=== PATIENT | female | born 1980 | race Caucasian/White ===

== ENCOUNTER 2020-04-14 14:40 | Outpatient (CLI) | payer OTHER, SELFPAY ==
--- NOTE | ~2020-04-14 | XR_ITS ---
EXAMINATION: XR hand LT 2V, XR hand RT 2V DATE: 04/14/2020 15:06 INDICATION: Arthralgia and swelling at the bilateral hands. TECHNIQUE: 1. Posteroanterior and lateral views of the left hand were obtained. 2. Posteroanterior and lateral views of the right hand were obtained. COMPARISON: None. FINDINGS: Normal alignment at the bilateral hands. No fracture. Joint spaces are normal. No erosions. Soft tiss ues are unremarkable. IMPRESSION: 1. Normal bilateral hand radiographs. Reviewed, dictated and finalized at location B. IMPRESSION: 1. Normal bilateral hand radiographs.
== END 2020-04-14 14:41 | disposition home or self-care (01) ==
PROVIDERS: PCP Emergency Medicine
DX: M25.50 Pain in unspecified joint (principal); M25.40 Effusion, unspecified joint; R76.8 Other specified abnormal immunological findings in serum
CPT/HCPCS: 73120

== ENCOUNTER 2022-01-25 12:07 | Emergency (ER) | payer OTHER, SELFPAY ==
--- NOTE | ~2022-01-25 | XR_ITS ---
EXAMINATION: XR ankle LT min 3V DATE: 01/25/2022 12:31 INDICATION: Left ankle injury and swelling. TECHNIQUE: 4 views of left ankle were obtained. COMPARISON: None. FINDINGS: Bone alignment is normal. No fracture. Joint spaces are well maintained. IMPRESSION: 1. No fracture. Reviewed, dictated and finalized at location A. IMPRESSION: 1. No fracture.
[2022-01-25 12:10] VITALS: BP 144/92; PULSE 103; RESP 18; TEMP 36.7; O2SAT 100
--- NOTE | 2022-01-25 12:31 | ED.LOWEXIN ---
HPI - Extremity Injury (Lower) General Chief Complaint: Extremity Injury, Lower Stated Complaint: left ankle pain Time Seen by Provider: 01/25/22 12:10 History of Present Illness HPI Narrative: 41-year-old female presents the emergency room for evaluation of left ankle pain. Patient states on Monday she was walking and missed a step causing her to roll her ankle. Patient noted significant amount of swelling to her ankle. Patient states for the last couple of days she is kept her ankle elevated and iced and taking anti-inflammatories. Reports waking up this morning and the pain had intensified. Related Data Home Medications Medication Instructions Recorded Confirmed No Home Medications 01/25/22 Allergies Allergy/AdvReac Type Severity Reaction Status Date / Time azithromycin Allergy Other Verified 01/25/22 12:09 Review of Systems Review of Systems: CONSTITUTIONAL: Denies fever, chills, or sweats. EYES: Denies visual changes, redness, or discharge. ENT: Denies rhinorrhea, congestion, sore throat, or otalgia. CARDIOVASCULAR: Denies chest pain, palpitations, or edema. RESPIRATORY: Denies cough or dyspnea. GASTROINTESTINAL: Denies abdominal pain, nausea, vomiting, or diarrhea. GENITOURINARY: Denies dysuria or hematuria. SKIN: Denies rash or itching. MUSCULOSKELETAL: Reports left ankle pain NEUROLOGIC: Denies headache, numbness, dizziness, or weakness. PSYCHIATRIC: Denies anxiety or depression. PMFSH Surgical History Surgical History H/O breast implant History of bilateral tubal ligation Family History Family History Father Hydrocephalus Mother Thyroid disease Social History Social History Smoking status: Never smoker Alcohol intake: current Substance use: unknown Exam Narrative: GENERAL: Well-appearing, well-nourished, no physical limitations, and in no acute distress. HEAD: Normocephalic, atraumatic. EYES: Conjunctivae normal, PERRLA and EOMI. CHEST: Clear to auscultation. No respiratory distress. No wheezes rales or rhonchi. No tenderness. HEART: Regular rate and rhythm. No murmur heard. Normal peripheral pulses. BACK: No CVA tenderness; No cervical/thoracic/lumbar tenderness, step-offs, bony abnormality; FROM EXTREMITIES: Left ankle: Tenderness to the medial and lateral malleolus with soft tissue swelling, ecchymosis present medial malleolus, no joint laxity, no obvious bony abnormality, neurovascular is intact distally SKIN: Warm, dry, no rash. No noted wounds NEURO: No focal deficits. Alert and oriented x3. MAEW. CN's II-XI intact bilaterally, antalgic gait PSYCH: Cooperative. Normal mood and affect. Course Vital Signs Vital signs: Vital Signs Temperature 36.7 C 01/25/22 12:10 Pulse Rate 103 H 01/25/22 12:10 Respiratory Rate 18 01/25/22 12:10 Blood Pressure 144/92 H 01/25/22 12:10 Pulse Oximetry 100 01/25/22 12:10 Oxygen Delivery Room Air 01/25/22 12:10 Temperature 36.7 C 01/25/22 12:10 Pulse Rate 103 H 01/25/22 12:10 Respiratory Rate 18 01/25/22 12:10 Blood Pressure 144/92 H 01/25/22 12:10 Pulse Oximetry 100 01/25/22 12:10 Oxygen Delivery Room Air 01/25/22 12:10 MDM - Extremity Injury (Lower) Imaging Data Radiologist's impression: Impressions Ankle X-Ray 01/25/22 12:44 IMPRESSION: 1. No fracture. Discharge Plan Discharge Clinical Impression: Ankle sprain Patient Disposition: Home, Self-Care Condition: Stable Instructions: Antibiotic Form Additional Instructions: Continue taking Tylenol and naproxen as needed for pain. Keep Shaheen bandage on or similar compression sleeve. Follow-up with orthopedics if your pain is not improved in the next 2 weeks. Prescriptions: No Action No Home Medications Follow-up/Referrals: Xavier
== END 2022-01-25 13:18 | disposition home or self-care (01) ==
PROVIDERS: Emergency Provider Nurse Practitioner Family; PCP Emergency Medicine
DX: S93.402A Sprain of unspecified ligament of left ankle, initial encounter (principal); X50.9XXA Other and unspecified overexertion or strenuous movements or postures, initial encounter
CPT/HCPCS: 73610; 99283

== ENCOUNTER 2022-12-23 11:10 | Emergency (ER) | payer OTHER, SELFPAY ==
--- NOTE | ~2022-12-23 | CT_ITS ---
CT of the Abdomen and Pelvis: Indication: Abdominal pain Technique: 2.5 mm axial scans were obtained through the abdomen and pelvis following intravenous adm inistration of 100 cc of Omnipaque 350. Dose reduction technique was used on this scan by utilizing a utomated exposure control and iterative reconstruction technique. The dose-length product (DLP) was 2 55.95 mGy-cm. Findings: Scans through the lung bases are unremarkable. The liver, spleen, pancreas, gallbladder, adrenals and kidneys are within normal limits. No evidence of aortic aneurysm. No lymphadenopathy. No bowel obstruction or bowel wall thickening. There is no evidence to suggest acute appendicitis. Images through the pelvis were performed. Urinary bladder unremarkable. Probable small left ovarian c yst present. Small amount of free fluid present in the pelvis. Impression: Small amount of pelvic free fluid, nonspecific. Probable small left ovarian cyst. Reviewed, dictated and finalized at [facility]. Impression: Small amount of pelvic free fluid, nonspecific. Probable small left ovarian cyst.
[2022-12-23 11:26] VITALS: BP 134/90; PULSE 88; RESP 18; TEMP 36.7; O2SAT 100
--- NOTE | 2022-12-23 12:15 | ED.GIBLEED ---
HPI - GI Bleed General Chief complaint: GI Bleed Stated complaint: Rectal bleeding Time Seen by Provider: 12/23/22 11:56 History of Present Illness HPI Narrative: 42-year-old female presented the emergency department for evaluation of bright red blood per rectum that started yesterday. Patient states that she noticed some blood when she wiped yesterday but patient has had multiple bloody stools. Patient states she has had multiple bowel movements today that also consisted of a fair amount of blood. Patient took a photo and did show some bright red blood in the bowl. Patient also does describe some left lower quadrant pain. Patient is in process to follow-up with Dr. Apodaca for an initial colonoscopy. Patient is still waiting on her insurance to authorize it, she has not yet scheduled. Patient was having this because she was found to have low iron and elevated MARTITA. Related Data Home Medications Medication Instructions Recorded Confirmed No Home Medications 01/25/22 Allergies Allergy/AdvReac Type Severity Reaction Status Date / Time azithromycin Allergy Other Verified 01/25/22 12:09 Review of Systems Review of Systems: All systems reviewed & are unremarkable except as noted in HPI and below PMFSH Surgical History Surgical History H/O breast implant History of bilateral tubal ligation Family History Family History Father Hydrocephalus Mother Thyroid disease Social History Social History Smoking status: Never smoker Alcohol intake: current Substance use: unknown Exam Narrative: APPEARANCE: Well appearing, no pain, no distress, well-nourished. HEAD: normocephalic, atraumatic. EYES: PERRLA/EOMI, conjunctivae clear. NOSE: Normal no drainage NECK: Supple. No adenopathy, no masses. RESPIRATORY: Airway patent, respirations nonlabored. Clear to auscultation bilaterally, no rales, rhonchi, wheezing. CARDIOVASCULAR: Regular rate and rhythm without murmurs rubs or gallops. ABDOMINAL: Soft, left lower quadrant tenderness to palpation Rectal: No hemorrhoids, Hemoccult positive with small amount of blood on the glove, no active hemorrhage MUSCULOSKELETAL: Moves all extremities. Strength/ROM intact, No edema, No calf tenderness. NEURO: Alert. Cranial nerves II through XII intact. Good gait. Good coordination SKIN: Warm, dry. Normal Color Course Course Emergency Course: 42-year-old female presented to the emergency department for evaluation of left lower quadrant pain. Patient was Hemoccult positive is no active hemorrhage. Baseline labs are being ordered and CT scan is being ordered to evaluate for diverticulitis. On reevaluation patient has no complaints. Patient is afebrile with no leukocytosis and hemoglobin of 12.8. Patient's CMP has no significant abnormalities. Patient's test was negative. Patient has no further bleeding in the ED. Patient does have a colonoscopy that is in process for outpatient. Patient was offered admission for colonoscopy but patient does feel comfortable waiting and for outpatient. Patient and family were updated on the reasons to return to the emergency department. All questions and concerns were addressed. Vital Signs Vital signs: Vital Signs Temperature 98.1 F 12/23/22 11:26 Pulse Rate 88 12/23/22 11:26 Respiratory Rate 18 12/23/22 11:26 Blood Pressure 134/90 12/23/22 11:26 Pulse Oximetry 100 12/23/22 11:26 Oxygen Delivery Room Air 12/23/22 11:26 Temperature 98.1 F 12/23/22 11:26 Pulse Rate 74 12/23/22 14:17 Respiratory Rate 16 12/23/22 14:17 Blood Pressure 111/84 12/23/22 14:17 Pulse Oximetry 99 12/23/22 14:17 Oxygen Delivery Room Air 12/23/22 11:26 MDM - GI Bleed Differential Diagnosis Differential diagnosis: Likely hemorrhoids, Lo
[2022-12-23 12:35] LABS: Basophils Absolute Auto 0.1 K/mm3 (0.0-0.1); Basophils Percent Auto 0.7 % (0.2-1.2); Eosinophils Percent Auto 0.4 % (0-4.4); Hematocrit 39.1 % (37.0-47.0); Hemoglobin 12.8 g/dL (12.0-15.0); Immature Granulocyte Absolute 0.03 K/mm3 (0.00-0.031); Immature Granulocyte Percent A 0.4 % (0-0.5); Lymphocytes Absolute Auto 1.32 K/mm3 (0.9-3.2); Lymphocytes Percent Auto 18.6 % (18.3-44.2); Mean Corpuscular HGB Conc 32.7 g/dl (32-36); Mean Corpuscular Volume 91.8 fl (80-100); Monocytes Absolute Auto 0.6 K/mm3 (0.1-0.6); Monocytes Percent Auto 8.6 % (2.6-8.5); Neutrophils Absolute Auto 5.1 K/mm3 (1.3-6.7); Neutrophils Percent Auto 71.3 % (45.5-73.1); Platelet Count Result 269 k/mm3 (150-375); Red Blood Count 4.26 M/mm3 (4.2-5.4); Red Cell Distribution Width 13.1 % (11.5-14.5); White Blood Count 7.1 K/mm3 (4.5-10.0)
[2022-12-23 12:44] LABS: Alanine Aminotransferase 18 U/L (6-35); Albumin Level 4.4 g/dL (3.5-5.1); Alkaline Phosphatase 52 U/L (38-126); Anion Gap 7 mmol/L (8-16); Aspartate Amino Transferase 23 U/L (14-36); Bilirubin,Total 0.5 mg/dL (0.2-1.3); Blood Urea Nitrogen 11 mg/dL (7-17); Calcium 9.2 mg/dL (8.4-10.2); Carbon Dioxide 27 mmol/L (22-30); Chloride 104 mmol/L (98-107); Estimated CRCL calculation 82 ml/min; Estimated Glomerular Filt Rate > 60; Glucose 89 mg/dL (65-110); Potassium 4.1 mmol/L (3.4-5.0); Sodium 138 mmol/L (137-145)
[2022-12-23 12:45] LABS: Prothrombin Time 13.6 Seconds (11.1-14.7)
[2022-12-23 12:46] LABS: Partial Thromboplastin Time 25.7 SECONDS (22.3-36.8)
[2022-12-23 13:40] LABS: Pregnancy On Board Control Positive; Urine Pregnancy Test Negative
[2022-12-23 14:17] VITALS: BP 111/84; PULSE 74; RESP 16; O2SAT 99
== END 2022-12-23 14:19 | disposition home or self-care (01) ==
PROVIDERS: Emergency Provider Emergency Medicine; PCP Emergency Medicine
DX: K62.5 Hemorrhage of anus and rectum (principal)
CPT/HCPCS: 36415; 74177; 80053; 81025; 85025; 85610; 85730; 99284; Q9967

== ENCOUNTER 2023-01-18 11:10 | Outpatient (CLI) | payer OTHER, SELFPAY ==
[2023-01-18 11:47] LABS: Hematocrit 34.1 % (37.0-47.0); Hemoglobin 10.9 g/dL (12.0-15.0); Mean Corpuscular Hemoglobin 28.5 pg (26-34); Mean Corpuscular Volume 89.3 fl (80-100); Mean Platelet Volume 10.1 fl (7.4-10.4); Platelet Count Result 294 k/mm3 (150-375); Red Blood Count 3.82 M/mm3 (4.2-5.4); Red Cell Distribution Width 12.6 % (11.5-14.5); White Blood Count 6.5 K/mm3 (4.5-10.0)
[2023-01-18 12:09] LABS: CRP < 0.5 mg/dL (<1.0)
[2023-01-18 12:36] LABS: Erythrocyte Sedimentation Rate 19 mm/hr (0-20)
[2023-01-18 13:01] LABS: Iron 30 ug/dL (37-170)
[2023-01-18 13:10] LABS: Percent Iron Saturation 6 % (20-50)
[2023-01-23 11:43] LABS: Immunoglobulin A 239 mg/dL (47-310); TTG IGA AB <1.0 U/mL (<15.0)
== END 2023-01-18 11:11 | disposition home or self-care (01) ==
PROVIDERS: PCP Emergency Medicine; Visit Provider Nurse Practitioner
DX: D50.9 Iron deficiency anemia, unspecified (principal); K92.1 Melena; R09.89 Other specified symptoms and signs involving the circulatory and respiratory systems; R13.10 Dysphagia, unspecified; R19.7 Diarrhea, unspecified
CPT/HCPCS: 36415; 82728; 82784; 83540; 83550; 85027; 85652; 86140; 86364

== ENCOUNTER 2023-01-20 11:05 | Outpatient (NON) | payer OTHER, SELFPAY ==
[2023-01-28 21:02] LABS: Calprotectin, Stool 20 mcg/g
== END 2023-01-20 11:06 | disposition home or self-care (01) ==
PROVIDERS: PCP Emergency Medicine; Visit Provider Nurse Practitioner
DX: D50.9 Iron deficiency anemia, unspecified (principal); K92.1 Melena; R09.89 Other specified symptoms and signs involving the circulatory and respiratory systems; R13.10 Dysphagia, unspecified; R19.7 Diarrhea, unspecified
CPT/HCPCS: 83993; 87045; 87177; 87209; 87269; 87427; 87449

== ENCOUNTER → 2023-03-07 12:24 | Outpatient (CLI) | payer OTHER, SELFPAY ==
--- NOTE | ~2023-03-07 | MM_ITS ---
CORRECTED REPORT exam description [facility] [place] 03/07/23 This report was recreated on 03/07/23. Original report was EXAMINATION: MM scrn joel implant BI w alma delia HISTORY: Screening TECHNIQUE: Craniocaudal and mediolateral oblique 3-D tomosynthesis images were obtained and synthetic 2-D images were generated. CAD analysis was submitted and interpreted. COMPARISON: No prior mammogram is available for comparison at this institution. BREAST PARENCHYMAL COMPOSITION: There are scattered areas of fibroglandular density. FINDINGS: There are bilateral subglandular silicone implants. There is no evidence of suspicious mass, calcification, or architectural distortion to suggest malignancy in either breast. There has been no suspicious interval change. IMPRESSION: 1. No mammographic evidence of malignancy. 2. Recommend routine screening mammography in one year. BI-RADS Category 1: Negative Reviewed, dictated and finalized at location A. MTDD
== END ==
PROVIDERS: PCP Obstetrics & Gynecology; Visit Provider Obstetrics & Gynecology
DX: Z12.31 Encounter for screening mammogram for malignant neoplasm of breast (principal)
CPT/HCPCS: 77063; 77067

== ENCOUNTER 2023-03-15 01:00 | Day surgery (SDC) | payer OTHER, SELFPAY ==
[2023-03-06 13:48] VITALS: BMI 24.5
[2023-03-15 06:28] VITALS: BP 110/84; PULSE 82; RESP 16; TEMP 36.3; O2SAT 100
[2023-03-15] MEDS: LACTATED RINGERS 1,000 ML 150 ML IV CONT (06:35)
--- NOTE | 2023-03-15 07:24 | P.PNAN_ITS ---
Anes - Initial Pre Proc Eval Procedure: Operation Date: 03/15/23 07:30 Proposed Procedures p Esophagogastroduodenoscopy & Colonoscopy - Sebastien Sharp MD Date/Time: 03/15/23 07:24 Surgeon: Sebastien Sharp MD Pre Op Diagnosis: dysphagia,diarrhea,melena,Iron Deficiency Anemia Patient Data Age: 42 Gender: F Height: 1.57 m Weight: 61 kg Last Vital Signs Temp 97.4 F L 03/15/23 06:28 Pulse 82 03/15/23 06:28 Resp 16 03/15/23 06:28 BP 110/84 03/15/23 06:28 Pulse Ox 100 03/15/23 06:28 O2 Del Method Room Air 03/15/23 06:28 Allergies Allergy/AdvReac Type Severity Reaction Status Date / Time azithromycin Allergy Other Verified 03/15/23 06:24 Home Medications Medication Instructions Recorded Confirmed Type ferrous sulfate 325 mg (65 mg 325 mg PO BID #60 tabs 01/18/23 03/15/23 Rx iron) tablet multivitamin with minerals-folic 1 tablet PO DAILY 03/06/23 03/15/23 History acid 0.4 mg tablet Patient hx anesthesia problems: none Family hx anesthesia problems: none Results Review: All pre-operative results and documents have been reviewed as part of the pre- operative evaluation. [facility] Past Medical History Medical History (Updated 01/18/23 @ 12:12 by Jihan Rogers APRN) Anxiety Diarrhea Dysphagia GI bleed Globus syndrome Hematochezia Iron deficiency anemia Surgical History Surgical History H/O breast implant History of bilateral tubal ligation Hx of breast augmentation Hx of tubal ligation Family History Family History Father Hydrocephalus Mother Thyroid disease Social History Social History (Updated 01/18/23 @ 10:07 by Archana Cavazos CMA) Smoking status: Former smoker Tobacco type: cigarettes and e-cigarettes/vaping Alcohol intake: current Alcohol use details: social Substance use: never Substance use type: does not use Living arrangements: with family Spiritual care concerns: No Anes - Eval Final PreProcedure Day of Procedure 03/15/23 07:24 Patient weight: normal Heart: regular rate and rhythm Lungs: clear to auscultation Airway: Mallampati scale class II Neurological: alert and oriented Last oral intake: >/= 8 hours ASA classification: II Emergent: no Anesthetic plan: proceed Anesthesia type and monitoring: general GIVS and standard monitoring Results Review: All pre-operative results and documents have been reviewed as part of the pre- operative evaluation. Informed Consent: The patient's anesthetic plan and its attendant risks and benefits were discussed with the patient/family/POA. Questions were solicited and answers provided to the satisfaction of the patient/family/POA.
--- NOTE | 2023-03-15 07:26 | PM.HPGS ---
History of Present Illness History of Present Illness Consent: Risks, benefits, and alternatives have been discussed and questions answered. Patient agrees to proceed with procedure. Chief complaint: dysphagia,diarrhea,melena,Iron Deficiency Anemia Narrative: Hali Samuels is a 42 year old female with shiv, never had scopes, several weeks ago had also rectal bleeding. Review of Systems Constitutional: Constitutional: Denies headache(s) and Denies weakness Eyes: Eyes: Denies blurry vision ENT: Reports Normal hearing present, Denies headache(s) and Denies neck pain Cardiovascular: Cardiovascular: Denies chest pain and Denies dyspnea Respiratory: Respiratory: Denies dyspnea Gastrointestinal: Gastrointestinal: Reports no additional gastrointestinal complaints Genitourinary: Genitourinary: Denies dysuria Musculoskeletal: Musculoskeletal: Denies neck pain Integumentary/Breasts: Skin/Breast: Denies dry skin Neurologic: Reports Normal hearing present, Denies headache(s) and Denies weakness Psychiatric: Psychiatric: Denies anxiety Endocrine: Endocrine: Denies change in body appearance Hematologic/Lymphatic: Hematologic/Lymphatic: Denies easy bleeding Allergic/Immunologic: Allergic/Immunologic: Denies urticaria PMFSH Past Medical History Medical History (Updated 01/18/23 @ 12:12 by Jihan Rogers APRN) Anxiety Diarrhea Dysphagia GI bleed Globus syndrome Hematochezia Iron deficiency anemia Surgical History Surgical History H/O breast implant History of bilateral tubal ligation Hx of breast augmentation Hx of tubal ligation Family History Family History Father Hydrocephalus Mother Thyroid disease Social History Social History (Updated 01/18/23 @ 10:07 by Archana Cavazos CMA) Smoking status: Former smoker Tobacco type: cigarettes and e-cigarettes/vaping Alcohol intake: current Alcohol use details: social Substance use: never Substance use type: does not use Living arrangements: with family Spiritual care concerns: No Meds Home Medications and Allergies Home Medications Medication Instructions Recorded Confirmed Type ferrous sulfate 325 mg (65 mg 325 mg PO BID #60 tabs 01/18/23 03/15/23 Rx iron) tablet multivitamin with minerals-folic 1 tablet PO DAILY 09/18/23 09/27/23 History acid 0.4 mg tablet Allergies Allergy/AdvReac Type Severity Reaction Status Date / Time azithromycin Allergy Other Verified 03/15/23 06:24 Vital Signs Vital Signs - 24 hr 03/15/23 06:28 Temperature 97.4 F L Pulse Rate 82 Respiratory Rate 16 Blood Pressure 110/84 Pulse Oximetry 100 Oxygen Delivery Room Air Exam Const: General: comfortable and no acute distress HENMT: Face/Nose/Sinus: Normal nares present Eyes: General: appearance normal, both eyes and all related structures Neck: Neck: no JVD Resp: Auscultation: clear to auscultation bilaterally Cardio: Rate: regular rate Rhythm: regular rhythm GI: Inspection: non-distended GI Palp: Yes Soft to palpation Skin: General skin exam: normal color Neuro: General: gait normal Speech: normal speech Extrem: General: normal to inspection Psych: Mental Status: mental status grossly normal Assessment and Plan Assessment and plan (1) Hematochezia: Code(s): K92.1 - Melena Status: Acute Assessment and Plan: colonoscopy (2) Iron deficiency anemia: Code(s): D50.9 - Iron deficiency anemia, unspecified Status: Acute Assessment and Plan: egd and colonoscopy (3) Globus syndrome: Code(s): R09.89 - Other specified symptoms and signs involving the circulatory and respiratory systems Status: Acute
[2023-03-15] MEDS: BENZOCAINE (*SP) 60 ML SPRAY CAN (HURRICAINE) 1 SPRAY MUCOUS MEM (07:32)
[2023-03-15 08:02] VITALS: BP 97/67; PULSE 101; RESP 28; O2SAT 100
[2023-03-15 08:12] VITALS: BP 115/74; PULSE 80; RESP 18; O2SAT 100
--- NOTE | 2023-03-15 08:19 | SUR.OPER ---
EGD START 733, END 736 COLONOSCOPY START 741, END 075
[2023-03-15 08:22] VITALS: BP 116/78; PULSE 80; RESP 18; O2SAT 100
== END 2023-03-15 08:30 | disposition home or self-care (01) ==
PROVIDERS: PCP Emergency Medicine; Visit Provider Internal Medicine Gastroenterology
PROC: 0DJ08ZZ Inspection of Upper Intestinal Tract, Via Natural or Artificial Opening Endoscopic (ICD-10-PCS; CPT 43235; principal; 2023-03-15 07:30)
DX: Z12.11 Encounter for screening for malignant neoplasm of colon (principal); D12.0 Benign neoplasm of cecum; D12.4 Benign neoplasm of descending colon; D12.5 Benign neoplasm of sigmoid colon; K64.8 Other hemorrhoids; D50.9 Iron deficiency anemia, unspecified; Z87.891 Personal history of nicotine dependence
CPT/HCPCS: 45385; 45381; 43239; 88305; J2001; J2704; J7120

== ENCOUNTER 2024-04-16 11:47 | Outpatient (CLI) | payer OTHER, SELFPAY ==
--- NOTE | ~2024-04-16 | MM_ITS ---
EXAMINATION: MM scrn joel implant BI w alma delia HISTORY: Screening mammogram TECHNIQUE: Craniocaudal and mediolateral oblique 3-D tomosynthesis images with implant displacement a nd synthetic 2-D images were generated. Craniocaudal and mediolateral oblique views of the breasts wi thout implant displacement were obtained using full field digital mammography. CAD analysis was submi tted and interpreted. COMPARISON: 03/07/2023 BREAST PARENCHYMAL COMPOSITION: The breasts are heterogeneously dense, which may obscure small masses . FINDINGS: There is no evidence of suspicious mass, calcification, or architectural distortion to sugg est malignancy in either breast. There has been no suspicious interval change. IMPRESSION: No mammographic evidence of malignancy. Recommend routine screening mammography in one year. BI-RADS Category 1: Negative Reviewed, dictated and finalized at [facility].
== END 2024-04-16 11:48 | disposition home or self-care (01) ==
LOC: MICIMG 11:48
PROVIDERS: PCP Emergency Medicine; Visit Provider Obstetrics & Gynecology
DX: Z12.31 Encounter for screening mammogram for malignant neoplasm of breast (principal)
CPT/HCPCS: 77063; 77067

== ENCOUNTER 2024-05-24 10:35 | Outpatient (CLI) | payer OTHER, SELFPAY ==
--- NOTE | ~2024-05-24 | US_ITS ---
EXAMINATION:US venous doppler LE RT INDICATION:Right lower extremity pain TECHNIQUE: Multiple grayscale, color flow and Doppler images of the right lower extremity deep venous systems were obtained and reviewed. COMPARISON:No prior studies for comparison. FINDINGS: The common femoral, superficial femoral and popliteal veins demonstrate normal respiratory variation, augmentation and compressibility. Color flow is also seen within the posterior tibial, pe roneal, greater saphenous and profunda veins. IMPRESSION: 1: No lower extremity deep venous thrombosis. Reviewed, dictated and finalized at location B. DYNAMICS PROFESSOR
== END 2024-05-24 10:36 | disposition home or self-care (01) ==
PROVIDERS: PCP Emergency Medicine; Visit Provider Emergency Medicine
DX: M79.661 Pain in right lower leg (principal)
CPT/HCPCS: 93971

== ENCOUNTER 2024-06-10 00:55 | Day surgery (SDC) | payer OTHER, SELFPAY ==
[2024-05-30 14:09] VITALS: BMI 23.4
[2024-06-10 08:51] VITALS: BP 109/79; PULSE 88; RESP 16; TEMP 36; O2SAT 100
[2024-06-10 08:59] LABS: BEDSIDEPREGUCG Negative (Negative)
[2024-06-10] MEDS: LACTATED RINGERS 1,000 ML 150 ML IV CONT (09:06)
--- NOTE | 2024-06-10 09:45 | P.PNAN_ITS ---
Anes - Initial Pre Proc Eval Procedure: Operation Date: 06/10/24 10:00 Proposed Procedures p Colonoscopy - Sebastien Sharp MD Date/Time: 06/10/24 09:45 Surgeon: Sebastien Sharp MD Pre Op Diagnosis: Personal Hx. colon polyps Patient Data Age: 43 Gender: F Height: 1.6 m Weight: 60.4 kg Last Vital Signs Temp 96.8 F L 06/10/24 08:51 Pulse 88 06/10/24 08:51 Resp 16 06/10/24 08:51 BP 109/79 06/10/24 08:51 Pulse Ox 100 06/10/24 08:51 O2 Del Method Room Air 06/10/24 08:51 Allergies Allergy/AdvReac Type Severity Reaction Status Date / Time azithromycin Allergy Other Verified 06/10/24 08:48 Home Medications ?Medication ?Instructions ?Recorded ?Confirmed ?Type ferrous sulfate 325 mg (65 mg 325 mg PO BID #60 tabs 01/18/23 06/10/24 Rx iron) tablet multivitamin with minerals-folic 1 tablet PO DAILY 03/06/23 06/10/24 History acid 0.4 mg tablet Laboratory Tests 06/10/24 08:56 POC Urine HCG, Qual Negative (Negative) Patient hx anesthesia problems: none Family hx anesthesia problems: none Results Review: All pre-operative results and documents have been reviewed as part of the pre- operative evaluation. [facility] Past Medical History Medical History GI bleed Dysphagia Globus syndrome Diarrhea Hematochezia Iron deficiency anemia Anxiety Surgical History Surgical History Hx of tubal ligation Hx of breast augmentation H/O breast implant History of bilateral tubal ligation Family History Family History Father Hydrocephalus Mother Thyroid disease Social History Social History Smoking status: Never smoker Tobacco type: e-cigarettes/vaping Alcohol intake: current Alcohol use details: social Substance use: never Substance use type: does not use Living arrangements: with family Spiritual care concerns: No Anes - Eval Final PreProcedure Day of Procedure 06/10/24 09:45 Patient weight: normal Heart: regular rate and rhythm Lungs: clear to auscultation Airway: Mallampati scale class II Neurological: alert and oriented Last oral intake: >/= 8 hours ASA classification: II Emergent: no Anesthetic plan: proceed Anesthesia type and monitoring: general GIVS and standard monitoring Results Review: All pre-operative results and documents have been reviewed as part of the pre- operative evaluation. Hx of anemia, now for reeval. Informed Consent: The patient's anesthetic plan and its attendant risks and benefits were discussed with the patient/family/POA. Questions were solicited and answers provided to the satisfaction of the patient/family/POA.
--- NOTE | 2024-06-10 09:55 | PM.HPGS ---
History of Present Illness History of Present Illness Consent: Risks, benefits, and alternatives have been discussed and questions answered. Patient agrees to proceed with procedure. Chief complaint: Personal Hx. colon polyps Narrative: Hali Samuels is a 43 year old female with colon polyp 1 year ago Review of Systems Review of Systems: All systems reviewed & are unremarkable except as noted in HPI and below PMFSH Past Medical History Medical History (Updated 06/10/24 @ 09:56 by Sebastien Sharp MD) Adenomatous colon polyp GI bleed Dysphagia Globus syndrome Diarrhea Hematochezia Iron deficiency anemia Anxiety Surgical History Surgical History Hx of tubal ligation Hx of breast augmentation H/O breast implant History of bilateral tubal ligation Family History Family History Father Hydrocephalus Mother Thyroid disease Social History Social History Smoking status: Never smoker Tobacco type: e-cigarettes/vaping Alcohol intake: current Alcohol use details: social Substance use: never Substance use type: does not use Living arrangements: with family Spiritual care concerns: No Meds Home Medications and Allergies Home Medications ?Medication ?Instructions ?Recorded ?Confirmed ?Type ferrous sulfate 325 mg (65 mg 325 mg PO BID #60 tabs 01/18/23 06/10/24 Rx iron) tablet multivitamin with minerals-folic 1 tablet PO DAILY 03/06/23 06/10/24 History acid 0.4 mg tablet Allergies Allergy/AdvReac Type Severity Reaction Status Date / Time azithromycin Allergy Other Verified 06/10/24 08:48 Vital Signs Vital Signs - 24 hr 06/10/24 08:51 Temperature 96.8 F L Pulse Rate 88 Respiratory Rate 16 Blood Pressure 109/79 Pulse Oximetry 100 Oxygen Delivery Room Air Exam Const: General: comfortable and no acute distress HENMT: Face/Nose/Sinus: Normal nares present Eyes: General: appearance normal, both eyes and all related structures Neck: Neck: no JVD Resp: Auscultation: clear to auscultation bilaterally Cardio: Rate: regular rate Rhythm: regular rhythm GI: Inspection: non-distended GI Palp: Yes Soft to palpation Skin: General skin exam: normal color Neuro: General: gait normal Speech: normal speech Extrem: General: normal to inspection Psych: Mental Status: mental status grossly normal Assessment and Plan Assessment and plan (1) Adenomatous colon polyp: Code(s): D12.6 - Benign neoplasm of colon, unspecified Status: Acute Assessment and Plan: colonoscopy
[2024-06-10 10:15] VITALS: BP 93/60; PULSE 78; RESP 18; O2SAT 98
[2024-06-10 10:25] VITALS: BP 91/58; PULSE 67; RESP 18; O2SAT 95
[2024-06-10 10:35] VITALS: BP 111/75; PULSE 70; RESP 18; O2SAT 98
--- OUTSIDE RECORDS SUMMARY | 2024-06-17 03:36 | XMS_ITS | Clinical Summary ---
Author Organization [facility] Address [address] [place] [address]. [place], [place] [id number] [place] [address] Care Team Providers Care Digital Advisor Name Role Phone Rom Vidales MD Primary Care Provider [phone] Social History Tobacco Use Types Packs/Day Years Used Date Smoking Tobacco: Never Assessed Comments Unknown Sex and Gender Information Value Date Recorded Sex Assigned at Not on file Legal Sex Female 5:19 PM CDT Gender Identity Not on file Sexual Orientation Not on file Plan of Treatment Health Maintenance Due Date Last Done Comments Cervical Cancer Screening Pa p Smear (Age 30 to 64) Every 3 Years 1980 Annual Physical 09/03/1983 Hepatitis C 1998 DTaP, Tdap and Td Vaccines ( 1 - Tdap) 09/03/1999 Hepatitis B Vaccines (1 of 3 - 19+ 3-dose series) 09/03/1999 Cervical Cancer Screening Pa p with HPV Testing (Age 30 to 64) Every 5 Years 2010 Cervical Cancer Screening with HPV 2010 Mammogram Screening 2020 COVID-19 Vaccine (2023-2 5 season) 2024 Influenza Adult (#1) 2024 HPV Vaccines Aged Out No longer eligi ble based on patient's age to complete this topic Meningococcal Vaccine Aged Out No emre jesus eligible based on patient's age to complete this topic Pneumococcal Vaccine: Pediat rics (0 to 5 Years) and At-Risk Patients (6 to 64 Years) Aged Out No longer eligible b ased on patient's age to complete this topic RSV Immunizations Under 20 Months Aged Out No longer eligible based on patient's age to complete this topic Care Teams Digital Advisor Relationship Specialty Start Date End Date Rom Vidales MD PCP - General FAMILY PRACTICE 03/24/21
--- OUTSIDE RECORDS SUMMARY | 2024-06-17 03:36 | XMS_ITS | Encounter Summary ---
Author Organization [facility] Address [address] [place] [address] Care Team Providers Care Director Name Role Phone Rom Vidales MD Primary Care Provider [phone] Reason for Visit * Reason Comments Infertility Encounter Details Date Type Department Care Team (Late st Contact Info) Description 03/23/2020 9:00 AM CDT Office Visit [facility] Obstetrics Gynecology and Women's Health [address] [id number] Portillo Vazquez MD [address] [facility] [address] [place] [address] History of tubal ligation (Primary Dx); History of loop electrical excision procedure (LEEP); BMI 24.0-24.9, adult; Antinuclear antibody (MARTITA) titer greater than 1:80; History of recurrent UTIs; Fertility testing; Pre-conception counseling Social History Tobacco Use Types Packs/Day Years Used Date Smoking Tobacco: Former Cigarettes Smokeless Tobacco: Never Alcohol Use Standard Drinks/Week Comments Yes 0 (1 standard drink = 0.6 oz pur e alcohol) Sex and Gender Information Value Date Recorded Sex Assigned at Not on file Gender Identity Not on file Sexual Orientation Not on file documented as of this encounter Last Filed Vital Signs Vital Sign Reading Time Taken Comments Blood Pressure 116/74 03/23/2020 9:14 AM CDT Pulse - - Temperature - - Respiratory Rate - - Oxygen Saturation - - Inhaled Oxygen Concentration - - Weight 62.1 kg (137 lb) 03/23/2020 9:14 AM CDT Height 157.5 cm (5' 2 ) 03/23/2020 9:14 AM CDT Body Mass Index 25.06 03/23/2020 9:14 AM CDT documented in this encounter Patient Instructions * Patient Instructions* Portillo Vazquez MD - 03/23/2020 9:37 AM CDT Get your AMH and we will discuss options after that. Jamel get semen analysis at [facility] Active Directory Systems Administrator [phone] Call Jesenia Chiang at [phone] at the start of your menses to schedule your procedure. Semen Analysis Instructions 1. By appointment only, times are Monday through Monday 9AM, 10AM, 11AM, 12 Noon, or 1PM. Call , to make an appointment. On the day and time of your appointment, please go to the 3rd floor, [address], [address] [place] [address]. 2. Please collect a semen specimen following 2-5 days of sexual abstinence (no intercourse, no masturbation, etc). 3. If needed, urinate prior to collecting your specimen. Clean the genital area well (including retracting the foreskin) with water only. 4. Do not use any lubricants (no baby oil, Vaseline, cream, etc) to aid in specimen collection. These may be spermicidal. 5. Do not use vaginal or oral stimulation for collection unless you are collecting using a Seminal Collection Device (condom) as described below. 6. Collect the entire specimen in the sterile container provided by the laboratory. Expect between 1/2 to 1 teaspoon of fluid. 7. Please report if there is any spillage; describe which portion. (IMPORTANT!) We need the full sample for analysis. 8. If the specimen is not produced by masturbation, a condom especially manufactured for this purpose must be used and can be obtained from our laboratory. Please don't use any other condoms for collection. 9. If the specimen is produced at home, please deliver it to laboratory within 1 hour of production. Please picking belt operator a sterile container from the doctor's office prior to collection. Try to keep the specimen near body temperature and maintain in an upright position (e.g. Inside a shirt pocket). 10. Label container and lid with your name, date of , and the date. The quality of semen varies, therefore it may be necessary to repeat this test. Please contact the laboratory at with any questions. Results are sent to the physician ordering the test. Our fax number is . The cost of the test is $144; please call to verify insurance benefits prior to the appointment. documented in this encounter Progress Notes * Portillo Vazquez MD - 03/23/2020 9:16 AM CDT REPRODUCTIVE ENDOCRINOLOGY AND INFERTILITY VISIT Patient Name:Hali Samuels Date of :1980 Today's Date:03/23/2020 HPI Hali Samuels is a 39 year old here wanting to conceive after tubal ligation, which wasperformed in 2011. The operative report is not available but she states about 1.5 cm of tube was removed on PPD# 1 The pathology Report is not available The procedure was performed with what sounds like sutures, no cautery In vitro fertilization has not been discussed with patient yet Hali prior to her visit today. Her partner has not fathered children in the past. He has not had a recent semen analysis. History of PID?no Menses are described as clockwork OB HISTORY OB History Para Term AB Living 7 6 6 1 6 SAB TAB Ectopic Multiple Live Births 1 # Outcome Date GA Lbr Guero/2nd Weight Sex Delivery Anes PTL Lv 7 SAB 6 Term 5 Term 4 Term 3 Term 2 Term 1 Term ROS Constitutional: Negative Eyes: Negative Ears, nose, mouth, throat, and face: Negative Respiratory: Negative Cardiovascular: Negative Gastrointestinal: Negative Genitourinary:Negative Integument/breast: Negative Hematologic/lymphatic: Negative Musculoskeletal: Negative Neurological: Negative Behavioral/Psych: Negative Endocrine: Negative Allergic/mmunologic: Negative ALLERGIES No Known Allergies MEDICATIONS Current Outpatient Medications Medication Sig Dispense Refill ??? Multiple Vitamins-Minerals (ONE-A-DAY WOMENS PO) Take 1 tablet by mouth once daily No current facility-administered medications for this visit. PAST MEDICAL HISTORY Past Medical History: Diagnosis Date ??? H/O bladder infections PAST SURGICAL HISTORY Past Surgical History: Procedure Laterality Date ??? Breast Surgery 2007 ??? Cervical LEEP ??? TUBAL LIGATION, VAGINAL OR ABDOMINAL 2012 FAMILY HISTORY Family History Problem Relation Name Age of Onset ??? Thyroid Disease Mother SOCIAL HISTORY Social History Socioeconomic History ??? Marital status: Spouse name: Not on file ??? Number of children: Not on file ??? Years of education: Not on file ??? Highest education level: Not on file Occupational History ??? Occupation: Works in [employer] Social Needs ??? Financial resource strain: Not on file ??? Food insecurity Worry: Not on file Inability: Not on file ??? Transportation needs Medical: Not on file Non-medical: Not on file Tobacco Use ??? Smoking status: Former Smoker Types: Cigarettes ??? Smokeless tobacco: Never Used Substance and Sexual Activity ??? Alcohol use: Yes ??? Drug use: Never ??? Sexual activity: Yes Partners: Male Lifestyle ??? Physical activity Days per week: Not on file Minutes per session: Not on file ??? Stress: Not on file Relationships ??? Social connections Talks on phone: Not on file Gets together: Not on file Attends tenriism service: Not on file Active member of club or organization: Not on file Attends meetings of clubs or organizations: Not on file Relationship status: Not on file ??? Intimate partner violence Fear of current or ex partner: Not on file Emotionally abused: Not on file Physically abused: Not on file Forced sexual activity: Not on file Other Topics Concern ??? Not on file Social History Narrative ??? Not on file PHYSICAL EXAMINATION Vitals: 03/23/20 0914 BP: 116/74 Weight: 137 lb Height: 5' [address] Coleman Up to date. ASSESSMENT AND PLAN: History of tubal ligation - Plan: OBG Surgery Scheduling Order History of loop electrical excision procedure (LEEP) BMI 24.0-24.9, adult Antinuclear antibody (MARTITA) titer greater than 1:80 History of recurrent UTIs Fertility testing Pre-conception counseling - Plan: ANTI-MULLERIAN HORMONE FEMALE Hali was thoroughly counseled with the pros and cons for each option: surgical tubal reversal and in vitro fertilization. The patient was instructed how the steps for a tubal reversal would be performed. The risks of bleeding, infection, trauma and other unforeseen complications were discussed. The patient understands that there is no guarantee that the procedure will be successful, and that hertubes may scar down despite our best efforts. She understands that she is at an increased risk of ectopic as well. She is also aware that she will need contraception in the future. Hali also understands that in vitro fertilization is an option. We discussed the steps with IVF aswell as the risks. She understands that she will no longer need contraception after IVF, like she will with tubal reversal. She understands that this is a [facility] and that I am unable to perform IVF at this institution. She was instructed that the procedure would be performed during the week following her menses. Hali's partner needs a semen analysis. AMH and FSH levels discussed with patient. Will need an AMH Hali will consider the options and call us back with her decision of tubal reversal vs IVF. I spent 35 minutes face to face with this patient, with greater than 50% of the time spent in counseling and/or coordination of care. documented in this encounter Plan of Treatment Not on file documented as of this encounter Procedures Procedure Name Priority Date/Time Associated Diagnosis Comments URIC ACID BLOOD 04/10/2020 2:07 PM CDT HLA TYPING B27 04/10/2020 2:07 PM CDT ANTI-MULLERIAN HORMONE FEMALE Routine 03/23/2020 9:53 AM CDT Pre-conception counseling documented in this encounter Results * HLA TYPING B27 (04/10/2020 2:07 PM CDT) HLA-B27 Negative [facility] INSURANCE BILL Comment: HLA-B*27 Negative B27 allele interpretation for all loci based on IMGT/HLA database version 3.38 This test was developed and its performance characteristics determined by [facility]. ??It has not been cleared or approved by the Food and Drug Administration. HLA Lab CLIA ID Number [id number] ? . This test was performed using PCR (Polymerase Chain Reaction)/SSOP (Sequence Specific Oligonucleotide Probes) technique. ??SBT (Sequence Based Typing) and/or SSP (Sequence Specific Primers) may be used as supplemental methods when necessary. ??Please contact [facility] Customer Service at if you have any questions. ? . Director of HLA Laboratory Dr Jordi Sorto, PhD 04/10/2020 2:07 PM CDT 04/10/2020 Narrative Resulting Agency Comment Lab Testing performed at: [place] [id number] [facility] ??[facility] [id number] Elayne Cox MD LAB - CHEMISTRY ORDERABLES Performing Organization Address City/[facility] Co de Phone Number [employer] INSURANCE BILL [address] [place] [address] * URIC ACID BLOOD (04/10/2020 2:07 PM CDT) Pathologist [facility] Uric Acid 4.3 2.5 - 7.1 mg/dL [employer] INSURANCE BILL Comment:Therapeutic target f or gout patients: <6.0 04/10/2020 2:07 PM CDT 04/10/2020 Narrative Resulting Agency Comment Lab Testing performed at: [facility] [address] [facility] ??[facility] [id number] Elayne Cox MD LAB - CHEMISTRY ORDERABLES Performing Organization Address City/[facility] Co de Phone Number [employer] INSURANCE BILL [address] [place] [address] * ANTI-MULLERIAN HORMONE FEMALE (03/23/2020 9:53 AM CDT) Anti-Mullerian Hormone (AMH) Female 2.38 0.18 - 5.68 ng/mL [facility] Comment: REPORT COMMENT: FASTING:NO Test Performed at: [facility] [address] [place], [place] ??[address] PAKO HAMPTON MD Blood BLOOD SPECIMEN / Unknown 03/23/2020 9:53 AM CDT 03/23/2020 9:54 AM CDT Portillo Vazquez MD LAB - CHEMISTRY ORD ERABLES [email or web address] [address] [place] [address] documented in this encounter Visit Diagnoses Diagnosis History of tubal ligation- Primary Tubal ligation status History of loop electrical excision procedure (LEEP) BMI 24.0-24.9, adult Antinuclear antibody (MARTITA) titer greater than 1:80 History of recurrent UTIs Personal history of urinary (tract) infection Fertility testing Pre-conception counseling Other procreative management counseling and advice documented in this encounter Care Teams Director Relationship Specialty Start Date End Date Rom Vidales MD PCP - General 10/22/19 documented as of this encounter
--- OUTSIDE RECORDS SUMMARY | 2024-06-17 03:36 | XMS_ITS | Encounter Summary ---
Author Organization [facility] Address [address] [facility] [place] [address] Care Team Providers Care Knit Goods Cutter Hand Name Role Phone Rom Vidales MD Primary Care Provider Encounter Details Date Type Department Care Team (Late st Contact Info) Description 05/01/2020 2:00 PM WATER MAINTENANCE SUPERVISOR Video Visit [facility] Rheumatology [address] [place] [address], [facility] [place] [phone] Elayne Cox MD [address] [place] [address] [place] [address] Arthralgia, unspecified joint ; MARTITA positive Social History Tobacco Use Types Packs/Day Years Used Date Smoking Tobacco: Former Cigarettes Smokeless Tobacco: Never Alcohol Use Standard Drinks/Week Comments Yes 0 (1 standard drink = 0.6 oz pur e alcohol) Sex and Gender Information Value Date Recorded Sex Assigned at Not on file Gender Identity Not on file Sexual Orientation Not on file documented as of this encounter Patient Instructions * Patient Instructions* Elayne Cox MD - 05/01/2020 3:38 PM WATER MAINTENANCE SUPERVISOR We saw you today for follow up via a telemedicine visit due to the COVID19 pandemic. Your labs showed a positive MARTITA, but no specific antibodies for lupus, rheumatoid arthritis, or other autoimmune disease. We do not need to start any medications at this time. Take pictures of any rashes you get. Call us for an appointment if you have joint pain, stiffness, weakness, rashes, etc. Thank you! If you need to change or cancel your Rheumatology appointment - At the [facility], call [phone] If you need a refill request, have your pharmacy fax a request to [phone]. If you need to leave a message for Dr. Cox, you can send her an electronic message via [employer] or leave a voicemail at [phone]. Her office FAX number is [phone]. For after hours emergency only, you can call the [facility] chalk extruding machine operator at [phone] and ask for the Gas Examiner transportation department head to be paged. R MAINTENANCE SUPERVISOR documented in this encounter Progress Notes * Elayne Cox MD - 05/17/2020 11:08 AM CST Telemedicine Note Today's visit was conducted virtually due to COVID-19 countermeasures. The patient has given verbalconsent to have today's visit conducted by this same means with treatment provided remotely. The patient verbally consents to the billing and collection practices of the provider's medical group. Patient location: Home This encounter was performed using: audio and video Total time spent on visit on date of encounter is: 15 minutes with 15 minutes spent in medical discussion Assessment & Plan Hali is a 39 year old female who has completed a telemedicine encounter regarding: ICD-10-CM 1. Arthralgia, unspecified joint M25.50 2. MARTITA positive R76.8 Ms. Samuels is a 39 year old female who presents first follow up of episodic joint pain, joint swelling, and muscle weakness. She has not had any recurrence of symptoms since her initial visit withhi. Episodes seem to be spacing out from eachother. Workup here was remarkable for only a positive MARTITA which is non specific. She will contact us if symptoms return, and she will take pictures of anyrashes that arise. 1. Patient to take pictures of any rashes 2. Patient will call to get into rheumatology for new joint pain, joint swelling, rashes, etc 3. RTC prn Subjective Ms. Samuels presents for first follow up of recurrent episodes of joint pain, swelling, and rashes. Visit is performed via video visit due to COVID19 pandemic. Since her initial visit she has not had any recurrence of joint pain, swelling, or rash, even though symptoms often return in the fall. She denies morning stiffness. Denies fevers. No other new concerns. ROS: General: -fatigue, -fever, -wt loss/gain, daily functioning not limited HEENT: +dry eyes, -dry mouth, -vision changes, -eye redness, -eye pain, - oral/nasal ulcers CV: -chest pain, -palpitations, - LE edema Resp: -cough, -SOB, -pleuritic pain GI: - dysphagia, - reflux, -abd pain, -constipation, -nausea, -vomiting, - diarrhea, -blood/mucus : -urine changes, -dysuria, -hematuria MSK: -arthralgia, -myalgia, -muscle weakness, +swelling, -erythema, -warmth, -AM stiffness, -back pain Skin: +rash, -lesions, -ulcers, -hair loss, -Raynaud, -acrocyanosis, -photosensitivity Neuro: -YANEZ, -paresthesias Psych: Mood is generally good, -depression/anxiety ROS otherwise negative Objective General: Alert, oriented, NAD Skin: No rash MSK: No visible swelling CV: Normal perfusion Resp: Non labored respirations Elayne Cox MD R MAINTENANCE SUPERVISOR documented in this encounter Plan of Treatment Not on file documented as of this encounter Visit Diagnoses Diagnosis Arthralgia, unspecified joint- Primary MARTITA positive Other and unspecified nonspecific immunological findings documented in this encounter Care Teams Knit Goods Cutter Hand Relationship Specialty Start Date End Date Rom Vidales MD PCP - General 10/22/19 documented as of this encounter
--- OUTSIDE RECORDS SUMMARY | 2024-06-17 03:36 | XMS_ITS | Encounter Summary ---
Author Organization [facility] Address [address] [place] [address] Care Team Providers Care Blasting Miner Name Role Phone Rom Vidales MD Primary Care Provider [phone] Reason for Visit * Reason Comments Consultation Encounter Details Date Type Department Care Team (Late st Contact Info) Description 05/11/2020 8:00 AM GAMING DEPARTMENT HEAD Office Visit [facility] [address] [place] [address] [phone] Florentin Irizarry MD [address] [place] [address] [place] [address] Antinuclear antibody (MARTITA) titer greater than 1:80 (Primary Dx) Social History Tobacco Use Types Packs/Day Years Used Date Smoking Tobacco: Former Cigarettes Smokeless Tobacco: Never Alcohol Use Standard Drinks/Week Comments Yes 0 (1 standard drink = 0.6 oz pur e alcohol) Sex and Gender Information Value Date Recorded Sex Assigned at Not on file Gender Identity Not on file Sexual Orientation Not on file documented as of this encounter Progress Notes * Abida Sexton MD - 05/11/2020 8:31 AM CST Ophthalmology Office Note Subjective: Hali Samuels is an 39 year old Chief Complaint Patient presents with ??? Consultation Patient referred by her cognos lead for dry eye and possible uveitis. She was told there was a spot on her left eye. She needs updated glasses. No pain/pressure/YANEZ. No flashes/floaters. Noticing some glare in the evening, headlights blind her. She has finger/hand pain and swelling, fatigue during the episodes, and subjective fever with ear and facial heat/flushing every fall since 2012. Each episode lasts 4-6 weeks, and is steroid responsive. Bloodwork has been completed, and she is MARTITA+, no specific antibodies for lupus, rheumatoid arthr itis, or other autoimmune disease. Therefore, she was not prescribed any medications. No eyedrops. No history of any eye procedures, trauma or diseases. No family history of any eye diseases. Current Outpatient Medications Medication Sig Dispense Refill ??? Multiple Vitamins-Minerals (ONE-A-DAY WOMENS PO) Take 1 tablet by mouth once daily No current facility-administered medications for this visit. No Known Allergies Objective: Base Eye Exam Visual Acuity (Snellen - Linear) Right Left Dist cc 20/20 20/20 Correction: Glasses Tonometry (Tonopen, 8:32 AM) Right Left Pressure 18 20 Pupils Pupils Dark Light Shape React APD Right PERRL 7 5 Round Brisk None Left PERRL 7 5 Round Brisk None Visual Lyle (Counting fingers) Left Right Full Full Extraocular Movement Right Left Full, Ortho Full, Ortho Neuro/Psych Oriented x3: Yes Mood/Affect: Normal Dilation Both eyes: 1.0% Mydriacyl, 2.5% Peter Synephrine @ 8:35 AM Slit Lamp and Fundus Exam External Exam Right Left External Normal Normal Slit Lamp Exam Right Left Lids/Lashes Normal Normal Conjunctiva/Sclera White and quiet White and quiet Cornea tr SPEE tr SPEE Anterior Chamber Deep and quiet Deep and quiet Iris Round and pharm dil Round and pharm dil Lens Clear Clear Vitreous Normal Normal Fundus Exam Right Left Disc Normal Normal C/D Ratio 0.2 0.2 Macula Normal Normal Vessels Normal Normal Periphery Normal Normal Refraction Wearing Rx Sphere Cylinder [place] Right -0.75 +1.25 075 Left -1.25 +1.50 112 Age: 3yrs Type: SVL Manifest Refraction Sphere Cylinder [place] Dist VA Near VA Right -1.25 +1.25 075 20/20 J1+ Left -1.75 +1.50 108 20/20 J1+ Dist VA Both: 20/20 Near VA Both: J1+ Final Rx Sphere Cylinder [place] Dist VA Near VA Right -1.00 +1.25 075 20/20 J1+ Left -1.50 +1.50 108 20/20 J1+ Studies 05/11/2020: none Assessment/Plan: #MARTITA positive -referred by rheum for possibility of uveitis -h/o episodes of hand joint pain/swelling, fatigue, fever/flushing every fall since 2012 lasting 4-6 weeks responsive to steroids -MARTITA+; negative/wnl HLA-B27, uric acid, UA, thyroid labs, CBC, ESR, CMP, lupus labs, sjogren's labs, anti-CCP, complement, XR hands -no e/o current or prior episodes of uveitis; pt denies symptoms c/w prior episodes of uveitis -pt mentions her cognos lead has mentioned the possibility of starting plaquenil in the future, but no plans at present--pt states they are not planning to start bc pt has been doing well #REGINALD -scattered mild SPEE Plan: -ATs QID prn OU -RTC 1 year; sooner prn if problems or if started on plaquenil by rheum for baseline testing Abida Sexton MD Ophthalmology PGY-3 NG DEPARTMENT HEAD Associated attestation - Florentin Irizarry MD - 05/11/2020 9:16 AM GAMING DEPARTMENT HEAD I have examined the patient in person with the resident and/or student, verified tafoya portions of the exam, reviewed the note and amended it as needed, and discussed the assessment and plan with the resident and/or student, who incorporated the recommendations into their note. I also discussed the exam findings and my recommendations with the patient and any family members in attendance. Their questions were answered fully. Arrangements for follow-up appointments and testing were scheduled priorto the patient's departure. In addition, I note the following: MARTITA + Episodic Joint pains: Episodes are infrequent, and Dr. Cox has not yet decided to start plaquenil. Patient has a history of breast implants, which she now plans to remove, out of concern ofan induced autoimmune reaction. Patient denies any history of episodic photophobia, blurred vision,or redness. Ocular exam is normal today. There is no baseline retinal pathology, so baseline OCT is unnecessary at this time. RE: Rx = MR. Florentin Irizarry MD, PhD documented in this encounter Plan of Treatment Not on file documented as of this encounter Visit Diagnoses Diagnosis Antinuclear antibody (MARTITA) titer greater than 1:80- Primary documented in this encounter Care Teams Blasting Miner Relationship Specialty Start Date End Date Rom Vidales MD PCP - General 10/22/19 documented as of this encounter
--- OUTSIDE RECORDS SUMMARY | 2024-06-17 03:36 | XMS_ITS | Clinical Summary ---
Author Organization [email or web address] Address [address] [place] [address] Care Team Providers Care Electroformer Name Role Phone Rom Vidales MD Primary Care Provider [phone] Source Comments [email or web address],non-owned Affiliates and Associated Physician Practices is amultiple site organization consisting of ambulatory clinics and hospital sitesin [place], [place], [place] and [place]. This disclosure is being madepursuant to the Care Everywhere program and may not contain all information available regarding this patient. Last updated 18.[email or web address] Allergies No known active allergies Medications * Be aware that medications may not be up to date on this document. Alwaysverify current medications with the patient. Medication Sig Dispensed Refills Start Date End Date Status Multiple Vitamins-Minerals (ONE-A-DAY WOMENS PO) Take 1 tablet by mouth once daily Active Active Problems Problem Noted Date Diagnosed Date History of tubal ligation 03/23/2020 History of loop electrical excision procedure (L EEP) 03/23/2020 BMI 24.0-24.9, adult 03/23/2020 Antinuclear antibody (MARTITA) titer greater than 1: 80 03/23/2020 History of recurrent UTIs 03/23/2020 Mass of upper outer quadrant of right breast Acne rosacea 05/30/2016 Resolved Problems Problem Noted Date Diagnosed Date Resolved Date Rash 07/15/2019 06/08/2020 Family History Medical History Relation Name Comments Thyroid Disease Mother Relation Name Status Comments Mother Social History Tobacco Use Types Packs/Day Years Used Date Smoking Tobacco: Former Cigarettes Smokeless Tobacco: Never Alcohol Use Standard Drinks/Week Comments Yes 0 (1 standard drink = 0.6 oz pur e alcohol) Sex and Gender Information Value Date Recorded Sex Assigned at Not on file Gender Identity Not on file Sexual Orientation Not on file Last Filed Vital Signs Vital Sign Reading Time Taken Comments Blood Pressure 116/74 03/23/2020 9:14 AM CDT Pulse - - Temperature 36.7 ??C (98 ??F) 02/28/2020 3:45 PM CDT Respiratory Rate - - Oxygen Saturation - - Inhaled Oxygen Concentration - - Weight 62.1 kg (137 lb) 03/23/2020 9:14 AM CDT Height 157.5 cm (5' 2 ) 03/23/2020 9:14 AM CDT Body Mass Index 25.06 03/23/2020 9:14 AM CDT Plan of Treatment Health Maintenance Due Date Last Done Comments LIPID TESTING 1980 MAMMOGRAM 1980 PAP SMEAR 1980 HIV SCREENING 09/03/1995 HEPATITIS C SCREENING 08/29/1998 DTAP/TDAP/TD VACCINES (1 - Tdap) 09/03/1999 HEPATITIS B VACCINE (1 of 3 - 19+ 3-dose series) 09/03/1999 DEPRESSION SCREENING 06/19/2023 COVID-19 VACCINE (1 - 2023-2 5 season) 2024 INFLUENZA VACCINE (#1) 2024 ZOSTER VACCINE (1 of 2) 2030 HIB VACCINE Aged Out No longer eligi ble based on patient's age to complete this topic HPV VACCINE Aged Out No longer eligi ble based on patient's age to complete this topic MENINGOCOCCAL VACCINE Aged Out No emre jesus eligible based on patient's age to complete this topic PNEUMOCOCCAL VACCINE Aged Out No long er eligible based on patient's age to complete this topic Care Teams Electroformer Relationship Specialty Start Date End Date Rom Vidales MD PCP - General 10/22/19
--- OUTSIDE RECORDS SUMMARY | 2024-06-17 03:36 | XMS_ITS | Encounter Summary ---
Author Organization [facility] Address [address] [place] [address]. [place] [address] [place] [address] Care Team Providers Care Abap Developer Name Role Phone Rom Vidales MD Primary Care Provider [phone] Reason for Visit * Reason Onset Date Comments Appointment Request 04/22/2021 WELLNESS PROGRAM ADMINISTRATOR Cardiolog y Consult, unable to contact patient Encounter Details Date Type Department Care Team (Late st Contact Info) Description 04/22/2021 Telephone [facility] [address] [phone] Rom Vidales MD [address] [place] [address] [facility] [place] [phone] Appointment Request (WELLNESS PROGRAM ADMINISTRATOR Cardiology Consult, unable to contact patient) Social History Tobacco Use Types Packs/Day Years Used Date Smoking Tobacco: Never Assessed Comments Unknown Sex and Gender Information Value Date Recorded Sex Assigned at Not on file Legal Sex Female 5:19 PM CDT Gender Identity Not on file Sexual Orientation Not on file documented as of this encounter Progress Notes * Melissa Dubon - 04/22/2021 4:39 PM CDT We have tried to contact your patient by phone and by letter with no response. At this time, we will make no further attempts to contact your patient and will return their care back to your office. documented in this encounter Plan of Treatment Not on file documented as of this encounter Visit Diagnoses Not on filedocumented in this encounter Care Teams Abap Developer Relationship Specialty Start Date End Date Rom Vidales MD PCP - General FAMILY PRACTICE 03/24/21 documented as of this encounter
--- OUTSIDE RECORDS SUMMARY | 2024-06-17 03:36 | XMS_ITS | Encounter Summary ---
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 Name Role Phone Rom Vidales MD Primary Care Provider [phone] Reason for Visit * Reason Comments Establish Care Autoimmune Disease Encounter Details Date Type Department Care Team (Late st Contact Info) Description 02/28/2020 3:00 PM CDT Office Visit [facility] Rheumatology [address] [place] [address], [place] [id number] Elayne Cox MD [address] [place] [address] [address] [facility] [place] [address] Arthralgia, unspecified joint (Primary Dx); Joint swelling; AMRTITA positive Social History Tobacco Use Types Packs/Day Years Used Date Smoking Tobacco: Never Smokeless Tobacco: Never Alcohol Use Standard Drinks/Week Comments Yes 0 (1 standard drink = 0.6 oz pur e alcohol) Sex and Gender Information Value Date Recorded Sex Assigned at Not on file Gender Identity Not on file Sexual Orientation Not on file documented as of this encounter Last Filed Vital Signs Vital Sign Reading Time Taken Comments Blood Pressure 114/80 02/28/2020 3:45 PM CDT Pulse - - Temperature 36.7 ??C (98 ??F) 02/28/2020 3:45 PM CDT Respiratory Rate - - Oxygen Saturation - - Inhaled Oxygen Concentration - - Weight 61.2 kg (135 lb) 02/28/2020 3:45 PM CDT Height 157.5 cm (5' 2 ) 02/28/2020 3:45 PM CDT Body Mass Index 24.69 02/28/2020 3:45 PM CDT documented in this encounter Patient Instructions * Patient Instructions* Elayne Cox MD - 02/28/2020 4:30 PM CDT We saw you today for initial evaluation of a positive MARTITA and joint pain/swelling. Get labs and Xrays done. Follow up in April. Call sooner if you're having a flare. I will call about your results. Thank you! If you need to change or cancel your Rheumatology appointment - call [phone] If you need a refill request, have your pharmacy fax a request to [phone] If you need to leave a message for Dr. Cox, you can send her an electronic message via [employer]smake or leave a voicemail at [phone]. Her office FAX number is [phone]. For after hours emergency only, you can call the [facility] splitting machine operator helper at [phone] and ask for the [employer] consumer insight manager to be paged. documented in this encounter Progress Notes * Elayne Cox MD - 03/08/2020 2:30 PM CDT [facility] Rheumatology Initial Clinic Visit Reason for consult: Joint pain and swelling PCP: Rom Vidales MD HPI: Ms. Samuels is a 39 year old female who presents for initial evaluation by Rheumatology for joint pain and weakness. Symptoms started initially in 2012. She had sudden onset weakness, where she couldn't lift her arms above her shoulders, and her arms felt heavy/. She developed hand/finger pain and swelling at the same time. This lasted a few weeks, and she then received prednisone fromher PCP which resolved her symptoms. She had a rash at around the same time which her PCP thought was scabies that she had picked up while on vacation in [place]. Rash was red and itchy. She has continued to get the finger/hand pain and swelling ever Fall since that year. Each episode lasts 4-6 weeks, and is steroid responsive. The rest of the year she is fine. Her primary care checked her ANAonce and it was 1:320 homogenous. She notes fatigue during the episodes, and subjective fever with ear and facial heat/flushing. Denies other symptoms including RP, headaches, oral or nasal ulcers, photosensitive rashes. Patient does note a history of minocycline use for skin lesions, which she did take initially a fewmonths prior to the onset of symptoms. Also notes history of breast implants, but has had them for many years. ROS: General: -fatigue, -fever, -wt loss/gain, daily functioning not limited HEENT: +dry eyes, -dry mouth, -vision changes, -eye redness, -eye pain, - oral/nasal ulcers CV: -chest pain, -palpitations, - LE edema Resp: -cough, -SOB, -pleuritic pain GI: - dysphagia, - reflux, -abd pain, -constipation, -nausea, -vomiting, - diarrhea, -blood/mucus : -urine changes, -dysuria, -hematuria MSK: +arthralgia, -myalgia, +muscle weakness, +swelling, -erythema, -warmth, -AM stiffness, -back pain Skin: +rash, -lesions, -ulcers, -hair loss, -Raynaud, -acrocyanosis, -photosensitivity Neuro: -YANEZ, -paresthesias Psych: Mood is generally good, -depression/anxiety ROS otherwise negative Past Medical History: Past Medical History: Diagnosis Date ??? Healthy adult on routine physical examination No chronic medical problems 6 children No miscarriages Social History: Social History Tobacco Use ??? Smoking status: Never Smoker ??? Smokeless tobacco: Never Used Substance Use Topics ??? Alcohol use: Yes ??? Drug use: Never Family History: Review of Family History Problem Relation Name Age of Onset ??? Thyroid Disease Mother Current Medications: Current Outpatient Medications Medication Sig Dispense Refill ??? ALPRAZolam (XANAX) 0.5 MG tablet Take 0.5 mg by mouth once daily as needed ??? cetirizine (ZYRTEC) 10 MG tablet TK 1 T PO QD ??? HYDROcodone-acetaminophen (NORCO) 5-325 MG tablet TK 1 TO 2 TS PO Q 6 H PRN P ??? predniSONE (DELTASONE) 20 MG tablet TK 2 TS PO QD No current facility-administered medications for this visit. Allergies: Patient has no known allergies. Physical Exam: BP 114/80 Temp 98 ??F (36.7 ??C) Ht 5' 2 (1.575 m) Wt 135 lb (61.2 kg) BMI 24.69 kg/m2 General: Alert, oriented, appears stated age Skin: Skin color, texture, turgor normal. No rashes or lesions HEENT: Normocephalic, without obvious abnormality, atraumatic conjunctivae/corneas clear, EOMI, no oral or nasal ulcers, moist mucus membranes, supple neck Lymphatic: No cervical, supraclavicular adenopathy Back: Symmetric, normal curvature Chest/Lungs: Clear to auscultation bilaterally, normal respiratory effort Heart: RRR, normal S1 and S2, no murmur, no rub Abdomen: Soft, non-tender. Bowel sounds normal. No masses, no organomegaly Neurologic: Grossly normal cranial nerves Musculoskeletal Exam: No current swelling or tenderness Labs: Reviewed, including those as noted below No results for input(s): WBC, HGB, PLT in the last 30218 hours. No results for input(s): NA, K, CL, CO2, BUN, CREATININE in the last 80540 hours. No results for input(s): AST, ALT, ALKPHOS, TBILI in the last 39855 hours. Lab results smartLinks are not currently available Assessment: Patient is a 39 year old female who presents for initial evaluation of episodic joint pain, joint swelling, and muscle weakness. The initial episode did occur after sun exposure, but subsequent episodes have not. They tend to occur in fall, and have been getting better/decreasing in severity and duration as time progresses. She does have a history of minocycline use (no longer on it). Minocyclinecan cause drug induced lupus, so it is a possible etiology of her symptoms. 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 Immune reaction secondary to her breast implants unlikely given episodic natureof symptoms. Will check evaluation as below, and see back in April, when she should be in an acute episode. Plan: 1. Labs as below 2. Xrs as below 3. Refer to Ophthalmology for dry eye, look for evidence of uveitis 4. RTC April - patient notes she typically has an episode each April Elayne Cox MD Department of Rheumatology Orders Placed This Encounter ??? XR HAND LEFT 2VW Standing Status: Future Standing Expiration Date: 02/27/2021 ??? XR HAND RIGHT 2VW Standing Status: Future Standing Expiration Date: 02/27/2021 ??? MARTITA BLOOD SCREEN W/REFLEX TITER ??? COMPLEMENT C3 ??? COMPLEMENT C4 ??? COMPLEMENT TOTAL ??? CYCLIC CITRUL PEPTIDE ANTIBODY IGG/IGA (CCP) ??? SS-A (SJOGREN'S) ANTIBODY ??? SS-B (SJOGREN'S) ANTIBODY ??? DNA ANTIBODY DOUBLE STRANDED ??? DNA ANTIBODY DS CRITHIDIA IFA ??? HISTONE ANTIBODY ??? CHROMATIN ANTIBODY ??? IGA BLOOD ??? IGG BLOOD ??? IGM BLOOD ??? MEJIA (SM) ANTIBODY CHANNING ??? ALDOLASE ??? CK BLOOD ??? COMPREHENSIVE METABOLIC PANEL ??? ERYTHROCYTE SEDIMENTATION RATE ??? CBC WITH DIFFERENTIAL ??? TSH ??? THYROID PEROXIDASE ANTIBODY ??? THYROGLOBULIN ANTIBODY ??? URINALYSIS W/MICROSCOPIC REFLEX TO CULTURE ??? HLA TYPING B27 Standing Status: Future Standing Expiration Date: 03/24/2021 ??? URIC ACID BLOOD Standing Status: Future Standing Expiration Date: 03/24/2021 ??? AMB Ref Ophthalmology - [facility] Standing Status: Future Standing Expiration Date: 02/27/2021 Referral Priority: Routine Referral Type: Evaluate & Treat Referral Reason: Specialty Services Required Number of Visits Requested: 1 documented in this encounter Plan of Treatment Not on file documented as of this encounter Procedures Procedure Name Priority Date/Time Associated Diagnosis Comments URINALYSIS MICROSCOPIC ONLY REFLEXED Routine 04/10/2020 2:06 PM CDT Arthralgia, unspecified joint Joint swelling MARTITA positive DNA ANTIBODY DS CRITHIDIA IFA Routine 04/10/2020 2:06 PM CDT Arthralgia, unspecified joint Joint swelling MARTITA positive CHROMATIN ANTIBODY Routine 04/10/2020 2: 06 PM CDT Arthralgia, unspecified joint Joint swelling MARTITA positive CYCLIC CITRUL PEPTIDE ANTIBODY IGG/IGA (CCP) Routine 04/10/2020 2:06 PM CDT Arthralgia, unspecified joint Joint swelling MARTITA positive ELIEL STAINING PATTERNS REFLEXED Routine 04/10/2020 2:06 PM CDT Arthralgia, unspecified joint Joint swelling MARTITA positive URINALYSIS W/MICROSCOPIC REFLEX TO CULTURE Routine 04/10/2020 2:06 PM CDT Arthralgia, unspecified joint Joint swelling MARTITA positive MEJIA (SM) ANTIBODY CHANNING Routine 04/10/2020 2:06 PM CDT Arthralgia, unspecified joint Joint swelling MARTITA positive MARTITA BLOOD SCREEN W/REFLEX TITER Routine 04/10/2020 2:06 PM CDT Arthralgia, unspecified joint Joint swelling MARTITA positive THYROID PEROXIDASE ANTIBODY Routine 04/10/2020 2:06 PM CDT Arthralgia, unspecified joint Joint swelling MARTITA positive THYROGLOBULIN ANTIBODY Routine 0 2:06 PM CDT Arthralgia, unspecified joint Joint swelling MARTITA positive HISTONE ANTIBODY Routine 04/10/2020 2:06 PM CDT Arthralgia, unspecified joint Joint swelling MARTITA positive COMPLEMENT TOTAL Routine 04/10/2020 2:06 PM CDT Arthralgia, unspecified joint Joint swelling MARTITA positive SS-B (SJOGREN'S) ANTIBODY Routine 04/10/2020 2:06 PM CDT Arthralgia, unspecified joint Joint swelling MARTITA positive SS-A (SJOGREN'S) ANTIBODY Routine 04/10/2020 2:06 PM CDT Arthralgia, unspecified joint Joint swelling MARTITA positive DNA ANTIBODY DOUBLE STRANDED Routine 04/10/2020 2:06 PM CDT Arthralgia, unspecified joint Joint swelling MARTITA positive ALDOLASE Routine 04/10/2020 2:06 PM CDT Arthralgia, unspecified joint Joint swelling MARTITA positive ERYTHROCYTE SEDIMENTATION RATE Routine 04/10/2020 2:06 PM CDT Arthralgia, unspecified joint Joint swelling MARTITA positive CBC W AUTO DIFFERENTIAL Routine 04/10/2020 2:06 PM CDT Arthralgia, unspecified joint Joint swelling MARTITA positive COMPLEMENT C4 Routine 04/10/2020 2:06 PM CDT Arthralgia, unspecified joint Joint swelling MARTITA positive COMPREHENSIVE METABOLIC PANEL Routine 04/10/2020 2:06 PM CDT Arthralgia, unspecified joint Joint swelling MARTITA positive CK BLOOD Routine 04/10/2020 2:06 PM CDT Arthralgia, unspecified joint Joint swelling MARTITA positive TSH Routine 04/10/2020 2:06 PM CDT Arthralgia, unspecified joint Joint swelling MARTITA positive IGM BLOOD Routine 04/10/2020 2:06 PM CDT Arthralgia, unspecified joint Joint swelling MARTITA positive IGG BLOOD Routine 04/10/2020 2:06 PM CDT Arthralgia, unspecified joint Joint swelling MARTITA positive IGA BLOOD Routine 04/10/2020 2:06 PM CDT Arthralgia, unspecified joint Joint swelling MARTITA positive COMPLEMENT C3 Routine 04/10/2020 2:06 PM CDT Arthralgia, unspecified joint Joint swelling MARTITA positive documented in this encounter Results * (ABNORMAL) ELIEL STAINING PATTERNS REFLEXED (04/10/2020 2:06 PM CDT) Homogeneous Pattern 1:320(H) [facility] INSURANCE BILL Nucleolar Pattern NOT NEEDED [facility] INSURANCE BILL Comment:Ancillary determined the test is not needed. Speckled Pattern NOT NEEDED [facility] INSURANCE BILL Comment:Ancillary determined the test is not needed. Centromere Pattern NOT NEEDED [facility] INSURANCE BILL Comment:Ancillary determined the test is not needed. Spindle Apparatus Pattern NOT NEEDED [facility] INSURANCE BILL Comment:Ancillary determined the test is not needed. Nuclear Membrane Pattern NOT NEEDED [facility] INSURANCE BILL Comment:Ancillary determined the test is not needed. Midbody Pattern NOT NEEDED [facility] INSURANCE BILL Comment:Ancillary determined the test is not needed. Nuclear Dot Pattern NOT NEEDED [facility] INSURANCE BILL Comment:Ancillary determined the test is not needed. PCNA Pattern NOT NEEDED [facility] INSURANCE BILL Comment:Ancillary determined the test is not needed. Centriole Pattern NOT NEEDED [facility] INSURANCE BILL Comment:Ancillary determined the test is not needed. Note [facility] INSURANCE BILL Comment: A positive MARTITA result may occur in healthy individuals (low titer) or be associated with a variety of diseases. ??See interpretation chart which is not all inclusive: ? . Pattern ?Antigen Detected ??Suggested Disease Association ? Homogeneous ??DNA(ds,ss), ? SLE - High titers ? Nucleosomes, ? Histones ?Drug-induced SLE ? Speckled ? 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 SS-A/SS-B ? Sjogrens ? Nucleolar ?SCL-70, PM-1/SCL ??High titers Scleroderma, ? PM/DM ? Centromere ?? Centromere ?PSS (limited form) w/Crest ? syndrome variable ? Nuclear Dot ??[id number] ??Primary Biliary Cirrhosis ? Nuclear ?GP210, ?Primary Biliary Cirrhosis Membrane ? agustin A,B,C ? 04/10/2020 2:06 PM CDT 04/10/2020 Narrative Resulting Agency Comment Lab Testing performed at: [address] ??Formerly [facility] [phone] Elayne Cox MD LAB - PATHOLOGY /CYTOLOGY ORDERABLES [facility] INSURANCE BILL [address] [place] [address] * URINALYSIS MICROSCOPIC ONLY REFLEXED (04/10/2020 2:06 PM CDT) WBC UA 0-5 0 - 5 /hpf [facility] INSURANCE BILL RBC UA 0-2 0 - 2 /hpf [facility] INSURANCE BILL Epithelial Cells (non renal) 0-10 0 - 10 /hpf [facility] INSURANCE BILL Epithelial Cells (renal) NOT NEEDED [facility] INSURANCE BILL Comment:Ancillary determined the test is not needed. Casts ua NOT NEEDED [facility] INSURANCE BILL Comment:Ancillary determined the test is not needed. Casts UA NOT NEEDED [facility] INSURANCE BILL Comment:Ancillary determined the test is not needed. Crystals UA NOT NEEDED [facility] INSURANCE BILL Comment:Ancillary determined the test is not needed. Crystals UA NOT NEEDED [facility] INSURANCE BILL Comment:Ancillary determined the test is not needed. Mucus UA Present Not Estab. [facility] INSURANCE BILL Bacteria UA None seen None seen/Few [facility] INSURANCE BILL Yeast UA NOT NEEDED [facility] INSURANCE BILL Comment:Ancillary determined the test is not needed. Trichomonas UA NOT NEEDED [facility] INSURANCE BILL Comment:Ancillary determined the test is not needed. Comment Urine NOT NEEDED [facility] INSURANCE BILL Comment:Ancillary determined the test is not needed. 04/10/2020 2:06 PM CDT 04/10/2020 Narrative Resulting Agency Comment Lab Testing performed at: [facility] ??Formerly [facility] [phone] Elayne Cox MD LAB - URINALYSI S ORDERABLES Performing Organization Address [facility]/State/ZIP Co de Phone Number [facility] INSURANCE BILL [address] [place] [address] * URINALYSIS W/MICROSCOPIC REFLEX TO CULTURE (04/10/2020 2:06 PM CDT) Pathologist [facility] Specific [place] UA 1.013 1.005 - 1.030 [facility] INSURANCE BILL pH UA 7.5 5.0 - 7.5 [facility] INSURANCE BILL Color UA Yellow Yellow [facility] INSURANCE BILL Appearance Clear Clear [facility] INSURANCE BILL Leukocyte UA Negative Negative [facility] INSURANCE BILL Protein UA Negative Negative/Tra ce [facility] INSURANCE BILL Glucose UA Negative Negative [facility] INSURANCE BILL Ketone UA Negative Negative [facility] INSURANCE BILL Occult Blood Urine Negative Negative [facility] INSURANCE BILL Bilirubin UA Negative Negative [facility] INSURANCE BILL Urobilinogen 0.2 0.2 - 1.0 mg/dL [facility] INSURANCE BILL Nitrite UA Negative Negative [facility] INSURANCE BILL Microscopic Examination Urine [facility] INSURANCE BILL Comment:Microscopic follows if indicated. Microscopic Examination Urine See below: [facility] INSURANCE BILL Comment:Microscopic was guerda cated and was performed. Urinalysis Reflex [facility] INSURANCE BILL Comment:This specimen will n ot reflex to a Urine Culture. Urine URINE SPECIMEN OBTAINED BY CLEAN CATCH PROCEDURE / Unknown 04/10/2020 2:06 PM CDT 04/10/2020 Narrative Resulting Agency Comment Lab Testing performed at: [facility] ??Formerly [facility] [phone] Elayne Cox MD LAB - URINALYSI S ORDERABLES Performing Organization Address City/[facility] Co de Phone Number [facility] INSURANCE BILL [address] [place] [address] * THYROGLOBULIN ANTIBODY (04/10/2020 2:06 PM CDT) Thyroglobulin Antibody <1.0 0.0 - 0.9 IU/mL [facility] INSURANCE BILL Comment:Thyroglobulin Antibo dy measured by Niurka Roxann Methodology Blood BLOOD SPECIMEN / Unknown 04/10/2020 2:06 PM CDT 04/10/2020 Narrative Resulting Agency Comment Lab Testing performed at: [facility] [address] ??Formerly [facility] [phone] Elayne Cox MD LAB - CHEMISTRY ORDERABLES [email or web address] INSURANCE BILL [address] [place] [address] * THYROID PEROXIDASE ANTIBODY (04/10/2020 2:06 PM CDT) Thyroid Peroxidase TPO Antibody <9 0 - 34 IU/mL [facility] INSURANCE BILL Blood BLOOD SPECIMEN / Unknown 04/10/2020 2:06 PM CDT 04/10/2020 Narrative Resulting Agency Comment Lab Testing performed at: [facility] [place] [address] ??Formerly [facility] [phone] Elayne Cox MD LAB - CHEMISTRY ORDERABLES Performing Organization Address City/[facility]/ZIP Co de Phone Number [facility] INSURANCE BILL [address] [place] [address] * TSH (04/10/2020 2:06 PM CDT) Pathologist [facility] TSH 1.300 0.450 - 4.500 uIU/mL [facility] INSURANCE BILL Blood BLOOD SPECIMEN / Unknown 04/10/2020 2:06 PM CDT 04/10/2020 Narrative Resulting Agency Comment Lab Testing performed at: [facility] [address] ??Formerly [facility] [phone] Elayne Cox MD LAB - CHEMISTRY ORDERABLES Performing Organization Address City/[facility]/ZIP Co de Phone Number [facility] INSURANCE BILL [address] [place] [address] * CBC WITH DIFFERENTIAL (04/10/2020 2:06 PM CDT) Pathologist [facility] WBC 5.8 3.4 - 10.8 x10E3/uL [facility] INSURANCE BILL RBC 4.22 3.77 - 5.28 x10E6/uL [facility] INSURANCE BILL Hemoglobin 13.7 11.1 - 15.9 g/dL [facility] INSURANCE BILL Hematocrit 40.4 34.0 - 46.6 % [facility] INSURANCE BILL MCV 96 79 - 97 fL [facility] INSURANCE BILL MCH 32.5 26.6 - 33.0 pg [facility] INSURANCE BILL MCHC 33.9 31.5 - 35.7 g/dL [facility] INSURANCE BILL RDW 12.0 11.7 - 15.4 % [facility] INSURANCE BILL Platelet Count 277 150 - 450 x10E3/uL [facility] INSURANCE BILL Granulocytes % 58 Not Estab. % [facility] INSURANCE BILL Lymphocytes % 30 Not Estab. % [facility] INSURANCE BILL Monocytes % 8 Not Estab. % [facility] INSURANCE BILL Eosinophils % 3 Not Estab. % [facility] INSURANCE BILL Basophils % 1 Not Estab. % [facility] INSURANCE BILL Immature Cells NOT NEEDED [facility] INSURANCE BILL Comment:Ancillary determined the test is not needed. Granulocytes Absolute 3.4 1.4 - 7.0 x10E3/uL [facility] INSURANCE BILL Lymphocytes Absolute 1.8 0.7 - 3.1 x10E3/uL [facility] INSURANCE BILL Monocytes Absolute 0.5 0.1 - 0.9 x10E3/uL [facility] INSURANCE BILL Eosinophils Absolute 0.2 0.0 - 0.4 x10E3/uL [facility] INSURANCE BILL Basophils Absolute 0.0 0.0 - 0.2 x10E3/uL [facility] INSURANCE BILL Immature Granulocytes 0 Not Estab. % [facility] INSURANCE BILL Immature Granulocytes Absolute 0.0 0.0 - 0.1 x10E3/uL [facility] INSURANCE BILL nRBC NOT NEEDED [facility] INSURANCE BILL Comment:Ancillary determined the test is not needed. Comment Hematology NOT NEEDED [facility] INSURANCE BILL Comment:Ancillary determined the test is not needed. Blood BLOOD SPECIMEN / Unknown 04/10/2020 2:06 PM CDT 04/10/2020 Narrative Resulting Agency Comment Lab Testing performed at: [email or web address] [address] [facility] ??Formerly [facility] [phone] Elayne Cox MD LAB - HEMATOLOG Y ORDERABLES Performing Organization Address City/[facility] Co de Phone Number [facility] INSURANCE BILL [address] [place] [address] * ERYTHROCYTE SEDIMENTATION RATE (04/10/2020 2:06 PM CDT) Erythrocyte Sedimentation Rate Westergren 3 0 - 32 mm/hr [facility] INSURANCE BILL Blood BLOOD SPECIMEN / Unknown 04/10/2020 2:06 PM CDT 04/10/2020 Narrative Resulting Agency Comment Lab Testing performed at: [employer] [address] ??Formerly [facility] [phone] Elayne Cox MD LAB - HEMATOLOG Y ORDERABLES [facility] INSURANCE BILL [address] [place] [address] * COMPREHENSIVE METABOLIC PANEL (04/10/2020 2:06 PM CDT) Glucose 94 65 - 99 mg/dL [facility] INSURANCE BILL BUN 12 6 - 20 mg/dL [facility] INSURANCE BILL Creatinine 0.79 0.57 - 1.00 mg/dL [facility] INSURANCE BILL eGFR by MDRD 95 >59 mL/min/1.7 3 [facility] INSURANCE BILL eGFR by MDRD 109 >59 mL/min/1.7 3 [facility] INSURANCE BILL BUN/Creatinine Ratio 15 9 - 23 [facility] INSURANCE BILL Sodium 140 134 - 144 mmol/L [facility] INSURANCE BILL Potassium 3.9 3.5 - 5.2 mmol/L [facility] INSURANCE BILL Chloride 104 96 - 106 mmol/L [facility] INSURANCE BILL CO2 22 20 - 29 mmol/L [facility] INSURANCE BILL Calcium 9.9 8.7 - 10.2 mg/dL [facility] INSURANCE BILL Protein Total 7.4 6.0 - 8.5 g/dL [facility] INSURANCE BILL Albumin 4.7 3.8 - 4.8 g/dL [facility] INSURANCE BILL Globulin Total 2.7 1.5 - 4.5 g/dL [facility] INSURANCE BILL Albumin/Globulin Ratio 1.7 1.2 - 2.2 [facility] INSURANCE BILL Bilirubin Total 0.2 0.0 - 1.2 mg/dL [facility] INSURANCE BILL Alkaline Phosphatase 67 39 - 117 IU/L [facility] INSURANCE BILL AST 23 0 - 40 IU/L [facility] INSURANCE BILL ALT 16 0 - 32 IU/L [facility] INSURANCE BILL Blood BLOOD SPECIMEN / Unknown 04/10/2020 2:06 PM CDT 04/10/2020 Narrative Resulting Agency Comment Lab Testing performed at: [facility] [place] [address] [facility] ??Formerly [facility] [phone] Elayne Cox MD LAB - CHEMISTRY ORDERABLES [facility] INSURANCE BILL [address] [place] [address] * CK BLOOD (04/10/2020 2:06 PM CDT) CK 122 32 - 182 U/L [facility] INSURANCE BILL Blood BLOOD SPECIMEN / Unknown 04/10/2020 2:06 PM CDT 04/10/2020 Narrative Resulting Agency Comment Lab Testing performed at: [facility] [address] ??[facility]ly [facility] [phone] Elayne Cox MD LAB - CHEMISTRY ORDERABLES [facility] INSURANCE BILL [address] [place] [address] * ALDOLASE (04/10/2020 2:06 PM CDT) Pathologist [facility] Aldolase 5.6 3.3 - 10.3 U/L [facility] INSURANCE BILL Blood BLOOD SPECIMEN / Unknown 04/10/2020 2:06 PM CDT 04/10/2020 Narrative Resulting Agency Comment Lab Testing performed at: [facility] [address] ??[facility]ly [facility] [phone] Elayne Cox MD LAB - CHEMISTRY ORDERABLES Performing Organization Address [facility]/ZIP Co de Phone Number [facility] INSURANCE BILL [address] [place] [address] * MEJIA (SM) ANTIBODY CHANNING (04/10/2020 2:06 PM CDT) Pathologist [facility] Mejia (CHANNING) Antibody <0.2 0.0 - 0.9 AI [facility] INSURANCE BILL Blood BLOOD SPECIMEN / Unknown 04/10/2020 2:06 PM CDT 04/10/2020 Narrative Resulting Agency Comment [facility] performed [facility]: [facility] [place] [address] ??[facility]ly [facility] [phone] Elayne Cox MD LAB - CHEMISTRY ORDERABLES [email or web address] INSURANCE BILL [address] [place] [address] * IGM BLOOD (04/10/2020 2:06 PM CDT) IgM Quantitative 90 26 - 217 mg/dL [facility] INSURANCE BILL Blood BLOOD SPECIMEN / Unknown 04/10/2020 2:06 PM CDT 04/10/2020 Narrative Resulting Agency Comment Lab Testing performed at: [facility] [place] [address] ??[facility]ly [facility] [phone] Elayne Cox MD LAB - CHEMISTRY ORDERABLES [facility] INSURANCE BILL [address] [place] [address] * IGG BLOOD (04/10/2020 2:06 PM CDT) IgG Quantitative 1,087 586 - 1,602 mg/dL [facility] INSURANCE BILL Blood BLOOD SPECIMEN / Unknown 04/10/2020 2:06 PM CDT 04/10/2020 Narrative Resulting Agency Comment Lab Testing performed at: [facility] [place] [address] ??[facility]ly [facility] [phone] Elayne Cox MD LAB - CHEMISTRY ORDERABLES Performing Organization Address City/[facility]/ZIP Co de Phone Number [facility] INSURANCE BILL [address] [place] [address] * IGA BLOOD (04/10/2020 2:06 PM CDT) IgA Quantitative 246 87 - 352 mg/dL [facility] INSURANCE BILL Blood BLOOD SPECIMEN / Unknown 04/10/2020 2:06 PM CDT 04/10/2020 Narrative Resulting Agency Comment Lab Testing performed at: [facility] [place] [address] ??[facility]ly [facility] [phone] Elayne Cox MD LAB - CHEMISTRY ORDERABLES [facility] INSURANCE BILL [address] [place] [address] * CHROMATIN ANTIBODY (04/10/2020 2:06 PM CDT) Antichromatin Antibodies 0.3 0.0 - 0.9 AI [facility] INSURANCE BILL Blood BLOOD SPECIMEN / Unknown 04/10/2020 2:06 PM CDT 04/10/2020 Narrative Resulting Agency Comment Lab Testing performed at: [facility] [address] ??Formerly [facility] [phone] Elayne Cox MD LAB - SEROLOGY ORDERABLES Performing Organization Address [facility] Co de Phone Number [facility] INSURANCE BILL [address] [place] [address] * HISTONE ANTIBODY (04/10/2020 2:06 PM CDT) Pathologist [facility] Anti-Histone Antibody 0.4 0.0 - 0.9 Units [facility] INSURANCE BILL Comment: ?Negative ?<1.0 ?Weak Positive ?1.0 - 1.5 ?Moderate Positive ??1.6 - 2.5 ?Strong Positive ? >2.5 Blood BLOOD SPECIMEN / Unknown 04/10/2020 2:06 PM CDT 04/10/2020 Narrative Resulting Agency Comment Lab Testing performed at: [address] ??[facility] [phone] Elayne Cox MD LAB - CHEMISTRY ORDERABLES Performing Organization Address [facility] Co de Phone Number [facility] INSURANCE BILL [address] [place] [address] * DNA ANTIBODY DS CRITHIDIA IFA (04/10/2020 2:06 PM CDT) Pathologist [facility] dsDNA Antibody Crithidia IFA Negative Negative [facility] INSURANCE BILL Blood BLOOD SPECIMEN / Unknown 04/10/2020 2:06 PM CDT 04/10/2020 Narrative Resulting Agency Comment Lab Testing performed at: [facility] [address] ??[place] [phone] Elayne Cox MD LAB - SEROLOGY ORDERABLES Performing Organization Address [facility] de Phone Number [employer] INSURANCE BILL [address] [place] [address] * DNA ANTIBODY DOUBLE STRANDED (04/10/2020 2:06 PM CDT) Anti-dsDNA Quantitative 2 0 - 9 IU/mL [email or web address] INSURANCE BILL Comment: ?Negative ?<5 ?Equivocal ??5 - 9 ?Positive ?>9 Blood BLOOD SPECIMEN / Unknown 04/10/2020 2:06 PM CDT 04/10/2020 Narrative Resulting Agency Comment Lab Testing performed at: [facility] [address] ??[place] [phone] Elayne Cox MD LAB - HEMATOLOG Y ORDERABLES Performing Organization Address [facility] de Phone Number [email or web address] INSURANCE BILL [address] [place] [address] * SS-B (SJOGREN'S) ANTIBODY (04/10/2020 2:06 PM CDT) Sjogren's Antibodies (SSB) <0.2 0.0 - 0.9 [employer] INSURANCE BILL Blood BLOOD SPECIMEN / Unknown 04/10/2020 2:06 PM CDT 04/10/2020 Narrative Resulting Agency Comment Lab [facility] performed [facility]: [facility] [address] ??[facility]ly [facility] [phone] Elayne Cox MD LAB - CHEMISTRY ORDERABLES Performing Organization Address [facility] de Phone Number [employer] INSURANCE BILL [address] [place] [address] * SS-A (SJOGREN'S) ANTIBODY (04/10/2020 2:06 PM CDT) Sjogren's Antibodies (SSA) <0.2 0.0 - 0.9 [facility] Blood BLOOD SPECIMEN / Unknown 04/10/2020 2:06 PM CDT 04/10/2020 Narrative Resulting Agency Comment Lab Testing performed at: [facility] [address] ??[facility]ly [facility] [phone] Elayne Cox MD LAB - CHEMISTRY ORDERABLES Performing Organization Address [facility] de Phone Number [employer] INSURANCE BILL [address] [place] [address] * CYCLIC CITRUL PEPTIDE ANTIBODY IGG/IGA (CCP) (04/10/2020 2:06 PM CDT) CCP Antibodies IgG/IgA 5 0 - 19 units [facility] INSURANCE BILL Comment: ? Negative ? <20 ? Weak positive ?20 - 39 ? Moderate positive ??40 - 59 ? Strong positive ?>59 Blood BLOOD SPECIMEN / Unknown 04/10/2020 2:06 PM CDT 04/10/2020 Narrative Resulting Agency Comment Lab Testing performed at: [facility] ??[facility] [phone] Elayne Cox MD LAB - SEROLOGY ORDERABLES [facility] INSURANCE BILL [address] [place] [address] * COMPLEMENT TOTAL (04/10/2020 2:06 PM CDT) Complement Total CH50 50 >41 U/mL [facility] INSURANCE BILL Comment: ?Age ?Male ?Female ? 1 - 30 days ? Not Estab. ? Not Estab. ? 31 days - ??6 months ?>32 ?>20 ?7 months - 17 years ? >39 ?>39 ?>17 years ? >41 ?>41 ?NOTE: The adult ( >17 years ) reference interval ?range is used to flag abnormals on this ?report. If the patient is 17 years old or ?younger, use the table above to determine ?out of range values. Blood BLOOD SPECIMEN / Unknown 04/10/2020 2:06 PM CDT 04/10/2020 Narrative Resulting Agency Comment Lab Testing performed at: [address] ??[facility]ly [facility] [phone] Elayne Cox MD LAB - CHEMISTRY ORDERABLES [facility] INSURANCE BILL [address] [place] [address] * COMPLEMENT C4 (04/10/2020 2:06 PM CDT) Complement C4 17 14 - 44 mg/dL [facility] INSURANCE BILL Comment: ? Effective April 13, 2020 Complement C4, Serum ? reference interval will be changing to: ?Age ?Male ?Female ? 0 - 30 days ? Not Estab. ?Not Estab. ? 1 month - 18 years ? 10 - 34 ? 10 - 34 ?>18 years ? 12 - 38 ? 12 - 38 Blood BLOOD SPECIMEN / Unknown 04/10/2020 2:06 PM CDT 04/10/2020 Narrative Resulting Agency Comment Lab Testing performed at: [employer] [address] ??[facility]ly [facility] [phone] Elayne Cox MD LAB - SEROLOGY ORDERABLES Performing Organization Address [facility] de Phone Number [email or web address] INSURANCE BILL [address] [place] [address] * COMPLEMENT C3 (04/10/2020 2:06 PM CDT) Complement C3 92 82 - 167 mg/dL [email or web address] INSURANCE BILL Blood BLOOD SPECIMEN / Unknown 04/10/2020 2:06 PM CDT 04/10/2020 Narrative Resulting Agency Comment Lab Testing performed at: [employer] [address] ??[place] [phone] Elayne Cox MD LAB - CHEMISTRY ORDERABLES Performing Organization Address [facility] de Phone Number [facility] [facility] INSURANCE BILL [address] [place] [address] * (ABNORMAL) MARTITA BLOOD SCREEN W/REFLEX TITER (04/10/2020 2:06 PM CDT) MARTITA Positive(A ) [email or web address] INSURANCE BILL Comment: ?Negative ?? <1:80 ?Borderline ??1:80 ?Positive ?? >1:80 Blood BLOOD SPECIMEN / Unknown 04/10/2020 2:06 PM CDT 04/10/2020 Narrative Resulting Agency Comment Lab Testing performed at: [facility] [id number] ??[facility]ly [facility] [phone] Elayne Cox MD LAB - CHEMISTRY ORDERABLES [facility] INSURANCE BILL [address] [place] [address] documented in this encounter Visit Diagnoses Diagnosis Arthralgia, unspecified joint- Primary Joint swelling Effusion of joint, site unspecified MARTITA positive Other and unspecified nonspecific immunological findings documented in this encounter Care Teams Embossing Toolsetter Relationship Specialty Start Date End Date Rom Vidales MD PCP - General 10/22/19 documented as of this encounter
--- OUTSIDE RECORDS SUMMARY | 2024-06-17 03:36 | XMS_ITS | Encounter Summary ---
Author Organization [facility] Address [address] [place] [address] Care Team Providers Care Building Construction Teacher Name Role Phone Rom Vidales MD Primary Care Provider [phone] Reason for Visit * Reason Onset Date Comments Results 05/08/2020 Encounter Details Date Type Department Care Team (Late st Contact Info) Description 05/08/2020 Telephone [facility] [address] [place] [address], [place] [id number] Elayne Cox MD [facility] DIV OF RHEUMATOLOGY [place], [place] [phone] Results Social History Tobacco Use Types Packs/Day Years Used Date Smoking Tobacco: Former Cigarettes Smokeless Tobacco: Never Alcohol Use Standard Drinks/Week Comments Yes 0 (1 standard drink = 0.6 oz pur e alcohol) Sex and Gender Information Value Date Recorded Sex Assigned at Not on file Gender Identity Not on file Sexual Orientation Not on file documented as of this encounter Miscellaneous Notes * Telephone Encounter - Radha Tucker RN - 05/08/2020 1:36 PM CST Received mail from [facility] with right and left hand xray results. Impression: normal bilateral hand radiographs . Will right fax into chart and place in MD box. ER HELPER documented in this encounter Plan of Treatment Not on file documented as of this encounter Visit Diagnoses Not on filedocumented in this encounter Care Teams Building Construction Teacher Relationship Specialty Start Date End Date Rom Vidales MD PCP - General 10/22/19 documented as of this encounter
--- OUTSIDE RECORDS SUMMARY | 2024-06-17 03:36 | XMS_ITS | Encounter Summary ---
Author Organization [facility] Address [address] [place] [address]. [place], [place] [id number] [place] [address] Care Team Providers Care Yardage Estimator Name Role Phone Rom Vidales MD Primary Care Provider [phone] Reason for Visit * Reason Onset Date Comments Consult 03/26/2021 Encounter Details Date Type Department Care Team (Late st Contact Info) Description 03/26/[address] [place] [address] Lizbeth Coles RMA Consult Social History Tobacco Use Types Packs/Day Years Used Date Smoking Tobacco: Never Assessed Comments Unknown Sex and Gender Information Value Date Recorded Sex Assigned at Not on file Legal Sex Female 5:19 PM CDT Gender Identity Not on file Sexual Orientation Not on file documented as of this encounter Progress Notes * JILL Galvez - 03/26/2021 3:37 PM CDT VM not set up, unable to leave message for cardiology consult per Dr Rom Vidales. Will send letter to patient to contact our office for appointment. documented in this encounter Plan of Treatment Not on file documented as of this encounter Visit Diagnoses Not on filedocumented in this encounter Care Teams Yardage Estimator Relationship Specialty Start Date End Date Rom Vidales MD PCP - General FAMILY PRACTICE 03/24/21 documented as of this encounter
--- OUTSIDE RECORDS SUMMARY | 2024-06-17 03:36 | XMS_ITS | Referral Summary ---
Author Organization [facility] [employer] Address [address] [facility] [place] [address] Care Team Providers Care Washateria Attendant Name Role Phone Rom Vidales MD Primary Care Provider [phone] Source Comments [facility] [employer],non-owned Affiliates and Associated Physician Practices is amultiple site organization consisting of ambulatory clinics and hospital sitesin [place], [place] and [place]. This disclosure is being madepursuant to the Care Everywhere program and may not contain all information available regarding this patient. Last updated 18.[facility] [employer] Allergies No known active allergies Medications * [...] Diagnosed Date Resolved Date Rash 07/15/2019 06/08/2020 Social History Tobacco Use Types Packs/Day Years [...] 03/23/2020 9:14 AM CDT Plan of Treatment Not on file Care Teams Washateria Attendant Relationship Specialty Start Date End Date Rom Vidales MD PCP - General 10/22/19
--- OUTSIDE RECORDS SUMMARY | 2024-06-17 03:36 | XMS_ITS | Patient Health Summary ---
Author Organization [facility] Address [address] [place] [address] Care Team Providers Care Television News Reporter Name Role Phone Rom Vidales MD Primary Care Provider [phone] Note from Formerly named [facility],non-owned Affiliates and Associated Physician Practices is amultiple site organization consisting of ambulatory clinics and hospital sitesin [place], [place], [place] and [place]. This disclosure is being madepursuant to the Care Everywhere program and may not contain all information available regarding this patient. Last updated 18.[facility] Allergies No known active allergies Medications * Be aware that medications may not be up to date on this document. Alwaysverify current medications with the patient. * Multiple Vitamins-Minerals (ONE-A-DAY WOMENS PO) Take 1 tablet by mouth once daily Active Problems Problem Noted Date Diagnosed Date [...] Mass Index 25.06 03/23/2020 9:14 AM CDT Procedures * HLA TYPING B27(Performed 04/10/2020) * URIC ACID BLOOD(Performed 04/10/2020) * ELIEL STAINING PATTERNS REFLEXED(Performed 04/10/2020) Performed for Arthralgia, unspecified joint, Joint swelling, MARTITA positive * URINALYSIS MICROSCOPIC ONLY REFLEXED(Performed 04/10/2020) Performed for Arthralgia, unspecified joint, Joint swelling, MARTITA positive * URINALYSIS W/MICROSCOPIC REFLEX TO CULTURE(Performed 04/10/2020) Performed for Arthralgia, unspecified joint, Joint swelling, MARTITA positive * THYROGLOBULIN ANTIBODY(Performed 04/10/2020) Performed for Arthralgia, unspecified joint, Joint swelling, MARTITA positive * THYROID PEROXIDASE ANTIBODY(Performed 04/10/2020) Performed for Arthralgia, unspecified joint, Joint swelling, MARTITA positive * TSH(Performed 04/10/2020) Performed for Arthralgia, unspecified joint, Joint swelling, MARTITA positive * CBC W AUTO DIFFERENTIAL(Performed 04/10/2020) Performed for Arthralgia, unspecified joint, Joint swelling, MARTITA positive * ERYTHROCYTE SEDIMENTATION RATE(Performed 04/10/2020) Performed for Arthralgia, unspecified joint, Joint swelling, MARTITA positive * COMPREHENSIVE METABOLIC PANEL(Performed 04/10/2020) Performed for Arthralgia, unspecified joint, Joint swelling, MARTITA positive * CK BLOOD(Performed 04/10/2020) Performed for Arthralgia, unspecified joint, Joint swelling, MARTITA positive * ALDOLASE(Performed 04/10/2020) Performed for Arthralgia, unspecified joint, Joint swelling, MARTITA positive * MEJIA (SM) ANTIBODY CHANNING(Performed 04/10/2020) Performed for Arthralgia, unspecified joint, Joint swelling, MARTITA positive * IGM BLOOD(Performed 04/10/2020) Performed for Arthralgia, unspecified joint, Joint swelling, MARTITA positive * IGG BLOOD(Performed 04/10/2020) Performed for Arthralgia, unspecified joint, Joint swelling, MARTITA positive * IGA BLOOD(Performed 04/10/2020) Performed for Arthralgia, unspecified joint, Joint swelling, MARTITA positive * CHROMATIN ANTIBODY(Performed 04/10/2020) Performed for Arthralgia, unspecified joint, Joint swelling, MARTITA positive * HISTONE ANTIBODY(Performed 04/10/2020) Performed for Arthralgia, unspecified joint, Joint swelling, MARTITA positive * DNA ANTIBODY DS CRITHIDIA IFA(Performed 04/10/2020) Performed for Arthralgia, unspecified joint, Joint swelling, MARTITA positive * DNA ANTIBODY DOUBLE STRANDED(Performed 04/10/2020) Performed for Arthralgia, unspecified joint, Joint swelling, MARTITA positive * SS-B (SJOGREN'S) ANTIBODY(Performed 04/10/2020) Performed for Arthralgia, unspecified joint, Joint swelling, MARTITA positive * SS-A (SJOGREN'S) ANTIBODY(Performed 04/10/2020) Performed for Arthralgia, unspecified joint, Joint swelling, MARTITA positive * CYCLIC CITRUL PEPTIDE ANTIBODY IGG/IGA (CCP)(Performed 04/10/2020) Performed for Arthralgia, unspecified joint, Joint swelling, MARTITA positive * COMPLEMENT TOTAL(Performed 04/10/2020) Performed for Arthralgia, unspecified joint, Joint swelling, MARTITA positive * COMPLEMENT C4(Performed 04/10/2020) Performed for Arthralgia, unspecified joint, Joint swelling, MARTITA positive * COMPLEMENT C3(Performed 04/10/2020) Performed for Arthralgia, unspecified joint, Joint swelling, MARTITA positive * MARTITA BLOOD SCREEN W/REFLEX TITER(Performed 04/10/2020) Performed for Arthralgia, unspecified joint, Joint swelling, MARTITA positive * ANTI-MULLERIAN HORMONE FEMALE(Performed 03/23/2020) Performed for Pre-conception counseling Results * URIC ACID BLOOD (04/10/2020 2:07 PM CDT) Uric Acid 4.3 2.5 - 7.1 mg/dL [facility] INSURANCE BILL Comment:Therapeutic target f or gout patients: <6.0 04/10/2020 2:07 PM CDT 04/10/2020 Narrative Resulting Agency Comment Lab Testing performed at: [facility] [address] ??[place] [phone] Elayne Cox MD LAB - CHEMISTRY ORDERABLES Performing Organization Address City/[facility] Co de Phone Number [facility] INS[facility] BILL [address] [place] [address] * HLA TYPING B27 (04/10/2020 2:07 PM CDT) HLA-B27 Negative [facility] Comment: HLA-B*27 Negative B27 allele interpretation for all loci based on IMGT/HLA database version 3.38 This test was developed and its performance characteristics determined by [facility]. ??It has not been cleared or approved by the Food and Drug Administration. HLA Lab CLIA ID Number [id number] ? . This test was performed using PCR (Polymerase Chain Reaction)/SSOP (Sequence Specific Oligonucleotide Probes) technique. ??SBT (Sequence Based Typing) and/or SSP (Sequence Specific Primers) may be used as supplemental methods when necessary. ??Please contact HLA Customer Service at if you have any questions. ? . Director of HLA Laboratory Dr Jordi Sorto, PhD 04/10/2020 2:07 PM CDT 04/10/2020 Narrative Resulting Agency Comment Lab Testing performed at: [place] [address] [facility] ??[facility] [phone] Elayne Cox MD LAB - CHEMISTRY ORDERABLES Performing Organization Address City/[facility]/ZIP Co de Phone Number [facility] INSURANCE BILL [address] [place] [address] * URINALYSIS MICROSCOPIC ONLY REFLEXED (04/10/2020 2:06 [...] Resulting Agency Comment Lab Testing performed at: [facility] [address] ??[facility] [phone] Elayne Cox MD LAB - URINALYSI S ORDERABLES [facility] INSURANCE BILL [address] [place] [address] * DNA ANTIBODY DS CRITHIDIA IFA (04/10/2020 2:06 PM CDT) dsDNA Antibody Crithidia IFA Negative Negative [facility] INSURANCE BILL Blood BLOOD SPECIMEN / Unknown 04/10/2020 2:06 PM CDT 04/10/2020 Narrative Resulting Agency Comment Lab Testing performed at: [facility] [place] [address] ??[facility] [phone] Elayne Cox MD LAB - SEROLOGY ORDERABLES [facility] INSURANCE BILL [address] [place] [address] * CHROMATIN ANTIBODY (04/10/2020 2:06 PM CDT) Antichromatin Antibodies 0.3 0.0 - 0.9 AI [facility] INSURANCE BILL Blood BLOOD SPECIMEN / Unknown 04/10/2020 2:06 PM CDT 04/10/2020 Narrative Resulting Agency Comment Lab Testing performed at: [facility] [address] ??[facility] [phone] Elayne Cox MD LAB - SEROLOGY ORDERABLES Performing Organization Address [facility] Co de Phone Number [facility] INSURANCE BILL [address] [place] [address] * CYCLIC CITRUL PEPTIDE ANTIBODY IGG/IGA (CCP) (04/10/2020 2:06 PM CDT) CCP Antibodies IgG/IgA 5 0 - 19 units [facility] INSURANCE BILL Comment: ? Negative ? <20 ? Weak positive ?20 - 39 ? Moderate positive ??40 - 59 ? Strong positive ?>59 Blood BLOOD SPECIMEN / Unknown 04/10/2020 2:06 PM CDT 04/10/2020 Narrative Resulting Agency Comment Lab Testing performed at: [facility] ??[facility] [phone] Elayne Cox MD LAB - SEROLOGY ORDERABLES [facility] INSURANCE BILL [address] [place] [address] * (ABNORMAL) ELIEL STAINING PATTERNS REFLEXED (04/10/2020 [...] Histones ?Drug-induced SLE ? Speckled ? Sm, TELEPHONIC CASE MANAGER, SCL-70, ??SLE,MCTD,PSS (diffuse form), ? SS-A/SS-B ? Sjogrens ? Nucleolar ?SCL-70, PM-1/SCL ??High titers Scleroderma, ? PM/DM ? Centromere ?? Centromere ?PSS (limited form) w/Crest ? syndrome variable ? Nuclear Dot ??Sp100,[id number] ??Primary Biliary Cirrhosis ? Nuclear ?GP210, ?Primary Biliary Cirrhosis Membrane ? agustin A,B,C ? 04/10/2020 2:06 PM CDT 04/10/2020 Narrative Resulting Agency Comment Lab Testing performed at: [facility] [address] ??[facility] [phone] Elayne Cox MD LAB - PATHOLOGY /CYTOLOGY ORDERABLES [facility] INSURANCE BILL [address] [place] [address] * URINALYSIS W/MICROSCOPIC REFLEX TO CULTURE (04/10/2020 2:06 PM CDT) Specific Logan UA 1.013 1.005 - 1.030 [facility] INSURANCE [...] Resulting Agency Comment Lab Testing performed at: [facility] [place] [address] ??[place] [phone] Elayne Cox MD LAB - URINALYSI S ORDERABLES Performing Organization Address [facility] de Phone Number [facility] INSURANCE BILL [address] [place] [address] * MEJIA (SM) ANTIBODY CHANNING (04/10/2020 2:06 PM CDT) Pathologist [facility] Mejia (CHANNING) Antibody <0.2 0.0 - 0.9 AI [facility] INSURANCE BILL Blood BLOOD SPECIMEN / Unknown 04/10/2020 2:06 PM CDT 04/10/2020 Narrative Resulting Agency Comment Lab Testing performed at: [facility] [address] ??[place] [phone] Elayne Cox MD LAB - CHEMISTRY ORDERABLES Performing Organization Address [facility] de Phone Number [facility] INSURANCE BILL [address] [place] [address] * (ABNORMAL) MARTITA BLOOD SCREEN W/REFLEX TITER (04/10/2020 2:06 PM CDT) [facility] MARTITA Positive(A ) [facility] INSURANCE BILL Comment: ?Negative ?? <1:80 ?Borderline ??1:80 ?Positive ?? >1:80 Blood BLOOD SPECIMEN / Unknown 04/10/2020 2:06 PM CDT 04/10/2020 Narrative Resulting Agency Comment Lab Testing performed at: [facility] [place] [address] ??[facility] [phone] Elayne Cox MD LAB - CHEMISTRY ORDERABLES [facility] INSURANCE BILL [address] [place] [address] * THYROID PEROXIDASE ANTIBODY (04/10/2020 2:06 PM CDT) Thyroid Peroxidase TPO Antibody <9 0 - 34 IU/mL [facility] INSURANCE BILL Blood BLOOD SPECIMEN / Unknown 04/10/2020 2:06 PM CDT 04/10/2020 Narrative Resulting Agency Comment Lab Testing performed at: [facility] [place] [address] ??[facility] [phone] Elayne Cox MD LAB - CHEMISTRY ORDERABLES Performing Organization Address [facility] Co de Phone Number [facility] INSURANCE BILL [address] [place] [address] * THYROGLOBULIN ANTIBODY (04/10/2020 2:06 PM CDT) Thyroglobulin Antibody <1.0 0.0 - 0.9 IU/mL [facility] INSURANCE BILL Comment:Thyroglobulin Antibo dy measured by Niurka [place] [employer] Blood BLOOD SPECIMEN / Unknown 04/10/2020 2:06 PM CDT 04/10/2020 Narrative Resulting Agency Comment Lab Testing performed at: [facility] [address] ??[facility] [phone] Elayne Cox MD LAB - CHEMISTRY ORDERABLES Performing Organization Address City/[facility] Co de Phone Number [facility] INSURANCE BILL [address] [place] [address] * HISTONE ANTIBODY (04/10/2020 2:06 PM CDT) Anti-Histone Antibody 0.4 0.0 - 0.9 Units [facility] INSURANCE BILL Comment: ?Negative ?<1.0 ?Weak Positive ?1.0 - 1.5 ?Moderate Positive ??1.6 - 2.5 ?Strong Positive ? >2.5 Blood BLOOD SPECIMEN / Unknown 04/10/2020 2:06 PM CDT 04/10/2020 Narrative Resulting Agency Comment Lab Testing performed at: [address] ??[facility] [phone] Elayne Cox MD LAB - CHEMISTRY ORDERABLES [facility] INSURANCE BILL [address] [place] [address] * COMPLEMENT TOTAL (04/10/2020 2:06 PM CDT) [...] Resulting Agency Comment Lab Testing performed at: [facility] [address] ??[facility] [phone] Elayne Cox MD LAB - CHEMISTRY ORDERABLES [facility] INSURANCE BILL [address] [place] [address] * SS-B (SJOGREN'S) ANTIBODY (04/10/2020 2:06 PM CDT) Sjogren's Antibodies (SSB) <0.2 0.0 - 0.9 AI [facility] INSURANCE BILL Blood BLOOD SPECIMEN / Unknown 04/10/2020 2:06 PM CDT 04/10/2020 Narrative Resulting Agency Comment Lab Testing performed at: [facility] [address] ??[place] [phone] Elayne Cox MD LAB - CHEMISTRY ORDERABLES Performing Organization Address [facility] de Phone Number [facility] INSURANCE BILL [address] [place] [address] * SS-A (SJOGREN'S) ANTIBODY (04/10/2020 2:06 PM CDT) Pathologist [facility] Sjogren's Antibodies (SSA) <0.2 0.0 - 0.9 AI [facility] INSURANCE BILL Blood BLOOD SPECIMEN / Unknown 04/10/2020 2:06 PM CDT 04/10/2020 Narrative Resulting Agency Comment Lab Testing performed at: [facility] [address] ??[place] [phone] Elayne Cox MD LAB - CHEMISTRY ORDERABLES Performing Organization Address [facility] de Phone Number [facility] INSURANCE BILL [address] [place] [address] * DNA ANTIBODY DOUBLE STRANDED (04/10/2020 2:06 PM CDT) Pathologist [facility] Anti-dsDNA Quantitative 2 0 - 9 IU/mL [facility] Comment: ?Negative ?<5 ?Equivocal ??5 - 9 ?Positive ?>9 Blood BLOOD SPECIMEN / Unknown 04/10/2020 2:06 PM CDT 04/10/2020 Narrative Resulting Agency Comment Lab [facility] performed [facility]: [facility] [address] ??[facility] [phone] Elayne Cox MD LAB - HEMATOLOG Y ORDERABLES Performing Organization Address City/[facility]/ZIP Co de Phone Number [facility] INSURANCE BILL [address] [place] [address] * ALDOLASE (04/10/2020 2:06 PM CDT) Aldolase 5.6 3.3 - 10.3 U/L [facility] INSURANCE BILL Blood BLOOD SPECIMEN / Unknown 04/10/2020 2:06 PM CDT 04/10/2020 Narrative Resulting Agency Comment Lab Testing performed at: [facility] [address] ??[facility] [phone] Elayne Cox MD LAB - CHEMISTRY ORDERABLES Performing Organization Address City/[facility] Co de Phone Number [facility] INSURANCE BILL [address] [place] [address] * ERYTHROCYTE SEDIMENTATION RATE (04/10/2020 2:06 PM CDT) Erythrocyte Sedimentation Rate Westergren 3 0 - 32 mm/hr [facility] INSURANCE BILL Blood BLOOD SPECIMEN / Unknown 04/10/2020 2:06 PM CDT 04/10/2020 Narrative Resulting Agency Comment Lab Testing performed at: [facility] [address] ??[facility] [phone] Elayne Cox MD LAB - HEMATOLOG Y ORDERABLES [facility] INSURANCE BILL [address] [place] [address] * CBC WITH DIFFERENTIAL (04/10/2020 2:06 PM CDT) WBC 5.8 3.4 - 10.8 x10E3/uL [facility] [...] Resulting Agency Comment Lab Testing performed at: [facility] [address] [facility] ??[facility] [phone] Elayne Cox MD LAB - HEMATOLOG Y ORDERABLES [facility] INSURANCE BILL [address] [place] [address] * COMPLEMENT C4 (04/10/2020 2:06 PM CDT) Complement C4 17 14 - 44 mg/dL [facility] INSURANCE BILL Comment: ? Effective April 13, [...] Resulting Agency Comment Lab Testing performed at: [address] ??[facility] [phone] Elayne Cox MD LAB - SEROLOGY ORDERABLES [facility] INSURANCE BILL [address] [place] [address] * COMPREHENSIVE METABOLIC PANEL (04/10/2020 2:06 PM CDT) Pathologist [facility] Glucose 94 65 - 99 mg/dL [facility] [...] Resulting Agency Comment Lab Testing performed at: [facility] ??[facility] [phone] Elayne Cox MD LAB - CHEMISTRY ORDERABLES Performing Organization Address City/[facility]/ZIP Co de Phone Number [facility] INSURANCE BILL [address] [place] [address] * CK BLOOD (04/10/2020 2:06 PM CDT) CK 122 32 - 182 U/L [facility] INSURANCE BILL Blood BLOOD SPECIMEN / Unknown 04/10/2020 2:06 PM CDT 04/10/2020 Narrative Resulting Agency Comment Lab Testing performed at: [facility] ??[facility] [phone] Elayne Cox MD LAB - CHEMISTRY ORDERABLES [facility] INSURANCE BILL [address] [place] [address] * TSH (04/10/2020 2:06 PM CDT) TSH 1.300 0.450 - 4.500 uIU/mL [facility] INSURANCE BILL Blood BLOOD SPECIMEN / Unknown 04/10/2020 2:06 PM CDT 04/10/2020 Narrative Resulting Agency Comment Lab Testing performed at: [facility] [address] ??[facility] [phone] Elayne Cox MD LAB - CHEMISTRY ORDERABLES [facility] INSURANCE BILL [address] [place] [address] * IGM BLOOD (04/10/2020 2:06 PM CDT) IgM Quantitative 90 26 - 217 mg/dL [facility] INSURANCE BILL Blood BLOOD SPECIMEN / Unknown 04/10/2020 2:06 PM CDT 04/10/2020 Narrative Resulting Agency Comment Lab Testing performed at: [facility] [address] ??[place] [phone] Elayne Cox MD LAB - CHEMISTRY ORDERABLES [facility] INSURANCE BILL [address] [place] [address] * IGG BLOOD (04/10/2020 2:06 PM CDT) IgG Quantitative 1,087 586 - 1,602 mg/dL [facility] INSURANCE BILL Blood BLOOD SPECIMEN / Unknown 04/10/2020 2:06 PM CDT 04/10/2020 Narrative Resulting Agency Comment Lab Testing performed at: [facility] [address] ??[facility] [phone] Elayne Cox MD LAB - CHEMISTRY ORDERABLES [facility] INSURANCE BILL [address] [place] [address] * IGA BLOOD (04/10/2020 2:06 PM CDT) IgA Quantitative 246 87 - 352 mg/dL [facility] INSURANCE BILL Blood BLOOD SPECIMEN / Unknown 04/10/2020 2:06 PM CDT 04/10/2020 Narrative Resulting Agency Comment Lab Testing performed at: [facility] [place] [address] ??[facility] [phone] Elayne Cox MD LAB - CHEMISTRY ORDERABLES [facility] INSURANCE BILL [address] [place] [address] * COMPLEMENT C3 (04/10/2020 2:06 PM CDT) Complement C3 92 82 - 167 mg/dL [facility] INS[facility] B[facility] Blood BLOOD SPECIMEN / Unknown 04/10/2020 2:06 PM CDT 04/10/2020 Narrative Resulting Agency Comment Lab Testing performed at: [facility] [address] ??[facility] [phone] Elayne Cox MD LAB - CHEMISTRY ORDERABLES [facility] [address] [place] [address] * ANTI-MULLERIAN HORMONE FEMALE (03/23/2020 9:53 AM CDT) Anti-Mullerian Hormone (AMH) Female 2.38 0.18 - 5.68 ng/mL [facility] Comment: REPORT COMMENT: FASTING:NO Test Performed at: [facility] [address] ??[address] PAKO HAMPTON MD Blood BLOOD SPECIMEN / Unknown 03/23/2020 9:53 AM CDT 03/23/2020 9:54 AM CDT Portillo Vazquez MD LAB - CHEMISTRY ORD ERABLES [facility] [address] [place] [address] Care Teams Television News Reporter Relationship Specialty Start Date End Date Rom Vidales MD [facility] - General 10/22/19
--- OUTSIDE RECORDS SUMMARY | 2024-06-17 03:37 | XMS_ITS | Encounter Summary ---
Author Organization [employer] Care Team Providers Care Product Development Manager Name Role Phone Rom Vidales Primary Care Provider [phone] Bertha Mcgregor MD Unavailable Encounter Details Date Type Department Care Team (Latest Contact Info) Description 07/13/2023 Travel Social History Tobacco Use Types Packs/Day Years Used Date Smoking Tobacco: Former Cigarettes Q uit: 2021 Smokeless Tobacco: Never Alcohol Use Standard Drinks/Week Comments Yes 0 (1 standard drink = 0.6 oz pur e alcohol) 6 beers 1-2 days per week Comments Unknown Sex and Gender Information Value Date Recorded Sex Assigned at Female 01/30/2023 12:54 PM CDT Legal Sex Female 12:13 PM CDT Gender Identity Female 01/30/2023 12:54 PM CDT Sexual Orientation Not on file documented as of this encounter Functional Status * Question Answer Date of Assessment Author Little interest or pleasure in doing things Not at all 07/13/2023 9:41 AM Adonay Parker CMA Feeling down, depressed, or hopeless Not at all 07/13/2023 9:41 AM Estela Parker CMA * Over the past 2 weeks, how often have you been bothered by any of the following problems? Question Answer Date of Assessment Author Patient Health Questionnaire-2 Score 0 07/13/2023 9:41 AM Bianca Parker CMA documented as of this encounter Plan of Treatment Upcoming Encounters Date Type Department Care Team (Late st Contact Info) Description 07/10/2024 9:40 AM HARBOR BOAT PILOT Lab [facility] [address] [id number] Lab, Cc [facility] 07/17/2024 8:45 AM HARBOR BOAT PILOT Office Visit [facility] [place] [address] [place] [address] Bertha Mcgregor MD [address] [place], [place] [address] documented as of this encounter Visit Diagnoses Not on filedocumented in this encounter Care Teams Product Development Manager Relationship Specialty Start Date End Date Rom Vidales [address] [place] [address] PCP - General Family Medicine 12/21/22 Bertha Mcgregor MD [address] [place] [address] Consulting Physician Oncology 05/10/23 documented as of this encounter
--- OUTSIDE RECORDS SUMMARY | 2024-06-17 03:37 | XMS_ITS | Encounter Summary ---
Author Organization [employer] Care Team Providers Care Pilot Control Operator Name Role Phone Rom Vidales Primary Care Provider [phone] Bertha Mcgregor MD Unavailable Encounter Details Date Type Department Care Team (Latest Contact Info) Description 06/15/2023 Travel Social History Tobacco Use Types Packs/Day [...] pleasure in doing things Not at all 06/15/2023 9:21 AM Pratima Warner R MA Feeling down, depressed, or hopeless Not at all 06/15/2023 9:21 AM Pratima Warner R MA * Over the past 2 weeks, how often have you been bothered by any of the following problems? Question Answer Date of Assessment Author Patient Health Questionnaire -2 Score 0 06/15/2023 9:21 AM Pratima Warner R MA documented as of this encounter Plan of Treatment Upcoming Encounters Date Type Department Care Team (Late st Contact Info) Description 07/10/2024 9:40 AM CERTIFIED NUTRITIONIST Lab [facility] [address] [address] Lab, Cc [facility] 07/17/2024 8:45 AM CERTIFIED NUTRITIONIST Office Visit [facility] [place] [address] [place] [address] Bertha Mcgregor MD [address] [place], [place] [address] documented as of this encounter Visit Diagnoses Not on filedocumented in this encounter Care Teams Pilot Control Operator Relationship Specialty Start Date End Date Rom Vidales [address] [place] [address] PCP - General Family Medicine 12/21/22 Bertha Mcgregor MD [address] [place] [address] Consulting Physician Oncology 05/10/23 documented as of this encounter
--- OUTSIDE RECORDS SUMMARY | 2024-06-17 03:37 | XMS_ITS | Encounter Summary ---
Author Organization [facility] Address [address] [place] [address] Phone Care Team Providers Care Etcher Apprentice Name Role Phone Rom Vidales Primary Care Provider [phone] Bertha Mcgregor MD Unavailable Reason for Visit * Reason Comments Follow-up Encounter Details Date Type Department Care Team (Late st Contact Info) Description 05/10/2023 11:00 AM GREEN PLUMBER Office Visit [facility] [address] [phone] Bertha Mcgregor MD [address] [place] [address] [phone] Iron deficiency anemia, unspecified iron deficiency anemia type (Primary Dx); Other fatigue; Arthralgia, unspecified joint Social History Tobacco Use Types Packs/Day Years Used Date Smoking Tobacco: Former Cigarettes Q uit: 2021 Smokeless Tobacco: Never Tobacco Cessation:Counseling Given: Not Answered Alcohol Use Standard Drinks/Week Comments Yes 0 (1 standard drink = 0.6 oz pur e alcohol) 6 beers 1-2 days per week Comments Unknown Sex and Gender Information Value Date Recorded Sex Assigned at Female 01/30/2023 12:54 PM CDT Legal Sex Female 12:13 PM CDT Gender Identity Female 01/30/2023 12:54 PM CDT Sexual Orientation Not on file COVID-19 Exposure Response Date Recorded In the last 10 days, have yo u been in contact with someone who was confirmed or suspected to have Coronavirus/COVID-19? No / Unsure 04/28/2023 8:20 AM GREEN PLUMBER documented as of this encounter Last Filed Vital Signs Vital Sign Reading Time Taken Comments Blood Pressure 108/70 05/10/2023 11:02 AM GREEN PLUMBER Pulse 72 05/10/2023 11:02 AM GREEN PLUMBER Temperature 36.8 ??C (98.2 ??F) 05/10/2023 1 1:02 AM GREEN PLUMBER Respiratory Rate 18 05/10/2023 11:0 2 AM GREEN PLUMBER Oxygen Saturation 99% 05/10/2023 11: 02 AM GREEN PLUMBER Inhaled Oxygen Concentration - - Weight 60.2 kg (132 lb 12.8 oz) 023 11:02 AM GREEN PLUMBER Height 157.5 cm (5' 2 ) 05/10/2023 11:0 2 AM GREEN PLUMBER Body Mass Index 24.29 05/10/2023 11:02 AM GREEN PLUMBER documented in this encounter Functional Status * Question Answer Date of Assessment Author Little interest or pleasure in doing things Not at all 05/10/2023 11:01 AM María Porter LPN Feeling down, depressed, or hopeless Not at all 05/10/2023 11:01 AM GREEN PLUMBER María Jordan LPN * Over the past 2 weeks, how often have you been bothered by any of the following problems? Question Answer Date of Assessment Author Patient Health Questionnaire-2 Score 0 05/10/2023 11:01 AM Corinna Porter LPN documented as of this encounter Progress Notes * Bertha Mcgregor MD - 05/10/2023 11:00 AM CST Images from the original note were not included. Patient: Hali Samuels Age: 42 y.o. : 1980 [facility] Encounter Date: 05/10/2023 Care Team: Current Providers PCP: Rom Vidales Encounter Provider: Bertha Mcgregor MD Referring Provider: not found Consulting Physician: Bertha Mcgregor MD HEMATOLOGY HISTORY: Patient comes back today to followup on her iron deficiency anemia. Since her last visit she had an EGD and colonoscopy done with Dr. Apodaca at [facility] on 03/15/23. Per patient, EGD was normal but colonoscopy she had three polyps removed. Two of them were adenomas but she had a large descending colon polyp of 30 mm that was tubulovillous and had high grade dysplasia. She was told by GI that it was completely removed with negative margins and she was going for a colonoscopy one year from now. I do not have the results or report from her EGD, colonoscopy or pathology yet. She has been taking oral iron but she stopped the week before her scoping and has restarted taking it now. Repeat bloodwork on 03/31/23 showed a normal white count, normal H&H, normal platelet count. Ferritin low at 5 but no improvement. Iron saturation 13% low, reticulocyte count normal. She continues to feel tired and craving ice. She has a regular light period. She denies seeing blood in the stool since the polypectomy. HISTORY OF PRESENT ILLNESS: Patient comes back today to followup on her iron deficiency anemia status post IV iron with [id number] mg on 04/24/23, 04/26/23, 04/28/23, 05/01/23, 05/03/23. She is being seen today earlier due to symptoms of lightheadedness, dizziness, joint pain, fatigue. Vital signs are good in clinic today. She reports she used to have joint pain in the past and used to see rheumatology for possible underlying autoimmune disease with chronic inflammation in her joints. They used to do prednisone courses. She has not seen her leather goods maker for the past couple of years due to insurance. Now she is able to see them again. She also feels like she is going to pass out from when moving from a sitting position to a standing position or lifting her head fast. She feels like she becomes lightheaded and is going to pass out. She reports also she got her period earlier by two weeks now and it is heavy. DIAGNOSIS: 1. Iron deficiency anemia. 2. Fatigue. 3. 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 PAST TREATMENT: 1. EGD and colonoscopy on 03/15/23 with removal of descending 30 mm polyp with tubulovillous with high grade dysplasia with Dr. Apodaca at [facility]. 2. Venofer 200 mg on 04/24/23, 04/26/23, 04/28/23, 05/01/23, and 05/03/23. CURRENT TREATMENT: Ferrous sulfate, on hold for now. TREATMENT GUIDELINES: PROGNOSIS: EXPECTED RESPONSE TO TREATMENT: EXPECTED QUALITY OF LIFE DURING TREATMENT: ECOG: PAIN: PLAN FOR PAIN: CODE STATUS: END OF LIFE: ASSESSMENT: 1. Iron deficiency anemia. 2. Fatigue. 3. Bright red blood per rectum. 4. Lightheadedness. 5. Joint pain. PLAN: 1. I will give patient on liter of normal saline fluids today due to having episodes of lightheadedness especially from a sitting a standing position which suggests probably the orthostatic hypotension. 2. Concerning her joint pain, she reports she had joint pain in the past and was being seen by rheumatology and was given prednisone courses in the past. She feels like she is having another flareup now. I told her to take Tylenol or ibuprofen for the next two to three days to see if that helps. Ifit is not helping, I also recommended that she calls her leather goods maker at [facility] seen again. 3. Repeat colonoscopy in February of [address] Apodaca at [facility]. 4. We will do labs today. 5. Return to clinic as scheduled on 06/15/23 with labs the week before, or sooner if needed if her symptoms do not improve. TIME SPENT: REVIEW OF SYSTEMS: A 12-point review of systems is negative except as per HPI. PHYSICAL EXAM: GENERAL: Patient is awake, alert, and oriented x3. HEENT: Normocephalic, atraumatic, PERRLA, EOMI. Sclerae nonicteric, conjunctivae normal. Nasopharynx negative. Tongue normal, uvula midline, no thrush, no mucosal lesions present. NECK: Supple. No cervical, supraclavicular, or axillary lymphadenopathy. Thyroid not palpable. LUNGS: Clear to auscultation and percussion in all lung garcia, no focal wheezes, rales, or rhonchi. HEART: Regular rhythm and rate. Normal S1, S2, no S3, S4, no murmur, or rub. ABDOMEN: No hepatosplenomegaly, masses, ascites, areas of tenderness, bruits, or hernias. EXTREMITIES: No clubbing, cyanosis, or edema. SKIN: No ecchymosis, petechiae, or rashes. LABORATORY/PATHOLOGY/IMAGING NOTES: All lab results shown below reviewed. Berhta Mcgregor MD/darrell Vitals: Vitals: 05/10/23 1102 BP: 108/70 BP Location: Left Arm BP Position: Sitting BP Cuff Size: Regular Pulse: 72 Resp: 18 Temp: 98.2 ??F (36.8 ??C) TempSrc: Temporal SpO2: 99% Weight: 132 lb 12.8 oz (60.2 kg) Height: 5' 2 (1.575 m) Body surface area is 1.62 meters squared. Body mass index is 24.29 kg/m??. Pain Score: 4 Pain Loc: Generalized Allergies: Allergies Allergen Reactions ??? Azithromycin Swelling PMH/SgH/FH/SH: Past medical, surgical, family and social histories were reviewed at this visit. Past Medical History Positives Diagnosis Date ??? Chronic liver disease ??? Idiopathic progressive polyneuropathy ??? Iron deficiency ??? Skin sensation disturbance Past Surgical History: Procedure Laterality Date ??? BREAST SURGERY ??? TUBAL LIGATION Family History Problem Relation Age of Onset ??? Thyroid Disease Mother ??? Other-comment Father hydrocephalus Family Status Relation Name Status ??? Mother (Not Specified) ??? Father (Not Specified) Social History Socioeconomic History ??? Marital status: Tobacco Use ??? Smoking status: Former Types: Cigarettes Quit date: 2021 Years since quittin.8 ??? Smokeless tobacco: Never Vaping Use ??? Vaping Use: Never used Substance and Sexual Activity ??? Alcohol use: Yes Comment: 6 beers 1-2 days per week ??? Drug use: Never Oncology History: Oncology History No history exists. Cancer Staging: Cancer Staging No matching staging information was found for the patient. Cumulative dose Purpose/Goal Comments Lifetime Dose Tracking No doses have been documented on this patient for the following tracked chemicals: Doxorubicin, Epirubicin, Idarubicin, Daunorubicin, Mitoxantrone, Bleomycin, Ifosfamide, Methotrexate, Cyclophosphamide, Cisplatin, Carboplatin Current Medications: Outpatient Encounter Medications as of 05/10/2023 Medication Sig Dispense Refill ??? ferrous sulfate 325 (65 Fe) MG Tablet Take 325 mg by mouth in the morning and at bedtime. ??? Multiple Vitamin (MULTIVITAMIN PO) Take 1 Tablet by mouth daily. No facility-administered encounter medications on file as of 05/10/2023. Labs: No visits with results within 7 Day(s) from this visit. Latest known visit with results is: Lab on 03/31/2023 Component Date Value Ref Range Status ??? Reticulocyte count 03/31/2023 1.07 0.50 - 1.70 % Final ??? RET-He 03/31/2023 28.50 28.20 - 36.60 pg Final Comment: RET-He is a direct assessment of incorporation of iron into erythrocyte hemoglobin. It provides an indirect measure of the iron available for new erythropoiesis over past 2-4 days. ??? IRON 03/31/2023 66 50 - 212 ug/dL Final ??? UIBC 03/31/2023 430 (H) 155 - 355 ug/dL Final ??? TIBC 03/31/2023 496 (H) 261 - 478 ug/dl Final ??? % Saturation 03/31/2023 13 (L) 20 - 50 % Final ??? Ferritin 03/31/2023 5 (L) 11 - 307 ng/mL Final ??? WBC 03/31/2023 4.8 4.0 - 10.0 10*3/uL Final ??? HGB 03/31/2023 12.9 11.2 - 15.7 g/dL Final ??? HCT 03/31/2023 42.2 34.1 - 44.9 % Final ??? PLT 03/31/2023 315 163 - 369 10*3/uL Final ??? MPV 03/31/2023 9.9 9.4 - 12.4 fL Final ??? RBC 03/31/2023 5.05 3.93 - 5.22 10*6/uL Final ??? MCV 03/31/2023 84 79 - 95 fL Final ??? MCH 03/31/2023 25.5 (L) 25.6 - 32.2 pg Final ??? MCHC 03/31/2023 30.6 (L) 32.2 - 36.5 g/dL Final ??? RDW 03/31/2023 15.4 (H) 11.6 - 14.4 % Final ??? Neutrophils % 03/31/2023 65.0 36.0 - 66.0 % Final ??? Lymphocytes % 03/31/2023 25.8 19.0 - 40.0 % Final ??? Monocytes % 03/31/2023 6.5 4.1 - 12.1 % Final ??? Eosinophils % 03/31/2023 1.7 0.0 - 3.5 % Final ??? Basophils % 03/31/2023 0.8 0.0 - 1.0 % Final ??? Absolute Neutrophils 03/31/2023 3.1 1.4 - 6.6 10*3/uL Final ??? Absolute Lymphocytes 03/31/2023 1.2 0.8 - 4.0 10*3/uL Final ??? Absolute Monocytes 03/31/2023 0.3 0.2 - 1.2 10*3/uL Final ??? Absolute Eosinophils 03/31/2023 0.1 0.0 - 0.4 10*3/uL Final ??? Absolute Basophils 03/31/2023 0.0 0.0 - 0.1 10*3/uL Final N PLUMBER N PLUMBER * Bertha Mcgregor MD - 05/10/2023 11:00 AM CST Images from the original note were not included. Patient: Hali Samuels Age: 42 y.o. : 1980 Encounter Dept: [facility] Encounter Date: 05/10/2023 Care Team: Current Providers PCP: Rom Vidales Encounter Provider: Bertha Mcgregor MD Referring Provider: not found Consulting Physician: Bertha Mcgregor MD HEMATOLOGY HISTORY: Patient comes back today to followup on her iron deficiency anemia. Since her last visit she had an EGD and colonoscopy done with Dr. Apodaca at [facility] on 03/15/23. Per patient, EGD was normal but colonoscopy she had three polyps removed. Two of them were adenomas but she had a large descending colon polyp of 30 mm that was tubulovillous and had high grade dysplasia. She was told by GI that it was completely removed with negative margins and she was going for a colonoscopy one year from now. I do not have the results or report from her EGD, colonoscopy or pathology yet. She has been taking oral iron but she stopped the week before her scoping and has restarted taking it now. Repeat bloodwork on 03/31/23 showed a normal white count, normal H&H, normal platelet count. Ferritin low at 5 but no improvement. Iron saturation 13% low, reticulocyte count normal. She continues to feel tired and craving ice. She has a regular light period. She denies seeing blood in the stool since the polypectomy. HISTORY OF PRESENT ILLNESS: Patient comes back today to followup on her iron deficiency anemia status post IV iron with [id number] mg on 04/24/23, 04/26/23, 04/28/23, 05/01/23, 05/03/23. She is being seen today earlier due to symptoms of lightheadedness, dizziness, joint pain, fatigue. Vital signs are good in clinic today. She reports she used to have joint pain in the past and used to see rheumatology for possible underlying autoimmune disease with chronic inflammation in her joints. They used to do prednisone courses. She has not seen her leather goods maker for the past couple of years due to insurance. Now she is able to see them again. She also feels like she is going to pass out from when moving from a sitting position to a standing position or lifting her head fast. She feels like she becomes lightheaded and is going to pass out. She reports also she got her period earlier by two weeks now and it is heavy. DIAGNOSIS: 1. Iron deficiency anemia. 2. Fatigue. 3. 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 PAST TREATMENT: 1. EGD and colonoscopy on 03/15/23 with removal of descending 30 mm polyp with tubulovillous with high grade dysplasia with Dr. Apodaca at [facility]. 2. Venofer 200 mg on 04/24/23, 04/26/23, 04/28/23, 05/01/23, and 05/03/23. CURRENT TREATMENT: Ferrous sulfate, on hold for now. TREATMENT GUIDELINES: PROGNOSIS: EXPECTED RESPONSE TO TREATMENT: EXPECTED QUALITY OF LIFE DURING TREATMENT: ECOG: PAIN: PLAN FOR PAIN: CODE STATUS: END OF LIFE: ASSESSMENT: 1. Iron deficiency anemia. 2. Fatigue. 3. Bright red blood per rectum. 4. Lightheadedness. 5. Joint pain. PLAN: 1. I will give patient on liter of normal saline fluids today due to having episodes of lightheadedness especially from a sitting a standing position which suggests probably the orthostatic hypotension. 2. Concerning her joint pain, she reports she had joint pain in the past and was being seen by rheumatology and was given prednisone courses in the past. She feels like she is having another flareup now. I told her to take Tylenol or ibuprofen for the next two to three days to see if that helps. Ifit is not helping, I also recommended that she calls her leather goods maker at [facility] seen again. 3. Repeat colonoscopy in February of [address] Apodaca at [facility]. 4. We will do labs today. 5. Return to clinic as scheduled on 06/15/23 with labs the week before, or sooner if needed if her symptoms do not improve. TIME SPENT: REVIEW OF SYSTEMS: A 12-point review of systems is negative except as per HPI. PHYSICAL EXAM: GENERAL: Patient is awake, alert, and oriented x3. HEENT: Normocephalic, atraumatic, PERRLA, EOMI. Sclerae nonicteric, conjunctivae normal. Nasopharynx negative. Tongue normal, uvula midline, no thrush, no mucosal lesions present. NECK: Supple. No cervical, supraclavicular, or axillary lymphadenopathy. Thyroid not palpable. LUNGS: Clear to auscultation and percussion in all lung garcia, no focal wheezes, rales, or rhonchi. HEART: Regular rhythm and rate. Normal S1, S2, no S3, S4, no murmur, or rub. ABDOMEN: No hepatosplenomegaly, masses, ascites, areas of tenderness, bruits, or hernias. EXTREMITIES: No clubbing, cyanosis, or edema. SKIN: No ecchymosis, petechiae, or rashes. LABORATORY/PATHOLOGY/IMAGING NOTES: All lab results shown below reviewed. Bertha Mcgregor MD/darrell Vitals: Vitals: 05/10/23 1102 BP: 108/70 BP Location: Left Arm BP Position: Sitting BP Cuff Size: Regular Pulse: 72 Resp: 18 Temp: 98.2 ??F (36.8 ??C) TempSrc: Temporal SpO2: 99% Weight: 132 lb 12.8 oz (60.2 kg) Height: 5' 2 (1.575 m) Body surface area is 1.62 meters squared. Body mass index is 24.29 kg/m??. Pain Score: 4 Pain Loc: Generalized Allergies: Allergies Allergen Reactions ??? Azithromycin Swelling PMH/SgH/FH/SH: Past medical, surgical, family and social histories were reviewed at this visit. Past Medical History Positives Diagnosis Date ??? Chronic liver disease ??? Idiopathic progressive polyneuropathy ??? Iron deficiency ??? Skin sensation disturbance Past Surgical History: Procedure Laterality Date ??? BREAST SURGERY ??? TUBAL LIGATION Family History Problem Relation Age of Onset ??? Thyroid Disease Mother ??? Other-comment Father hydrocephalus Family Status Relation Name Status ??? Mother (Not Specified) ??? Father (Not Specified) Social History Socioeconomic History ??? Marital status: Tobacco Use ??? Smoking status: Former Types: Cigarettes Quit date: 2021 Years since quittin.8 ??? Smokeless tobacco: Never Vaping Use ??? Vaping Use: Never used Substance and Sexual Activity ??? Alcohol use: Yes Comment: 6 beers 1-2 days per week ??? Drug use: Never Oncology History: Oncology History No history exists. Cancer Staging: Cancer Staging No matching staging information was found for the patient. Cumulative dose Purpose/Goal Comments Lifetime Dose Tracking No doses have been documented on this patient for the following tracked chemicals: Doxorubicin, Epirubicin, Idarubicin, Daunorubicin, Mitoxantrone, Bleomycin, Ifosfamide, Methotrexate, Cyclophosphamide, Cisplatin, Carboplatin Current Medications: Outpatient Encounter Medications as of 05/10/2023 Medication Sig Dispense Refill ??? ferrous sulfate 325 (65 Fe) MG Tablet Take 325 mg by mouth in the morning and at bedtime. ??? Multiple Vitamin (MULTIVITAMIN PO) Take 1 Tablet by mouth daily. No facility-administered encounter medications on file as of 05/10/2023. Labs: No visits with results within 7 Day(s) from this visit. Latest known visit with results is: Lab on 03/31/2023 Component Date Value Ref Range Status ??? Reticulocyte count 03/31/2023 1.07 0.50 - 1.70 % Final ??? RET-He 03/31/2023 28.50 28.20 - 36.60 pg Final Comment: RET-He is a direct assessment of incorporation of iron into erythrocyte hemoglobin. It provides an indirect measure of the iron available for new erythropoiesis over past 2-4 days. ??? IRON 03/31/2023 66 50 - 212 ug/dL Final ??? UIBC 03/31/2023 430 (H) 155 - 355 ug/dL Final ??? TIBC 03/31/2023 496 (H) 261 - 478 ug/dl Final ??? % Saturation 03/31/2023 13 (L) 20 - 50 % Final ??? Ferritin 03/31/2023 5 (L) 11 - 307 ng/mL Final ??? WBC 03/31/2023 4.8 4.0 - 10.0 10*3/uL Final ??? HGB 03/31/2023 12.9 11.2 - 15.7 g/dL Final ??? HCT 03/31/2023 42.2 34.1 - 44.9 % Final ??? PLT 03/31/2023 315 163 - 369 10*3/uL Final ??? MPV 03/31/2023 9.9 9.4 - 12.4 fL Final ??? RBC 03/31/2023 5.05 3.93 - 5.22 10*6/uL Final ??? MCV 03/31/2023 84 79 - 95 fL Final ??? MCH 03/31/2023 25.5 (L) 25.6 - 32.2 pg Final ??? MCHC 03/31/2023 30.6 (L) 32.2 - 36.5 g/dL Final ??? RDW 03/31/2023 15.4 (H) 11.6 - 14.4 % Final ??? Neutrophils % 03/31/2023 65.0 36.0 - 66.0 % Final ??? Lymphocytes % 03/31/2023 25.8 19.0 - 40.0 % Final ??? Monocytes % 03/31/2023 6.5 4.1 - 12.1 % Final ??? Eosinophils % 03/31/2023 1.7 0.0 - 3.5 % Final ??? Basophils % 03/31/2023 0.8 0.0 - 1.0 % Final ??? Absolute Neutrophils 03/31/2023 3.1 1.4 - 6.6 10*3/uL Final ??? Absolute Lymphocytes 03/31/2023 1.2 0.8 - 4.0 10*3/uL Final ??? Absolute Monocytes 03/31/2023 0.3 0.2 - 1.2 10*3/uL Final ??? Absolute Eosinophils 03/31/2023 0.1 0.0 - 0.4 10*3/uL Final ??? Absolute Basophils 03/31/2023 0.0 0.0 - 0.1 10*3/uL Final N PLUMBER N PLUMBER documented in this encounter Plan of Treatment Upcoming Encounters Date Type Department Care Team (Late st Contact Info) Description 07/10/2024 9:40 AM GREEN PLUMBER Lab [facility] [address] [phone] Lab, Cc [facility] 07/17/2024 8:45 AM GREEN PLUMBER Office Visit [facility] [address] [phone] Bertha Mcgregor MD [address] [place] [address] [phone] documented as of this encounter Results * (ABNORMAL) RETICULOCYTE COUNT (RETIC) (05/10/2023 11:26 AM GREEN PLUMBER) Reticulocyte count 1.73(H) 0.50 - 1.70 % [facility]CLUDE 234 BEDS AT [facility] RET-He 36.90(H) 28.20 - 36.60 pg [facility] INCLUDE 234 BEDS AT [facility] Comment: RET-He is a direct assessment of incorporation of iron into erythrocyte hemoglobin. It provides an indirect measure of the iron available for new erythropoiesis over past 2-4 days. Blood 05/10/2023 11:2 6 AM GREEN PLUMBER Narrative [facility] INCLUDE 234 BEDS AT [facility] - 05/10/2023 12:45 PM GREEN PLUMBER Release to patient->Immediate us Bertha Mcgregor MD HEMATOLOGY ORDERABLES Final Resu lt [facility] INCLUDE 234 BEDS AT [facility] [address] [place] [address], [place] [phone] * IRON W/ IRON BINDING CAPACITY [place] (05/10/2023 11:26 AM GREEN PLUMBER) IRON 141 50 - 212 ug/dL [facility] INCLUDE 234 BEDS AT [facility] UIBC 207 155 - 355 ug/dL [facility] INCLUDE 234 BEDS AT [facility] TIBC 348 261 - 478 ug/dl [facility] INCLUDE 234 BEDS AT [facility] % Saturation 41 20 - 50 % [facility]NA[facility] INCLUDE 234 BEDS AT [facility] 05/10/2023 11:2 6 AM GREEN PLUMBER [facility] - 05/10/2023 12:19 PM GREEN PLUMBER Release to patient->Immediate us Bertha Mcgregor MD LAB SEND OUTS Final Result Performing Organization Address City/[facility]/ZIP Co de Phone Number [facility]CER MANAGER [facility] COUNTS INCLUDE 234 BEDS AT [facility] [place] [address] [place] [address], [place] [phone] * FERRITIN (05/10/2023 11:26 AM GREEN PLUMBER) Ferritin 259 11 - 307 ng/mL [facility] Blood 05/10/2023 11:2 6 AM GREEN PLUMBER Yohan [facility] - 05/12/2023 1:54 PM GREEN PLUMBER Release to patient->Immediate us Bertha Mcgregor MD CHEMISTRY ORDERABLES Final Resul t Performing Organization Address City/[facility]/ZIP Co de Phone Number [facility] [place] [address] [place] [address], [place] [phone] * MAGNESIUM (MG) (05/10/2023 11:26 AM GREEN PLUMBER) Magnesium 2.2 1.9 - 2.7 mg/dL [facility] Blood 05/10/2023 11:2 6 AM GREEN PLUMBER Yohan [facility] - 05/10/2023 12:19 PM GREEN PLUMBER Release to patient->Immediate us Bertha Mcgregor MD CHEMISTRY ORDERABLES Final Resul t Performing Organization Address City/[facility]/ZIP Co de Phone Number CANCER MANAGER [facility] COUNTS INCLUDE 234 BEDS AT [facility] [place] [address], * (ABNORMAL) LACTATE DEHYDROGENASE (LD) (05/10/2023 11:26 AM GREEN PLUMBER) LDH 119(L) 140 - 271 U/L [facility] Blood 05/10/2023 11:2 6 AM GREEN PLUMBER Narrative [facility] - 05/10/2023 12:19 PM GREEN PLUMBER Release to patient->Immediate us Bertha Mcgregor MD CHEMISTRY ORDERABLES Final Resul t Performing Organization Address City/[facility] [facility]/ZIP Co de Phone Number CANCER MANAGER FEDERAL COUNTS INCLUDE 234 BEDS AT THE [facility] Cancer Care [facility] [address] [place] [address], * CMP (COMPREHENSIVE METABOLIC PANEL) (05/10/2023 11:26 AM GREEN PLUMBER) Glucose 96 70 - 105 mg/dL [facility] Blood Urea Nitrogen 8 7 - 25 mg/dL [facility] Creatinine 0.7 0.6 - 1.2 mg/dL [facility] Sodium 141 136 - 145 mEq/L [facility] Potassium 3.5 3.5 - 5.1 mEq/L [facility] Chloride 105 98 - 107 mEq/L [facility] Bicarbonate 26 21 - 31 mEq/L [facility] Total Bilirubin 0.7 0.3 - 1.0 mg/dL [facility] MANAGER FEDERAL COUNTS INCLUDE 234 BEDS AT THE [facility] Alk. Phosphatase 41 34 - 104 U/L [facility] Aspartate Aminotransferase 22 13 - 39 U/L [facility] MANAGER FEDERAL COUNTS INCLUDE 234 BEDS AT THE [facility] Alanine Aminotransferase 17 7 - 52 U/L [facility] Total Protein 7.7 6.4 - 8.9 g/dL [facility] Albumin 4.9 3.5 - 5.7 g/dL [facility] Calcium 9.5 8.6 - 10.3 mg/dL [facility] Anion Gap 13.5 7.0 - 15.0 mEq/L [facility] Globulin 2.8 2.0 - 3.5 g/dL [facility]NA[facility] EGFR 110 >60 ml/min/1. 73m2 CANCER MANAGER FEDERAL COUNTS INCLUDE 234 BEDS AT THE [facility] Comment: This eGFR is calculated using 2020 CKD-EPI Creatinine equation without race modifier based on the NKF-ASN task force recommendations Blood 05/10/2023 11:2 6 AM GREEN PLUMBER Narrative [facility] - 05/10/2023 12:18 PM GREEN PLUMBER Release to patient->Immediate IS THE PATIENT REQUIRED TO BE FASTING FOR 8 HOURS?->No Bertha Mcgregor MD CHEMISTRY ORDERABLES Final Resul t CANCER MANAGER FEDERAL COUNTS INCLUDE 234 BEDS AT THE [facility] Cancer Care Specialists [facility] [address] [place] [address], documented in this encounter Visit Diagnoses Diagnosis Iron deficiency anemia, unspecified iron deficiency anemia type- Primary Other fatigue Arthralgia, unspecified joint Iron deficiency anemia, unspecified iron deficiency anemia type- Primary Other fatigue Arthralgia, unspecified joint documented in this encounter Care Teams Etcher Apprentice Relationship Specialty Start Date End Date Rom Vidales [address] [place] [address] PCP - General Family Medicine 12/21/22 Bertha Mcgregor MD [address] [place] [address] Consulting Physician Oncology 05/10/23 documented as of this encounter
--- OUTSIDE RECORDS SUMMARY | 2024-06-17 03:37 | XMS_ITS | Encounter Summary ---
Author Organization [employer] Care Team Providers Care Angle Roll Operator Name Role Phone Rom Vidales Primary Care Provider [phone] Encounter Details Date Type Department Care Team (Latest Contact Info) Description 05/01/2023 Travel Social History Tobacco Use Types Packs/Day [...] Coronavirus/COVID-19? No / Unsure 04/28/2023 8:20 AM GAS DISTRIBUTION PLANT OPERATOR documented as of this encounter Plan of Treatment Upcoming Encounters Date Type Department Care Team (Late st Contact Info) Description 07/10/2024 9:40 AM GAS DISTRIBUTION PLANT OPERATOR Lab [facility] [address] [address] Lab, Cc [facility] 07/17/2024 8:45 AM GAS DISTRIBUTION PLANT OPERATOR Office Visit [facility] [address] [address] Bertha Mcgregor MD [address] [place] [address] documented as of this encounter Visit Diagnoses Not on filedocumented in this encounter Care Teams Angle Roll Operator Relationship Specialty Start Date End Date Rom Vidales [address] [place] [address] PCP - General Family Medicine 12/21/22 documented as of this encounter
--- OUTSIDE RECORDS SUMMARY | 2024-06-17 03:37 | XMS_ITS | Encounter Summary ---
Author Organization [facility] Address [address] [place] [address] Phone Care Team Providers Care Rotary Peel Oven Tender Name Role Phone Rom Vidales Primary Care Provider [phone] Bertha Mcgregor MD Unavailable Encounter Details Date Type Department Care Team (Late st Contact Info) Description 01/30/2024 Telephone [facility] [address] [place] [address] Bertha Mcgregor MD [address] [place] [address] Social History Tobacco Use Types Packs/Day Years [...] encounter Miscellaneous Notes * Telephone Encounter - Sandra Rudolph - 01/30/2024 1:58 PM CDT Pt missed appt wasn't able to reach lvm stating to return call to office for appt reschedule also sent appt reminder letter out. documented in this encounter Plan of Treatment Upcoming Encounters Date Type Department Care Team (Late st Contact Info) Description 07/10/2024 9:40 AM EDGE BASTER Lab [facility] [address] [phone] Lab, Cc [facility] 07/17/2024 8:45 AM EDGE BASTER Office Visit [facility] [address] [phone] Bertha Mcgregor MD [address] [place] [address] documented as of this encounter Visit Diagnoses Not on filedocumented in this encounter Care Teams Rotary Peel Oven Tender Relationship Specialty Start Date End Date Rom Vidales [address] [facility] [place] [address] PCP - General Family Medicine 12/21/22 Bertha Mcgregor MD [address] [place] [phone] Consulting Physician Oncology 05/10/23 documented as of this encounter
--- OUTSIDE RECORDS SUMMARY | 2024-06-17 03:37 | XMS_ITS | Encounter Summary ---
Author Organization [facility] Care Team Providers Care Account Specialist Name Role Phone Rom Vidales Primary Care Provider [phone] Encounter Details Date Type Department Care Team (Latest Contact Info) Description 04/28/2023 Travel Social History Tobacco Use Types Packs/Day [...] Coronavirus/COVID-19? No / Unsure 04/28/2023 8:20 AM HOUSEKEEPING AID documented as of this encounter Plan of Treatment Upcoming Encounters Date Type Department Care Team (Late st Contact Info) Description 07/10/2024 9:40 AM HOUSEKEEPING AID Lab [facility] [address] [phone] Lab, Cc [facility] 07/17/2024 8:45 AM HOUSEKEEPING AID Office Visit [facility] [address] [phone] Bertha Mcgregor MD [address] [place] [address] documented as of this encounter Visit Diagnoses Not on filedocumented in this encounter Care Teams Account Specialist Relationship Specialty Start Date End Date Rom Vidales [address] [place] [address] PCP - General Family Medicine 12/21/22 documented as of this encounter
--- OUTSIDE RECORDS SUMMARY | 2024-06-17 03:37 | XMS_ITS | Encounter Summary ---
Author Organization [facility] Address [address] [place] [address] Phone Care Team Providers Care Program Administrator Name Role Phone Rom Vidales Primary Care Provider [phone] Bertha Mcgregor MD Unavailable Reason for Visit * Reason Comments Follow-up Encounter Details Date Type Department Care Team (Late st Contact Info) Description 07/13/2023 9:30 AM DOPE EDGER Office Visit [facility] [address] [place] [phone] Bertha Mcgregor MD [address] [place] [phone] Iron deficiency anemia, unspecified iron deficiency anemia type (Primary Dx); Other fatigue; Muscle twitching Social History Tobacco Use Types Packs/Day Years [...] Sign Reading Time Taken Comments Blood Pressure 116/78 07/13/2023 9:41 AM DOPE EDGER Pulse 75 07/13/2023 9:41 AM DOPE EDGER Temperature 36.7 ??C (98 ??F) 07/13/2023 9:41 AM DOPE EDGER Respiratory Rate 18 07/13/2023 9:41 AM DOPE EDGER Oxygen Saturation 99% 07/13/2023 9:41 AM DOPE EDGER Inhaled Oxygen Concentration - - Weight 62.7 kg (138 lb 4.8 oz) 07/13/2023 9:41 A M DOPE EDGER Height 157.5 cm (5' 2 ) 07/13/2023 9:41 AM DOPE EDGER Body Mass Index 25.3 07/13/2023 9:41 AM DOPE EDGER documented in this encounter Functional Status * Question Answer Date of Assessment Author Little interest or pleasure in doing things Not at all 07/13/2023 9:41 AM DOPE EDGER Adonay Yates CMA Feeling down, depressed, or hopeless Not at all 07/13/2023 9:41 AM DOPE EDGER Estela Yates CMA * Over the past 2 weeks, how often have you been bothered by any of the following problems? Question Answer Date of Assessment Author Patient Health Questionnaire-2 Score 0 07/13/2023 9:41 AM DOPE EDGER Bianca Yates CMA documented as of this encounter Progress Notes * Bertha Mcgregor MD - 07/13/2023 9:30 AM CST Images from the original note were not included. Patient: Hali Samuels Age: 42 y.o. : 1980 [facility] Encounter Date: 07/13/2023 Care Team: Current Providers PCP: Rom Vidales Care Team Provider: Bertha Mcgregor MD Encounter Provider: Bertha Mcgregor MD Referring Provider: Rom Vidales Consulting Physician: Bertha Mcgregor MD HEMATOLOGY HISTORY: Patient comes back today to followup on her iron deficiency anemia. Since her last visit she had an EGD and colonoscopy done with Dr. Apodaca at [facility] on 03/15/23. Per patient, EGD was normal [...] deficiency anemia status post IV iron with [id number] mg on 04/24/23, 04/26/23, 04/28/23, 05/01/23, 05/03/23. Repeat bloodwork done recently on 07/07/23 showed a normal white count, normal H&H, normal platelet count. Chemistry with normal BUN, creatinine and LFTs. Magnesium normal. Ferritin normal at 92. Serum iron and iron saturation normal. Reticulocyte count at 1.98%. She reports her twitching has improved. Twitching in her thumb has alsoresolved but she had occasional twitching but overall improving. Also her palpitations have improved. She is going to see her PCP soon. She has cut down on caffeine products. Otherwise no other concerning symptoms. DIAGNOSIS: 1. Iron deficiency anemia. 2. Fatigue. 3. 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 PAST TREATMENT: 1. EGD and colonoscopy on 03/15/23 with removal of descending 30 mm polyp with tubulovillous with high grade dysplasia with Dr. Apodaca at [facility]. 2. Venofer 200 mg on 04/24/23, 04/26/23, 04/28/23, 05/01/23, and 05/03/23. CURRENT TREATMENT: Ferrous sulfate, on hold for now. TREATMENT GUIDELINES: PROGNOSIS: EXPECTED RESPONSE TO TREATMENT: EXPECTED QUALITY OF LIFE DURING TREATMENT: ECOG: PAIN: PLAN FOR PAIN: CODE STATUS: END OF LIFE: ASSESSMENT: 1. Iron deficiency anemia. 2. Fatigue. 3. Bright red blood per rectum. 4. Lightheadedness. 5. Joint pain. PLAN: 1. Twitching significantly improved. She has random twitching here and there. She cut down on caffeine products. Also palpitations have improved. She will followup with PCP. 2. Recent bloodwork with no iron deficiency seen. No need for IV iron for now. 3. Repeat colonoscopy in February of [address] Apodaca at [facility]. 4. Return to clinic in three months with labs the week before. TIME SPENT: REVIEW OF SYSTEMS: A 12-point [...] lab results shown below reviewed. Bertha Mcgregor MD/michaelt Vitals: Vitals: 07/13/23 0941 BP: 116/78 BP Location: Left Arm BP Position: Sitting BP Cuff Size: Regular Pulse: 75 Resp: 18 Temp: 98 ??F (36.7 ??C) TempSrc: Temporal SpO2: 99% Weight: 138 lb 4.8 oz (62.7 kg) Height: 5' 2 (1.575 m) Body surface area is 1.66 meters squared. Body mass index is 25.3 kg/m??. Pain Score: 0 - No pain Allergies: Allergies Allergen Reactions ??? Azithromycin Swelling [...] Types: Cigarettes Quit date: 2021 Years since quittin.0 ??? Smokeless tobacco: Never Vaping Use ??? [...] Current Medications: Outpatient Encounter Medications as of 07/13/2023 Medication Sig Dispense Refill ??? ferrous sulfate 325 (65 Fe) MG Tablet Take 325 mg by mouth in the morning and at bedtime. ??? Multiple Vitamin (MULTIVITAMIN PO) Take 1 Tablet by mouth daily. No facility-administered encounter medications on file as of 07/13/2023. Labs: Lab on 07/07/2023 Component Date Value Ref Range Status ??? Reticulocyte count 07/07/2023 1.98 (H) 0.50 - 1.70 % Final ??? RET-He 07/07/2023 37.10 (H) 28.20 - 36.60 pg Final Comment: RET-He is a direct assessment of incorporation of iron into erythrocyte hemoglobin. It provides an indirect measure of the iron available for new erythropoiesis over past 2-4 days. ??? IRON 07/07/2023 141 50 - 212 ug/dL Final ??? UIBC 07/07/2023 235 155 - 355 ug/dL Final ??? TIBC 07/07/2023 376 261 - 478 ug/dl Final ??? % Saturation 07/07/2023 38 20 - 50 % Final ??? Ferritin 07/07/2023 92 11 - 307 ng/mL Final ??? Magnesium 07/07/2023 2.0 1.9 - 2.7 mg/dL Final ??? Glucose 07/07/2023 91 70 - 105 mg/dL Final ??? Blood Urea Nitrogen 07/07/2023 10 7 - 25 mg/dL Final ??? Creatinine 07/07/2023 0.7 0.6 - 1.2 mg/dL Final ??? Sodium 07/07/2023 140 136 - 145 mEq/L Final ??? Potassium 07/07/2023 3.8 3.5 - 5.1 mEq/L Final ??? Chloride 07/07/2023 103 98 - 107 mEq/L Final ??? Bicarbonate 07/07/2023 27 21 - 31 mEq/L Final ??? Total Bilirubin 07/07/2023 0.8 0.3 - 1.0 mg/dL Final ??? Alk. Phosphatase 07/07/2023 40 34 - 104 U/L Final ??? Aspartate Aminotransferase 07/07/2023 16 13 - 39 U/L Final ??? Alanine Aminotransferase 07/07/2023 15 7 - 52 U/L Final ??? Total Protein 07/07/2023 7.1 6.4 - 8.9 g/dL Final ??? Albumin 07/07/2023 4.7 3.5 - 5.7 g/dL Final ??? Calcium 07/07/2023 10.0 8.6 - 10.3 mg/dL Final ??? Anion Gap 07/07/2023 13.8 7.0 - 15.0 mEq/L Final ??? Globulin 07/07/2023 2.4 2.0 - 3.5 g/dL Final ? ? EGFR 07/07/2023 110 >60 ml/min/1.73m2 Final Comment: This eGFR is calculated using 2020 CKD-EPI Creatinine equation without race modifier based on the NKF-ASN task force recommendations ??? WBC 07/07/2023 5.8 4.0 - 10.0 10*3/uL Final ??? HGB 07/07/2023 13.8 11.2 - 15.7 g/dL Final ??? HCT 07/07/2023 40.3 34.1 - 44.9 % Final ??? PLT 07/07/2023 289 163 - 369 10*3/uL Final ??? MPV 07/07/2023 9.6 9.4 - 12.4 fL Final ??? RBC 07/07/2023 4.20 3.93 - 5.22 10*6/uL Final ??? MCV 07/07/2023 96 (H) 79 - 95 fL Final ??? MCH 07/07/2023 32.9 (H) 25.6 - 32.2 pg Final ??? MCHC 07/07/2023 34.2 32.2 - 36.5 g/dL Final ??? RDW 07/07/2023 12.5 11.6 - 14.4 % Final ??? Absolute Neutrophil Count 07/07/2023 4,039 cells/uL Final ??? Absolute Seg Count 07/07/2023 4,039 1,440 - 6,600 cells/uL Final ??? Absolute Lymph Count 07/07/2023 1,385 760 - 4,000 cells/uL Final ??? Absolute [place] Count 07/07/2023 231 160 - 1,200 cells/uL Final ??? Absolute Eos Count 07/07/2023 115 0 - 300 cells/uL Final ??? Segmented Neutrophils 07/07/2023 70 (H) 36 - 66 % Final ??? Lymphocytes 07/07/2023 24 19 - 40 % Final ??? Monocytes 07/07/2023 4 4 - 12 % Final ??? Eosinophils 07/07/2023 2 0 - 3 % Final ??? WBC Estimate 07/07/2023 Normal Final ??? Platelet Estimate 07/07/2023 Normal Final ??? RBC Morphology 07/07/2023 Abnormal Final ??? Macrocytosis 07/07/2023 1+ Final EDGER EDGER documented in this encounter Plan of Treatment Upcoming Encounters Date Type Department Care Team (Late st Contact Info) Description 07/10/2024 9:40 AM DOPE EDGER Lab [facility] [address] [address] Lab, Cc [facility] 07/17/2024 8:45 AM DOPE EDGER Office Visit [facility] [address] [place] [phone] Bertha Mcgregor MD [address] [place], [place] [phone] documented as of this encounter Results * RETICULOCYTE COUNT (RETIC) (10/09/2023 11:55 AM CDT) Reticulocyte count 1.51 0.50 - 1.70 % CANCER MARINE ELECTRICIAN HELPER [facility] RET-He 36.40 28.20 - 36.60 pg CANCER MARINE ELECTRICIAN HELPER [facility] Comment: RET-He is a direct assessment of incorporation of iron into erythrocyte hemoglobin. It provides an indirect measure of the iron available for new erythropoiesis over past 2-4 days. Blood 10/09/2023 11:5 5 AM CDT Narrative [facility] 10/09/2023 12:08 PM CDT Release to patient->Immediate Bertha Mcgregor MD HEMATOLOGY ORDERABLES Final Resu lt CANCER MARINE ELECTRICIAN HELPER [facility] Cancer Care Specialists [facility] [address] [place] [address], * IRON W/ IRON BINDING CAPACITY [place] (10/09/2023 11:55 AM CDT) IRON 108 50 - 212 ug/dL CANCER MARINE ELECTRICIAN HELPER [facility] UIBC 257 155 - 355 ug/dL CANCER MARINE ELECTRICIAN HELPER [facility] TIBC 365 261 - 478 ug/dl CANCER MARINE ELECTRICIAN HELPER [facility] % Saturation 30 20 - 50 % CANCER MARINE ELECTRICIAN HELPER [facility] 10/09/2023 11:5 5 AM CDT Yohan [facility] 10/09/2023 1:09 PM CDT Release to patient->Immediate us Bertha Mcgregor MD LAB SEND OUTS Final Result CANCER MARINE ELECTRICIAN HELPER [facility] Special[facility] [place] [address], * FERRITIN (10/09/2023 11:55 AM CDT) Ferritin 56 11 - 307 ng/mL [facility] Blood 10/09/2023 11:5 5 AM CDT Narrative CANCER MARINE ELECTRICIAN HELPER [facility] - 10/10/2023 3:30 PM CDT Release to patient->Immediate Bertha Mcgregor MD CHEMISTRY ORDERABLES Final Resul t CANCER MARINE ELECTRICIAN HELPER [facility] Special[facility] [address] [place] [address], * (ABNORMAL) CMP (COMPREHENSIVE METABOLIC PANEL) (10/09/2023 11:55 AM CDT) Glucose 88 70 - 105 mg/dL [facility] Blood Urea Nitrogen 9 7 - 25 mg/dL [facility] Creatinine 0.7 0.6 - 1.2 mg/dL [facility] Sodium 142 136 - 145 mEq/L [facility] Potassium 4.0 3.5 - 5.1 mEq/L [facility] Chloride 107 98 - 107 mEq/L [facility] Bicarbonate 26 21 - 31 mEq/L [facility] Total Bilirubin 0.5 0.3 - 1.0 mg/dL [facility] Alk. Phosphatase 33(L) 34 - 104 U/L [facility] Aspartate Aminotransferase 16 13 - 39 U/L [facility] Alanine Aminotransferase 12 7 - 52 U/L [facility] Total Protein 6.9 6.4 - 8.9 g/dL [facility] Albumin 4.6 3.5 - 5.7 g/dL [facility] Calcium 9.8 8.6 - 10.3 mg/dL [facility] Anion Gap 13.0 7.0 - 15.0 mEq/L [facility] Globulin 2.3 2.0 - 3.5 g/dL CANCER MARINE ELECTRICIAN HELPER [facility] EGFR 110 >60 ml/min/1. 73m2 CANCER MARINE ELECTRICIAN HELPER [facility] Comment: This eGFR is calculated using 2020 CKD-EPI Creatinine equation without race modifier based on the NKF-ASN task force recommendations Blood 10/09/2023 11:5 5 AM CDT Narrative CANCER MARINE ELECTRICIAN HELPER [facility] - 10/09/2023 1:09 PM CDT Release to patient->Immediate IS THE PATIENT REQUIRED TO BE FASTING FOR 8 HOURS?->No us Bertha Mcgregor MD CHEMISTRY ORDERABLES Final Resul t CANCER MARINE ELECTRICIAN HELPER [facility] [address] [place] [address], documented in this encounter Visit Diagnoses Diagnosis Iron deficiency anemia, unspecified iron deficiency anemia type- Primary Other fatigue Muscle twitching Abnormal involuntary movements Iron deficiency anemia, unspecified iron deficiency anemia type documented in this encounter Care Teams Program Administrator Relationship Specialty Start Date End Date Rom Vidales [address] [place] [address] PCP - General Family Medicine 12/21/22 Bertha Mcgregor MD [address] [place] [address] Consulting Physician Oncology 05/10/23 documented as of this encounter
--- OUTSIDE RECORDS SUMMARY | 2024-06-17 03:37 | XMS_ITS | Clinical Summary ---
Author Organization [facility] Address [address], [facility] [address] [place] [address] Phone Care Team Providers Care Machine Overhauler Name Role Phone Rom Vidales Primary Care Provider Bertha Mcgregor MD Unavailable Allergies Active Allergy Reactions Criticality Noted Date Comments Azithromycin Swelling Medium 08/09/2022 Medications ferrous sulfate 325 (65 Fe) MG Tablet Take 325 mg by mouth in the morning and at bedtime. Active Multiple Vitamin (MULTIVITAMIN PO) Take 1 Tablet by mouth daily. 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 06/15/2023 Encounters Date Type Department Care Team Description 04/17/2024 1:45 PM CDT Office Visit [facility] [address] [phone] Sarah Wu, FREIGHT AND PASSENGER AGENT, TEMPERING KILN TENDER Iron deficiency anemia, unspecified iron deficiency anemia type (Primary Dx); Vitamin D deficiency 04/17/2024 Travel from Last 3 Months Family History Medical History Relation Name Comments Other-comment Father hydrocephalus Thyroid Disease Mother Relation Name Status Comments Father Mother Social History Tobacco Use Types Packs/Day [...] PM CDT Sexual Orientation Not on file Last Filed Vital Signs Vital Sign Reading Time Taken Comments Blood Pressure 124/80 04/17/2024 1:34 PM CDT Pulse 73 04/17/2024 1:34 PM CDT Temperature 36.9 ??C (98.4 ??F) 04/17/2024 1:34 PM CD T Respiratory Rate 18 04/17/2024 1:34 PM CDT Oxygen Saturation 99% 04/17/2024 1:34 PM CDT Inhaled Oxygen Concentration - - Weight 61.3 kg (135 lb 3.2 oz) 04/17/2024 1:34 P M CDT Height 157.5 cm (5' 2 ) 04/17/2024 1:34 PM CDT Body Mass Index 24.73 04/17/2024 1:34 PM CDT Plan of Treatment Upcoming Encounters Date Type Department Care Team (Late st Contact Info) Description 07/10/2024 9:40 AM RECEIVER STOCKER Lab [facility] [address] [phone] Lab, Cc [facility] 07/17/2024 8:45 AM RECEIVER STOCKER Office Visit [facility] [address] [phone] Bertha Mcgregor MD [address] [place] [address] Health Maintenance Due Date Last Done Comments Hepatitis C Virus (HCV) Screening 1980 TdaP Immunization 1980 Hepatitis B Immunization (1 of 3 - 19+ 3-dose series) 09/03/1999 Pap Smear 2001 Cervical Cancer Screening (CCS) 2010 HPV/Cotest 2010 Influenza Immunization (#1) 2024 SARS-COV-2 Immunization (2023-25 season) 2024 Respiratory Syncytial Virus (RSV) Immunization (Adult) (1 - 1-dose 75+ series) 09/03/2055 Discussion re Starting/Frequency of Mammograms Completed 08/22/2019, 07/15/2019 Meningococcal Immunization (ACWY) Aged Out No longer eligible b ased on patient's age to complete this topic Pneumococcal Immunization Combined Aged Out No longer eligible b ased on patient's age to complete this topic Rotavirus Immunization Aged Out No lo nger eligible based on patient's age to complete this topic Insurance [facility] Care Teams Machine Overhauler Relationship Specialty Start Date End Date Rom Vidales [address] [place] [address] PCP - General Family Medicine 12/21/22 Bertha Mcgregor MD [address] [facility] [place] [address] Consulting Physician Oncology 05/10/23
--- OUTSIDE RECORDS SUMMARY | 2024-06-17 03:37 | XMS_ITS | Encounter Summary ---
Author Organization [facility] Address [address] [place] [address] Phone Care Team Providers Care Coffee Weigher Name Role Phone Rom Vidales Primary Care Provider Reason for Visit * Reason Comments Iron Infusion * Episode Based Medications (Routine) - Pending Review Specialty Diagnoses / Procedures Referred By Contac t Referred To Contact Diagnoses Iron deficiency anemia, unspecified iron deficiency anemia type Procedures IRON SUCROSE INJECTION Bertha Mcgregor MD [address] [place] [address] Phone: tel: fax: [facility] [address] [address] Phone: tel: fax: Referral ID Status Reason Start Date Expiration Date V isits Requested Visits Authorized [id number] Pending Review 04/03/2023 06/18/2025 1 1 Encounter Details Date Type Department Care Team (Latest Contact Info) Description 05/01/2023 10:00 AM AIR CONDITIONING MECHANIC Clinical Support [facility] [address] [phone] Nurse, Padmini [facility] Iron deficiency anemia, unspecified iron deficiency anemia type (Primary Dx) Social History Tobacco Use Types [...] Coronavirus/COVID-19? No / Unsure 04/28/2023 8:20 AM AIR CONDITIONING MECHANIC documented as of this encounter Progress Notes * Kimberly Story RN - 05/01/2023 10:00 AM CST IV Venofer given as ordered and tolerated well. PIV flushed with 100 ml NS and pt observed for 20 minutes post iron infusion. Tolerated well. Left ambulatory unaccompanied. Performance status unchanged since arrival to clinic. CONDITIONING MECHANIC documented in this encounter Plan of Treatment Upcoming Encounters Date Type Department Care Team (Late st Contact Info) Description 07/10/2024 9:40 AM AIR CONDITIONING MECHANIC Lab [facility] [address] [phone] Lab, Cc [facility] 07/17/2024 8:45 AM AIR CONDITIONING MECHANIC Office Visit [facility] [address] [phone] Bertha Mcgregor MD [address] [place] [address] documented as of this encounter Visit Diagnoses Diagnosis Iron deficiency anemia, unspecified iron deficiency anemia type- Primary documented in this encounter Administered Medications Inactive Administered Medications - up to 3 most recent administrations Medication Order MAR Action Action Date Dose Rate Site iron sucrose (VENOFER) 200 mg in sodium chloride 0.9 % 100 mL IVPB 200 mg, Intravenous, ONCE, 1 dose, On 05/01/23 at 0930, Administer over 15 MinutesIndications:Iron deficiency anemia, unspecified iron deficiency anemia type New Bag 05/01/2023 9:05 AM AIR CONDITIONING MECHANIC 200 mg 400 mL/hr documented in this encounter Care Teams Coffee Weigher Relationship Specialty Start Date End Date Rom Vidales [address] [place] [address] PCP - General Family Medicine 12/21/22 documented as of this encounter
--- OUTSIDE RECORDS SUMMARY | 2024-06-17 03:37 | XMS_ITS | Encounter Summary ---
Author Organization [facility] Address [address] [place] [address] Phone Care Team Providers Care Environmental Services Aide Name Role Phone Rom Vidales Primary Care Provider [phone] Bertha Mcgregor MD Unavailable Encounter Details Date Type Department Care Team (Late st Contact Info) Description 05/09/2023 Telephone [facility] [address] [place] [address] Bertha Mcgregor MD [address] [place] [address] Social History Tobacco Use Types [...] Coronavirus/COVID-19? No / Unsure 04/28/2023 8:20 AM CLIENT RELATIONSHIP MANAGER documented as of this encounter Miscellaneous Notes * Telephone Encounter - Melony Valenzuela RN - 05/10/2023 9:59 AM CST Patient returns call, she still feels bad dizzy lightheaded. States she is pushing fluids. She evenis having periods of vision going out. Advised she can come to office for evaluation and fluids butshe I not to drive. If unable to find a ride to clinic she needs to go to nearest ER for evaluation. OV scheduled for 1100 NT RELATIONSHIP MANAGER * Telephone Encounter - Melony Valenzuela RN - 05/10/2023 9:54 AM CST Images from the original note were not included. Bertha Mcgregor MD Olliges, Madison J, RN 17 hours ago (4:20 PM) BF Please have patient drink plenty of water. Joint pain could be from venofer but will resolve. Can take Tylenol for joint pain. If still dizzy we can have patient come in for visit and fluids. Thanks. NT RELATIONSHIP MANAGER * Telephone Encounter - Shauna Choudhary RN - 05/09/2023 1:05 PM CLIENT RELATIONSHIP MANAGER Patient calling c/o increased SOB with exertion, dizziness, and muscle/joint soreness. Patient received 5th dose of Venofer on 05/03. Patient stated that her menstrual cycle also started 2 weeks early which is uncommon for her. Please advise. NT RELATIONSHIP MANAGER documented in this encounter Plan of Treatment Upcoming Encounters Date Type Department Care Team (Late st Contact Info) Description 07/10/2024 9:40 AM CLIENT RELATIONSHIP MANAGER Lab [facility] [address] [phone] Lab, Padmini [facility] 07/17/2024 8:45 AM CLIENT RELATIONSHIP MANAGER Office Visit [facility] [address] [phone] Bertha Mcgregor MD [address] [place] [address] documented as of this encounter Visit Diagnoses Not on filedocumented in this encounter Care Teams Environmental Services Aide Relationship Specialty Start Date End Date Rom Vidales [address] [place] [address] PCP - General Family Medicine 12/21/22 Bertha Mcgregor MD [address] [place] [address] Consulting Physician Oncology 05/10/23 documented as of this encounter
--- OUTSIDE RECORDS SUMMARY | 2024-06-17 03:37 | XMS_ITS | Encounter Summary ---
Author Organization [facility] Address [address] [place] [address] Phone Care Team Providers Care Nail Specialist Name Role Phone Rom Vidales Primary Care Provider [phone] Bertha Mcgregor MD Unavailable Encounter Details Date Type Department Care Team (Late st Contact Info) Description 10/09/2023 11:55 AM CDT Lab [facility] [address] [phone] Lab, Cc [facility] Iron deficiency anemia, unspecified iron deficiency anemia type Social History Tobacco Use Types Packs/Day Years [...] pleasure in doing things Not at all 10/12/2023 10:43 AM María Lopez LPN Feeling down, depressed, or hopeless Not at all 10/12/2023 10:43 AM LUZT María Jordan LPN * Over the past 2 weeks, how often have you been bothered by any of the following problems? Question Answer Date of Assessment Author Patient Health Questionnaire-2 Score 0 10/12/2023 10:43 AM CDT Corinna Jordan LPN documented as of this encounter Plan of Treatment Upcoming Encounters Date Type Department Care Team (Late st Contact Info) Description 07/10/2024 9:40 AM BINGO USHER Lab [facility] [address] [phone] Lab, Cc [facility] 07/17/2024 8:45 AM BINGO USHER Office Visit [facility] [address] [phone] Bertha Mcgregor MD [address] [place] [address] documented as of this encounter Procedures Procedure Name Priority Date/Time Associated Diagnosis Comments IRON W/ IRON BINDING CAPACITY [place] Routine 10/09/2023 11:55 AM CDT Iron deficiency anemia, unspecified iron deficiency anemia type CBC WITH AUTO DIFF OH Routine 10/09/2023 11:55 AM CDT RETICULOCYTE COUNT (RETIC) Routine 10/09/2023 11:55 AM CDT Iron deficiency anemia, unspecified iron deficiency anemia type FERRITIN Routine 10/09/2023 11:55 AM CDT Iron deficiency anemia, unspecified iron deficiency anemia type CMP (COMPREHENSIVE METABOLIC PANEL) Routine 10/09/2023 11:55 AM CDT Iron deficiency anemia, unspecified iron deficiency anemia type documented in this encounter Results * (ABNORMAL) CBC WITH AUTO DIFF [place] (10/09/2023 11:55 AM CDT) WBC 6.2 4.0 - 10.0 10*3/uL [facility] HGB 13.6 11.2 - 15.7 g/dL [facility] HCT 40.1 34.1 - 44.9 % [facility] PLT 258 163 - 369 10*3/uL [facility] MPV 9.8 9.4 - 12.4 fL [facility] RBC 4.10 3.93 - 5.22 10*6/uL [facility] MCV 98(H) 79 - 95 fL [facility] PROFESSOR OF [facility] OF [facility] MCH 33.2(H) 25.6 - 32.2 pg [facility] MCHC 33.9 32.2 - 36.5 g/dL [facility] RDW 11.2(L) 11.6 - 14.4 % [facility] Neutrophils % 65.4 36.0 - 66.0 % [facility] Lymphocytes % 26.3 19.0 - 40.0 % [facility] Monocytes % 6.1 4.1 - 12.1 % [facility] Eosinophils % 1.4 0.0 - 3.5 % [facility] Basophils % 0.6 0.0 - 1.0 % [facility] Absolute Neutrophils 4.1 1.4 - 6.6 10*3/uL [facility] Absolute Lymphocytes 1.6 0.8 - 4.0 10*3/uL [facility] Absolute Monocytes 0.4 0.2 - 1.2 10*3/uL [facility] Absolute Eosinophils 0.1 0.0 - 0.4 10*3/uL [facility] Absolute Basophils 0.0 0.0 - 0.1 10*3/uL [facility] 10/09/2023 11:5 5 AM CDT us Bertha Mcgregor MD LAB SEND OUTS Final Result [facility] [place] [address], * (ABNORMAL) CMP (COMPREHENSIVE METABOLIC PANEL) (10/09/2023 11:55 AM CDT) Glucose 88 70 - 105 mg/dL [facility] Blood Urea Nitrogen 9 7 - 25 mg/dL [facility] Creatinine 0.7 0.6 - 1.2 mg/dL [facility] Sodium 142 136 - 145 mEq/L [facility] Potassium 4.0 3.5 - 5.1 mEq/L [facility] Chloride 107 98 - 107 mEq/L [facility] Bicarbonate 26 21 - 31 mEq/L [facility] Total Bilirubin 0.5 0.3 - 1.0 mg/dL [facility] Alk. Phosphatase 33(L) 34 - 104 U/L [facility] Aspartate Aminotransferase 16 13 - 39 U/L [facility] Alanine Aminotransferase 12 7 - 52 U/L [facility] Total Protein 6.9 6.4 - 8.9 g/dL [facility] Albumin 4.6 3.5 - 5.7 g/dL [facility] Calcium 9.8 8.6 - 10.3 mg/dL [facility] Anion Gap 13.0 7.0 - 15.0 mEq/L [facility] Globulin 2.3 2.0 - 3.5 g/dL [facility] EGFR 110 >60 ml/min/1. 73m2 [facility] Comment: This eGFR is calculated using 2020 CKD-EPI Creatinine equation without race modifier based on the NKF-ASN task force recommendations Blood 10/09/2023 11:5 5 AM CDT Narrative [facility] - 10/09/2023 1:09 PM CDT Release to patient->Immediate IS THE PATIENT REQUIRED TO BE FASTING FOR 8 HOURS?->No us Bertha Mcgregor MD CHEMISTRY ORDERABLES Final Resul t [facility] [place] [address], * FERRITIN (10/09/2023 11:55 AM CDT) Ferritin 56 11 - 307 ng/mL [facility] Blood 10/09/2023 11:5 5 AM CDT Narrative [facility] - 10/10/2023 3:30 PM CDT Release to patient->Immediate us Bertha Mcgregor MD CHEMISTRY ORDERABLES Final Resul t Performing Organization Address [facility] Co de Phone Number [facility]CER ASSISTANT PROF[facility] [place] [address], [place] [phone] * RETICULOCYTE COUNT (RETIC) (10/09/2023 11:55 AM CDT) Reticulocyte count 1.51 0.50 - 1.70 % [facility] RET-He 36.40 28.20 - 36.60 pg [facility] Comment: RET-He is a direct assessment of incorporation of iron into erythrocyte hemoglobin. It provides an indirect measure of the iron available for new erythropoiesis over past 2-4 days. Blood 10/09/2023 11:5 5 AM CDT [facility] - 10/09/2023 12:08 PM CDT Release to patient->Immediate us Bertha Mcgregor MD HEMATOLOGY ORDERABLES Final Resu lt Performing Organization Address [facility] de Phone Number [facility] [place] [address], [place] [phone] * IRON W/ IRON BINDING CAPACITY [place] (10/09/2023 11:55 AM CDT) IRON 108 50 - 212 ug/dL [facility] UIBC 257 155 - 355 ug/dL [facility] TIBC 365 261 - 478 ug/dl [facility] % Saturation 30 20 - 50 % [facility] 10/09/2023 11:5 5 AM CDT [facility] - 10/09/2023 1:09 PM CDT Release to patient->Immediate us Bertha Mcgregor MD LAB SEND OUTS Final Result [facility]ER [facility]ANT PROFESSOR OF [facility] [place] [place] [address], documented in this encounter Visit Diagnoses Diagnosis Iron deficiency anemia, unspecified iron deficiency anemia type documented in this encounter Care Teams Nail Specialist Relationship Specialty Start Date End Date Rom Vidales [address] [place] [address] PCP - General Family Medicine 12/21/22 Bertha Mcgregor MD [address] [place] [address] Consulting Physician Oncology 05/10/23 documented as of this encounter
--- OUTSIDE RECORDS SUMMARY | 2024-06-17 03:37 | XMS_ITS | Encounter Summary ---
Author Organization [facility] Address [address] [place] [address] Phone Care Team Providers Care Machine Tack Puller Name Role Phone Rom Vidales Primary Care Provider [phone] Bertha Mcgregor MD Unavailable Encounter Details Date Type Department Care Team (Late st Contact Info) Description 06/08/2023 9:00 AM VEGETABLE PREPARER Lab [facility] [address] [phone] Lab, Cc [facility] Iron deficiency anemia, unspecified iron deficiency [...] on file documented as of this encounter Plan of Treatment Upcoming Encounters Date Type Department Care Team (Late st Contact Info) Description 07/10/2024 9:40 AM VEGETABLE PREPARER Lab [facility] [address] [phone] Lab, Cc [facility] 07/17/2024 8:45 AM VEGETABLE PREPARER Office Visit [facility] [address] [phone] Bertha Mcgregor MD [address] [place] [address] documented as of this encounter Procedures Procedure Name Priority Date/Time Associated Diagnosis Comments IRON W/ IRON BINDING CAPACITY OH Routine 06/08/2023 10:47 AM VEGETABLE PREPARER Iron deficiency anemia, unspecified iron deficiency anemia type CBC WITH AUTO DIFF OH Routine 06/08/2023 10:47 AM VEGETABLE PREPARER RETICULOCYTE COUNT (RETIC) Routine 06/08/2023 10:47 AM VEGETABLE PREPARER Iron deficiency anemia, unspecified iron deficiency anemia type FERRITIN Routine 06/08/2023 10:47 AM VEGETABLE PREPARER Iron deficiency anemia, unspecified iron deficiency anemia type documented in this encounter Results * (ABNORMAL) CBC WITH AUTO DIFF OH (06/08/2023 10:47 AM VEGETABLE PREPARER) WBC 4.8 4.0 - 10.0 10*3/uL [facility] HGB 13.2 11.2 - 15.7 g/dL [facility]AC[facility] ATTEND[facility] HCT 39.6 34.1 - 44.9 % [facility]AC[facility] ATTEND[facility] PLT 265 163 - 369 10*3/uL [facility]ACILITY ATTEND[facility] MPV 9.8 9.4 - 12.4 fL [facility] ATTEND[facility] RBC 4.16 3.93 - 5.22 10*6/uL [facility] RE[facility]ACILITY ATTENDANT [facility] MCV 95 79 - 95 fL [facility]AC[facility] ATTEND[facility] MCH 31.7 25.6 - 32.2 pg [facility]AC[facility] ATTEND[facility] MCHC 33.3 32.2 - 36.5 g/dL [facility] RE[facility]ACILITY ATTEND[facility] RDW 15.9(H) 11.6 - 14.4 % [facility]END[facility] Neutrophils % 63.0 36.0 - 66.0 % [facility] RE[facility]ACILITY ATTEND[facility] Lymphocytes % 26.6 19.0 - 40.0 % [facility]AC[facility] ATTEND[facility] Monocytes % 7.7 4.1 - 12.1 % [facility] ATTEND[facility] Eosinophils % 1.7 0.0 - 3.5 % [facility] ATTEND[facility] Basophils % 0.6 0.0 - 1.0 % [facility] ATTEND[facility] Absolute Neutrophils 3.0 1.4 - 6.6 10*3/uL [facility] ATTEND[facility] Absolute Lymphocytes 1.3 0.8 - 4.0 10*3/uL [facility] ATTEND[facility] Absolute Monocytes 0.4 0.2 - 1.2 10*3/uL [facility]ILITY ATTEND[facility] Absolute Eosinophils 0.1 0.0 - 0.4 10*3/uL [facility] ATTEND[facility] Absolute Basophils 0.0 0.0 - 0.1 10*3/uL [facility] ATTEND[facility] 06/08/2023 10:4 7 AM VEGETABLE PREPARER us Bertha Mcgregor MD LAB SEND OUTS Final Result Performing Organization Address [facility]/ZIP Co de Phone Number [facility]ACILITY ATTEND[facility] [address] [place] [address], * FERRITIN (06/08/2023 10:47 AM VEGETABLE PREPARER) Ferritin 86 11 - 307 ng/mL [facility] Blood 06/08/2023 10:4 7 AM VEGETABLE PREPARER Narrative [facility] - 06/09/2023 2:00 PM VEGETABLE PREPARER Release to patient->Immediate us Bertha Mcgregor MD CHEMISTRY ORDERABLES Final Resul t Performing Organization Address City/[facility]/ZIP Co de Phone Number [facility] [address] [place] [address], * IRON W/ IRON BINDING CAPACITY [place] (06/08/2023 10:47 AM VEGETABLE PREPARER) IRON 100 50 - 212 ug/dL [facility]END[facility] UIBC 220 155 - 355 ug/dL [facility] TIBC 320 261 - 478 ug/dl [facility]END[facility] % Saturation 31 20 - 50 % [facility] 06/08/2023 10:4 7 AM VEGETABLE PREPARER Narrative [facility] - 06/08/2023 12:04 PM VEGETABLE PREPARER Release to patient->Immediate Bertha Mcgregor MD LAB SEND OUTS Final Result Performing Organization Address [facility]/ZIP Co de Phone Number [facility] [address] [place] [address], * (ABNORMAL) RETICULOCYTE COUNT (RETIC) (06/08/2023 10:47 AM VEGETABLE PREPARER) Reticulocyte count 1.73(H) 0.50 - 1.70 % [facility] RET-He 36.90(H) 28.20 - 36.60 pg [facility] RECREATION FACILITY [facility] Comment: RET-He is a direct assessment of incorporation of iron into erythrocyte hemoglobin. It provides an indirect measure of the iron available for new erythropoiesis over past 2-4 days. Blood 06/08/2023 10:4 7 AM VEGETABLE PREPARER Narrative [facility] - 06/08/2023 10:58 AM VEGETABLE PREPARER Release to patient->Immediate Bertha Mcgregor MD HEMATOLOGY ORDERABLES Final Resu lt Performing Organization Address [facility]/ZIP Co de Phone Number [facility] [address] [place] [address], documented in this encounter Visit Diagnoses Diagnosis Iron deficiency anemia, unspecified iron deficiency anemia type documented in this encounter Care Teams Machine Tack Puller Relationship Specialty Start Date End Date Rom Vidales [address] [place] [address] PCP - General Family Medicine 12/21/22 Bertha Mcgregor MD [address] [place] [address] Consulting Physician Oncology 05/10/23 documented as of this encounter
--- OUTSIDE RECORDS SUMMARY | 2024-06-17 03:37 | XMS_ITS | Encounter Summary ---
Author Organization [facility] Address [address] [place] [address] Phone Care Team Providers Care Dry Wall Nailer Name Role Phone Rom Vidales Primary Care Provider [phone] Bertha Mcgregor MD Unavailable Reason for Visit * Reason Comments Follow-up Encounter Details Date Type Department Care Team (Late st Contact Info) Description 04/17/2024 1:45 PM CDT Office Visit [facility] [place] [address] [place] [phone] Sarah Wu, HAND PATTERN MARKER, FULLING MILL OPERATOR [address] [place] [address] [address] [place] [address] Iron deficiency anemia, unspecified iron deficiency anemia type (Primary Dx); Vitamin D deficiency Social History Tobacco Use Types Packs/Day Years [...] Mass Index 24.73 04/17/2024 1:34 PM CDT documented in this encounter Functional Status * Question Answer Date of Assessment Author Little interest or pleasure in doing things Not at all 04/17/2024 1:29 PM CDT Pratima Sales R MA Feeling down, depressed, or hopeless Not at all 04/17/2024 1:29 PM CDT Pratima Sales R MA * Over the past 2 weeks, how often have you been bothered by any of the following problems? Question Answer Date of Assessment Author Patient Health Questionnaire -2 Score 0 04/17/2024 1:29 PM CDT Pratima Sales R MA documented as of this encounter Progress Notes * Sarah Wu APRN, CNP - 04/17/2024 1:45 PM CDT Images from the original note were not included. Patient: Hali Samuels Age: 43 y.o. : 1980 Encounter Dept: [facility] Encounter Date: 04/17/2024 Care Team: Current Providers PCP: Rom Vidales Care Team Provider: Bertha Mcgregor MD Encounter Provider: Sarah Wu APN, CNP Referring Provider: Rom Vidales Nurse Practitioner: Sarah Wu APN, CNP HEMATOLOGY HISTORY: Patient comes back today to followup on her iron deficiency anemia. Since her last visit she had an EGD and colonoscopy done with Dr. Apodaca at [facility] on 03/15/23. Per patient, EGD [...] since the polypectomy. HISTORY OF PRESENT ILLNESS: Adalberto returns for follow up regarding her iron deficiency anemia. She was supposed to be scheduled for a colonoscopy in Feb but has been moved to May 2024. She was supposed to have an ablation as well but has decided for a possible hysterectomy instead after the first of the year. She denies any excessive fatigue or shortness of breath. She is not taking any oral iron. Her last iron infusion was 04/2023. Today, she denies any fevers, chills, shortness of breath, chest pain, abdominal pain, or bleeding. She does report full body arthralgias and is supposed to be following up with Rheumatology. DIAGNOSIS: 1. Iron deficiency anemia. 2. Fatigue. 3. 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 PAST TREATMENT: 1. EGD and colonoscopy on 03/15/23 with removal of descending 30 mm polyp with tubulovillous with high grade dysplasia with Dr. Apodaca at [facility]. 2. Venofer 200 mg on 04/24/23, 04/26/23, 04/28/23, 05/01/23, and 05/03/23. CURRENT TREATMENT: Ferrous sulfate, on hold for now. TREATMENT GUIDELINES: PROGNOSIS: EXPECTED RESPONSE TO TREATMENT: EXPECTED QUALITY OF LIFE DURING TREATMENT: ECOG: PAIN: PLAN FOR PAIN: CODE STATUS: END OF LIFE: ASSESSMENT: 1. Iron deficiency anemia. 2. Fatigue. 3. Bright red blood per rectum. 4. Lightheadedness. 5. Joint pain. PLAN: At this time, I discussed with Hail that clinically she is doing well. I and Dr. Mcgregor have reviewed labs today and Hgb 14.6 Hct 43, Iron 191, % sat 49 Ferritin 30. CMP/B12/Vit D not drawn. No need for additional IV iron at this time. Repeat colonoscopy in May [address] Apodaca. Hysterectomy after the first of the year. I will have the patient return to clinic for follow-up with office visit in three months. Labs willbe drawn a few days prior to the appointment. I encouraged the patient to call with any questions, problems, or concerns that she may have. Dr. Mcgregor was present in the clinic to answer any questions. TIME SPENT: REVIEW OF SYSTEMS: A 12-point [...] NOTES: All lab results shown below reviewed. MD Sarah Griffin, JOCELYN, TRANSPLANTER ORCHID-C Vitals: Vitals: 04/17/24 1334 BP: 124/80 BP Location: Left Arm BP Position: Sitting BP Cuff Size: Regular Pulse: 73 Resp: 18 Temp: 98.4 ??F (36.9 ??C) TempSrc: Temporal SpO2: 99% Weight: 135 lb 3.2 oz (61.3 kg) Height: 5' 2 (1.575 m) Body surface area is 1.64 meters squared. Body mass index is 24.73 kg/m??. Pain Score: 0 - No pain Allergies: Allergies Allergen Reactions Azithromycin Swelling PMH/SgH/FH/SH: Past medical, surgical, family and social histories were reviewed at this visit. Past Medical History Positives Diagnosis Date Chronic liver disease Idiopathic progressive polyneuropathy Iron deficiency Skin sensation disturbance Past Surgical History: Procedure Laterality Date BREAST SURGERY TUBAL LIGATION Family History Problem Relation Age of Onset Thyroid Disease Mother Other-comment Father hydrocephalus Family Status Relation Name Status Mother (Not Specified) Father (Not Specified) No partnership data on file Social History Socioeconomic History Marital status: Tobacco Use Smoking status: Former Current packs/day: 0.00 Types: Cigarettes Quit date: 2021 Years since quittin.8 Smokeless tobacco: Never Vaping Use Vaping status: Never Used Substance and Sexual Activity Alcohol use: Yes Comment: 6 beers 1-2 days per week Drug use: Never Oncology History: Oncology History No history exists. Cancer Staging: Cancer Staging No matching staging information was found for the patient. Cumulative dose Purpose/Goal Comments Lifetime Dose Tracking No doses have been documented on this patient for the following tracked chemicals: Doxorubicin, Epirubicin, Idarubicin, Daunorubicin, Mitoxantrone, Bleomycin, Ifosfamide, Methotrexate, Cyclophosphamide, Cisplatin, Carboplatin Current Medications: Outpatient Encounter Medications as of 04/17/2024 Medication Sig Dispense Refill ferrous sulfate 325 (65 Fe) MG Tablet Take 325 mg by mouth in the morning and at bedtime. (Patient not taking: Reported on 10/12/2023) Multiple Vitamin (MULTIVITAMIN PO) Take 1 Tablet by mouth daily. No facility-administered encounter medications on file as of 04/17/2024. Labs: No visits with results within 7 Day(s) from this visit. Latest known visit with results is: Lab on 10/09/2023 Component Date Value Ref Range Status IRON 10/09/2023 108 50 - 212 ug/dL Final UIBC 10/09/2023 257 155 - 355 ug/dL Final TIBC 10/09/2023 365 261 - 478 ug/dl Final % Saturation 10/09/2023 30 20 - 50 % Final Reticulocyte count 10/09/2023 1.51 0.50 - 1.70 % Final RET-He 10/09/2023 36.40 28.20 - 36.60 pg Final Comment: RET-He is a direct assessment of incorporation of iron into erythrocyte hemoglobin. It provides an indirect measure of the iron available for new erythropoiesis over past 2-4 days. Ferritin 10/09/2023 56 11 - 307 ng/mL Final Glucose 10/09/2023 88 70 - 105 mg/dL Final Blood Urea Nitrogen 10/09/2023 9 7 - 25 mg/dL Final Creatinine 10/09/2023 0.7 0.6 - 1.2 mg/dL Final Sodium 10/09/2023 142 136 - 145 mEq/L Final Potassium 10/09/2023 4.0 3.5 - 5.1 mEq/L Final Chloride 10/09/2023 107 98 - 107 mEq/L Final Bicarbonate 10/09/2023 26 21 - 31 mEq/L Final Total Bilirubin 10/09/2023 0.5 0.3 - 1.0 mg/dL Final Alk. Phosphatase 10/09/2023 33 (L) 34 - 104 U/L Final Aspartate Aminotransferase 10/09/2023 16 13 - 39 U/L Final Alanine Aminotransferase 10/09/2023 12 7 - 52 U/L Final Total Protein 10/09/2023 6.9 6.4 - 8.9 g/dL Final Albumin 10/09/2023 4.6 3.5 - 5.7 g/dL Final Calcium 10/09/2023 9.8 8.6 - 10.3 mg/dL Final Anion Gap 10/09/2023 13.0 7.0 - 15.0 mEq/L Final Globulin 10/09/2023 2.3 2.0 - 3.5 g/dL Final EGFR 10/09/2023 110 >60 ml/min/1.73m2 Final Comment: This eGFR is calculated using 2020 CKD-EPI Creatinine equation without race modifier based on the NKF-ASN task force recommendations WBC 10/09/2023 6.2 4.0 - 10.0 10*3/uL Final HGB 10/09/2023 13.6 11.2 - 15.7 g/dL Final HCT 10/09/2023 40.1 34.1 - 44.9 % Final PLT 10/09/2023 258 163 - 369 10*3/uL Final MPV 10/09/2023 9.8 9.4 - 12.4 fL Final RBC 10/09/2023 4.10 3.93 - 5.22 10*6/uL Final MCV 10/09/2023 98 (H) 79 - 95 fL Final MCH 10/09/2023 33.2 (H) 25.6 - 32.2 pg Final MCHC 10/09/2023 33.9 32.2 - 36.5 g/dL Final RDW 10/09/2023 11.2 (L) 11.6 - 14.4 % Final Neutrophils % 10/09/2023 65.4 36.0 - 66.0 % Final Lymphocytes % 10/09/2023 26.3 19.0 - 40.0 % Final Monocytes % 10/09/2023 6.1 4.1 - 12.1 % Final Eosinophils % 10/09/2023 1.4 0.0 - 3.5 % Final Basophils % 10/09/2023 0.6 0.0 - 1.0 % Final Absolute Neutrophils 10/09/2023 4.1 1.4 - 6.6 10*3/uL Final Absolute Lymphocytes 10/09/2023 1.6 0.8 - 4.0 10*3/uL Final Absolute Monocytes 10/09/2023 0.4 0.2 - 1.2 10*3/uL Final Absolute Eosinophils 10/09/2023 0.1 0.0 - 0.4 10*3/uL Final Absolute Basophils 10/09/2023 0.0 0.0 - 0.1 10*3/uL Final Cosigned by Bertha Mcgregor MD at 04/17/2024 3:16 PM CDT documented in this encounter Plan of Treatment Upcoming Encounters Date Type Department Care Team (Late st Contact Info) Description 07/10/2024 9:40 AM CHEMICAL EQUIPMENT SALES ENGINEER Lab [facility] [address] [phone] Lab, Padmini [facility] 07/17/2024 8:45 AM CHEMICAL EQUIPMENT SALES ENGINEER Office Visit [facility] [address] [phone] Bertha Mcgregor MD [address] [place] [address] Scheduled Orders Name Type Priority Associated Diagnoses Orde r Schedule CMP (COMPREHENSIVE METABOLIC PANEL) Lab Routine Iron deficiency anemia, unspecified iron deficiency anemia type Vitamin D deficiency Expected: 07/18/2024, Expires: 07/18/2024 COMPLETE BLOOD COUNT (CBC) WITH DIFF Lab Routine Iron deficiency anemia, unspecified iron deficiency anemia type Vitamin D deficiency Expected: 07/18/2024, Expires: 07/18/2024 VITAMIN B12 Lab Routine Iron deficiency anemia, unspecified iron deficiency anemia type Vitamin D deficiency Expected: 07/18/2024, Expires: 07/18/2024 IRON W/ IRON BINDING CAPACITY [place] Lab Routine Iron deficiency anemia, unspecified iron deficiency anemia type Vitamin D deficiency Expected: 07/18/2024, Expires: 07/18/2024 FERRITIN Lab Routine Iron deficiency anemia, unspecified iron deficiency anemia type Vitamin D deficiency Expected: 07/18/2024, Expires: 07/18/2024 VITAMIN D, 25 HYDROXY TOTAL Lab Routine Iron deficiency anemia, unspecified iron deficiency anemia type Vitamin D deficiency Expected: 07/18/2024, Expires: 07/18/2024 documented as of this encounter Visit Diagnoses Diagnosis Iron deficiency anemia, unspecified iron deficiency anemia type- Primary Vitamin D deficiency Unspecified vitamin D deficiency documented in this encounter Care Teams Dry Wall Nailer Relationship Specialty Start Date End Date Rom Vidales [address] [place] [address] PCP - General Family Medicine 12/21/22 Bertha Mcgregor MD [address] [place] [address] Consulting Physician Oncology 05/10/23 documented as of this encounter
--- OUTSIDE RECORDS SUMMARY | 2024-06-17 03:37 | XMS_ITS | Encounter Summary ---
Author Organization [facility] Address [address] [place] [address] Phone Care Team Providers Care Music Writer Name Role Phone Rom Vidales Primary Care Provider [phone] Reason for Visit * Reason Comments Iron Infusion * Episode Based Medications (Routine) - Pending Review Specialty Diagnoses / Procedures Referred By Contac t Referred To Contact Diagnoses Iron deficiency anemia, unspecified iron deficiency anemia type Procedures IRON SUCROSE INJECTION Bertha Mcgregor MD [address] [place] [address] Phone: tel: fax: [facility] [address] [address] Phone: tel: fax: Referral ID Status Reason Start Date Expiration Date V isits Requested Visits Authorized [id number] Pending Review 04/03/2023 06/18/2025 1 1 Encounter Details Date Type Department Care Team (Latest Contact Info) Description 04/28/2023 10:00 AM CLINICAL RESEARCH ASSOCIATE Clinical Support [facility] [address] [phone] Nurse, Padmini [facility] Iron deficiency anemia, unspecified iron deficiency [...] Coronavirus/COVID-19? No / Unsure 04/28/2023 8:20 AM CLINICAL RESEARCH ASSOCIATE documented as of this encounter Progress Notes * Riya Ramsey RN - 04/28/2023 10:00 AM CST Patient tolerated Venofer well with no complaints. PIV flushed with 100 mL NS and patient observed for 30 minutes. PIV removed and intact, gauze and coban applied to site. Patient's performance status has not changed since arrival to clinic. Left ambulatory and unaccompanied. ICAL RESEARCH ASSOCIATE documented in this encounter Plan of Treatment Upcoming Encounters Date Type Department Care Team (Late st Contact Info) Description 07/10/2024 9:40 AM CLINICAL RESEARCH ASSOCIATE Lab [facility] [address] [phone] Lab, Cc [facility] 07/17/2024 8:45 AM CLINICAL RESEARCH ASSOCIATE Office Visit [facility] [address] [phone] Bertha Mcgregor MD [address] [place] [address] documented as of this encounter Visit Diagnoses Diagnosis Iron deficiency anemia, unspecified iron deficiency anemia type- Primary documented in this encounter Administered Medications Inactive Administered Medications - up to 3 most recent administrations Medication Order MAR Action Action Date Dose Rate Site iron sucrose (VENOFER) 200 mg in sodium chloride 0.9 % 100 mL IVPB 200 mg, Intravenous, ONCE, 1 dose, On Mon04/28/23 at 0900, Administer over 15 MinutesIndications:Iron deficiency anemia, unspecified iron deficiency anemia type New Bag 04/28/2023 8:40 AM CLINICAL RESEARCH ASSOCIATE 200 mg 400 mL/hr documented in this encounter Care Teams Music Writer Relationship Specialty Start Date End Date Rom Vidales [address] [place] [address] PCP - General Family Medicine 12/21/22 documented as of this encounter
--- OUTSIDE RECORDS SUMMARY | 2024-06-17 03:37 | XMS_ITS | Encounter Summary ---
Author Organization [facility] Address [address] [place] [address] Phone Care Team Providers Care Slot Machine Repairer Name Role Phone Rom Vidales Primary Care Provider [phone] Bertha Mcgregor MD Unavailable Encounter Details Date Type Department Care Team (Late st Contact Info) Description 07/07/2023 8:15 AM SIDING INSTALLER Lab [facility] [address] [phone] Lab, Cc [facility] Iron deficiency anemia, unspecified iron deficiency anemia type; Other fatigue; Muscle twitching Social History Tobacco [...] Encounters Date Type Department Care Team (Late Contact Info) Description 07/10/2024 9:40 AM SIDING INSTALLER Lab [facility] [address] [phone] Lab, Cc [facility] 07/17/2024 8:45 AM SIDING INSTALLER Office Visit [facility] [address] [phone] Bertha Mcgregor MD [address] [place] [address] documented as of this encounter Procedures Procedure Name Priority Date/Time Associated Diagnosis Comments IRON W/ IRON BINDING CAPACITY [place] Routine 07/07/2023 12:50 PM SIDING INSTALLER Iron deficiency anemia, unspecified iron deficiency anemia type Other fatigue Muscle twitching RETICULOCYTE COUNT (RETIC) Routine 07/07/2023 12:50 PM SIDING INSTALLER Iron deficiency anemia, unspecified iron deficiency anemia type Other fatigue Muscle twitching MAGNESIUM (MG) Routine 07/07/2023 12:50 PM SIDING INSTALLER Iron deficiency anemia, unspecified iron deficiency anemia type Other fatigue Muscle twitching FERRITIN Routine 07/07/2023 12:50 PM SIDING INSTALLER Iron deficiency anemia, unspecified iron deficiency anemia type Other fatigue Muscle twitching CMP (COMPREHENSIVE METABOLIC PANEL) Routine 07/07/2023 12:50 PM SIDING INSTALLER Iron deficiency anemia, unspecified iron deficiency anemia type Other fatigue Muscle twitching COMPLETE BLOOD COUNT (CBC) WITH DIFF Routine 07/07/2023 12:50 PM SIDING INSTALLER Iron deficiency anemia, unspecified iron deficiency anemia type Other fatigue Muscle twitching documented in this encounter Results * (ABNORMAL) COMPLETE BLOOD COUNT (CBC) WITH DIFF (07/07/2023 12:50 PM SIDING INSTALLER) WBC 5.8 4.0 - 10.0 10*3/uL [facility] HGB 13.8 11.2 - 15.7 g/dL [facility] HCT 40.3 34.1 - 44.9 % [facility] LINE [facility]AD [facility] PLT 289 163 - 369 10*3/uL [facility] MPV 9.6 9.4 - 12.4 fL [facility] RBC 4.20 3.93 - 5.22 10*6/uL [facility] MCV 96(H) 79 - 95 fL [facility] MCH 32.9(H) 25.6 - 32.2 pg [facility] MCHC 34.2 32.2 - 36.5 g/dL [facility] RDW 12.5 11.6 - 14.4 % [facility] Absolute Neutrophil Count 4,039 cells/uL [facility] Absolute Seg Count 4,039 1,440 - 6,600 cells/uL [facility] Absolute Lymph Count 1,385 760 - 4,000 cells/uL [facility] Absolute [place] Count 231 160 - 1,200 cells/uL [facility] LINE LEAD [facility] Absolute Eos Count 115 0 - 300 cells/uL [facility] Segmented Neutrophils 70(H) 36 - 66 % [facility] Lymphocytes 24 19 - 40 % [facility] Monocytes 4 4 - 12 % [facility] Eosinophils 2 0 - 3 % [facility] WBC Estimate Normal [facility] LINE LEAD [facility] Platelet Estimate Normal [facility] RBC Morphology Abnormal [facility] Macrocytosis 1+ [facility] Blood 07/07/2023 12:5 0 PM SIDING INSTALLER Narrative [facility] - 07/07/2023 2:48 PM SIDING INSTALLER Release to patient->Immediate us Bertha Mcgregor MD HEMATOLOGY ORDERABLES Final Resu lt [facility] [place] [address], * CMP (COMPREHENSIVE METABOLIC PANEL) (07/07/2023 12:50 PM SIDING INSTALLER) Glucose 91 70 - 105 mg/dL [facility] Blood Urea Nitrogen 10 7 - 25 mg/dL [facility] Creatinine 0.7 0.6 - 1.2 mg/dL [facility] Sodium 140 136 - 145 mEq/L [facility] Potassium 3.8 3.5 - 5.1 mEq/L [facility] Chloride 103 98 - 107 mEq/L [facility] Bicarbonate 27 21 - 31 mEq/L [facility] Total Bilirubin 0.8 0.3 - 1.0 mg/dL [facility] Alk. Phosphatase 40 34 - 104 U/L [facility] Aspartate Aminotransferase 16 13 - 39 U/L [facility] Alanine Aminotransferase 15 7 - 52 U/L [facility] Total Protein 7.1 6.4 - 8.9 g/dL [facility] Albumin 4.7 3.5 - 5.7 g/dL [facility] Calcium 10.0 8.6 - 10.3 mg/dL [facility] Anion Gap 13.8 7.0 - 15.0 mEq/L [facility] Globulin 2.4 2.0 - 3.5 g/dL [facility] EGFR 110 >60 ml/min/1. 73m2 [facility] Comment: This eGFR is calculated using 2020 CKD-EPI Creatinine equation without race modifier based on the NKF-ASN task force recommendations Blood 07/07/2023 12:5 0 PM SIDING INSTALLER Narrative [facility] - 07/07/2023 1:53 PM SIDING INSTALLER Release to patient->Immediate IS THE PATIENT REQUIRED TO BE FASTING FOR 8 HOURS?->No us Bertha Mcgregor MD CHEMISTRY ORDERABLES Final Resul t Performing Organization Address City/[facility]/ZIP Co de Phone Number [facility] [place] [address], * MAGNESIUM (MG) (07/07/2023 12:50 PM SIDING INSTALLER) Magnesium 2.0 1.9 - 2.7 mg/dL [facility] Blood 07/07/2023 12:5 0 PM SIDING INSTALLER Narrative [facility] - 07/07/2023 1:53 PM SIDING INSTALLER Release to patient->Immediate us Bertha Mcgregor MD CHEMISTRY ORDERABLES Final Resul t [facility] [place] [address], * FERRITIN (07/07/2023 12:50 PM SIDING INSTALLER) Ferritin 92 11 - 307 ng/mL [facility] Blood 07/07/2023 12:5 0 PM SIDING INSTALLER Narrative [facility] - 07/11/2023 3:03 PM SIDING INSTALLER Release to patient->Immediate us Bertha Mcgregor MD CHEMISTRY ORDERABLES Final Resul t Performing Organization Address [facility] Co de Phone Number [facility] [place] [address], [place] [phone] * IRON W/ IRON BINDING CAPACITY [place] (07/07/2023 12:50 PM SIDING INSTALLER) IRON 141 50 - 212 ug/dL [facility] UIBC 235 155 - 355 ug/dL [facility] TIBC 376 261 - 478 ug/dl [facility] % Saturation 38 20 - 50 % [facility] 07/07/2023 12:5 0 PM SIDING INSTALLER Narrative [facility] - 07/07/2023 1:53 PM SIDING INSTALLER Release to patient->Immediate us Bertha Mcgregor MD LAB SEND OUTS Final Result Performing Organization Address [facility]/ZIP Co de Phone Number [facility] [place] [address], [place] [phone] * (ABNORMAL) RETICULOCYTE COUNT (RETIC) (07/07/2023 12:50 PM SIDING INSTALLER) Reticulocyte count 1.98(H) 0.50 - 1.70 % [facility] RET-He 37.10(H) 28.20 - 36.60 pg [facility] Comment: RET-He is a direct assessment of incorporation of iron into erythrocyte hemoglobin. It provides an indirect measure of the iron available for new erythropoiesis over past 2-4 days. Blood 07/07/2023 12:5 0 PM SIDING INSTALLER Narrative [facility] - 07/07/2023 1:02 PM SIDING INSTALLER Release to patient->Immediate us Bertha Mcgregor MD HEMATOLOGY ORDERABLES Final Resu lt [facility] [address] [place] [address], documented in this encounter Visit Diagnoses Diagnosis Iron deficiency anemia, unspecified iron deficiency anemia type Other fatigue Muscle twitching Abnormal involuntary movements documented in this encounter Care Teams Slot Machine Repairer Relationship Specialty Start Date End Date Rom Vidales [address] [place] [address] PCP - General Family Medicine 12/21/22 Bertha Mcgregor MD [address] [place] [address] Consulting Physician Oncology 05/10/23 documented as of this encounter
--- OUTSIDE RECORDS SUMMARY | 2024-06-17 03:37 | XMS_ITS | Encounter Summary ---
Author Organization [facility] Address [address] [place] [address] Phone Care Team Providers Care Outfitter Cabin Name Role Phone Rom Vidales Primary Care Provider Bertah Mcgregor MD Unavailable Reason for Visit * Reason Comments Follow-up Encounter Details Date Type Department Care Team (Late st Contact Info) Description 10/12/2023 10:30 AM CDT Office Visit [facility] [place] [facility] [address] [place] [address] Pamela Jang, SENIOR SALES DIRECTOR, MACHINE STAKER [address] [place] [id number] Iron deficiency anemia, unspecified iron deficiency anemia type (Primary Dx); Other fatigue Social History Tobacco Use Types Packs/Day Years [...] Sign Reading Time Taken Comments Blood Pressure 100/62 10/12/2023 10:43 AM CDT Pulse 88 10/12/2023 10:43 AM CDT Temperature 36.9 ??C (98.4 ??F) 10/12/2023 10:43 AM C DT Respiratory Rate 18 10/12/2023 10:43 AM CDT Oxygen Saturation 99% 10/12/2023 10:43 AM CDT Inhaled Oxygen Concentration - - Weight 59.4 kg (131 lb) 10/12/2023 10:43 AM CDT Height 157.5 cm (5' 2 ) 10/12/2023 10:43 AM CDT Body Mass Index 23.96 10/12/2023 10:43 AM CDT documented in this encounter Functional Status * Question Answer Date of Assessment Author Little interest or pleasure in doing things Not at all 10/12/2023 10:43 AM CDT María Jordan LPN Feeling down, depressed, or hopeless Not at all 10/12/2023 10:43 AM CDT María Jordan LPN * Over the past 2 weeks, how often have you been bothered by any of the following problems? Question Answer Date of Assessment Author Patient Health Questionnaire-2 Score 0 10/12/2023 10:43 AM CDT Corinna Jordan LPN documented as of this encounter Progress Notes * Pamela Jang APRN, CNP - 10/12/2023 10:30 AM CDT Images from the original note were not included. Patient: Hali Samuels Age: 43 y.o. : 1980 Encounter Dept: [facility] Encounter Date: 10/12/2023 Care Team: Current Providers PCP: Rom Vidales Care Team Provider: Bertha Mcgregor MD Encounter Provider: Pamela Lee APRN, CNP Referring Provider: Rom Vidales Nurse Practitioner: Pamela Lee APRN, CNP HEMATOLOGY HISTORY: Patient comes back today to followup on her iron deficiency anemia. Since her last visit she had an EGD and colonoscopy done with Dr. Apodaca at [facility] on 03/15/23. Per patient, EGD was [...] since the polypectomy. HISTORY OF PRESENT ILLNESS: Ms. Hali Samuels returns to clinic for follow-up of her iron deficiency anemia. Since her last visit, Hali states she has been doing well. Her energy levels remain adequate. Overall she is feeling great. Patient is back to working out. Today, she denies any fevers, chills, shortness of breath, chest pain, abdominal pain, or bleeding. When she has her repeat colonoscopy in February, she is also going to have a hernia repair and uterine ablation. DIAGNOSIS: 1. Iron deficiency anemia. 2. Fatigue. 3. 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 PAST TREATMENT: 1. EGD and colonoscopy on 03/15/23 with removal of descending 30 mm polyp with tubulovillous with high grade dysplasia with Dr. Apodaca at [facility]. 2. Venofer 200 mg on 04/24/23, [...] PLAN: At this time, I discussed with Hali that clinically she is doing well. Laboratory evaluation from 10/09/23 showed a white blood cell count of 6.2, hemoglobin 13.6, hematocrit 40.1%, and platelet count of 258,000. MCV 98. MCH 33.2. Creatinine 0.7. Alkaline phosphatase 33. Reticulocyte count of 1.51. Total iron 108. Iron saturation 30%. Ferritin 56. No need for additional IV iron at this time. Twitching has resolved. Repeat colonoscopy in February [address] Apodaca. She is also going to be having a hernia repair and uterine ablation done around the same time. Patient asking us to check vitamin B12 and vitamin D along with her CBC, CMP, iron studies, and ferritin when she returns. I will have the patient return to [...] All lab results shown below reviewed. MD Pamela Griffin, DNP, ASPHALT DISTRIBUTOR TENDER-BC Vitals: Vitals: 10/12/23 1043 BP: 100/62 BP Location: Right Arm BP Position: Sitting BP Cuff Size: Regular Pulse: 88 Resp: 18 Temp: 98.4 ??F (36.9 ??C) TempSrc: Temporal SpO2: 99% Weight: 131 lb (59.4 kg) Height: 5' 2 (1.575 m) Body surface area is 1.61 meters squared. Body mass index is 23.96 kg/m??. Pain Score: 0 - No pain [...] Status Mother (Not Specified) Father (Not Specified) Social History Socioeconomic History Marital status: Tobacco Use Smoking status: Former Types: Cigarettes Quit date: 2021 Years since quittin.3 Smokeless tobacco: Never Vaping Use Vaping Use: Never used Substance and Sexual Activity Alcohol use: Yes [...] Current Medications: Outpatient Encounter Medications as of 10/12/2023 Medication Sig Dispense Refill ferrous sulfate 325 (65 Fe) MG Tablet Take 325 mg by mouth in the morning and at bedtime. (Patient not taking: Reported on 10/12/2023) Multiple Vitamin (MULTIVITAMIN PO) Take 1 Tablet by mouth daily. No facility-administered encounter medications on file as of 10/12/2023. Labs: Lab on 10/09/2023 Component Date Value Ref [...] Final Cosigned by Bertha Mcgregor MD at 10/13/2023 2:34 PM CDT documented in this encounter Plan of Treatment Upcoming Encounters Date Type Department Care Team (Late st Contact Info) Description 07/10/2024 9:40 AM JIG BORING MACHINE OPERATOR FOR METAL Lab [facility] [address] [phone] Lab, Cc [facility] 07/17/2024 8:45 AM JIG BORING MACHINE OPERATOR FOR METAL Office Visit [facility] [address] [phone] Bertha Mcgregor MD [address] [place] [address] Scheduled Orders Name Type Priority Associated Diagnoses Orde r Schedule COMPLETE BLOOD COUNT (CBC) WITH DIFF Lab Routine Iron deficiency anemia, unspecified iron deficiency anemia type Other fatigue Expected: 01/30/2024 (Approximate), Expires: 02/02/2024 CMP (COMPREHENSIVE METABOLIC PANEL) Lab Routine Iron deficiency anemia, unspecified iron deficiency anemia type Other fatigue Expected: 01/30/2024 (Approximate), Expires: 02/02/2024 FERRITIN Lab Routine Iron deficiency anemia, unspecified iron deficiency anemia type Other fatigue Expected: 01/30/2024 (Approximate), Expires: 02/02/2024 IRON W/ IRON BINDING CAPACITY [place] Lab Routine Iron deficiency anemia, unspecified iron deficiency anemia type Other fatigue Expected: 01/30/2024 (Approximate), Expires: 02/02/2024 VITAMIN B12 Lab Routine Iron deficiency anemia, unspecified iron deficiency anemia type Other fatigue Expected: 01/30/2024 (Approximate), Expires: 02/02/2024 VITAMIN D, 25 HYDROXY TOTAL Lab Routine Iron deficiency anemia, unspecified iron deficiency anemia type Other fatigue Expected: 01/30/2024 (Approximate), Expires: 02/02/2024 documented as of this encounter Visit Diagnoses Diagnosis Iron deficiency anemia, unspecified iron deficiency anemia type- Primary Other fatigue documented in this encounter Care Teams Outfitter Cabin Relationship Specialty Start Date End Date Flash Rom [address] [facility] [place] [address] PCP - General Family Medicine 12/21/22 Bertha Mcgregor MD [address] [place] [address] Consulting Physician Oncology 05/10/23 documented as of this encounter
--- OUTSIDE RECORDS SUMMARY | 2024-06-17 03:37 | XMS_ITS | Encounter Summary ---
Author Organization [facility] Address [address] [place] [address] Phone Care Team Providers Care Email Operations Manager Name Role Phone Rom Vidales Primary Care Provider [phone] Bertha Mcgregor MD Unavailable Reason for Visit * Reason Comments Other Labs/IVF * Episode Based Medications (Routine) - Authorized Specialty Diagnoses / Procedures Referred By Contac t Referred To Contact Diagnoses Iron deficiency anemia, unspecified iron deficiency anemia type Procedures NORMAL SALINE LAURA UP TO 1000 ML IV Bertha Mcgregor MD [address] [place] [address] Phone: tel: fax: [facility] [address] [address] Phone: tel: fax: Referral ID Status Reason Start Date Expiration Date V isits Requested Visits Authorized [id number] Authorized 05/10/2023 06/18/2025 1 1 Encounter Details Date Type Department Care Team (Latest Contact Info) Description 05/10/2023 11:25 AM FORENSIC EXAMINER Clinical Support [facility] [address] [address] Nurse, Padmini [facility] Iron deficiency anemia, unspecified iron deficiency anemia [...] Coronavirus/COVID-19? No / Unsure 04/28/2023 8:20 AM FORENSIC EXAMINER documented as of this encounter Functional Status * Question Answer Date of Assessment Author Little interest or pleasure in doing things Not at all 05/10/2023 11:01 AM María Porter LPN Feeling down, depressed, or hopeless Not at all 05/10/2023 11:01 AM María Porter LPN * Over the past 2 weeks, how often have you been bothered by any of the following problems? Question Answer Date of Assessment Author Patient Health Questionnaire-2 Score 0 05/10/2023 11:01 AM Corinna Porter LPN documented as of this encounter Progress Notes * Africa Black RN - 05/10/2023 11:25 AM CST Patient in for labs/1L NS per orders received from Dr. Mcgregor. PIV inserted. Blood drawn peripherally from right arm. Patient tolerated lab draw/1L NS well. No change in patient performance status since arrival to clinic. Patient discharged ambulatory. NSIC EXAMINER documented in this encounter Plan of Treatment Upcoming Encounters Date Type Department Care Team (Late st Contact Info) Description 07/10/2024 9:40 AM FORENSIC EXAMINER Lab [facility] [address] [address] Lab, Cc [facility] 07/17/2024 8:45 AM FORENSIC EXAMINER Office Visit [facility] [address] [address] Bertha Mcgregor MD [address] [place] [address] documented as of this encounter Procedures Procedure Name Priority Date/Time Associated Diagnosis Comments IRON W/ IRON BINDING CAPACITY OH Routine 05/10/2023 11:26 AM FORENSIC EXAMINER Iron deficiency anemia, unspecified iron deficiency anemia type Other fatigue Arthralgia, unspecified joint CBC WITH AUTO DIFF OH Routine 05/10/2023 11:26 AM FORENSIC EXAMINER Iron deficiency anemia, unspecified iron deficiency anemia type RETICULOCYTE COUNT (RETIC) Routine 05/10/2023 11:26 AM FORENSIC EXAMINER Iron deficiency anemia, unspecified iron deficiency anemia type Other fatigue Arthralgia, unspecified joint MAGNESIUM (MG) Routine 05/10/2023 11:26 AM FORENSIC EXAMINER Iron deficiency anemia, unspecified iron deficiency anemia type Other fatigue Arthralgia, unspecified joint LACTATE DEHYDROGENASE (LD) Routine 05/10/2023 11:26 AM FORENSIC EXAMINER Iron deficiency anemia, unspecified iron deficiency anemia type Other fatigue Arthralgia, unspecified joint FERRITIN Routine 05/10/2023 11:26 AM FORENSIC EXAMINER Iron deficiency anemia, unspecified iron deficiency anemia type Other fatigue Arthralgia, unspecified joint CMP (COMPREHENSIVE METABOLIC PANEL) Routine 05/10/2023 11:26 AM FORENSIC EXAMINER Iron deficiency anemia, unspecified iron deficiency anemia type Other fatigue Arthralgia, unspecified joint documented in this encounter Results * (ABNORMAL) CBC WITH AUTO DIFF OH (05/10/2023 11:26 AM FORENSIC EXAMINER) WBC 4.4 4.0 - 10.0 10*3/uL [facility] HGB 13.7 11.2 - 15.7 g/dL [facility] HCT 41.3 34.1 - 44.9 % [facility] PLT 321 163 - 369 10*3/uL [facility] MPV 10.3 9.4 - 12.4 fL [facility] RBC 4.64 3.93 - 5.22 10*6/uL [facility] MCV 89 79 - 95 fL [facility] MCH 29.5 25.6 - 32.2 pg [facility] MCHC 33.2 32.2 - 36.5 g/dL [facility] RDW 17.8(H) 11.6 - 14.4 % [facility] Neutrophils % 61.1 36.0 - 66.0 % [facility] Lymphocytes % 28.8 19.0 - 40.0 % [facility] Monocytes % 7.6 4.1 - 12.1 % [facility] Eosinophils % 1.6 0.0 - 3.5 % [facility] Basophils % 0.7 0.0 - 1.0 % [facility] Absolute Neutrophils 2.7 1.4 - 6.6 10*3/uL [facility] Absolute Lymphocytes 1.3 0.8 - 4.0 10*3/uL [facility] Absolute Monocytes 0.3 0.2 - 1.2 10*3/uL [facility] Absolute Eosinophils 0.1 0.0 - 0.4 10*3/uL [facility] Absolute Basophils 0.0 0.0 - 0.1 10*3/uL [facility] 05/10/2023 11:2 6 AM FORENSIC EXAMINER us Bertha Mcgregor MD LAB SEND OUTS Final Result [facility] [address] [place] [address], * (ABNORMAL) RETICULOCYTE COUNT (RETIC) (05/10/2023 11:26 AM FORENSIC EXAMINER) Reticulocyte count 1.73(H) 0.50 - 1.70 % [facility] RET-He 36.90(H) 28.20 - 36.60 pg [facility] Comment: RET-He is a direct assessment of incorporation of iron into erythrocyte hemoglobin. It provides an indirect measure of the iron available for new erythropoiesis over past 2-4 days. Blood 05/10/2023 11:2 6 AM FORENSIC EXAMINER Narrative [facility] - 05/10/2023 12:45 PM FORENSIC EXAMINER Release to patient->Immediate us Bertha Mcgregor MD HEMATOLOGY ORDERABLES Final Resu lt Performing Organization Address City/[facility]/ZIP Co de Phone Number [facility] [address] [place] [address], [place] [phone] * IRON W/ IRON BINDING CAPACITY [place] (05/10/2023 11:26 AM FORENSIC EXAMINER) IRON 141 50 - 212 ug/dL [facility] UIBC 207 155 - 355 ug/dL [facility] TIBC 348 261 - 478 ug/dl [facility] % Saturation 41 20 - 50 % [facility] 05/10/2023 11:2 6 AM FORENSIC EXAMINER [facility] - 05/10/2023 12:19 PM FORENSIC EXAMINER Release to patient->Immediate us Bertha Mcgregor MD LAB SEND OUTS Final Result Performing Organization Address [facility] de Phone Number [facility] [address] [place] [address], [place] [phone] * FERRITIN (05/10/2023 11:26 AM FORENSIC EXAMINER) Ferritin 259 11 - 307 ng/mL [facility] Blood 05/10/2023 11:2 6 AM FORENSIC EXAMINER [facility] - 05/12/2023 1:54 PM FORENSIC EXAMINER Release to patient->Immediate us Bertha Mcgregor MD CHEMISTRY ORDERABLES Final Resul t Performing Organization Address City/[facility]/ZIP Co de Phone Number [facility] [place] [address] [place] [address], [place] [phone] * MAGNESIUM (MG) (05/10/2023 11:26 AM FORENSIC EXAMINER) Magnesium 2.2 1.9 - 2.7 mg/dL [facility] Blood 05/10/2023 11:2 6 AM FORENSIC EXAMINER Narrative [facility] - 05/10/2023 12:19 PM FORENSIC EXAMINER Release to patient->Immediate us Bertha Mcgregor MD CHEMISTRY ORDERABLES Final Resul t [facility] [address] [place] [address], [place] [phone] * (ABNORMAL) LACTATE DEHYDROGENASE (LD) (05/10/2023 11:26 AM FORENSIC EXAMINER) LDH 119(L) 140 - 271 U/L [facility] Blood 05/10/2023 11:2 6 AM FORENSIC EXAMINER Narrative [facility] - 05/10/2023 12:19 PM FORENSIC EXAMINER Release to patient->Immediate us Bertha Mcgregor MD CHEMISTRY ORDERABLES Final Resul t [facility] [place] [address] [place] [address], [place] [phone] * CMP (COMPREHENSIVE METABOLIC PANEL) (05/10/2023 11:26 AM FORENSIC EXAMINER) Glucose 96 70 - 105 mg/dL [facility] Blood Urea Nitrogen 8 7 - 25 mg/dL [facility] Creatinine 0.7 0.6 - 1.2 mg/dL [facility] Sodium 141 136 - 145 mEq/L [facility] Potassium 3.5 3.5 - 5.1 mEq/L [facility] Chloride 105 98 - 107 mEq/L [facility] Bicarbonate 26 21 - 31 mEq/L [facility] Total Bilirubin 0.7 0.3 - 1.0 mg/dL [facility] Alk. Phosphatase 41 34 - 104 U/L [facility] Aspartate Aminotransferase 22 13 - 39 U/L [facility] Alanine Aminotransferase 17 7 - 52 U/L [facility] Total Protein 7.7 6.4 - 8.9 g/dL [facility] Albumin 4.9 3.5 - 5.7 g/dL [facility] Calcium 9.5 8.6 - 10.3 mg/dL [facility] Anion Gap 13.5 7.0 - 15.0 mEq/L [facility] Globulin 2.8 2.0 - 3.5 g/dL [facility] EGFR 110 >60 ml/min/1. 73m2 [facility] Comment: This eGFR is calculated using 2020 CKD-EPI Creatinine equation without race modifier based on the NKF-ASN task force recommendations Blood 05/10/2023 11:2 6 AM FORENSIC EXAMINER Narrative [facility] - 05/10/2023 12:18 PM FORENSIC EXAMINER Release to patient->Immediate IS THE PATIENT REQUIRED TO BE FASTING FOR 8 HOURS?->No us Bertha Mcgregor MD CHEMISTRY ORDERABLES Final Resul t [facility] [place] [address], documented in this encounter Visit Diagnoses Diagnosis Iron deficiency anemia, unspecified iron deficiency anemia type- Primary Other fatigue Arthralgia, unspecified joint documented in this encounter Administered Medications Inactive Administered Medications - up to 3 most recent administrations Medication Order MAR Action Action Date Dose Rate Site 0.9 % sodium chloride solution at 800 mL/hr, Intravenous, ONCE, 1 dose, On Mon05/10/23 at 1330, Physician must adjust infusion rate and fluid volumeIndications:Iron deficiency anemia, unspecified iron deficiency anemia type New Bag 05/10/2023 11:40 AM FORENSIC EXAMINER 1,000 mL 800 mL/hr documented in this encounter Care Teams Email Operations Manager Relationship Specialty Start Date End Date Rom Vidales [address] [place] [address] PCP - General Family Medicine 12/21/22 Bertha Mcgregor MD [address] [place] [address] Consulting Physician Oncology 05/10/23 documented as of this encounter
--- OUTSIDE RECORDS SUMMARY | 2024-06-17 03:37 | XMS_ITS | Encounter Summary ---
Author Organization [id number] Care Team Providers Care Cloth Examiner Machine Name Role Phone Rom Vidales Primary Care Provider [phone] Bertha Mcgregor MD Unavailable Encounter Details Date Type Department Care Team (Latest Contact Info) Description 06/08/2023 Travel Social History Tobacco Use Types Packs/Day [...] st Contact Info) Description 07/10/2024 9:40 AM OFFICE CLERK ASSISTANT Lab [facility] [address] [phone] Lab, Cc [facility] 07/17/2024 8:45 AM OFFICE CLERK ASSISTANT Office Visit [facility] [address] [phone] Bertha Mcgregor MD [address] [place] [address] documented as of this encounter Visit Diagnoses Not on filedocumented in this encounter Care Teams Cloth Examiner Machine Relationship Specialty Start Date End Date Rom Vidales [address] [place] [address] PCP - General Family Medicine 12/21/22 Bertha Mcgregor MD [address] [place] [address] Consulting Physician Oncology 05/10/23 documented as of this encounter
--- OUTSIDE RECORDS SUMMARY | 2024-06-17 03:37 | XMS_ITS | Encounter Summary ---
Author Organization [facility] Address [address] [place] [address] Phone Care Team Providers Care Child Therapist Name Role Phone Rom Vidales Primary Care Provider [phone] Reason for Visit * Reason Comments Iron Infusion * Episode Based Medications (Routine) - Pending Review Specialty Diagnoses / Procedures Referred By Contac t Referred To Contact Diagnoses Iron deficiency anemia, unspecified iron deficiency anemia type Procedures IRON SUCROSE INJECTION Bertha Mcgregor MD [address] [place] [address] Phone: tel: fax: [facility] [address] [address] Phone: tel: fax: Referral ID Status Reason Start Date Expiration Date V isits Requested Visits Authorized [id number] Pending Review 04/03/2023 06/18/2025 1 1 Encounter Details Date Type Department Care Team (Latest Contact Info) Description 04/26/2023 8:00 AM ENTRY LEVEL PROJECT COORDINATOR Clinical Support [facility] [address] [address] Nurse, Padmini [facility] Iron deficiency anemia, unspecified iron deficiency [...] suspected to have Coronavirus/COVID-19? No / Unsure 04/26/2023 10:11 AM ENTRY LEVEL PROJECT COORDINATOR documented as of this encounter Progress Notes * Kirstin Esquivel, RN - 04/26/2023 8:00 AM CST Pt tolerated Venofer well. Monitored for 30 minutes post infusion. No S/Sx of adverse reaction observed or stated by patient. Reviewed patient's follow-up appointment. ECOG status unchanged from timeof arrival to Infusion area. Discharged home ambulatory unaccompanied. Vials used Venofer 200 mg [facility] [id number] x1 Y LEVEL PROJECT COORDINATOR documented in this encounter Plan of Treatment Upcoming Encounters Date Type Department Care Team (Late st Contact Info) Description 07/10/2024 9:40 AM ENTRY LEVEL PROJECT COORDINATOR Lab [facility] [address] [phone] Lab, Cc [facility] 07/17/2024 8:45 AM ENTRY LEVEL PROJECT COORDINATOR Office Visit [facility] [address] [address] Bertha Mcgregor MD [address] [place] [address] documented as of this encounter Visit Diagnoses Diagnosis Iron deficiency anemia, unspecified iron deficiency anemia type- Primary documented in this encounter Administered Medications Inactive Administered Medications - up to 3 most recent administrations Medication Order MAR Action Action Date Dose Rate Site iron sucrose (VENOFER) 200 mg in sodium chloride 0.9 % 100 mL IVPB 200 mg, Intravenous, ONCE, 1 dose, On 04/26/23 at 1130, Administer over 15 MinutesIndications:Iron deficiency anemia, unspecified iron deficiency anemia type New Bag 04/26/2023 11:20 AM ENTRY LEVEL PROJECT COORDINATOR 200 mg 400 mL/hr documented in this encounter Care Teams Child Therapist Relationship Specialty Start Date End Date Flash Rom [address] [address] PCP - General Family Medicine 12/21/22 documented as of this encounter
--- OUTSIDE RECORDS SUMMARY | 2024-06-17 03:37 | XMS_ITS | Encounter Summary ---
Author Organization [facility] Address [address] [place] [address] Phone Care Team Providers Care Corporate Banking Officer Name Role Phone Rom Vidales Primary Care Provider [phone] Reason for Visit * Reason Comments Iron Infusion * Episode Based Medications (Routine) - Pending Review Specialty Diagnoses / Procedures Referred By Contac t Referred To Contact Diagnoses Iron deficiency anemia, unspecified iron deficiency anemia type Procedures IRON SUCROSE INJECTION Bertha Mcgregor MD [address] [place] [address] Phone: tel: fax: [facility] [address] [address] Phone: tel: fax: Referral ID Status Reason Start Date Expiration Date V isits Requested Visits Authorized [id number] Pending Review 04/03/2023 06/18/2025 1 1 Encounter Details Date Type Department Care Team (Latest Contact Info) Description 05/03/2023 10:00 AM TORCH BURNER Clinical Support [facility] [address] [address] Nurse, Padmini [facility] Iron deficiency anemia, unspecified iron [...] Coronavirus/COVID-19? No / Unsure 04/28/2023 8:20 AM TORCH BURNER documented as of this encounter Progress Notes * Kirstin Esquivel, RN - 05/03/2023 10:00 AM CST Pt tolerated Venofer well. Monitored for 30 minutes post infusion. No S/Sx of adverse reaction observed or stated by patient. Reviewed patient's follow-up appointment. ECOG status unchanged from timeof arrival to Infusion area. Discharged home ambulatory unaccompanied. Vials used Venofer 200 mg [facility] [id number] x1 H BURNER documented in this encounter Plan of Treatment Upcoming Encounters Date Type Department Care Team (Late st Contact Info) Description 07/10/2024 9:40 AM TORCH BURNER Lab [facility] [address] [phone] Lab, Cc [facility] 07/17/2024 8:45 AM TORCH BURNER Office Visit [facility] [address] [phone] Bertha Mcgregor MD [address] [place] [address] documented as of this encounter Visit Diagnoses Diagnosis Iron deficiency anemia, unspecified iron deficiency anemia type- Primary documented in this encounter Administered Medications Inactive Administered Medications - up to 3 most recent administrations Medication Order MAR Action Action Date Dose Rate Site iron sucrose (VENOFER) 200 mg in sodium chloride 0.9 % 100 mL IVPB 200 mg, Intravenous, ONCE, 1 dose, On 05/03/23 at 1130, Administer over 15 MinutesIndications:Iron deficiency anemia, unspecified iron deficiency anemia type New Bag 05/03/2023 11:35 AM TORCH BURNER 200 mg 400 mL/hr documented in this encounter Care Teams Corporate Banking Officer Relationship Specialty Start Date End Date Flash Rom [address] [address] PCP - General Family Medicine 12/21/22 documented as of this encounter
--- OUTSIDE RECORDS SUMMARY | 2024-06-17 03:37 | XMS_ITS | Encounter Summary ---
Author Organization [employer] Care Team Providers Care Store Leader Name Role Phone Rom Vidales Primary Care Provider [phone] Encounter Details Date Type Department Care Team (Latest Contact Info) Description 04/26/2023 Travel Social History Tobacco Use Types Packs/Day [...] Coronavirus/COVID-19? No / Unsure 04/26/2023 10:11 AM DATAPOWER DEVELOPER documented as of this encounter Plan of Treatment Upcoming Encounters Date Type Department Care Team (Late st Contact Info) Description 07/10/2024 9:40 AM DATAPOWER DEVELOPER Lab [facility] [address] [phone] Lab, Cc [facility] 07/17/2024 8:45 AM DATAPOWER DEVELOPER Office Visit [facility] [address] [phone] Bertha Mcgregor MD [address] [place] [phone] documented as of this encounter Visit Diagnoses Not on filedocumented in this encounter Care Teams Store Leader Relationship Specialty Start Date End Date Rom Vidales [address] [place] [address] PCP - General Family Medicine 12/21/22 documented as of this encounter
--- OUTSIDE RECORDS SUMMARY | 2024-06-17 03:37 | XMS_ITS | Encounter Summary ---
Author Organization [facility] Address [address] [place] [address] Phone Care Team Providers Care Capsule Filler Name Role Phone Rom Vidales Primary Care Provider [phone] Bertha Mcgregor MD Unavailable Reason for Visit * Reason Comments Follow-up Encounter Details Date Type Department Care Team (Late st Contact Info) Description 06/15/2023 9:30 AM EMPLOYEE BENEFITS ATTORNEY Office Visit [facility] [address] [place] [phone] Bertha Mcgregor MD [address] [place] [address] [phone] Iron deficiency anemia, unspecified iron deficiency anemia [...] Sign Reading Time Taken Comments Blood Pressure 116/82 06/15/2023 9:21 AM EMPLOYEE BENEFITS ATTORNEY Pulse 85 06/15/2023 9:21 AM EMPLOYEE BENEFITS ATTORNEY Temperature 37.1 ??C (98.7 ??F) 06/15/2023 9:21 AM CS T Respiratory Rate 18 06/15/2023 9:21 AM EMPLOYEE BENEFITS ATTORNEY Oxygen Saturation 99% 06/15/2023 9:21 AM EMPLOYEE BENEFITS ATTORNEY Inhaled Oxygen Concentration - - Weight 61.5 kg (135 lb 9.6 oz) 06/15/2023 9:21 A M EMPLOYEE BENEFITS ATTORNEY Height 157.5 cm (5' 2 ) 06/15/2023 9:21 AM EMPLOYEE BENEFITS ATTORNEY Body Mass Index 24.8 06/15/2023 9:21 AM EMPLOYEE BENEFITS ATTORNEY documented in this encounter Functional Status * Question Answer Date of Assessment Author Little interest or pleasure in doing things Not at all 06/15/2023 9:21 AM EMPLOYEE BENEFITS ATTORNEY Pratima Sales R MA Feeling down, depressed, or hopeless Not at all 06/15/2023 9:21 AM EMPLOYEE BENEFITS ATTORNEY Pratima Sales R MA * Over the past 2 weeks, how often have you been bothered by any of the following problems? Question Answer Date of Assessment Author Patient Health Questionnaire -2 Score 0 06/15/2023 9:21 AM EMPLOYEE BENEFITS ATTORNEY Pratima Sales R MA documented as of this encounter Progress Notes * Bertha Mcgregor MD - 06/15/2023 9:30 AM CST Images from the original note were not included. Patient: Hali Samuels Age: 42 y.o. : 1980 [facility] En[facility] Date: 06/15/2023 Care Team: Current Providers PCP: Rom Vidales Care Team Provider: Bertha Mcgregor MD Encounter Provider: Bertha Mcgregor MD Referring Provider: Rom Vidales Consulting Physician: Bertha Mcgregor MD HEMATOLOGY HISTORY: Patient comes back today to followup on her iron deficiency anemia. Since her last visit she had an EGD and colonoscopy done with Dr. Apodaca at [facility] on 03/15/23. Per patient, EGD was [...] deficiency anemia status post IV iron with [id number] mg on 04/24/23, 04/26/23, 04/28/23, 05/01/23, 05/03/23. She had bloodwork repeated on 06/08/23 showing a normal white count, normal H&H, normal platelet count. Ferritin was normal at 86. Serum iron and iron saturation were normal. Reticulocyte count was at 1.73%. She reports she is feeling tired but mainly having twitching in her muscles mainly in the right hand and bilateral lower extremity that started a week ago. She denies drinking excessive coffee or alcohol. She reports probably increased anxiety and stress during the holidays. No chest pain or shortness of breath. No GI or symptoms. No headache. No blurry vision. DIAGNOSIS: 1. Iron deficiency anemia. 2. Fatigue. 3. 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 PAST TREATMENT: 1. EGD and colonoscopy on 03/15/23 with removal of descending 30 mm polyp with tubulovillous with high grade dysplasia with Dr. Apodaca at [facility]. 2. Venofer 200 mg on 04/24/23, 04/26/23, 04/28/23, 05/01/23, and 05/03/23. CURRENT TREATMENT: Ferrous sulfate, on hold for now. TREATMENT GUIDELINES: PROGNOSIS: EXPECTED RESPONSE TO TREATMENT: EXPECTED QUALITY OF LIFE DURING TREATMENT: ECOG: PAIN: PLAN FOR PAIN: CODE STATUS: END OF LIFE: ASSESSMENT: 1. Iron deficiency anemia. 2. Fatigue. 3. Bright red blood per rectum. 4. Lightheadedness. 5. Joint pain. 6. Muscle twitching. PLAN: 1. There is no need for additional IV iron for now. No iron deficiency anemia seen on bloodwork done on 06/08/23. 2. Concerning her muscle twitching in the hand and lower extremities, we will monitor for now. If it gets worse, patient will call us and we will refer patient to neurology for further evaluation. Less likely that it is related to Venofer. Twitching started a week ago. I told patient to cut down oncaffeine products and to cut down on alcohol and hopefully after the holidays if things calm down, see if the symptoms will resolve. 3. Repeat colonoscopy in February of [address] Apodaca at [facility]. 4. Return to clinic in four weeks with labs a couple of days prior. TIME SPENT: REVIEW OF SYSTEMS: A 12-point [...] lab results shown below reviewed. Bertha Mcgregor MD/darrlel Vitals: Vitals: 06/15/23 0921 BP: 116/82 BP Location: Left Arm BP Position: Sitting BP Cuff Size: Regular Pulse: 85 Resp: 18 Temp: 98.7 ??F (37.1 ??C) TempSrc: Temporal SpO2: 99% Weight: 135 lb 9.6 oz (61.5 kg) Height: 5' 2 (1.575 m) Body surface area is 1.64 meters squared. Body mass index is 24.8 kg/m??. Pain Score: 0 - No pain [...] Types: Cigarettes Quit date: 2021 Years since quittin.9 ??? Smokeless tobacco: Never Vaping Use ??? [...] Current Medications: Outpatient Encounter Medications as of 06/15/2023 Medication Sig Dispense Refill ??? ferrous sulfate 325 (65 Fe) MG Tablet Take 325 mg by mouth in the morning and at bedtime. ??? Multiple Vitamin (MULTIVITAMIN PO) Take 1 Tablet by mouth daily. No facility-administered encounter medications on file as of 06/15/2023. Labs: No visits with results within 7 Day(s) from this visit. Latest known visit with results is: Lab on 06/08/2023 Component Date Value Ref Range Status ??? Reticulocyte count 06/08/2023 1.73 (H) 0.50 - 1.70 % Final ??? RET-He 06/08/2023 36.90 (H) 28.20 - 36.60 pg Final Comment: RET-He is a direct assessment of incorporation of iron into erythrocyte hemoglobin. It provides an indirect measure of the iron available for new erythropoiesis over past 2-4 days. ??? IRON 06/08/2023 100 50 - 212 ug/dL Final ??? UIBC 06/08/2023 220 155 - 355 ug/dL Final ??? TIBC 06/08/2023 320 261 - 478 ug/dl Final ??? % Saturation 06/08/2023 31 20 - 50 % Final ??? Ferritin 06/08/2023 86 11 - 307 ng/mL Final ??? WBC 06/08/2023 4.8 4.0 - 10.0 10*3/uL Final ??? HGB 06/08/2023 13.2 11.2 - 15.7 g/dL Final ??? HCT 06/08/2023 39.6 34.1 - 44.9 % Final ??? PLT 06/08/2023 265 163 - 369 10*3/uL Final ??? MPV 06/08/2023 9.8 9.4 - 12.4 fL Final ??? RBC 06/08/2023 4.16 3.93 - 5.22 10*6/uL Final ??? MCV 06/08/2023 95 79 - 95 fL Final ??? MCH 06/08/2023 31.7 25.6 - 32.2 pg Final ??? MCHC 06/08/2023 33.3 32.2 - 36.5 g/dL Final ??? RDW 06/08/2023 15.9 (H) 11.6 - 14.4 % Final ??? Neutrophils % 06/08/2023 63.0 36.0 - 66.0 % Final ??? Lymphocytes % 06/08/2023 26.6 19.0 - 40.0 % Final ??? Monocytes % 06/08/2023 7.7 4.1 - 12.1 % Final ??? Eosinophils % 06/08/2023 1.7 0.0 - 3.5 % Final ??? Basophils % 06/08/2023 0.6 0.0 - 1.0 % Final ??? Absolute Neutrophils 06/08/2023 3.0 1.4 - 6.6 10*3/uL Final ??? Absolute Lymphocytes 06/08/2023 1.3 0.8 - 4.0 10*3/uL Final ??? Absolute Monocytes 06/08/2023 0.4 0.2 - 1.2 10*3/uL Final ??? Absolute Eosinophils 06/08/2023 0.1 0.0 - 0.4 10*3/uL Final ??? Absolute Basophils 06/08/2023 0.0 0.0 - 0.1 10*3/uL Final OYEE BENEFITS ATTORNEY OYEE BENEFITS ATTORNEY documented in this encounter Plan of Treatment Upcoming Encounters Date Type Department Care Team (Late st Contact Info) Description 07/10/2024 9:40 AM EMPLOYEE BENEFITS ATTORNEY Lab [facility] [address] [phone] Lab, Cc [facility] 07/17/2024 8:45 AM EMPLOYEE BENEFITS ATTORNEY Office Visit [facility] [address] [phone] Bertha Mcgregor MD [address] [place] [address] [phone] documented as of this encounter Results * (ABNORMAL) RETICULOCYTE COUNT (RETIC) (07/07/2023 12:50 PM EMPLOYEE BENEFITS ATTORNEY) Reticulocyte count 1.98(H) 0.50 - 1.70 % CANCER SPINNING LATHE OPERATOR [facility] RET-He 37.10(H) 28.20 - 36.60 pg [facility]ER SPINNING LATHE OPERATOR [facility] Comment: RET-He is a direct assessment of incorporation of iron into erythrocyte hemoglobin. It provides an indirect measure of the iron available for new erythropoiesis over past 2-4 days. Blood 07/07/2023 12:5 0 PM EMPLOYEE BENEFITS ATTORNEY Narrative [facility] SPINNING LATHE OPERATOR [facility] - 07/07/2023 1:02 PM EMPLOYEE BENEFITS ATTORNEY Release to patient->Immediate us Bertha Mcgregor MD HEMATOLOGY ORDERABLES Final Resu lt CANCER SPINNING LATHE OPERATOR [facility] [place] [address], * IRON W/ IRON BINDING CAPACITY [place] (07/07/2023 12:50 PM EMPLOYEE BENEFITS ATTORNEY) IRON 141 50 - 212 ug/dL [facility]ER SPINNING LATHE OPERATOR [facility] UIBC 235 155 - 355 ug/dL CANCER SPINNING LATHE OPERATOR [facility] TIBC 376 261 - 478 ug/dl [facility] SPINNING LATHE OPERATOR [facility] % Saturation 38 20 - 50 % [facility]ER SPINNING LATHE OPERATOR [facility] 07/07/2023 12:5 0 PM EMPLOYEE BENEFITS ATTORNEY Narrative [facility]ER SPINNING LATHE OPERATOR [facility] - 07/07/2023 1:53 PM EMPLOYEE BENEFITS ATTORNEY Release to patient->Immediate us Bertha Mcgregor MD LAB SEND OUTS Final Result CANCER SPINNING LATHE OPERATOR [facility] [address] [place] [address], * FERRITIN (07/07/2023 12:50 PM EMPLOYEE BENEFITS ATTORNEY) Ferritin 92 11 - 307 ng/mL [facility]IN[facility]ING [facility] Blood 07/07/2023 12:5 0 PM EMPLOYEE BENEFITS ATTORNEY Narrative [facility] SPINNING LATHE OPERATOR [facility] - 07/11/2023 3:03 PM EMPLOYEE BENEFITS ATTORNEY Release to patient->Immediate us Bertha Mcgregor MD CHEMISTRY ORDERABLES Final Resul t CANCER SPINNING LATHE OPERATOR [facility] [address] [place] [address], [place] [phone] * MAGNESIUM (MG) (07/07/2023 12:50 PM EMPLOYEE BENEFITS ATTORNEY) Magnesium 2.0 1.9 - 2.7 mg/dL [facility] SPINNING LATHE OPERATOR [facility] Blood 07/07/2023 12:5 0 PM EMPLOYEE BENEFITS ATTORNEY Narrative [facility] SPINNING LATHE [facility] - 07/07/2023 1:53 PM EMPLOYEE BENEFITS ATTORNEY Release to patient->Immediate us Bertha Mcgregor MD CHEMISTRY ORDERABLES Final Resul t [facility]CER SPINNING LATHE OPERATOR [facility] [place] [address], * CMP (COMPREHENSIVE METABOLIC PANEL) (07/07/2023 12:50 PM EMPLOYEE BENEFITS ATTORNEY) Glucose 91 70 - 105 mg/dL [facility] SPINNING LATHE OPERATOR [facility] Blood Urea Nitrogen 10 7 - 25 mg/dL [facility] Creatinine 0.7 0.6 - 1.2 mg/dL [facility] Sodium 140 136 - 145 mEq/L [facility] Potassium 3.8 3.5 - 5.1 mEq/L [facility] Chloride 103 98 - 107 mEq/L [facility] Bicarbonate 27 21 - 31 mEq/L [facility] Total Bilirubin 0.8 0.3 - 1.0 mg/dL [facility] Alk. Phosphatase 40 34 - 104 U/L [facility] Aspartate Aminotransferase 16 13 - 39 U/L [facility] Alanine Aminotransferase 15 7 - 52 U/L [facility] Total Protein 7.1 6.4 - 8.9 g/dL [facility] Albumin 4.7 3.5 - 5.7 g/dL [facility] Calcium 10.0 8.6 - 10.3 mg/dL [facility] Anion Gap 13.8 7.0 - 15.0 mEq/L [facility] Globulin 2.4 2.0 - 3.5 g/dL [facility] EGFR 110 >60 ml/min/1. 73m2 [facility] Comment: This eGFR is calculated using 2020 CKD-EPI Creatinine equation without race modifier based on the NKF-ASN task force recommendations Blood 07/07/2023 12:5 0 PM EMPLOYEE BENEFITS ATTORNEY Narrative [facility] SPINNING LATHE OPERATOR [facility] - 07/07/2023 1:53 PM EMPLOYEE BENEFITS ATTORNEY Release to patient->Immediate IS THE PATIENT REQUIRED TO BE FASTING FOR 8 HOURS?->No Bertha Mcgregor MD CHEMISTRY ORDERABLES Final Resul t CANCER SPINNING LATHE OPERATOR [facility] [place] [address], * (ABNORMAL) COMPLETE BLOOD COUNT (CBC) WITH DIFF (07/07/2023 12:50 PM EMPLOYEE BENEFITS ATTORNEY) WBC 5.8 4.0 - 10.0 10*3/uL CAN[facility] SPINNING LATHE OPERATOR [facility] HGB 13.8 11.2 - 15.7 g/dL CAN[facility] SPINNING LATHE OPERATOR [facility] HCT 40.3 34.1 - 44.9 % [facility]CER SPINNING LATHE OPERATOR [facility] PLT 289 163 - 369 10*3/uL [facility] SPINNING LATHE OPERATOR [facility] MPV 9.6 9.4 - 12.4 fL [facility] SPINNING LATHE OPERATOR [facility] RBC 4.20 3.93 - 5.22 10*6/uL [facility]ER SPINNING LATHE OPERATOR [facility] MCV 96(H) 79 - 95 fL [facility] SPINNING LATHE OPERATOR [facility] MCH 32.9(H) 25.6 - 32.2 pg [facility]ER SPINNING LATHE OPERATOR [facility] MCHC 34.2 32.2 - 36.5 g/dL [facility] SPINNING LATHE OPERATOR [facility] RDW 12.5 11.6 - 14.4 % [facility] SPINNING LATHE OPERATOR [facility] Absolute Neutrophil Count 4,039 cells/uL [facility] Absolute Seg Count 4,039 1,440 - 6,600 cells/uL [facility] SPINNING LATHE OPERATOR [facility] Absolute Lymph Count 1,385 760 - 4,000 cells/uL [facility] SPINNING LATHE OPERATOR [facility] Absolute Caldwell Count 231 160 - 1,200 cells/uL [facility] SPINNING LATHE OPERATOR [facility] Absolute Eos Count 115 0 - 300 cells/uL [facility] SPINNING LATHE OPERATOR [facility] Segmented Neutrophils 70(H) 36 - 66 % [facility] SPINNING LATHE OPERATOR [facility] Lymphocytes 24 19 - 40 % [facility] Monocytes 4 4 - 12 % [facility] Eosinophils 2 0 - 3 % [facility] WBC Estimate Normal [facility] SPINNING LATHE OPERATOR [facility] Platelet Estimate Normal [facility] SPINNING LATHE OPERATOR [facility] RBC Morphology Abnormal CANCE R SPINNING LATHE OPERATOR [facility] Macrocytosis 1+ [facility] SPINNING LATHE OPERATOR [facility] Blood 07/07/2023 12:5 0 PM EMPLOYEE BENEFITS ATTORNEY Narrative [facility] SPINNING LATHE OPERATOR [facility] - 07/07/2023 2:48 PM EMPLOYEE BENEFITS ATTORNEY Release to patient->Immediate Bertha Mcgregor MD HEMATOLOGY ORDERABLES Final Resu lt CANCER SPINNING LATHE OPERATOR [facility] [place] [address], documented in this encounter Visit Diagnoses Diagnosis Iron deficiency anemia, unspecified iron deficiency anemia type- Primary Other fatigue Muscle twitching Abnormal involuntary movements Iron deficiency anemia, unspecified iron deficiency anemia type Other fatigue Muscle twitching Abnormal involuntary movements documented in this encounter Care Teams Capsule Filler Relationship Specialty Start Date End Date Rom Vidales [address] [place] [address] PCP - General Family Medicine 12/21/22 Bertha Mcgregor MD [address] [place] [address] Consulting Physician Oncology 05/10/23 documented as of this encounter
--- OUTSIDE RECORDS SUMMARY | 2024-06-17 03:37 | XMS_ITS | Encounter Summary ---
Author Organization [employer] Care Team Providers Care Shift Nurse Manager Name Role Phone Rom Vidales Primary Care Provider [phone] Bertha Mcgregor MD Unavailable Encounter Details Date Type Department Care Team (Latest Contact Info) Description 04/17/2024 Travel Social History Tobacco Use Types Packs/Day [...] Questionnaire -2 Score 0 04/17/2024 1:29 PM LUZT Pratima Sales R MA documented as of this encounter Plan of Treatment Upcoming Encounters Date Type Department Care Team (Late st Contact Info) Description 07/10/2024 9:40 AM BLOW MOLD MACHINE OPERATOR Lab [facility] [address] [phone] Lab, Cc [facility] 07/17/2024 8:45 AM BLOW MOLD MACHINE OPERATOR Office Visit [facility] [place] [address] [place] [phone] Bertha Mcgregor MD [address] [place], [place] [phone] documented as of this encounter Visit Diagnoses Not on filedocumented in this encounter Care Teams Shift Nurse Manager Relationship Specialty Start Date End Date Vidales Rom [address] [place] [address] PCP - General Family Medicine 12/21/22 Bertha Mcgregor MD [address] [place] [address] Consulting Physician Oncology 05/10/23 documented as of this encounter
--- OUTSIDE RECORDS SUMMARY | 2024-06-17 03:37 | XMS_ITS | Encounter Summary ---
Author Organization [employer] Care Team Providers Care Pe Manager Name Role Phone Rom Vidales Primary Care Provider [phone] Bertha Mcgregor MD Unavailable Encounter Details Date Type Department Care Team (Latest Contact Info) Description 07/07/2023 Travel Social History Tobacco Use Types Packs/Day [...] st Contact Info) Description 07/10/2024 9:40 AM GLOVE BRUSHER Lab [facility] [address] [phone] Lab, Cc [facility] 07/17/2024 8:45 AM GLOVE BRUSHER Office Visit [facility] [address] [phone] Bertha Mcgregor MD [address] [place] [address] documented as of this encounter Visit Diagnoses Not on filedocumented in this encounter Care Teams Pe Manager Relationship Specialty Start Date End Date Rom Vidales [address] [place] [address] PCP - General Family Medicine 12/21/22 Bertha Mcgregor MD [address] [place] [address] Consulting Physician Oncology 05/10/23 documented as of this encounter
--- OUTSIDE RECORDS SUMMARY | 2024-06-17 03:37 | XMS_ITS | Encounter Summary ---
Author Organization [employer] Care Team Providers Care Retail Zone Specialist Name Role Phone Rom Vidales Primary Care Provider [phone] Bertha Mcgregor MD Unavailable Encounter Details Date Type Department Care Team (Latest Contact Info) Description 05/10/2023 Travel Social History Tobacco Use Types Packs/Day [...] Coronavirus/COVID-19? No / Unsure 04/28/2023 8:20 AM CURED MEAT PACKING SUPERVISOR documented as of this encounter Functional Status [...] Porter LPN documented as of this encounter Plan of Treatment Upcoming Encounters Date Type Department Care Team (Late st Contact Info) Description 07/10/2024 9:40 AM CURED MEAT PACKING SUPERVISOR Lab [facility] [address] [phone] Lab, Cc [facility] 07/17/2024 8:45 AM CURED MEAT PACKING SUPERVISOR Office Visit [facility] [address] [phone] Bertha Mcgregor MD [address] [place] [phone] documented as of this encounter Visit Diagnoses Not on filedocumented in this encounter Care Teams Retail Zone Specialist Relationship Specialty Start Date End Date VidalesRom [address] [place] [address] PCP - General Family Medicine 12/21/22 Bertha Mcgregor MD [address] [place] [address] Consulting Physician Oncology 05/10/23 documented as of this encounter
--- OUTSIDE RECORDS SUMMARY | 2024-06-17 03:37 | XMS_ITS | Encounter Summary ---
Author Organization [employer] Care Team Providers Care Supervisor Beam Department Name Role Phone Rom Vidales Primary Care Provider [phone] Bertha Mcgregor MD Unavailable Encounter Details Date Type Department Care Team (Latest Contact Info) Description 10/09/2023 Travel Social History Tobacco Use Types Packs/Day [...] st Contact Info) Description 07/10/2024 9:40 AM CYLINDER INSPECTOR Lab [facility] [address] [phone] Lab, Cc [facility] 07/17/2024 8:45 AM CYLINDER INSPECTOR Office Visit [facility] [address] [phone] Bertha Mcgregor MD [address] [place] [address] documented as of this encounter Visit Diagnoses Not on filedocumented in this encounter Care Teams Supervisor Beam Department Relationship Specialty Start Date End Date Rom Vidales [address] [place] [address] PCP - General Family Medicine 12/21/22 Bertha Mcgregor MD [address] [place] [address] Consulting Physician Oncology 05/10/23 documented as of this encounter
--- OUTSIDE RECORDS SUMMARY | 2024-06-17 03:38 | XMS_ITS | Encounter Summary ---
Author Organization [employer] [facility] Care Team Providers Care Tour Escort Name Role Phone Rom Vidales Primary Care Provider [phone] Encounter Details Date Type Department Care Team (Latest Contact Info) Description 04/17/2023 Travel Social History Tobacco Use Types Packs/Day [...] suspected to have Coronavirus/COVID-19? No / Unsure 04/17/2023 8:42 AM CDT documented as of this encounter Functional Status * Question Answer Date of Assessment Author Little interest or pleasure in doing things Not at all 04/17/2023 9:05 AM CDT María Jordan LPN Feeling down, depressed, or hopeless Not at all 04/17/2023 9:05 AM LUZT María Jordan LPN * Over the past 2 weeks, how often have you been bothered by any of the following problems? Question Answer Date of Assessment Author Patient Health Questionnaire -2 Score 0 04/17/2023 9:05 AM LUZT María Jordan LPN documented as of this encounter Plan of Treatment Upcoming Encounters Date Type Department Care Team (Late st Contact Info) Description 07/10/2024 9:40 AM POLYGRAPH OPERATOR Lab [facility] [address] [phone] Lab, Cc [facility] 07/17/2024 8:45 AM POLYGRAPH OPERATOR Office Visit [facility] [address] [phone] Bertha Mcgregor MD [address] [place] [phone] documented as of this encounter Visit Diagnoses Not on filedocumented in this encounter Care Teams Tour Escort Relationship Specialty Start Date End Date Rom Vidales [address] [place] [address] PCP - General Family Medicine 12/21/22 documented as of this encounter
--- OUTSIDE RECORDS SUMMARY | 2024-06-17 03:38 | XMS_ITS | Encounter Summary ---
Author Organization [employer] Care Team Providers Care Recycling Technician Name Role Phone Rom Vidales Primary Care Provider [phone] Encounter Details Date Type Department Care Team (Latest Contact Info) Description 04/03/2023 Travel Social History Tobacco Use Types Packs/Day [...] suspected to have Coronavirus/COVID-19? No / Unsure 04/03/2023 12:48 PM CDT documented as of this encounter Functional Status * Question Answer Date of Assessment Author Little interest or pleasure in doing things Not at all 04/03/2023 1:03 PM CDT Brooke Landers CMA Feeling down, depressed, or hopeless Not at all 04/03/2023 1:03 PM CDT Brooke Landers CMA * Over the past 2 weeks, how often have you been bothered by any of the following problems? Question Answer Date of Assessment Author Patient Health Questionnaire -2 Score 0 04/03/2023 1:03 PM CDT Brooke Landers CMA documented as of this encounter Plan of Treatment Upcoming Encounters Date Type Department Care Team ( Contact Info) Description 07/10/2024 9:40 AM COLLAR TRIMMER Lab [facility] [address] [phone] Lab, Cc [facility] 07/17/2024 8:45 AM COLLAR TRIMMER Office Visit [facility] [address] [phone] Bertha Mcgregor MD [address] [place] [address] documented as of this encounter Visit Diagnoses Not on filedocumented in this encounter Care Teams Recycling Technician Relationship Specialty Start Date End Date Rom Vidales [address] [address] PCP - General Family Medicine 12/21/22 documented as of this encounter
--- OUTSIDE RECORDS SUMMARY | 2024-06-17 03:38 | XMS_ITS | Encounter Summary ---
Author Organization [facility] Address [address] [place] [address] Phone Care Team Providers Care Mill Supervisor Name Role Phone Rom Vidales Primary Care Provider [phone] Reason for Visit * Reason Comments Follow-up Encounter Details Date Type Department Care Team (Late st Contact Info) Description 04/17/2023 8:45 AM CDT Office Visit [facility] [place] [address] [place] [address] Bertha Mcgregor MD [address], [place] [id number] Iron deficiency anemia, unspecified iron deficiency anemia type (Primary Dx); Polyp of colon, unspecified part of colon, unspecified type Social History Tobacco Use Types Packs/Day [...] AM CDT documented as of this encounter Last Filed Vital Signs Vital Sign Reading Time Taken Comments Blood Pressure 118/78 04/17/2023 9:05 AM CDT Pulse 73 04/17/2023 9:05 AM CDT Temperature 36.8 ??C (98.2 ??F) 04/17/2023 9:05 AM CD T Respiratory Rate 18 04/17/2023 9:05 AM CDT Oxygen Saturation 99% 04/17/2023 9:05 AM CDT Inhaled Oxygen Concentration - - Weight 61.8 kg (136 lb 3.2 oz) 04/17/2023 9:05 A M CDT Height 157.5 cm (5' 2 ) 04/17/2023 9:05 AM CDT Body Mass Index 24.91 04/17/2023 9:05 AM CDT documented in this encounter Functional Status * Question Answer Date of Assessment Author Little interest or pleasure in doing things Not at all 04/17/2023 9:05 AM CDT María Jordan LPN Feeling down, depressed, or hopeless Not at all 04/17/2023 9:05 AM CDT María Jordan LPN * Over the past 2 weeks, how often have you been bothered by any of the following problems? Question Answer Date of Assessment Author Patient Health Questionnaire -2 Score 0 04/17/2023 9:05 AM CDT María Jordan LPN documented as of this encounter Progress Notes * Bertha Mcgregor MD - 04/17/2023 8:45 AM CDT Images from the original note were not included. Patient: Hali Samuels Age: 42 y.o. : 1980 Encounter Dept: [facility] Encounter Date: 04/17/2023 Care Team: Current Providers PCP: Rom Vidales Encounter Provider: Bertha Mcgregor MD Referring Provider: Rom Vidales Consulting Physician: Bertha Mcgregor MD HEMATOLOGY HISTORY: Patient comes back today to followup on her iron deficiency anemia. Since her last visit she had an EGD and colonoscopy done with Dr. Apodaca at [facility] on 03/15/23. Per patient, [...] to followup on her iron deficiency anemia. I have received records about her EGD and colonoscopy done with Dr. Apodaca at [facility] on 03/15/23. EGD was unremarkable. Colonoscopy done showed a 25 to 33 mm pedunculated polyp in the descending colon 20 cm from the anal verge. Polypectomy was performed and the polyp was completely excised as per records. Per the GIdoctor, Dr. Apodaca, he was sure that the polyp was completely removed and left healthy stalk. Pathology from that polyp showed tubulovillous adenoma with high glad dysplasia. She is going for repeat colonoscopy February of [address] Apodaca. She also was supposed to get IV iron with Venofer. Her bloodwork done on 03/31/23 showed a ferritin of 5 with a low iron saturation. DIAGNOSIS: 1. Iron deficiency anemia. 2. Fatigue. 3. 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 PAST TREATMENT: EGD and colonoscopy on 03/15/23 with removal of descending 30 mm polyp with tubulovillous with high grade dysplasia with Dr. Apodaca at [facility]. CURRENT TREATMENT: Ferrous sulfate. TREATMENT GUIDELINES: PROGNOSIS: EXPECTED RESPONSE TO TREATMENT: EXPECTED QUALITY OF LIFE DURING TREATMENT: ECOG: PAIN: PLAN FOR PAIN: CODE STATUS: END OF LIFE: ASSESSMENT: 1. Iron deficiency anemia. 2. Fatigue. 3. Bright red blood per rectum. PLAN: 1. Patient is not responding well to oral iron. She will receive IV iron with Venofer 200 mg x 5 doses. We will figure out if she can get her at the [facility] here or across the street at the hospital. 2. Repeat colonoscopy February of [address] Apodaca at [facility]. 3. Return to clinic in two months with labs the week before. TIME [...] All lab results shown below reviewed. Bertha Mcgregro MD/michaelt Vitals: Vitals: 04/17/23 0905 BP: 118/78 BP Location: Left Arm BP Position: Sitting BP Cuff Size: Regular Pulse: 73 Resp: 18 Temp: 98.2 ??F (36.8 ??C) TempSrc: Temporal SpO2: 99% Weight: 136 lb 3.2 oz (61.8 kg) Height: 5' 2 (1.575 m) Body surface area is 1.64 meters squared. Body mass index is 24.91 kg/m??. Pain Score: 0 - No pain [...] Current Medications: Outpatient Encounter Medications as of 04/17/2023 Medication Sig Dispense Refill ??? ferrous sulfate 325 (65 Fe) MG Tablet Take 325 mg by mouth in the morning and at bedtime. ??? Multiple Vitamin (MULTIVITAMIN PO) Take 1 Tablet by mouth daily. No facility-administered encounter medications on file as of 04/17/2023. Labs: No visits with results within 7 [...] 03/31/2023 0.0 0.0 - 0.1 10*3/uL Final documented in this encounter Plan of Treatment Upcoming Encounters Date Type Department Care Team (Late st Contact Info) Description 07/10/2024 9:40 AM AUTOCLAVE OPERATOR Lab [facility] [address] [phone] Lab, [facility] 07/17/2024 8:45 AM AUTOCLAVE OPERATOR Office Visit [facility] [address] [phone] Bertha Mcgregor MD [address] [place] [address] documented as of this encounter Results * (ABNORMAL) RETICULOCYTE COUNT (RETIC) (06/08/2023 10:47 AM AUTOCLAVE OPERATOR) Reticulocyte count 1.73(H) 0.50 - 1.70 % [facility] RET-He 36.90(H) 28.20 - 36.60 pg CANCER MATTRESS RENOVATOR [facility] Comment: RET-He is a direct assessment of incorporation of iron into erythrocyte hemoglobin. It provides an indirect measure of the iron available for new erythropoiesis over past 2-4 days. Blood 06/08/2023 10:4 7 AM AUTOCLAVE OPERATOR Narrative [facility] - 06/08/2023 10:58 AM AUTOCLAVE OPERATOR Release to patient->Immediate us Bertha Mcgregor MD HEMATOLOGY ORDERABLES Final Resu lt CANCER MATTRESS RENOVATOR [facility] [address] [place] [address], * IRON W/ IRON BINDING CAPACITY [place] (06/08/2023 10:47 AM AUTOCLAVE OPERATOR) IRON 100 50 - 212 ug/dL CANCER MATTRESS RENOVATOR [facility] UIBC 220 155 - 355 ug/dL CANCER MATTRESS RENOVATOR [facility] TIBC 320 261 - 478 ug/dl [facility] % Saturation 31 20 - 50 % [facility]ESS [facility] 06/08/2023 10:4 7 AM AUTOCLAVE OPERATOR Narrative [facility] - 06/08/2023 12:04 PM AUTOCLAVE OPERATOR Release to patient->Immediate us Bertha Mcgregor MD LAB SEND OUTS Final Result [facility] MATTRESS [facility] [address] [place] [address], [place] [phone] * FERRITIN (06/08/2023 10:47 AM AUTOCLAVE OPERATOR) Ferritin 86 11 - 307 ng/mL [facility] Blood 06/08/2023 10:4 7 AM AUTOCLAVE OPERATOR Yohan [facility] - 06/09/2023 2:00 PM AUTOCLAVE OPERATOR Release to patient->Immediate us Bertha cMgregor MD CHEMISTRY ORDERABLES Final Resul t Performing Organization Address [facility] Co de Phone Number [facility] [address] [place] [address], [place] [phone] documented in this encounter Visit Diagnoses Diagnosis Iron deficiency anemia, unspecified iron deficiency anemia type- Primary Polyp of colon, unspecified part of colon, unspecified type Iron deficiency anemia, unspecified iron deficiency anemia type documented in this encounter Care Teams Mill Supervisor Relationship Specialty Start Date End Date oRm Vidales [address] [place] [address] PCP - General Family Medicine 12/21/22 documented as of this encounter
--- OUTSIDE RECORDS SUMMARY | 2024-06-17 03:38 | XMS_ITS | Encounter Summary ---
Author Organization [facility] Care Team Providers Care Churn Driller Name Role Phone Rom Vidales Primary Care Provider [phone] Encounter Details Date Type Department Care Team (Latest Contact Info) Description 03/31/2023 Travel Social History Tobacco Use Types Packs/Day [...] suspected to have Coronavirus/COVID-19? No / Unsure 03/31/2023 9:29 AM CDT documented as of this encounter Plan of Treatment Upcoming Encounters Date Type Department Care Team (Late st Contact Info) Description 07/10/2024 9:40 AM BLOWN FILM EXTRUSION OPERATOR Lab [facility] [address] [address] Lab, [facility] 07/17/2024 8:45 AM BLOWN FILM EXTRUSION OPERATOR Office Visit [facility] [address] [address] Bertha Mcgregor MD [address] [place] [phone] documented as of this encounter Visit Diagnoses Not on filedocumented in this encounter Care Teams Churn Driller Relationship Specialty Start Date End Date Rom Vidales [address] [place] [address] PCP - General Family Medicine 12/21/22 documented as of this encounter
--- OUTSIDE RECORDS SUMMARY | 2024-06-17 03:38 | XMS_ITS | Encounter Summary ---
Author Organization [facility] Address [address] [place] [address] Phone Care Team Providers Care Loan Servicing Representative Name Role Phone Rom Vidales Primary Care Provider [phone] Reason for Visit * Reason Comments New Patient * Consult, Test & Initiate Treatment (Routine) - Closed Specialty Diagnoses / Procedures Referred By Contmarco t Referred To Contact Oncology Diagnoses Anemia Rom Vidales [address] [place] [address] Phone: tel: fax: Bertha Mcgregor MD [address] [place] [address] Phone: tel: fax: Referral ID Status Reason Start Date Expiration Date Visits Re quested Visits Authorized [id number] Closed 1 1 Encounter Details Date Type Department Care Team (Late st Contact Info) Description 01/30/2023 1:00 PM CDT Office Visit [facility] [address] [address] Bertha Mcgregor MD [address] [place] [address] Iron deficiency anemia, unspecified iron deficiency [...] suspected to have Coronavirus/COVID-19? No / Unsure 01/30/2023 12:41 PM CDT documented as of this encounter Last Filed Vital Signs Vital Sign Reading Time Taken Comments Blood Pressure 126/78 01/30/2023 1:06 PM CDT Pulse 75 01/30/2023 1:06 PM CDT Temperature 36.7 ??C (98 ??F) 01/30/2023 1:06 PM CDT Respiratory Rate 18 01/30/2023 1:06 PM CDT Oxygen Saturation 99% 01/30/2023 1:06 PM CDT Inhaled Oxygen Concentration - - Weight 61.5 kg (135 lb 9.6 oz) 01/30/2023 1:06 P M CDT Height 157.5 cm (5' 2 ) 01/30/2023 1:06 PM CDT Body Mass Index 24.8 01/30/2023 1:06 PM CDT documented in this encounter Functional Status * Question Answer Date of Assessment Author Little interest or pleasure in doing things Not at all 01/30/2023 1:06 PM CDT Adonay Yates CMA Feeling down, depressed, or hopeless Not at all 01/30/2023 1:06 PM CDT Estela Yates CMA * Over the past 2 weeks, how often have you been bothered by any of the following problems? Question Answer Date of Assessment Author Patient Health Questionnaire-2 Score 0 01/30/2023 1:06 PM CDT Bianca Yates CMA documented as of this encounter Progress Notes * Bertha Mcgregor MD - 01/30/2023 1:00 PM CDT Images from the original note were not included. Patient: Hali Samuels Age: 42 y.o. : 1980 Encounter Dept: [facility] Encounter Date: 01/30/2023 Care Team: Current Providers PCP: Rom Vidales Encounter Provider: Bertha Mcgregor MD Referring Provider: Rom Vidales Consulting Physician: Bertha Mcgregor MD HISTORY OF PRESENT ILLNESS: This is a 42-year-old female referred to our clinic for iron deficiencyanemia. The patient had blood work done in 09/2022 with her PCP showing iron saturation 43%, ferritin of 10, serum iron of 193. CBC done on 12/29/22 showed a normal white count, normal platelet count, and a hemoglobin of 10.9. The patient was referred to GI and Hematology by her PCP. She was seen by GI nurse practitioner of Dr. Apodaca and had blood work done on 01/19/23 which showed a hemoglobin of 10.5. Normal platelet count. MCV normal. Ferritin of 5.4, iron saturation of 6%, and serum iron of 30, and a high TIBC. She reports regular periods, but she does report episodes of bright red blood per rectum. She is going for an EGD and colonoscopy soon with GI. She has never tried an oral iron before, and she was started on ferrous sulfate twice daily by GI. She feels tired. She has palpitations with activity. She is craving ice. She has restless leg. No other complaints. DIAGNOSIS: 1. Iron deficiency anemia. 2. Fatigue. PAST TREATMENT: CURRENT TREATMENT: TREATMENT GUIDELINES: PROGNOSIS: EXPECTED RESPONSE TO TREATMENT: EXPECTED QUALITY OF LIFE DURING TREATMENT: ECOG: PAIN: PLAN FOR PAIN: CODE STATUS: END OF LIFE: ASSESSMENT: 1. Iron deficiency anemia. 2. Fatigue. 3. Bright red blood per rectum. PLAN: 1. Ferrous sulfate 325 mg orally twice daily was started by GI. 2. If she does not tolerate oral iron or she is not responding to oral iron, we will consider IV iron. 3. The patient will follow up with Dr. Paulie AL at [facility], for EGD and colonoscopy. 4. The patient will return to clinic in two months with labs the week before or sooner if needed. TIME SPENT: REVIEW OF SYSTEMS: A 12-point [...] lab results shown below reviewed. Bertha Mcgregor MD/cherry Vitals: Vitals: 01/30/23 1306 BP: 126/78 BP Location: Left Arm BP Position: Sitting BP Cuff Size: Regular Pulse: 75 Resp: 18 Temp: 98 ??F (36.7 ??C) TempSrc: Temporal SpO2: 99% Weight: 135 [...] Types: Cigarettes Quit date: 2021 Years since quittin.6 ??? Smokeless tobacco: Never Vaping Use ??? [...] Current Medications: Outpatient Encounter Medications as of 01/30/2023 Medication Sig Dispense Refill ??? ferrous sulfate 325 (65 Fe) MG Tablet Take 325 mg by mouth in the morning and at bedtime. ??? Multiple Vitamin (MULTIVITAMIN PO) Take 1 Tablet by mouth daily. No facility-administered encounter medications on file as of 01/30/2023. Labs: No visits with results within 7 Day(s) from this visit. Latest known visit with results is: No results found for any previous visit. documented in this encounter Plan of Treatment Upcoming Encounters Date Type Department Care Team (Late st Contact Info) Description 07/10/2024 9:40 AM MANUFACTURING SCHEDULER Lab [facility] [address] [phone] Lab, [facility] 07/17/2024 8:45 AM MANUFACTURING SCHEDULER Office Visit [facility] [address] [phone] Bertha Mcgregor MD [address] [place] [address] documented as of this encounter Results * RETICULOCYTE COUNT (RETIC) (03/31/2023 9:34 AM CDT) Reticulocyte count 1.07 0.50 - 1.70 % CANCER CONCRETE GUN OPERATOR [facility] RET-He 28.50 28.20 - 36.60 pg [facility] Comment: RET-He is a direct assessment of incorporation of iron into erythrocyte hemoglobin. It provides an indirect measure of the iron available for new erythropoiesis over past 2-4 days. Blood 03/31/2023 9:34 AM CDT [facility] CANCER CONCRETE [facility] - 03/31/2023 9:44 AM CDT Release to patient->Immediate us Bertha Mcgregor MD HEMATOLOGY ORDERABLES Final Resu lt CANCER CONCRETE GUN OPERATOR [facility] [address] [place] [address], * (ABNORMAL) IRON W/ IRON BINDING CAPACITY [place] (03/31/2023 9:34 AM CDT) IRON 66 50 - 212 ug/dL [facility]CRET[facility] UIBC 430(H) 155 - 355 ug/dL [facility] TIBC 496(H) 261 - 478 ug/dl [facility] % Saturation 13(L) 20 - 50 % CANCER CONCRETE GUN OPERATOR [facility] 03/31/2023 9:34 AM CDT [facility] CONCRETE [facility] - 03/31/2023 10:25 AM CDT Release to patient->Immediate us Bertha Mcgregor MD LAB SEND OUTS Final Result Performing Organization Address [facility]/ZIP Co de Phone Number [facility] CONCRETE [facility] [address] [place] [address], * (ABNORMAL) FERRITIN (03/31/2023 9:34 AM CDT) Ferritin 5(L) 11 - 307 ng/mL CANCER CONCRETE GUN OPERATOR [facility] Blood 03/31/2023 9:34 AM CDT [facility] CONCRETE G[facility] - 03/31/2023 2:55 PM CDT Release to patient->Immediate us Bertha Mcgregor MD CHEMISTRY ORDERABLES Final Resul t CANCER CONCRETE GUN OPERATOR [facility] [address] [place] [address], documented in this encounter Visit Diagnoses Diagnosis Iron deficiency anemia, unspecified iron deficiency anemia type- Primary Other fatigue Iron deficiency anemia, unspecified iron deficiency anemia type documented in this encounter Care Teams Loan Servicing Representative Relationship Specialty Start Date End Date Rom Vidales [address] [place] [address] PCP - General Family Medicine 12/21/22 documented as of this encounter
--- OUTSIDE RECORDS SUMMARY | 2024-06-17 03:38 | XMS_ITS | Encounter Summary ---
Author Organization [id number] Care Team Providers Care Dealer Sales Manager Name Role Phone Rom Vidales Primary Care Provider [phone] Encounter Details Date Type Department Care Team (Latest Contact Info) Description 01/30/2023 Travel Social History Tobacco Use Types Packs/Day [...] things Not at all 01/30/2023 1:06 PM LUZT Adonay Yates CMA Feeling down, depressed, or hopeless Not at all 01/30/2023 1:06 PM LUZT Estela Yates CMA * Over the past 2 weeks, how often have you been bothered by any of the following problems? Question Answer Date of Assessment Author Patient Health Questionnaire-2 Score 0 01/30/2023 1:06 PM LUZT Bianca Yates CMA documented as of this encounter Plan of Treatment Upcoming Encounters Date Type Department Care Team (Late st Contact Info) Description 07/10/2024 9:40 AM BILL HIKER Lab [facility] [address] [phone] Lab, [facility] 07/17/2024 8:45 AM BILL HIKER Office Visit [facility] [address] [address] Bertha Mcgregor MD [address] [place] [phone] documented as of this encounter Visit Diagnoses Not on filedocumented in this encounter Care Teams Dealer Sales Manager Relationship Specialty Start Date End Date Rom Vidales [address] [place] [address] PCP - General Family Medicine 12/21/22 documented as of this encounter
--- OUTSIDE RECORDS SUMMARY | 2024-06-17 03:38 | XMS_ITS | Encounter Summary ---
Author Organization [facility] Care Team Providers Care Railroad Passenger Agent Name Role Phone Rom Vidales Primary Care Provider [phone] Encounter Details Date Type Department Care Team (Latest Contact Info) Description 04/24/2023 Travel Social History Tobacco Use Types Packs/Day [...] suspected to have Coronavirus/COVID-19? No / Unsure 04/24/2023 8:52 AM ICT ACCOUNT MANAGER documented as of this encounter Plan of Treatment Upcoming Encounters Date Type Department Care Team (Late st Contact Info) Description 07/10/2024 9:40 AM ICT ACCOUNT MANAGER Lab [facility] [address] [address] Lab, Cc [facility] 07/17/2024 8:45 AM ICT ACCOUNT MANAGER Office Visit [facility] [address] [address] Bertha Mcgregor MD [address] [place] [address] documented as of this encounter Visit Diagnoses Not on filedocumented in this encounter Care Teams Railroad Passenger Agent Relationship Specialty Start Date End Date Rom Vidales [address] [place] [address] PCP - General Family Medicine 12/21/22 documented as of this encounter
--- OUTSIDE RECORDS SUMMARY | 2024-06-17 03:38 | XMS_ITS | Encounter Summary ---
Author Organization [facility] Address [address] [place] [address] Phone Care Team Providers Care Manufacturing Group Leader Name Role Phone Rom Vidales Primary Care Provider [phone] Reason for Visit * Reason Comments Iron Infusion * Episode Based Medications (Routine) - Pending Review Specialty Diagnoses / Procedures Referred By Contac t Referred To Contact Diagnoses Iron deficiency anemia, unspecified iron deficiency anemia type Procedures IRON SUCROSE INJECTION Bertha Mcgregor MD [address] [place] [address] Phone: tel: fax: [facility] [address] [address] Phone: tel: fax: Referral ID Status Reason Start Date Expiration Date V isits Requested Visits Authorized [id number] Pending Review 04/03/2023 06/18/2025 1 1 Encounter Details Date Type Department Care Team (Latest Contact Info) Description 04/24/2023 10:00 AM CHANNELER RUNNER Clinical Support [facility] [address] [address] Nurse, Padmini [facility] Iron deficiency anemia, unspecified iron deficiency anemia [...] Coronavirus/COVID-19? No / Unsure 04/24/2023 8:52 AM CHANNELER RUNNER documented as of this encounter Last Filed Vital Signs Vital Sign Reading Time Taken Comments Blood Pressure 130/88 04/24/2023 9:13 AM CHANNELER RUNNER Pulse - - Temperature - - Respiratory Rate - - Oxygen Saturation - - Inhaled Oxygen Concentration - - Weight - - Height - - Body Mass Index - - documented in this encounter Progress Notes * Kimberly Story RN - 04/24/2023 10:00 AM CST Teaching done, written information given, and consent signed for Venofer. Patient was given writtendrug information (ONS/HOPA/NCODA/ACC approved). Side Effects Instructed on side effects including but not limited to hypersensitivity reaction, diarrhea, nauseaor vomiting, pain in extremities, hypotension, dry itchy skin, skin rash, dizziness, fluid retention, headache, muscle cramps, and redness swelling pain or other discomfort at treatment site. Discussed how to manage these side effects and when to notify the physician/clinic. Needs Assessment Nurse assessed patient's learning needs throughout session. Patient's needs, abilities and readiness to learn addressed including preferences to verbal and written information. Questions answered. Consent Informed consent presented, reviewed and signed. Total face to face time spent teaching was 15 minutes. NELER RUNNER * Kimberly Story RN - 04/24/2023 10:00 AM CST IV venofer given as ordered and tolerated well. PIV flushed with 100 ml NS and pt observed for 30 minutes post iron infusion. Tolerated well. Left ambulatory unaccompanied. Performance status unchanged since arrival to clinic. NELER RUNNER documented in this encounter Plan of Treatment Upcoming Encounters Date Type Department Care Team (Late st Contact Info) Description 07/10/2024 9:40 AM CHANNELER RUNNER Lab [facility] [address] [phone] Lab, [facility] 07/17/2024 8:45 AM CHANNELER RUNNER Office Visit [facility] [address] [phone] Bertha Mcgregor MD [address] [place] [phone] documented as of this encounter Visit Diagnoses Diagnosis Iron deficiency anemia, unspecified iron deficiency anemia type- Primary documented in this encounter Administered Medications Inactive Administered Medications - up to 3 most recent administrations Medication Order MAR Action Action Date Dose Rate Site iron sucrose (VENOFER) 200 mg in sodium chloride 0.9 % 100 mL IVPB 200 mg, Intravenous, ONCE, 1 dose, On 04/24/23 at 0930, Administer over 15 MinutesIndications:Iron deficiency anemia, unspecified iron deficiency anemia type New Bag 04/24/2023 9:16 AM CHANNELER RUNNER 200 mg 400 mL/hr documented in this encounter Care Teams Manufacturing Group Leader Relationship Specialty Start Date End Date Rom Vidales [address] [place] [address] PCP - General Family Medicine 12/21/22 documented as of this encounter
--- OUTSIDE RECORDS SUMMARY | 2024-06-17 03:38 | XMS_ITS | Encounter Summary ---
Author Organization [facility] Address [address] [place] [address] Phone Care Team Providers Care Bird Raiser Name Role Phone Rom Vidales Primary Care Provider Encounter Details Date Type Department Care Team (Late st Contact Info) Description 03/31/2023 9:35 AM CDT Lab [facility] [address] [address] Lab, [facility] Iron deficiency anemia, unspecified iron deficiency [...] all 04/03/2023 1:03 PM CDT Brooke Landers , TUBE MACHINE OPERATOR Feeling down, depressed, or hopeless Not at [...] st Contact Info) Description 07/10/2024 9:40 AM FLAME CUTTING MACHINE OPERATOR Lab [facility] [address] [phone] Lab, [facility]c [facility] 07/17/2024 8:45 AM FLAME CUTTING MACHINE OPERATOR Office Visit [facility] [address] [phone] Bertha Mcgregor MD [address] [place] [address] documented as of this encounter Procedures Procedure Name Priority Date/Time Associated Diagnosis Comments IRON W/ IRON BINDING CAPACITY OH Routine 03/31/2023 9:34 AM CDT Iron deficiency anemia, unspecified iron deficiency anemia type CBC WITH AUTO DIFF OH Routine 03/31/2023 9:34 AM CDT RETICULOCYTE COUNT (RETIC) Routine 03/31/2023 9:34 AM CDT Iron deficiency anemia, unspecified iron deficiency anemia type FERRITIN Routine 03/31/2023 9:34 AM CDT Iron deficiency anemia, unspecified iron deficiency anemia type documented in this encounter Results * (ABNORMAL) CBC WITH AUTO DIFF OH (03/31/2023 9:34 AM CDT) WBC 4.8 4.0 - 10.0 10*3/uL [facility] HGB 12.9 11.2 - 15.7 g/dL [facility] HCT 42.2 34.1 - 44.9 % [facility] PLT 315 163 - 369 10*3/uL [facility] MPV 9.9 9.4 - 12.4 fL [facility] RBC 5.05 3.93 - 5.22 10*6/uL [facility] MCV 84 79 - 95 fL [facility] MCH 25.5(L) 25.6 - 32.2 pg [facility] MCHC 30.6(L) 32.2 - 36.5 g/dL [facility] RDW 15.4(H) 11.6 - 14.4 % [facility] Neutrophils % 65.0 36.0 - 66.0 % [facility] Lymphocytes % 25.8 19.0 - 40.0 % [facility] Monocytes % 6.5 4.1 - 12.1 % [facility] Eosinophils % 1.7 0.0 - 3.5 % [facility] Basophils % 0.8 0.0 - 1.0 % [facility] Absolute Neutrophils 3.1 1.4 - 6.6 10*3/uL [facility] Absolute Lymphocytes 1.2 0.8 - 4.0 10*3/uL [facility] Absolute Monocytes 0.3 0.2 - 1.2 10*3/uL [facility] Absolute Eosinophils 0.1 0.0 - 0.4 10*3/uL [facility] Absolute Basophils 0.0 0.0 - 0.1 10*3/uL [facility] 03/31/2023 9:34 AM CDT us Bertha Mcgregor MD LAB SEND OUTS Final Result [facility] [address] [place] [address], * (ABNORMAL) FERRITIN (03/31/2023 9:34 AM CDT) Ferritin 5(L) 11 - 307 ng/mL [facility] Blood 03/31/2023 9:3 4 AM CDT Narrative [facility] - 03/31/2023 2:55 PM CDT Release to patient->Immediate us Bertha Mcgregor MD CHEMISTRY ORDERABLES Final Resul t Performing Organization Address City/[facility] Co de Phone Number [facility] [place] [address], [place] [phone] * (ABNORMAL) IRON W/ IRON BINDING CAPACITY [place] (03/31/2023 9:34 AM CDT) IRON 66 50 - 212 ug/dL [facility] UIBC 430(H) 155 - 355 ug/dL [facility] TIBC 496(H) 261 - 478 ug/dl [facility] % Saturation 13(L) 20 - 50 % [facility] 03/31/2023 9:34 AM CDT [facility] - 03/31/2023 10:25 AM CDT Release to patient->Immediate us Bertha Mcgregor MD LAB SEND OUTS Final Result Performing Organization Address [facility] Co de Phone Number [facility] [place] [address], [place] [phone] * RETICULOCYTE COUNT (RETIC) (03/31/2023 9:34 AM CDT) Reticulocyte count 1.07 0.50 - 1.70 % [facility] RET-He 28.50 28.20 - 36.60 pg [facility] Comment: RET-He is a direct assessment of incorporation of iron into erythrocyte hemoglobin. It provides an indirect measure of the iron available for new erythropoiesis over past 2-4 days. Blood 03/31/2023 9:34 AM CDT [facility] - 03/31/2023 9:44 AM CDT Release to patient->Immediate us Bertha Mcgregor MD HEMATOLOGY ORDERABLES Final Resu lt [facility] [address] [place] [address], documented in this encounter Visit Diagnoses Diagnosis Iron deficiency anemia, unspecified iron deficiency anemia type documented in this encounter Care Teams Bird Raiser Relationship Specialty Start Date End Date Rom Vidales [address] [place] [address] PCP - General Family Medicine 12/21/22 documented as of this encounter
--- OUTSIDE RECORDS SUMMARY | 2024-06-17 03:38 | XMS_ITS | Encounter Summary ---
Author Organization [facility] Address [address] [place] [address] Phone Care Team Providers Care Checker/Stocker Name Role Phone Rom Vidales Primary Care Provider [phone] Encounter Details Date Type Department Care Team (Late st Contact Info) Description 04/17/2023 Telephone [facility] [place] [address] [place] [address] Bertha Mcgregor MD [address], [place] [phone] Social History Tobacco Use Types Packs/Day Years [...] Jordan LPN documented as of this encounter Miscellaneous Notes * Telephone Encounter - Venus Huang RN - 04/18/2023 10:02 AM CDT Patient returned call to clinic and scheduled iron infusions. Patient aware to stop at frontload driver to pay $60 before every infusion. * Telephone Encounter - Venus Huang RN - 04/17/2023 12:22 PM CDT Spoke with patient this morning and patient stated she will pay her current balance with the frontload driver and will be able to pay between $45-$60 on every treatment day. P/A confirmed patient is authorized to receive iron infusions after paying balance. Attempted to call patient with no answer. Patient has no voicemail box set up. Will attempt to callher at a different time. * Telephone Encounter - Venus Huang RN - 04/17/2023 8:13 AM CDT Treatment plan entered by pharmacy for Venofer 200 mg x5 doses. Per auth, they attempted to speak to patient. Voicemail box not set up yet. She will owe $45 to $60per tx. Her last statement was $45.85 sent to her on 03/09/2023. Patient needs to pay her current balance of $45.85 or go to hospital for tx. Patient may benefit from financial assistance available [facility]. No treatment at [facility] until she has a plan to pay her responsibility. Patient has OV scheduled today. Can discuss with patient at that time what she would like to do. * Telephone Encounter - Venus Huang RN - 04/17/2023 8:13 AM CDT ----- Message from Bertha Mcgregor MD sent at 04/03/2023 1:31 PM CDT ----- Regarding: IV iron Patient needs IV iron Thanks Bertha Mcgregor Md documented in this encounter Plan of Treatment Upcoming Encounters Date Type Department Care Team (Late st Contact Info) Description 07/10/2024 9:40 AM TEACHER EDUCATION DIRECTOR Lab [facility] [address] [address] Lab [facility] 07/17/2024 8:45 AM TEACHER EDUCATION DIRECTOR Office Visit [facility] [address] [phone] Bertha Mcgregor MD [address] [place] [address] documented as of this encounter Visit Diagnoses Not on filedocumented in this encounter Care Teams Checker/Stocker Relationship Specialty Start Date End Date Flash Rom [address] [place] [address] PCP - General Family Medicine 12/21/22 documented as of this encounter
--- OUTSIDE RECORDS SUMMARY | 2024-06-17 03:38 | XMS_ITS | Encounter Summary ---
Author Organization [facility] Address [address] [place] [address] Phone Care Team Providers Care Player Manager Name Role Phone Rom Vidales Primary Care Provider [phone] Reason for Visit * Reason Comments Follow-up Encounter Details Date Type Department Care Team (Late st Contact Info) Description 04/03/2023 1:00 PM CDT Office Visit [facility] [place] [address] [place] [address] Bertha Mcgregor MD [address] [place], [place] [phone] Iron deficiency anemia, unspecified iron deficiency anemia type (Primary Dx); Other fatigue; Polyp of colon, unspecified part of colon, [...] Sign Reading Time Taken Comments Blood Pressure 118/64 04/03/2023 1:02 PM CDT Pulse 83 04/03/2023 1:02 PM CDT Temperature 36.9 ??C (98.4 ??F) 04/03/2023 1:02 PM CD T Respiratory Rate 18 04/03/2023 1:02 PM CDT Oxygen Saturation 99% 04/03/2023 1:02 PM CDT Inhaled Oxygen Concentration - - Weight 61.4 kg (135 lb 6.4 oz) 04/03/2023 1:02 P M CDT Height 157.5 cm (5' 2 ) 04/03/2023 1:02 PM CDT Body Mass Index 24.76 04/03/2023 1:02 PM CDT documented in this encounter Functional [...] Landers CMA documented as of this encounter Progress Notes * Bertha Mcgregor MD - 04/03/2023 1:00 PM CDT Images from the original note were not included. Patient: Hali Samuels Age: 42 y.o. : 1980 Encounter Dept: [facility] Encounter Date: 04/03/2023 Care Team: Current Providers PCP: Rom Vidales Encounter Provider: Bertha Mcgregor MD Referring Provider: Rom Vidales Consulting Physician: Bertha Mcgregor MD HISTORY OF PRESENT ILLNESS: Patient comes back today to followup on her iron deficiency anemia. Since her last visit she had an EGD and colonoscopy done with Dr. Apodaca at [facility] on 03/15/23. Per patient, EGD was normal but colonoscopy she had three polyps removed. Two of them were adenomas but she had a large descending colon polyp of 30 mm that was tubulovillous and had high gradedysplasia. She was told by GI that it was completely removed with negative margins and she was going for a colonoscopy one year from now. I do not have the results or report from her EGD, colonoscopyor pathology yet. She has been taking oral iron but she stopped the week before her scoping and hasrestarted taking it now. Repeat bloodwork on 03/31/23 showed a normal white count, normal H&H, n ormal platelet count. Ferritin low at 5 but no improvement. Iron saturation 13% low, reticulocyte count normal. She continues to feel tired and craving ice. She has a regular light period. She deniesseeing blood in the stool since the polypectomy. DIAGNOSIS: 1. Iron deficiency anemia. 2. Fatigue. 3. 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 PAST TREATMENT: EGD and colonoscopy on 03/15/23 with removal of descending 30 mm polyp with tubulovillous with high grade dysplasia with Dr. Apodaca at [facility]. CURRENT TREATMENT: Ferrous sulfate. TREATMENT GUIDELINES: PROGNOSIS: EXPECTED RESPONSE TO TREATMENT: EXPECTED QUALITY OF LIFE DURING TREATMENT: ECOG: PAIN: PLAN FOR PAIN: CODE STATUS: END OF LIFE: ASSESSMENT: 1. Iron deficiency anemia. 2. Fatigue. 3. Bright red blood per rectum. PLAN: 1. Patient denies bright red blood per rectum since her polypectomy. 2. Repeat bloodwork continues to show iron deficiency. She has not responded well to oral iron. I will give patient IV iron. 3. I will get the results of the EGD, colonoscopy and pathology report from her scoping done on 03/15/[address] done at [facility] with [address] Apodaca. 4. Return to clinic in two weeks. TIME SPENT: REVIEW OF SYSTEMS: A 12-point [...] below reviewed. Bertha Mcgregor MD/darrell Vitals: Vitals: 04/03/23 1302 BP: 118/64 BP Location: Left Arm BP Position: Sitting BP Cuff Size: Regular Pulse: 83 Resp: 18 Temp: 98.4 ??F (36.9 ??C) TempSrc: Temporal SpO2: 99% Weight: 135 lb 6.4 oz (61.4 kg) Height: 5' 2 (1.575 m) Body surface area is 1.64 meters squared. Body mass index is 24.76 kg/m??. Pain Score: 0 - No pain [...] Types: Cigarettes Quit date: 2021 Years since quittin.7 ??? Smokeless tobacco: Never Vaping Use ??? [...] Current Medications: Outpatient Encounter Medications as of 04/03/2023 Medication Sig Dispense Refill ??? ferrous sulfate 325 (65 Fe) MG Tablet Take 325 mg by mouth in the morning and at bedtime. ??? Multiple Vitamin (MULTIVITAMIN PO) Take 1 Tablet by mouth daily. No facility-administered encounter medications on file as of 04/03/2023. Labs: Lab on 03/31/2023 Component Date Value Ref [...] st Contact Info) Description 07/10/2024 9:40 AM PRODUCTION MECHANIC TIN CANS Lab [facility] [address] [phone] Lab, [facility] 07/17/2024 8:45 AM PRODUCTION MECHANIC TIN CANS Office Visit [facility] [address] [phone] Bertha Mcgregor MD [address] [place] [address] documented as of this encounter Visit Diagnoses Diagnosis Iron deficiency anemia, unspecified iron deficiency anemia type- Primary Other fatigue Polyp of colon, unspecified part of colon, unspecified type documented in this encounter Care Teams Player Manager Relationship Specialty Start Date End Date Rom Vidales [address] [place] [address] PCP - General Family Medicine 12/21/22 documented as of this encounter
--- OUTSIDE RECORDS SUMMARY | 2024-06-17 03:39 | XMS_ITS | Encounter Summary ---
Author Organization [facility] Healthcare Address [address] [place] [address] Care Team Providers Care Medicine Tech Name Role Phone Rom Vidales MD Primary Care Provider [phone] Reason for Visit * Reason Comments Rectal Bleeding Encounter Details Date Type Department Care Team (Late st Contact Info) Description 12/30/2022 12:45 AM CDT - 12/30/2022 2:17 AM CDT Emergency [facility] Emergency Department [address] [place] [address] Reena Faye MD [address] [place], [place] [id number] Rectal bleed (Primary Dx); Anemia, unspecified type Discharge Disposition: Discharge to home or self care Social History Tobacco Use Types Packs/Day Years Used Date Smoking Tobacco: Former Cigarettes Q uit: 2021 Tobacco Cessation:Counseling Given: Not Answered Alcohol Use Standard Drinks/Week Comments Yes 0 (1 standard drink = 0.6 oz pur e alcohol) socially Personal Safety Answer Date Recorded Have you ever been in or are you currently in a harmful physical or emotional relationship or is someone making you feel afraid or unsafe? 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 Gender Identity Female 08/08/2022 3:56 PM MIXER RUNNER Sexual Orientation Not on file documented as of this encounter Last Filed Vital Signs Vital Sign Reading Time Taken Comments Blood Pressure 138/100 12/29/2022 7:49 PM CDT Pulse 107 12/29/2022 7:49 PM CDT Temperature 36.7 ??C (98 ??F) 12/29/2022 7:49 PM CDT Respiratory Rate 18 12/29/2022 7:49 PM CDT Oxygen Saturation 100% 12/29/2022 7:49 PM CDT Inhaled Oxygen Concentration - - Weight 61.7 kg (136 lb) 12/29/2022 7:49 PM CDT Height 157.5 cm (5' 2 ) 12/29/2022 7:49 PM CDT Body Mass Index 24.87 12/29/2022 7:49 PM CDT documented in this encounter Discharge Instructions * Discharge Instructions* Reena Faye MD - 12/30/2022 1:41 AM CDT You presented to the emergency department with rectal bleeding. Your blood counts were checked and were well above the level that would require transfusion (your count today was 10.9, transfusion level is <7). We advise you to have close follow-up with your primary care physician and follow up with the circle shear operator for further testing. Please seek medical attention if you develop lightheadedness, palpitations, shortness of breath, chest pain, or other worrying symptoms as these might be signs of a more severe anemia. documented in this encounter Medications at Time of Discharge diazePAM (VALIUM) 5 mg tablet Take 1 tablet by mouth nightly 07/27/2022 documented as of this encounter Discharge Disposition Disposition Code Departure Means Destination Comment s Discharge to home or self care documented in this encounter ED Notes * Nadir Huang MD - 12/30/2022 12:56 AM CDT HPI Chief Complaint Patient presents with Rectal Bleeding Hali Samuels is a 42 y.o. 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 Patient notes she has rectal bleeding ongoing for 10 days now. Bleeding is bright red blood per rectum. Patient reports the bleeding is worsening now with large clots this AM. No lightheadedness, palpitations, SOB, or syncope. Was previously seen at [facility] on 12/23 for this rectal bleeding, had CT AP at this time which was unremarkable per patient, and was referred for colonoscopy. Recently diagnosed with RAISSA by PCP and was referred for colonoscopy. Endorses some NSAID use - ibuprofen 200mg x2/day occasionally for TMJ pain. Endorses ETOH use - 6-16 beers when out. No blood thinners. No prior history of EGD/colonoscopy. No known family history of IBD. Maternal grandma had colorectal cancer. On presentation to the ED, patient is afebrile, HR: 107, RR: 18, BP: 138/100, satting well on RA. Labs remarkable for WBC: 7.9, Hgb: 10.9 (no previous for baseline), Cr: 0.72, electrolytes wnl. Patient History: Patient Active Problem List Diagnosis Date Noted TMJ arthralgia 08/09/2022 Antinuclear antibody (MARTITA) titer greater than 1:80 03/23/2020 Mass of upper outer quadrant of right breast 07/15/2019 Rash 07/15/2019 Acne rosacea 05/30/2016 Chronic liver disease 06/13/2013 Headache 05/30/2013 Idiopathic progressive polyneuropathy 05/30/2013 Skin sensation disturbance 05/30/2013 Past Medical History: Diagnosis Date Anxiety Lupus (CMS/HCC) (HCC) Past Surgical History: Procedure Laterality Date COMBINED AUGMENTATION MAMMAPLASTY AND ABDOMINOPLASTY Bilateral 2007 TUBAL LIGATION 2011 Family History Problem Relation Age of Onset Other Father Alive and well; Other Mother Alive and well; Other Brother Alive and well; Social History Tobacco Use Smoking status: Former Types: Cigarettes Quit date: 2021 Years since quittin.5 Smokeless tobacco: None Vaping Use Vaping Use: Every day Substance and Sexual Activity Alcohol use: Yes Comment: socially Drug use: Never Sexual activity: None Social History Social History Narrative Not on file Review of Systems Review of Systems Constitutional: Negative for chills, fatigue and fever. HENT: Negative for rhinorrhea, sinus pain and sore throat. Respiratory: Negative for choking, shortness of breath and wheezing. Cardiovascular: Negative for chest pain, palpitations and leg swelling. Gastrointestinal: Positive for anal bleeding and blood in stool. Negative for abdominal pain, constipation, diarrhea, nausea and vomiting. Genitourinary: Negative for dysuria, frequency and hematuria. Musculoskeletal: Negative for back pain, myalgias and neck pain. Skin: Negative for pallor, rash and wound. Neurological: Negative for syncope, weakness and light-headedness. Psychiatric/Behavioral: Negative for confusion, hallucinations and suicidal ideas. Physical Exam ED Triage Vitals [12/29/221948] Temp Pulse Resp BP SpO2 36.7 ??C (98 ??F) 107 18 138/100 100 % Temp src Heart Rate Source Patient Position BP Location FiO2 (%) Oral -- -- -- -- Height Height Method Weight Weight Method 1.575 m (5' 2 ) Stated 61.7 kg (136 lb) Stated Physical Exam Constitutional: Appearance: Normal appearance. She is not ill-appearing. HENT: Head: Normocephalic and atraumatic. Mouth/Throat: Mouth: Mucous membranes are moist. Eyes: General: No scleral icterus. Extraocular Movements: Extraocular movements intact. Pupils: Pupils are equal, round, and reactive to light. Cardiovascular: Rate and Rhythm: Normal rate and regular rhythm. Heart sounds: No murmur heard. No gallop. Pulmonary: Effort: Pulmonary effort is normal. Breath sounds: Normal breath sounds. No wheezing or rales. Abdominal: General: Abdomen is flat. There is no distension. Palpations: Abdomen is soft. There is no mass. Tenderness: There is no abdominal tenderness. There is no guarding. Musculoskeletal: General: Normal range of motion. Right lower leg: No edema. Left lower leg: No edema. Skin: General: Skin is warm and dry. Neurological: General: No focal deficit present. Mental Status: She is alert and oriented to person, place, and time. Psychiatric: Mood and Affect: Mood normal. Behavior: Behavior normal. [facility] Medical Decision Making 42 y.o. female PMHx TMJ who presents to ED for rectal bleeding ongoing for 10 days. Bleeding is bright red blood per rectum, now with clots. No lightheadedness, palpitations, SOB, or syncope. Was previously seen at [facility] 12/[address] AP which was unremarkable. No prior hx of EGD/colonoscopy. Patient is well-appearing. Hgb: 10.9 (no baseline). Ddx: likely lower GIB, angiodysplasia, IBD,diverticular disease, malignancy, hemorrhoids Plan: likely discharge with GI follow up Amount and/or Complexity of Data Reviewed Labs: ordered. Attending Summary of Care ED Course as of 12/30/22 0203 Time: 12/30 0121 Comment: ATTENDING PHYSICIAN NOTE: I have seen and examined this patient, I have discussed/reviewed the history, physical exam and assessment with the resident. We are in agreement with treatment plan except as I have noted. HPI: 42 y.o. female with PMH TMJ syndrome, elevated MARTITA, presents to the ED with rectal bleeding which started 10d ago, is BRB in the toilet and with wiping, today was increased and had clots passed,not a/w abd pain, nausea, vomiting, lightheadedness, SOB or other complaints. CT a/p at OSH last week for same complaint was negative. PMD is currently helping arrange for a colonoscopy. Patient has lab records on her phone including a hemoglobin from late September which was 13.5 History Information obtained from: patient only Chart note(s) reviewed to augment HPI: None, OSH records from recent ED visit unavailable here SH: 6-16 beers/day, no drug use FH: no IBD, grandmother with CR cancer Exam: VS reviewed Constitutional: NAD, alert ENT: normal voice, MMM Resp: CTAB, no added sounds Card: RRR, no added sounds Extremities: no LE edema, equal pulses all ext Abd: abd soft, non distended, non tender Skin: WWP, no rash Neuro: A&Ox3, sensory motor exam intact bilaterally, normal speech Psych: calm, normal mood/affect Assessment: 42 y.o.female with no significant PMH here with 10d of rectal bleeding now with clots w/o other symptoms with pt well appearing Social Determinants of Health affecting care: None Differential diagnoses: - high prob- lower GI bleeding - moderate prob- mild anemia - low prob- no evidence of severe anemia or hemorrhagic shock, etoh-indiced hemorrhagic gastritis less likely given red blood HI and no other symptoms Plan: 1) Labs: CBC, BMP completed and normal other than Hb 10 2) Imaging/ECG: none indicated 3) Therapeutics: none indicated 4) d/c home with reassurance and close PMD f/u for outpatient colonoscopy By: Reena Faye MD Rectal bleed Anemia, unspecified type Nadir Huang MD Resident 12/30/22 0204 Nadir Huang MD Resident 12/30/22 0212 Cosigned by Reena Faye MD at 12/30/2022 5:01 PM CDT * Tu Geiger RN - 12/30/2022 12:45 AM CDT Bed: ED2-32 Expected date: Expected time: Means of arrival: Car Comments: Tu Geiger RN 12/30/22 0045 * Li Mast RN - 12/29/2022 7:50 PM CDT Pt state she has had ectal bleeding for 10 days was seen at [facility] last Monday and was to follow up for colonoscopy pt states that her bleeding has increased has clots documented in this encounter Plan of Treatment Not on file documented as of this encounter Procedures Procedure Name Priority Date/Time Associated Diagnosis Comments HC ANTIBODY SCREEN RBC STAT 11:12 PM CDT EGFR STAT 12/29/2022 11:06 PM CDT DIFFERENTIAL AUTO STAT 12/29/2022 11: 06 PM CDT CBC WITH AUTO DIFFERENTIAL STAT 12/29/2022 11:06 PM CDT LIPASE STAT 12/29/2022 11:06 PM CDT COMPREHENSIVE METABOLIC PANEL STAT 12/29/2022 11:06 PM CDT documented in this encounter Results * Type and screen (12/29/2022 11:12 PM CDT) Tan, indirect Negative [facility] ABO Rh O Positive [facility] Blood 12/29/2022 11:1 2 PM CDT 12/29/2022 11:32 PM CDT Narrative [facility] - 12/30/2022 12:36 AM CDT Has the patient had Daratumumab or Isatuximab in the past 6 months?->Unknown us Reena Faye MD LAB BLOOD BANK TEST ORDER ADRIANA Final Result [facility] Department [place] [address] * eGFR (12/29/2022 11:06 PM CDT) eGFR >90 90 - 130 mL/min/1. 73 m2 [facility] Comment: Interpretive Data Reference Interval Normal ?>/= 90 mL/min/1.73m2 Mildly decreased* ? 60 - 89 mL/min/1.73m2 Mildly to moderately decreased ?45 - 59 mL/min/1.73m2 Moderately to severely decreased ??30 - 44 mL/min/1.73m2 Severely decreased ?15 - 29 mL/min/1.73m2 Kidney Failure ?< 15 ??mL/min/1.73m2 *Relative to young adult level Estimated glomerular filtration rate is determined by the 2020 CKD-EPI equation recommended by the National Kidney Foundation (A Unifying Approach to GFR Estimation: Recommendations of the NKF-ASK Task Force on Reassessing the Inclusion of Race in Diagnosing Kidney Disease, JASN 2020). The CKD-EPI equation should not be used for patients with unstable renal function and has not been validated in children and those over 70. Current interpretive data was last reviewed 2021. Blood 12/29/2022 11:0 6 PM CDT 12/29/2022 11:25 PM CDT us Reena Faye MD LAB BLOOD ORDERABLES Eliane scanlon Result [facility] Department [place] [address] * Differential, auto (12/29/2022 11:06 PM CDT) Neutrophil abs 5.3 1.7 - 6.5 K/cumm [facility] Imm gran abs 0.0 0.0 - 0.1 K/cumm [facility] Lymphocyte abs 1.9 0.8 - 3.3 K/cumm [facility] Monocyte abs 0.5 0.2 - 0.8 K/cumm [facility] Eosinophil abs 0.1 0.0 - 0.5 K/cumm [facility] Basophil abs 0.1 0.0 - 0.1 K/cumm [facility] Neutrophil pct 66.7 % [facility] Comment: Interpretive Data Percent cell count reference ranges are not reported, since discordance with absolute values may lead to misinterpretation of CBC data. Current Interpretive Data was last revised on 2017. Imm gran pct 0.4 % [facility] Comment: Interpretive Data Percent cell count reference ranges are not reported, since discordance with absolute values may lead to misinterpretation of CBC data. Current Interpretive Data was last revised on 2017. Lymphocyte pct 24.1 % [facility] Comment: Interpretive Data Percent cell count reference ranges are not reported, since discordance with absolute values may lead to misinterpretation of CBC data. Current Interpretive Data was last revised on 2017. Monocyte pct 6.2 % [facility] Comment: Interpretive Data Percent cell count reference ranges are not reported, since discordance with absolute values may lead to misinterpretation of CBC data. Current Interpretive Data was last revised on 2017. Eosinophil pct 1.8 % [facility] Comment: Interpretive Data Percent cell count reference ranges are not reported, since discordance with absolute values may lead to misinterpretation of CBC data. Current Interpretive Data was last revised on 2017. Basophil pct 0.8 % [facility] Comment: Interpretive Data Percent cell count reference ranges are not reported, since discordance with absolute values may lead to misinterpretation of CBC data. Current Interpretive Data was last revised on 2017. Blood 12/29/2022 11:0 6 PM CDT 12/29/2022 11:25 PM CDT Reena Faye MD LAB BLOOD ORDERABLES Eliane l Result [facility] Department [place] [address] * Lipase (12/29/2022 11:06 PM CDT) Lipase 40 10 - 99 Units/L [facility] Blood (Blood, Venous) 12/29/2022 11:06 PM CDT 12/29/2022 11:25 PM CDT Reena Faye MD LAB BLOOD ORDERABLES Eliane l Result Performing Organization Address City/[facility]/ZIP Co de Phone Number [facility] Department [place] [address] * (ABNORMAL) Comprehensive metabolic panel (12/29/2022 11:06 PM CDT) [facility] Sodium 142 135 - 145 mmol/L [facility] Potassium, pl 3.7 3.3 - 4.9 mmol/L [facility] Chloride 109 97 - 110 mmol/L [facility] CO2 24 22 - 32 mmol/L [facility] Anion gap 9 2 - 15 mmol/L [facility] BUN 7 6 - 25 mg/dL [facility] Creatinine 0.72 0.60 - 1.10 mg/dL [facility] Glucose 108 70 - 199 mg/dL [facility] Comment: Interpretive Data Fasting glucose >/= 126 mg/dl is diagnostic for diabetes. ?? Fasting is defined as no caloric intake for at least 8 hours. Fasting glucose between 100 mg/dl to 125 mg/dl is diagnostic of prediabetes. In a patient with classic symptoms of hyperglycemia or hyperglycemic crisis, a random glucose >/= 200 mg/dl is diagnostic for diabetes. In the absence of unequivocal hyperglycemia, results should be confirmed by repeat testing. The classification and Diagnosis of Diabetes Diabetes Care 2021; 46: S19-S40. Current interpretive data was last revised 2022. Calcium 8.4(L) 8.5 - 10.3 mg/dL [facility] Bilirubin, total 0.2 0.1 - 1.2 mg/dL [facility] Protein, pl 7.0 6.5 - 8.5 g/dL [facility] Albumin 4.2 3.5 - 5.0 g/dL [facility] Alk phos 49 40 - 130 Units/L [facility] ALT 15 7 - 45 Units/L [facility] AST 21 10 - 45 Units/L [facility] Blood 12/29/2022 11:0 6 PM CDT 12/29/2022 11:25 PM CDT us Reena Faye MD LAB BLOOD ORDERABLES Eliane scanlon Result [facility] Department [place] [address] * (ABNORMAL) CBC with auto differential (12/29/2022 11:06 PM CDT) WBC 7.9 3.8 - 9.9 K/cumm [facility] Hgb 10.9(L) 11.9 - 15.5 g/dL [facility] Hct 31.7(L) 35.6 - 45.5 % [facility] Plt 310 150 - 400 K/cumm [facility] MPV 10.3 9.1 - 12.3 fL [facility] RBC 3.57(L) 3.90 - 5.20 M/cumm [facility] MCV 88.8 81.3 - 96.4 fL [facility] MCH 30.5 27.1 - 33.3 pg [facility] MCHC 34.4 32.3 - 35.7 g/dL [facility] RDW CV 13.0 11.1 - 14.9 % [facility] RDW SD 42.5 35.7 - 48.1 fL [facility] NRBC abs 0.00 0.00 - 0.01 K/cumm [facility] Blood (Blood, Venous) 12/29/2022 11:06 PM CDT 12/29/2022 11:25 PM CDT us Reena Faye MD LAB BLOOD ORDERABLES Eliane l Result [facility] Department [place] [address] documented in this encounter Visit Diagnoses Diagnosis Rectal bleed- Primary Hemorrhage of rectum and anus Anemia, unspecified type documented in this encounter Orders IV Count Last Ordered Date First Orde red Date SALINE LOCK IV 1 12/29/2022 documented in this encounter Care Teams Medicine Tech Relationship Specialty Start Date End Date Rom Vidales MD PCP - General 07/17/15 documented as of this encounter
--- OUTSIDE RECORDS SUMMARY | 2024-06-17 03:39 | XMS_ITS | Referral Summary ---
Author Organization [facility] [address] Address [address] [place] [address] Care Team Providers Care Incinerator Attendant Name Role Phone Rom Vidales MD Primary Care Provider [phone] Allergies Active Allergy Reactions Criticality Noted Date Comments Azithromycin Swelling Medium 08/09/2022 Medications diazePAM (VALIUM) 5 mg tablet Take 1 tablet by mouth nightly 07/27/2022 Active Active Problems Problem Noted Date Diagnosed Date TMJ arthralgia 08/09/2022 Antinuclear antibody (MARTITA) titer greater than 1: 80 03/23/2020 Mass of upper outer quadrant of right breast Rash 07/15/2019 Acne rosacea 05/30/2016 Chronic liver disease 06/13/2013 Headache 05/30/2013 Idiopathic progressive polyneuropathy 05/30/2013 Skin sensation disturbance 05/30/2013 Social History Tobacco Use Types Packs/Day Years Used Date Smoking Tobacco: Former Cigarettes Q uit: 2021 Tobacco Cessation:Counseling Given: Not Answered Alcohol Use Standard Drinks/Week Comments Yes 0 (1 standard drink = 0.6 oz pur e alcohol) socially Personal Safety Answer Date Recorded Getting School Help Needed Not on file 12/30 Comments Unknown Sex and Gender Information Value Date Recorded Sex Assigned at Not on file Legal Sex Female 5:47 AM [employer]MENT [employer]AN Gender Identity Female 08/08/2022 3:56 PM [employer]AN Sexual Orientation Not on file Last Filed [...] Mass Index 24.87 12/29/2022 7:49 PM CDT Plan of Treatment Not on file Insurance Care Teams Incinerator Attendant Relationship Specialty Start Date End Date Rom Vidales MD PCP - General 07/17/15
--- OUTSIDE RECORDS SUMMARY | 2024-06-17 03:39 | XMS_ITS | Encounter Summary ---
Author Organization [facility] Address [address] [place] [address] Care Team Providers Care Author Name Role Phone Rom Vidales MD Primary Care Provider [phone] Reason for Referral * Radiology Services (Routine) - Closed Specialty Diagnoses / Procedures Referred By Contac t Referred To Contact Radiology Diagnoses Rash Procedures MAMMO DIAG BILAT 3D ESTEFANY W OR WO CAD CHG DIAGNOSTIC MAMMOGRAPHY COMPUTER-AIDED DETCJ BI CHG DIGITAL BREAST TOMOSYNTHESIS BILATERAL Kary Fisher MD [address] [place] [address] [address] Referral ID Status Reason Start Date Expiration Date V isits Requested Visits Authorized [id number] Closed [facility] CTS 07/09/2019 08/08/2020 1 1 AND DIE MAKER TECHNICIAN Reason for Visit * Radiology Services (Routine) - Closed Specialty Diagnoses / Procedures Referred By Contac t Referred To Contact Radiology Diagnoses Rash Procedures MAMMO DIAG BILAT 3D ESTEFANY W OR WO CAD CHG DIAGNOSTIC MAMMOGRAPHY COMPUTER-AIDED DETCJ BI CHG DIGITAL BREAST TOMOSYNTHESIS BILATERAL Kary Fisher MD [address] [place] [address] [address] Referral ID Status Reason Start Date Expiration Date V isits Requested Visits Authorized [id number] Closed [facility] CTS 07/09/2019 08/08/2020 1 1 Encounter Details Date Type Department Care Team (Latest Contact Info) Description 07/15/2019 9:30 AM TAP AND DIE MAKER TECHNICIAN - 07/15/2019 11:59 PM TAP AND DIE MAKER TECHNICIAN Hospital Encounter [facility] [address] [facility] [place] [address] Kary Fisher MD [address] [facility] [address] [place] [phone] Discharge Disposition: Home or Self Care Social History Tobacco Use Types Packs/Day Years Used Date Smoking Tobacco: Former Cigarettes 1 08/15/2015 - 06/14/2019 Alcohol Use Standard Drinks/Week Comments Yes 0 (1 standard drink = 0.6 oz pur e alcohol) Sex and Gender Information Value Date Recorded Sex Assigned at Not on file Gender Identity Not on file Sexual Orientation Not on file documented as of this encounter Medications at Time of Discharge Medication Sig Dispensed Refills Start Date End Date ALPRAZolam (XANAX) 0.5 mg tablet Take 0.5 mg by mouth nightly as needed for Anxiety. documented as of this encounter Plan of Treatment Not on file documented as of this encounter Procedures Procedure Name Priority Date/Time Associated Diagnosis Comments MAMMO DIAG BILAT 3D ESTEFANY W OR WO CAD Routine 07/15/2019 9:53 AM TAP AND DIE MAKER TECHNICIAN Rash documented in this encounter Results * MAMMO DIAG BILAT 3D ESTEFANY W OR WO CAD (07/15/2019 9:53 AM TAP AND DIE MAKER TECHNICIAN) Anatomical Region Laterality Modality Breast Bilateral Mammography 07/15/2019 9:53 AM TAP AND DIE MAKER TECHNICIAN Impressions 07/15/2019 10:19 AM TAP AND DIE MAKER TECHNICIAN IMPRESSION: No mammographic evidence of malignancy. RECOMMENDATIONS: Routine mammogram in one year. DICTATION LOCATION: [facility] Narrative 07/15/2019 10:19 AM TAP AND DIE MAKER TECHNICIAN EXAM: BILATERAL DIAGNOSTIC FULL-FIELD DIGITAL MAMMOGRAPHY WITH CAD WITH 3D TOMOSYNTHESIS DATE: 07/15/2019 9:53 AM HISTORY: Breast rash bilaterally. TECHNIQUE: Mediolateral oblique and craniocaudal views of both breasts were performed using full field digital mammography. Low-dose full-field digital breast tomosynthesis examination was performed with 2D and 3D acquisitions. ??Examination is read in conjunction with computer aided detection. COMPARISON: No prior study. BREAST COMPOSITION: Scattered fibroglandular densities. FINDINGS: Bilateral subglandular implants are present. No mass, architectural distortion or suspicious microcalcifications. No skin thickening. OVERALL FINAL ASSESSMENT: ??BI-RADS CATEGORY 1: Negative. Procedure Note Paresh Robles MD - 07/15/2019 EXAM: BILATERAL DIAGNOSTIC FULL-FIELD DIGITAL MAMMOGRAPHY WITH CAD WITH 3D TOMOSYNTHESIS DATE: 07/15/2019 9:53 AM HISTORY: Breast rash bilaterally. TECHNIQUE: Mediolateral oblique and craniocaudal views of both breasts were performed using full field digital mammography. Low-dose full-field digital breast tomosynthesis examination was performed with 2D and 3D acquisitions. Examination is read in conjunction with computer aided detection. COMPARISON: No prior study. BREAST COMPOSITION: Scattered fibroglandular densities. FINDINGS: Bilateral subglandular implants are present. No mass, architectural distortion or suspicious microcalcifications. No skin thickening. OVERALL FINAL ASSESSMENT: BI-RADS CATEGORY 1: Negative. IMPRESSION: No mammographic evidence of malignancy. RECOMMENDATIONS: Routine mammogram in one year. DICTATION LOCATION: [facility] Kary Fisher MD MAMMO ORDERAB LES documented in this encounter Visit Diagnoses Diagnosis Rash Rash and other nonspecific skin eruption documented in this encounter Care Teams Author Relationship Specialty Start Date End Date Rom Vidales MD [facility] [address] PCP - General Family Practice 07/15/19 documented as of this encounter
--- OUTSIDE RECORDS SUMMARY | 2024-06-17 03:39 | XMS_ITS | Encounter Summary ---
Author Organization [facility] Address [address] [place] [address] Care Team Providers Care Hull Drafter Name Role Phone Rom Vidales MD Primary Care Provider [phone] Reason for Referral * MRI (Routine) - Closed Specialty Diagnoses / Procedures Referred By Contac t Referred To Contact Radiology Diagnoses Rash Procedures MRI BREAST W WO CONT BILAT Kary Fisher MD [address] [place] [address] [facility] [address] [address] [place] [address] Referral ID Status Reason Start Date Expiration Date V isits Requested Visits Authorized [id number] Closed [facility] CTS 07/15/2019 10/17/2019 1 1 HNUT BATTER MIXER Reason for Visit * Auth/Cert Specialty Diagnoses / Procedures Referred By Contac t Referred To Contact Radiology [facility] [address] [address] [place] [address] Referral ID Status Reason Start Date Expiration Date Visits Re quested Visits Authorized [id number] 1 1 Encounter Details Date Type Department Care Team (Latest Contact Info) Description 08/22/2019 6:59 AM DOUGHNUT BATTER MIXER - 08/22/2019 11:59 PM DOUGHNUT BATTER MIXER Hospital Encounter [facility] [address] [place] [address] Kary Fisher MD [address] [place] [phone] Discharge Disposition: Home or Self Care Social [...] for Anxiety. documented as of this encounter Progress Notes * Kristin Montana, RT - 08/22/2019 7:00 AM CST IMAGING SERVICES - MRI MEDICATION and FLUSH PROTOCOL [facility] THIS PROTOCOL IS IMPLEMENTED WHEN AN APPROVED PROVIDER ORDERS A MRI SCAN WITH CONTRAST BY PAPER OR ELECTRONIC ORDER. The central aisle cashier will order place an order in [facility] for contrast ???Scope of Practice - no cosign required?? . Enter the protocol in the patient's electronic health record using Picabooe: MRISouthmedflushprotocol Communication Orders: ??? For ordered imaging procedures requiring intravenous access: o Initiate a peripheral IV, if not already in place, and discontinue IV prior to discharge. Medication Orders: ??? Sodium chloride 0.9% (normal saline) flush up to 10 mLs PRN for IV evaluation, saline lock, or medication administration. ??? Sodium chloride 0.9% (normal saline) bolus up to 20-30 mLs PRN for power injection IV evaluation and IV Contrast flush. Procedure Specific Medications: MRI IV CONTRAST PROTOCOLS ADULTS: ??? Gadobenate Dimeglumine (Multihance) injection (0.1mmol/0.2mL), Administer 0.1mmol/kg = 0.2mL/kgup to MAX of 30mL, intravenously, one time only ??? If patient prefers a macrocyclic gadolinium agent, instead of a linear gadolinium agent use: Gadoteridol (Prohance) injection 0.1 mmol/kg (0.2 mL/kg) administered as a rapid intravenous infusion (10mL/min-60 mL/min) or bolus (> 60 mL/min), intravenously, one time only ??? If recommended by Radiologist or Surgeon, administer Eovist (gadoxetate disodium) injection 0.1mL/kg body weight (0.025 mmol/kg body weight). ??? Breeza For Enterography, give patient 900ml Breeza, a flavored beverage. PEDIATRICS: ??? Radiologist to determine need for contrast 2 years and older Gadobenate Dimeglumine (Multihance) injection (0.1mmol/0.2mL), Administer 0.1mmol/kg = 0.2mL/kg up to MAX of 20mL, intravenously, one time only Gadoteridol (Prohance) injection, dose is 0.1 mmol/kg (0.2 mL/kg) administered as a rapid intravenous infusion (10 mL/min-60 mL/min) or bolus (> 60 mL/min) intravenously, one time only Initiating Department(s): Imaging Services - Nuclear Medicine Approved by: Ronal Zayas, Material Processor Services Date: 11/2017 Approved by: Be Roe MD, Hot Stick Man Date: 11/2017 Approved by: P&T Committee Date: 12/2017 Approved by: Medical Executive Committee Date: 01/2018 HNUT BATTER MIXER documented in this encounter Plan of Treatment Not on file documented as of this encounter Procedures Procedure Name Priority Date/Time Associated Diagnosis Comments MRI BREAST DIAGNOSTIC WWO CONTRAST BILATERAL Routine 08/22/2019 8:43 AM DOUGHNUT BATTER MIXER Rash documented in this encounter Results * MRI BREAST W WO CONT BILAT (08/22/2019 8:43 AM DOUGHNUT BATTER MIXER) Anatomical Region Laterality Modality Breast Bilateral Magnetic Resonan ce 08/22/2019 8:54 AM DOUGHNUT BATTER MIXER Impressions 08/22/2019 4:56 PM DOUGHNUT BATTER MIXER IMPRESSION: 1. No MRI evidence of malignancy. 2. Intact bilateral subglandular silicone implants. RECOMMENDATIONS: ??Routine mammographic follow-up. DICTATION LOCATION: [facility] Narrative 08/22/2019 4:56 PM DOUGHNUT BATTER MIXER BILATERAL BREAST MRI WITHOUT AND WITH ??IV CONTRAST WITH CAD DATE: 08/22/2019 8:43 AM HISTORY: ?? Persistent rash on the right breast and palpable lump. History of silicone implants. Evaluate for silent rupture or occult malignancy. Contrast administered: 10 mL of MultiHance. COMPARISON: ??Diagnostic mammogram performed 07/15/2019. TECHNIQUE: MRI examination of the breasts is performed in routine pulsing sequences, initially without contrast. Contrast was then administered with dynamic axial imaging of the breasts using vibrant technique. The images were interpreted with the assistance of Confirma CADPipette software. BREAST COMPOSITION: ??Scattered fibroglandular densities BACKGROUND ENHANCEMENT: ??Moderate. FINDINGS: ??There are bilateral subglandular silicone implants. There are folds in the implants but no evidence of rupture. There is no extracapsular silicone. There is no morphologically suspicious mass or evidence of abnormal enhancement to suggest malignancy. There are morphologically normal axillary lymph nodes bilaterally. OVERALL FINAL ASSESSMENT: ??BI-RADS CATEGORY 1 : Negative Procedure Note Bunny Worthington MD - 08/22/2019 BILATERAL BREAST MRI WITHOUT AND WITH IV CONTRAST WITH CAD DATE: 08/22/2019 8:43 AM HISTORY: Persistent rash on the right breast and palpable lump. History of silicone implants. Evaluate for silent rupture or occult malignancy. Contrast administered: 10 mL of MultiHance. COMPARISON: Diagnostic mammogram performed 07/15/2019. TECHNIQUE: MRI examination of the breasts is performed in routine pulsing sequences, initially without contrast. Contrast was then administered with dynamic axial imaging of the breasts using vibrant technique. The images were interpreted with the assistance of Baitians[employer]ia CADStream software. BREAST COMPOSITION: Scattered fibroglandular densities BACKGROUND ENHANCEMENT: Moderate. FINDINGS: There are bilateral subglandular silicone implants. There are folds in the implants but no evidence of rupture. There is no extracapsular silicone. There is no morphologically suspicious mass or evidence of abnormal enhancement to suggest malignancy. There are morphologically normal axillary lymph nodes bilaterally. OVERALL FINAL ASSESSMENT: BI-RADS CATEGORY 1 : Negative IMPRESSION: 1. No MRI evidence of malignancy. 2. Intact bilateral subglandular silicone implants. RECOMMENDATIONS: Routine mammographic follow-up. DICTATION LOCATION: [facility] Kary Fisher MD MR ORDERABLES documented in this encounter Visit Diagnoses Diagnosis Rash Rash and other nonspecific skin eruption documented in this encounter Administered Medications Inactive Administered Medications - up to 3 most recent administrations Medication Order MAR Action Action Date Dose Rate Site gadobenate dimeglumine (MULTIHANCE) 529 mg/mL (0.1mmol/0.2mL) injection 10 mL 10 mL, IV, INTRA-PROCEDURE ONCE, 1 dose, Starting on Ginette 08/22/19 at 0821, Until Ginette 08/22/19 at 0822, Routine Contrast Given 08/22/2019 8:22 AM DOUGHNUT BATTER MIXER 10 mL documented in this encounter Care Teams Hull Drafter Relationship Specialty Start Date End Date Rom Vidales MD [address] [place] [phone] PCP - General Family Practice 07/15/19 documented as of this encounter
--- OUTSIDE RECORDS SUMMARY | 2024-06-17 03:39 | XMS_ITS | Encounter Summary ---
Author Organization [facility] Address [address] [place] [address] Phone Care Team Providers Care Superintendent Operating Name Role Phone Rom Vidales MD Primary Care Provider Reason for Visit * Reason Comments Earache Tinnitus Ear Fullness Right ear Encounter Details Date Type Department Care Team (Late st Contact Info) Description 08/09/2022 11:00 AM RN ED Office Visit [facility] Otolaryngology [address] [place] [phone] Hardik Joaquin II, MD [address] [place] [phone] TMJ arthralgia (Primary Dx); Neck pain Social History Tobacco Use Types Packs/Day Years Used Date Smoking Tobacco: Former Cigarettes Q uit: 2021 Tobacco Cessation:Counseling Given: Not Answered Alcohol Use Standard Drinks/Week Comments No 0 (1 standard drink = 0.6 oz pur e alcohol) Comments Unknown Sex and Gender Information Value Date Recorded Sex Assigned at Not on file Legal Sex Female 5:47 AM RN ED Gender Identity Female 08/08/2022 3:56 PM RN ED Sexual Orientation Not on file documented as of this encounter Last Filed Vital Signs Vital Sign Reading Time Taken Comments Blood Pressure - - Pulse - - Temperature - - Respiratory Rate 18 08/09/2022 10:48 AM RN ED Oxygen Saturation - - Inhaled Oxygen Concentration - - Weight 63.5 kg (140 lb) 08/09/2022 10:48 AM RN ED Height 157.5 cm (5' 2 ) 08/09/2022 10:48 AM RN ED Body Mass Index 25.61 08/09/2022 10:48 AM RN ED documented in this encounter Progress Notes * Hardik Joaquin II, MD - 08/09/2022 11:00 AM CST Hali Samuels was seen in the office today. Primary care provider is Rom Vidales MD . Chief Complaint: Hali Samuels is a 41 y.o. female with complaints of ear and neck pain. HPI: She comes to clinic today for evaluation of right ear and neck pain. Patient states for roughly 5 months she is had pain in and around the right ear and below the ear. The pain will run into herupper neck and down behind the jaw line on the right. Her neck itself does not hurt with movement but the pain is sometimes shooting or stabbing in nature. It is intermittent. She also hears a crackling sound in her ear on the right especially when she moves her jaw. There has not been any recent trauma. Hearing seems to be unchanged. She denies vertigo Past Medical/Surgical History Past Medical History: Diagnosis Date Anxiety Past Surgical History: Procedure Laterality Date COMBINED AUGMENTATION MAMMAPLASTY AND ABDOMINOPLASTY Bilateral 2008 TUBAL LIGATION 2011 Past Family/Social History Family History Problem Relation Age of Onset Other Father Alive and well; Other Mother Alive and well; Other Brother Alive and well; Social History Tobacco Use Smoking status: Former Types: Cigarettes Quit date: 2021 Years since quittin.1 Smokeless tobacco: None Substance and Sexual Activity Drug use: Never Sexual activity: None Alcohol Use: Not on file Medications/Allergies/Immunizations Current Outpatient Medications Medication Sig Dispense Refill diazePAM (VALIUM) 5 mg tablet Take 1 tablet by mouth nightly No current facility-administered medications for this visit. Allergies: Zithromax [azithromycin], Immunizations: There is no immunization history on file for this patient. Review of Systems The 12 point review of systems filled out by the patient on their history form was reviewed today, and will be scanned into the encounter. Vital Signs: Vitals Resp 18 Ht 157.5 cm (5' 2 ) Wt 63.5 kg (140 lb) BMI 25.61 kg/m?? PHYSICAL EXAMINATION: GENERAL: Well-developed, well-nourished. Answers questions appropriately. NEURO/PSYCH: Affect is normal. Alert and oriented. Cranial Nerves: Cranial nerves III-VII and IX-XII are intact and symmetric. HEAD/FACE: Normocephalic; atraumatic. No facial skin lesions. Facial strength is 5/5 and the face is symmetric. EARS : External ears have no skin lesions. Auricles are regularly set on the head. Hearing is grossly intact. Right - EAC patent. TM intact without scarring or perforation. Middle ear aerated without serous effusion or middle ear process. Left - EAC patent. TM intact without scarring or perforation. Middle ear aerated without serous effusion or middle ear process. NOSE: External nose has no skin lesions. Nasal dorsum is essentialy midline. Nasal septum is midline. Inferior turbinates are mildly hypertrophied. Middle turbinates are normal size. Drainage seen oneach side of the nose is normal and clear.No mucosal lesions or polyps are seen on either side. ORAL CAVITY/ OROPHARYNX: Skin of the lips is without lesions. Normal oral vestibule. Oral mucosa ismoist without lesions. Tongue and floor of mouth are without lesions or masses. Palate has no lesions and elevates symmetrically. Tonsils are 2+. Oropharynx is clear without erythema or exudate. NECK: Trachea is midline. Thyroid is normal in size with no apparent nodules. Neck with good range of motion. Salivary Glands: The submandibular glands are non-tender without masses. The parotid glands are non-tender without edema or masses. There is clear saliva flow from Stensen's and Cullman's ducts bilaterally. LYMPHATIC: No cervical lymphadenopathy. MUSCULOSKELATAL: Ambulates without difficulty. TMJ is without pain to palpation or trismus but there is some grinding sensation on the right with mouth opening. RESPIRATORY: Breathing comfortably without audible wheeze or stridor. PROCEDURE: None No orders of the defined types were placed in this encounter. No orders of the defined types were placed in this encounter. ASSESSMENT & PLAN Problem List Items Addressed This Visit ENT TMJ arthralgia - Primary Musculoskeletal and Injuries Neck pain Patient with right ear and neck pain of uncertain etiology. She does seem to have some grinding of the right TMJ and I think this may be the source for her discomfort sensor ear looks very good. Audiologic testing was performed showing normal hearing and normal tympanograms. The patient was counseled on conservative measures to treat TMJ problems. This includes low he to the area, soft diet, and the use of nonsteroidal anti-inflammatory medicines. We discussed that if these conservative measures are not effective the patient is to consult their dentist or oral surgeon for further evaluation. She is also going to discuss with her primary care physician since MRI of the TMJ could be performed by them to evaluate this further. Medical records from the primary care physician and/or the referring physician were personally reviewed for today's visit. Patient is at moderate level medical decision making. She has 2 chronic problems of ear and neck pain with uncertain prognosis. This required ordering 2 separate audiologic test. I reviewed outside records. We discussed management of TMJ. This note was generated with voice recognition software and small grammatical errors may be encountered. Hardik Joaquin II, M.D. ED documented in this encounter Plan of Treatment Not on file documented as of this encounter Visit Diagnoses Diagnosis TMJ arthralgia- Primary Arthralgia of temporomandibular joint Neck pain Cervicalgia documented in this encounter Historical Medications * This list may reflect changes made after this encounter. diazePAM (VALIUM) 5 mg tablet Take 1 tablet by mouth nightly 07/27/2022 added in this encounter Care Teams Superintendent Operating Relationship Specialty Start Date End Date Rom Vidales MD PCP - General 07/17/15 documented as of this encounter
--- OUTSIDE RECORDS SUMMARY | 2024-06-17 03:39 | XMS_ITS | Encounter Summary ---
Author Organization [facility] Address [address] [place] [address] Phone Care Team Providers Care High Lift Driver Name Role Phone Rom Vidales MD Primary Care Provider [phone] Encounter Details Date Type Department Care Team (Late st Contact Info) Description 08/09/2022 10:30 AM DIESEL ENGINE MECHANIC APPRENTICE Procedure visit [facility] Otolaryngology [address] [place] [phone] Bre Carter Right ear pain (Primary Dx); Tinnitus of both ears Social History Tobacco Use Types Packs/Day Years Used Date Smoking Tobacco: Former Cigarettes Q uit: 2021 Alcohol Use Standard Drinks/Week Comments No 0 (1 standard drink = 0.6 oz pur e alcohol) Comments Unknown Sex and Gender Information Value Date Recorded Sex Assigned at Not on file Legal Sex Female 5:47 AM DIESEL ENGINE MECHANIC APPRENTICE Gender Identity Female 08/08/2022 3:56 PM DIESEL ENGINE MECHANIC APPRENTICE Sexual Orientation Not on file documented as of this encounter Procedure Notes * Bre Zaragoza - 08/09/2022 10:30 AM CST Procedures Audiologic Evaluation Referring physician: Patient referred by Dr. Hardik Joaquin History: Patient reported intermittent aural pain in her right ear that affects her jaw and extendsdown into her neck. She reported sensation of fluid in the right ear at time and this can cause muffled hearing. She also reported presence of intermittent ringing tinnitus in both ears. She denied presence of dizziness at this time. Patient reported that she flies often. Family History of Hearing loss: Not significant. Otoscopy: Ear canals clear of cerumen bilaterally. Tympanometry: Right:Type A tymp and is consistent with normal middle ear function. Left: Type A tymp and is consistent with normal middle ear function. Audiometry: Pure tone testing revealed normal hearing sensitivity, bilaterally. Word Recognition Score (WRS) in the right ear is 100%, WRS in the left ear is 100%. Counseling: Patient was counseled on audiogram results. Recommendations: -Patient will follow-up with Dr. Hardik Joaquin for test results and recommendations. -Repeat testing per Doctor request. EL ENGINE MECHANIC APPRENTICE documented in this encounter Plan of Treatment Not on file documented as of this encounter Visit Diagnoses Diagnosis Right ear pain- Primary Unspecified otalgia Tinnitus of both ears Unspecified tinnitus documented in this encounter Care Teams High Lift Driver Relationship Specialty Start Date End Date Rom Vidales MD PCP - General 07/17/15 documented as of this encounter
--- OUTSIDE RECORDS SUMMARY | 2024-06-17 03:39 | XMS_ITS | Clinical Summary ---
Author Organization [facility] Address [address] [place] [address] Care Team Providers Care Public Information Officer Name Role Phone Rom Vidales MD Primary Care Provider [phone] Allergies No known active allergies Medications Medication Sig Dispensed Refills Start Date End Date Status ALPRAZolam (XANAX) 0.5 mg tablet Take 0.5 mg by mouth nightly as needed for Anxiety. Active Active Problems Problem Noted Date Diagnosed Date Rash 07/15/2019 Mass of upper outer quadrant of right breast Family History Medical History Relation Name Comments Healthy Daughter x4 Heart Disease Maternal Grandfather Throat Cancer Paternal Grandfather esopha geal Breast Cancer Paternal Grandmother Colon Cancer Paternal Grandmother Healthy Son x2 Lung Cancer Neg Hx Ovarian Cancer Neg Hx Relation Name Status Comments Daughter x4 Alive Father Alive Maternal Grandfather Maternal Grandmother Mother Alive Paternal Grandfather Paternal Grandmother Alive Son x2 Alive Social History Tobacco Use Types Packs/Day Years [...] Sign Reading Time Taken Comments Blood Pressure 122/86 07/15/2019 10:50 AM MANAGER MARITIME Pulse - - Temperature 36.8 ??C (98.2 ??F) 07/15/2019 10:[address] Respiratory Rate - - Oxygen Saturation - - Inhaled Oxygen Concentration - - Weight 58 kg (127 lb 12.8 oz) 07/15/2019 10:50 A M MANAGER MARITIME Height 167.6 cm (5' 6 ) 07/15/2019 10:50 AM MANAGER MARITIME Body Mass Index 20.63 07/15/2019 10:50 AM MANAGER MARITIME Plan of Treatment Health Maintenance Due Date Last Done Comments DTAP/TDAP/TD VACCINES (1 - Tdap) 09/03/1999 HEPATITIS B VACCINES (1 of 3 - 19+ 3-dose series) 09/03/1999 CERVICAL CANCER SCREENING 2010 BREAST CANCER SCREENING 2020 07/15/2019 INFLUENZA VACCINE (#1) 2024 HPV VACCINES Aged Out No longer eligi ble based on patient's age to complete this topic PNEUMOCOCCAL VACCINE 0-64 YEARS Aged Out No longer eligible based on patient's age to complete this topic Procedures Procedure Name Priority Date/Time Associated Diagnosis Comments MAMMO DIAG BILAT 3D ESTEFANY W OR WO CAD Routine 07/15/2019 9:53 AM MANAGER MARITIME Rash from Last 3 Months or Most Recently Relevant to Health Maintenance Results * MAMMO DIAG BILAT 3D ESTEFANY W OR WO CAD (07/15/2019 9:53 AM MANAGER MARITIME) Anatomical Region Laterality Modality Breast Bilateral Mammography 07/15/2019 9:53 AM MANAGER MARITIME Impressions 07/15/2019 10:19 AM MANAGER [facility]ITIME IMPRESSION: No mammographic evidence of malignancy. RECOMMENDATIONS: Routine mammogram in one year. DICTATION LOCATION: [facility] 07/15/2019 10:19 AM MANAGER MARITIME EXAM: BILATERAL DIAGNOSTIC FULL-FIELD DIGITAL MAMMOGRAPHY WITH [...] Routine mammogram in one year. DICTATION LOCATION: [facility] Kary Fisher MD MAMMO ORDERAB LES from Last 3 Months or Most Recently Relevant to Health Maintenance Care Teams Public Information Officer Relationship Specialty Start Date End Date Rom Vidales MD [address] [place] [phone] PCP - General Family Practice 07/15/19
--- OUTSIDE RECORDS SUMMARY | 2024-06-17 03:39 | XMS_ITS | Encounter Summary ---
Author Organization [facility] Address [address] [facility] Attn: Epic Prelude ADT SIVAKUMAR FERRIS [address] Care Team Providers Care Trail Construction Worker Name Role Phone Rom Vidales MD Primary Care Provider [phone] Encounter Details Date Type Department Care Team (Latest Contact Info) Description 08/22/2019 Travel Social History Tobacco Use Types Packs/Day [...] on filedocumented in this encounter Care Teams Trail Construction Worker Relationship Specialty Start Date End Date Rom Vidales MD [address] [place] [phone] PCP - General Family Practice 07/15/19 documented as of this encounter
--- OUTSIDE RECORDS SUMMARY | 2024-06-17 03:39 | XMS_ITS | Encounter Summary ---
Author Organization [facility] Address [address] [place] [address] Care Team Providers Care Mortgage Analyst Name Role Phone Rom Vidales MD Primary Care Provider Encounter Details Date Type Department Care Team (Late st Contact Info) Description 07/31/2019 Abstract [facility] [place] [address] [place] [address] Kary Fisher MD [address] [facility] [address] [place] [id number] Social History Tobacco Use Types Packs/Day Years [...] on filedocumented in this encounter Care Teams Mortgage Analyst Relationship Specialty Start Date End Date Rom Vidales MD [facility] [place] [phone] PCP - General Family Practice 07/15/19 documented as of this encounter
--- OUTSIDE RECORDS SUMMARY | 2024-06-17 03:39 | XMS_ITS | Clinical Summary ---
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 Skin sensation disturbance 05/30/2013 Surgical History Surgery Date Site/Laterality Comments COMBINED AUGMENTATION MAMMAP LASTY AND ABDOMINOPLASTY 06/19/2007 - 06/18/2008 Bilateral TUBAL LIGATION 06/19/2011 - 06/18/2012 Medical History Medical History Date Comments Anxiety Lupus Family History Medical History Relation Name Comments Other Brother 2 Alive and well; Other Father 2 Alive and well; Other Mother 2 Alive and well; Relation Name Status Comments Brother 1 Alive Brother 2 Father 1 Alive Father 2 Mother 1 Alive Mother 2 Social History Tobacco Use Types Packs/Day Years [...] on file Legal Sex Female 5:47 AM NATURAL G[employer] SHOTHO[employer] DRILLER Gender Identity Female 08/08/2022 3:56 PM NATURAL GAS SHOTHOLE DRILLER Sexual Orientation Not on file Obstetrics History Last Filed Vital Signs Vital Sign Reading [...] 12/29/2022 7:49 PM CDT Plan of Treatment Health Maintenance Due Date Last Done Comments Breast Cancer Screening-Mammogram 1980 Cervical Cancer Screening 1980 Depression Screening 1980 Hepatitis C Screening 1980 Pneumococcal vaccine <65 (1 of 2 - PCV) 1986 DTaP/Tdap/Td Vaccine (1 - Tdap) 09/03/1991 Varicella Vaccines (1 of 2 - 13+ 2-dose series) 1993 Hepatitis B Screening 1998 Regular Well Visit/Exam 18-64 1998 Influenza Vaccine (#1) 2024 HPV Vaccines Aged Out No longer eligi ble based on patient's age to complete this topic Insurance [facility] CMR Care Teams Information Assurance Specialist Relationship Specialty Start Date End Date Rom Vidales MD PCP - General 07/17/15
--- OUTSIDE RECORDS SUMMARY | 2024-06-17 03:40 | XMS_ITS | Continuity of Care Document ---
Author Organization [facility] Address [address] [place] [address] Phone Care Team Providers Care Skin Care Consultant Name Role Phone Rom Vidales MD Unavailable Unavailable Allergies, Adverse Reactions, Alerts Substance Reaction Status Criticality No Known Allergies Active No Inform ation Procedures Procedure Date OFFICE/OUTPATIENT VISIT, EST OFFICE/OUTPATIENT VISIT, EST OFFICE/OUTPATIENT VISIT, EST OFFICE/OUTPATIENT VISIT, EST OFFICE/OUTPATIENT VISIT, EST OFFICE/OUTPATIENT VISIT, EST OFFICE/OUTPATIENT VISIT, EST OFFICE/OUTPATIENT VISIT, EST PREV VISIT, EST, AGE 40-64 OFFICE/OUTPATIENT VISIT, EST OFFICE/OUTPATIENT VISIT, EST OFFICE/OUTPATIENT VISIT, EST OFFICE/OUTPATIENT VISIT, EST OFFICE/OUTPATIENT VISIT, EST PREV VISIT, EST, AGE 18-39 OFFICE/OUTPATIENT VISIT, EST OFFICE/OUTPATIENT VISIT, EST OFFICE/OUTPATIENT VISIT, EST PREV VISIT, EST, AGE 18-39 OFFICE/OUTPATIENT VISIT, EST PREV VISIT, EST, AGE 18-39 OFFICE/OUTPATIENT VISIT, EST OFFICE/OUTPATIENT VISIT, NEW Advance Directives Directive Yes / No Effective Date File Name No Information Encounters Encounter Description Practice Location Reason(s) For Visit Diagnoses Date Provider Providers Copied on Encounter OFFICE/OUTPA TIENT VISIT, [facility], [address], [place], [address], tel:[phone] [facility] leg pain1 (chief complaint) iron1 (chief complaint) colon polyp1 (chief complaint) Polyp of colonIron deficiencyIliotibia l band syndrome, right leg May- 4 Flash Cueto. [address], [place], [address]. tel:[phone] OFFICE/OUTPA TIENT VISIT, [facility], [address], [place], [address], [place] tel:[phone] [facility] colon polyp1 (chief complaint) iron (chief complaint) heavy period1 (chief complaint) Polyp of colonIron deficiencyMenorrhag ia Feb-0 4 Vidales Rom. [address], [place], [address]. tel:[phone] [facility], [address], [place], [address], [place] tel:[phone] [facility] No Information 3 Vidales Rom. [address], [place], [address]. tel:[phone] OFFICE/OUTPA TIENT VISIT, [facility], [address], [place], [address], [place] tel:[phone] [facility] HLP (chief complaint) fatigue1 (chief complaint) stomach1 (chief complaint) ADD (chief complaint) hernia1 (chief complaint) Irritable bowel syndrome with diarrheaIron deficiencyMixed hyperlipidemiaAtten tion deficitUmbilical herniaIrregular period 3 Vidales Rom. [address], [place], [address]. tel:[phone] OFFICE/OUTPA TIENT VISIT, [facility], [address], [place], [address], [place] tel:[phone] [facility] breast implant1 (chief complaint) fatigue1 (chief complaint) period1 (chief complaint) FatigueAttention deficitDeformity of reconstructed breastIrregular period 3 Flash Cueto. [address], [place], [address]. tel:[phone] OFFICE/OUTPA TIENT VISIT, [facility], [address], [place], [address], [place] tel:[phone] [facility] jaw pain1 (chief complaint) Atypical facial painGeneralized Anxiety Disorder 3 Flash Lawrence [address], [place], [address]. tel:[phone] OFFICE/OUTPA TIENT VISIT, [facility], [address], [place], [address], [place] tel:[phone] [facility] sick1 (chief complaint) palpitatio n1 (chief complaint) PalpitationsOtalgia , right ear 3 Flash Lawrence [address], [place], [address]. tel: [phone] OFFICE/OUTPA TIENT VISIT, [facility], [address], [place], [address], [place] tel:[phone] [facility] cough1 (chief complaint) palpitatio n1 (chief complaint) Acute bronchitisPalpitati ons 1 Flash Lawrence [address], [place], [address]. tel:[phone] Referring Provider: Jenniffer [address], [place], [address]. tel:[phone] OFFICE/OUTPA TIENT VISIT, [facility], [address], [place], [address], [place] tel:[phone] [facility] palpitatio n1 (chief complaint) Palpitations 1 Flash Lawrence [address], [place], [address]. tel:[phone] Referring Provider: Jenniffer [address], [place], [address]. tel:[phone] PREV VISIT, EST, AGE 40-64 [facility], [address], [place], [place], [facility], tel:[phone] [facility] physical (chief complaint) Encounter for general adult medical exam w abnormal findingsPalpitation sUmbilical herniaRaised antibody titerFamily history of other endocrine disease 1 Flash Cueto. [address], [place], [place], [facility]. tel:[phone] Referring Provider: Jenniffer Hughes [address] [facility], [place], [facility]. tel:[phone] OFFICE/OUTPA TIENT VISIT, [facility], [address], [place], [address], [place] tel:[phone] [facility] umbilical (chief complaint) MARTITA (chief complaint) contact dermatitis 1 (chief complaint) Allergic contact dermatitis due to plants, except foodRaised antibody titerUmbilical hernia Feb- 0 Flash Cueto. [address], [place], [address]. tel:[phone] Referring Provider: Jenniffer [address], [place], [address]. tel:[phone] OFFICE/OUTPA TIENT VISIT, [facility], [address], [place], [address], [place] tel:[phone] [facility] fever1 (chief complaint) MARTITA (chief complaint) itching1 (chief complaint) Viral infectionRaised antibody titerItch 0 Flash Cueto. [address], [place], [address]. tel:[phone] Referring Provider: Jenniffer [address], [place], [address]. tel:[phone] OFFICE/OUTPA TIENT VISIT, [facility], [address], [place], [address], [place] tel:[phone] [facility] itching (chief complaint) ItchScabies 0 0 Flash Cueto. [address], [place], [address]. [phone] Referring Provider: Jenniffer Hughes [address], [place], [address]. tel:[phone] OFFICE/OUTPA TIENT VISIT, EST [facility], [address], [place], [address], [place] tel:[phone] [facility] rash1 (chief complaint) AN (chief complaint) UTI1 (chief complaint) Raised antibody titerRashUrinary tract infectionBreast implant status 0 Flash Cueto. [address], [place], [address]. [phone] Referring Provider: Jenniffer Hughes [address], [place], [address]. tel:[phone] PREV VISIT, EST, AGE 18-39 [facility], [address], [place], [address], [place] tel:[phone] [facility] PHysical (chief complaint) Encounter for general adult medical exam w abnormal findingsParesthesia of skinRaised antibody titerBreast implant statusRash 0 Flash Cueto. [address], [place], [address]. [phone] Referring Provider: Jenniffer Hughes [address], [place], [address]. tel:[phone] OFFICE/OUTPA TIENT VISIT, EST [facility], [address], [place], [address], [place] tel:[phone] [facility] UTI1 (chief complaint) anxiety1 (chief complaint) Urinary tract infectionGeneralize d anxiety disorder 9 Flash Cueto. [address], [place], [address]. tel:[phone] Referring Provider: Jenniffer Hughes [address], [place], [address]. tel:[phone] OFFICE/OUTPA TIENT VISIT, EST [facility], [address], [place], [address], [place] tel:[phone] [facility] sick (chief complaint) anxiety1 (chief complaint) ANa1 (chief complaint) Acute upper respiratory infection, unspecifiedGenerali zed anxiety disorderLupus erythematosus 7 Flash Cueto. [address], [place], [address]. tel:[phone] Referring Provider: Jenniffer Hughes [address], [place], [address]. tel:[phone] PREV VISIT, EST, AGE 18-39 [facility], [address], [place], [address], [place] tel:[phone] [facility] Physical (chief complaint) Encntr for general adult medical exam w/o abnormal findings 6 Flash Cueto. [address], [place], [address]. tel:[phone] Referring Provider: Jenniffer Hughes [address], [place], [address]. tel:[phone] OFFICE/OUTPA TIENT VISIT, EST [facility], [address], [place], [address], [place] tel:[phone] [facility] lupus1 (chief complaint) anxiety1 (chief complaint) palpitatio n1 (chief complaint) PalpitationsGeneral ized anxiety disorderLupus erythematosus 6 Flash Cueto. [address], [place], [address]. tel:[phone] Referring Provider: Jenniffer Hughes [address], [place], [address]. tel:[phone] PREV VISIT, EST, AGE 18-39 [facility], [address], [place], [address], [place] tel:[phone] [facility] PHysical1 (chief complaint) Encntr for general adult medical exam w/o abnormal findings 5 Flash Cueto. [address], [place], [address]. tel:[phone] Referring Provider: Rom Vidales, [address] [facility], [place], [place], [facility]. tel:[phone] OFFICE/OUTPA TIENT VISIT, [facility], [address], [place], [facility], tel:[phone] [facility] neck pain (chief complaint) Lupus erythematosusDistur bance of skin sensationIdiopathic progressive polyneuropathyUnspe cified chronic liver disease without mention of alcohol 3 Flash Cueto. [address], [place], [address]. tel:[phone] Referring Provider: Rom Vidales [address] [facility], [place], [place], [facility]. tel:[phone] OFFICE/OUTPA TIENT VISIT, [facility], [address], [facility], [place] tel:[phone] [facility] wrist and hand pain (chief complaint) Disturbance of skin sensationIdiopathic progressive polyneuropathyHeada city hospital 3 Flash Cueto. [address] [facility], [place], [place], [facility]. tel:[phone] Family History Family Member Type Diagnosis Age At Onset Brother Problem (finding) Alive and well Father Problem (finding) hydrocephalus Mother Problem (finding) thyroid disease Payers Payer name Insurance type Covered alliance party ID Authoriza tion(s) No Information Social History Type Description Quantity Date Captured Comments Alcohol Use Details Caffeine Use Details Unknown Tobacco Use Status Never smoked tobacco 2023 Smoking Status Never smoker Sex Female Vital Signs Date / Time: Height Weight BMI Pulse Rate Blood Pressure Temperature Respiratory Rate Body Surface Area Head Circumference BMI percentile Pulse Ox Inhaled Ox 10:21 AM 62.00 in 136.60 lbs 24.9 8 kg/m eter (2) 78 /min 116/77 mm[Hg] 98.7 F 16 /min Chief Complaint And Reason For Visit From encounter dated '05/24/2024 10:20'. leg pain1 (chief complaint). Description: Pt c/o persistent pain from right hip area which is dull with radiation down to outer part of right thigh x 2-3 months. Pt denies any numbness or burning Pt denies any low back pain. Pt also has right knee pain x 3 months Pt notices achy pain behind right knee radiating down to right calf area. Pt denies any foot pain Pt denies any edema Pt is not sure ifthe right hip pain and knee pain is related. Pt denies any sciatica or any loss of bowel or bladdercontrol or saddle area paresthesia. Pt denies any neuropath symptoms. Pt denies any leg weakness Ptdenies any injury. Pt denies any recent travel iron1 (chief complaint). Description: Pt has iron deficiency s/p iron infusion. her iron is borderline high Pt just saw hematology recently as well. colon polyp1 (chief complaint). Description: Pt has large tubular adenoma last year and she has appwith GI for repeat colonoscopy in two weeks. Pt denies any GI issue Plan Of Treatment Date Type Action Status Referral Ordered: BIRDIE PA -[facility] : Orthopaedic Surgery (related to Iliotibial band syndrome, right leg) ordered Referral Ordered: US VENOUS DOPPLER ordered Referral Referred To: BIRDIE PA [facility] [place], [place], [phone] Ordered: Referrals: [facility] : Orthopaedic Surgery. BIRDIE PA. Evaluate and treat ordered Referral Ordered: Hematology (related to Iron deficiency) ordered Referral Ordered: COLONOSCOPY AND BIOPSY ordered Referral Ordered: Referrals: Hematology. Evaluate and treat ordered Referral Ordered: Savanna Morales -[facility] : Surgery (related to Deformity of reconstructed breast) ordered Referral Referred To: Savanna Morales [id number] [place], [place], [phone] Ordered: Referrals: [facility] : Surgery. Savanna Morales. Evaluate and treat ordered Referral Ordered: Cardiology (related to Palpitations) ordered Referral Ordered: ECG MONITOR/RECORD, 24 HRS ordered Referral Ordered: MAMMOGRAM, SCREENING ordered Referral Ordered: Surgery (related to Umbilical hernia) ordered Referral Ordered: Referrals: Surgery. Evaluate and treat ordered Referral Ordered: Rheumatology (related to Raised antibody titer) ordered Referral Ordered: SENSE NERVE CONDUCTION TEST ordered Referral Ordered: Debbie Vargas (related to Lupus erythematosus) ordered Referral Referred To: Debbie Vargas [address] [place], [address] [phone] Ordered: Referrals: Debbie Vargas. Evaluate and treat ordered Referral Ordered: Cardiology (related to Palpitations) ordered Referral Ordered: Cardiology (related to Palpitations) ordered Referral Ordered: Rheumatology (related to Lupus erythematosus) ordered Referral Ordered: DOPPLER ECHO EXAM, HEART ordered Referral Ordered: Referrals: Rheumatology. Evaluate and treat ordered Referral Ordered: CHEST X-RAY PA/LAT TWO-VIEWS ordered Referral Ordered: Referrals: Cardiology. Evaluate and treat ordered Referral Ordered: Dermatology (related to Encntr for general adult medical exam w/o abnormal findings) ordered Referral Ordered: Referrals: Dermatology. Evaluate and treat ordered Referral Ordered: Rheumatology (related to Lupus erythematosus) ordered Referral Ordered: MRI NECK SPINE W/O DYE ordered Referral Ordered: Referral: Rheumatology. ordered Referral Ordered: MOTOR NERVE CONDUCTION TEST ordered Referral Ordered: MRI BRAIN W/O & W/DYE ordered History Of Present Illness Encounter Date Complaint History Of Prese nt Illness iron1 Pt has iron defi ciency s/p iron infusion. her iron is borderline high Pt just saw hematology recently as well. leg pain1 Pt c/o persisten t pain from right hip area which is dull with radiation down to outer part of right thigh x 2-3 months. Pt denies any numbness or burning Pt denies any low back pain. Pt also has right knee pain x 3 months Pt notices achy pain behind right knee radiating down to right calf area. Pt denies any foot pain Pt denies any edema Pt is not sure if the right hip pain and knee pain is related. Pt denies any sciatica or any loss of bowel or bladder control or saddle area paresthesia. Pt denies any neuropath symptoms. Pt denies any leg weakness Pt denies any injury. Pt denies any recent travel colon polyp1 Pt has large tub ular adenoma last year and she has elo with GI for repeat colonoscopy in two weeks. Pt denies any GI issue colon polyp1 Pt has large tub ular adenoma last year and she supposes to repeat colonoscopy now Pt denies any GI bleeding. heavy period1 Pt has heavy per iod. Pt is seeing [facility] and she is considering uterine ablation pt denies missing period. iron Pt has low iron Pt is seeing hematology and she has been getting iron infusion and last infusion was 10 months ago Pt had lab done by hematology 5 years ago and was told ferritin normal but treading down Pt notices more fatigue recently Pt denies any visible bleeding. Pt denies any sob stomach1 Pt states that s he has non-bloody diarrhea every time she eats, regardless of any type of food Pt denies any abd pain Pt feels bloated all the time Pt has mild heartburn sometimes. Pt denies any abd pain postprandial pain Pt denies any weight loss. Pt denies any loss of appetite Pt does c/o early satiety HLP Pt has mild high TG fatigue1 Pt has chronic f atigue Pt denies any sob or dizziness Pt denies any heavy period. Pt has low ferritin and her iron is borderline high. Pt denies any snoring ADD Pt has ADD, inat tentive type Pt has difficulty with focus and concentration. Pt feels easily distracted. 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 Pt thinks that it is getting a little bigger recently Pt denies any nausea, constipation breast implant1 Pt has history o f bilateral implant 15 years ago pt denies any breast pain Pt notices right breast shape change during last several months. Pt states that consistency changed as well Pt denies any rash or pain or any redness or warmth Pt denies any nipple retraction. pt had manual breast exam done several months ago by [facility] and she supposes to do mammogram soon. pt states that her breast already changed shape when she went to see [facility] . Pt wants breast MRi fatigue1 Pt has been feel ing very fatigue, extremely lack of motivation, feeling of sleepy all the time, no interests with any activity for several months, Pt has no libido at all. Pt has been gaining weight as well. Pt also has been having trouble falling and staying asleep .Pt denies any snoring. pt denies any depression or any irritability. pt feels extremely poor focus, foggy brained, unable to complete any projects as well period1 Pt notices that her period has been slightly irregular recently. Pt denies any dysmenorrhea, menorrhagia. jaw pain1 Pt c/o right jaw pain and radiating down to right lower face area causing tension headache for the past several months Pt notices right TMJ pain when she opens her mouth and bite. Pt also notices mild left side TMJ pain. Pt does bite her. Pt does clinch her teeth very bad during sleep. Pt does have anxiety and she thinks that she clinch her teeth due to anxiety at night. Pt denies any sinus congestion or ear pain. Pt denies any depression or any suicidal or homicidal thought .Pt denies any crying spells sick1 Pt c/o acute ons et of right ear pain, nasal congestion, fever as high as 100 since 2 days ago. Pt denies any sore throat or cough or sob. Pt denies any GI issue Pt has mild headache as well. palpitation1 Pt denies any pa lpitation and she is off toprol. Pt had negative cardiac work up. cough1 Pt c/o acute ons et of productive coughing with sinus congestion and drainage and fever as high as 100.2 x since 3 days Ago. Pt denies any sob Pt denies any nausea, vomiting, diarrhea. Pt has headache. Pt denies any loss of taste and smell. Pt denies any sick contact. [facility]. pt failed otc meds . palpitation1 Pt had benign ho lter. Pt has not started toprol yet. pt has not felt much palpitation recently Pt denies any chest pain or sob palpitation1 Pt c/o worsening and more frequent chest palpitation during last 7 months Pt states that it occurs randomly throughout the day but sometimes she does not have any symptoms for days .Pt denies any chest pain. Pt denies any relationship with physical activity or any diet. Pt has not been drinking caffeine .Pt states that the palpitation sometimes triggers a small cough for several seconds. Pt denies any sob Pt denies any calf pain. Pt states that she is having more anxiety but not bad. Pt notices more frequent palpitation at night regardless standing or lying down Pt did have several episodes which wakes her up at night Pt denies any excessive anxiety. Pt denies any depression or any suicidal thought. Pt denies any GERD and nausea. Pt had holter monitor done which is essentially benign with sinus rhythm and some PACs. physical Pt needs annual physical. Pt c/o worsening and more frequent chest palpitation during last 6 months Pt states that it occurs randomly throughout the day but sometimes she does not have any symptoms for days .Pt denies any chest pain. Pt denies any relationship with physical activity or any diet. Pt has not been drinking caffeine .Pt states that the palpitation sometimes triggers a small cough for several seconds. Pt denies any sob Pt denies any calf pain. Pt states that she is having more anxiety but not bad. Pt denies any other complaints .pt does have umbilical hernia which is reducible and not causing pain. Pt also had work up with rheumatology with elevated MARTITA but no diagnosis was made. Pt denies any rash Pt had similar cardiac palpitation in the past and she had negative holter, echo done which were all benign. umbilical Pt notices a sma ll bulge and mild tenderness around and just above her umbilicus for 2 weeks. Pt states that bulge is present all the time. Pt is able to reduce it .Pt states that her belly button is outward a little bit as well. Pt denies any drainage Pt denies any warmth or redness. Pt denies any nausea, vomiting, diarrhea or constipation. Pt denies any abdomen injury MARTITA Pt has elevated MARTITA, Pt just saw rheumatology and she had a bunch of lab ordered. contact dermatitis1 Pt has been working in her yard and she notices some contact dermatitis around leg from poison IV/sumac. Pt notices itching with some clear drainage Pt denies any trouble with breathing or swallowing. Pt denies any wheezing or sick contact. Pt denies any fever fever1 Pt c/o acute fev er as high as 101, mild scratchy throat, sinus congestion since this morning .Pt denies any headache, coughing or sob Pt denies any GI issue Pt denies any dysphagia. Pt denies any loss of taste or smell. Her daughter is on abx for tonsillitis. Her daughter dance studio member was diagnosed positive for COVID-19. her daughter did dance with her 3 days ago. MARTITA Pt has positive MARTITA without any joint pain. Pt denies any facial rash Pt never did NCS since her hand numbness and tingling resolved. Pt still has not had rheumatology elo yet . itching1 Pt states that i tching resolved on its own. Pt never took ivermectin itching Pt has scabei wi th diffuse itching, Pt states that she tried permethrin which only helped for 2-3 days. Pt denies any sick contact Pt denies any sob or any difficulty with breathing AN Pt has positive MARTITA and homogeneous pattern Pt does have vague finger pain and some heavy feeling both arm. Pt c/o intermittent facial rash Pt denies any headache. UTI1 pt c/o urinary u rgency and frequency and dysuria for two days. Pt denies any flank pain, fever, chill rash1 Pt c/o diffuse i tchy rash all over body around arm and leg since 4 days ago Pt did have lateral bilateral breast rash x 2 weeks. Pt did see breast specialist early this week Pt had normal mammogram and exam Pt was cleared by specialist but she has MRI of both breast scheduled for next Monday Pt denies any breast pain or fever. Pt recently went to [facility] PHysical Pt needs annual physical. Pt c/o bilateral breast tingling and heavy feeling, rash on lateral part of breast with severe bilateral breast itching for two weeks. Pt states that itching started two weeks ago but rash started 5 days ago .Pt denies any breast pain Pt denies any nipple discharge Pt states that the rash sometimes gets hot ,Pt denies any fever Pt had bilateral silicone breast implant 2007. Pt denies any breast issue until two weeks ago. Pt denies using new bra or any hygiene products. Pt has history of positive MARTITA .Pt c/o some hand and neck pain, which is chronic. Se has bilateral hand pain and weakness and tingling .Pt denies any radiculopathy. UTI1 Pt has UTI sympt oms for several weeks. Pt noetics suprapubic pressure, urinary frequency, urgency and dysuria. pt denies any flank pain Pt notices blood in urine as well. Pt denies any fever, chill Pt took some amoxil from previous tooth infection but did not help. Pt denies any nausea, vomiting. Pt also notices blood in urine anxiety1 Pt has mild anxi ety Pt takes xanax PRN and doing ok. PT denies any depression or any suicidal thought. Pt denies any crying spells sick Pt had fever as high as 103 since last . Pt c/o right ear pain and cough and hoarsness. Pt notices coughing up green phlegm. Pt has not had any fever since last Monday. Pt denies any GI issue. anxiety1 Pt has chronic a nxiety Pt denies any depression or any suicidal thought. pt denies any cyring spells ANa1 Pt has positive MARTITA. Pt denies any joint pain or any rash. Pt has diagnois of acne rosacea. Pt never got a call from rheumatology. Physical Pt needs annual physical. Pt has chronic anxiety. Pt denies any depresson or any suicidal thought. Pt takes xanax PRN and doign ok .Pt also has elevated MARTITA and intermittent very mild joint pain around neck and knee. Pt never followed up with the editor department. Pt also needs hep B vaccine. Pt told me she had hep B vaccine in the past. Pt denies any other complaints lupus1 Pt has positive lupus MARTITA. Pt denies any joint pain. Pt has chronic mild facial rash which she seen dermatology int he past without any diagnosis. anxiety1 Pt has mild anxi ety sometimes Pt takes xanax PRn for anxiety. Pt denies any depression or any suicdial thought palpitation1 Pt feels freuqen tly palpitation and some shortness of breath, worse with exertion for the past several months. Pt denies any chest pain or diaphoresis. Pt denies any radiation of symptoms. Pt sometimes feels that her heart flutters. PHysical1 Pt needs annual physical. Pt states that she has intermittent bilatearl hand numnbess and lightheadness and feeling shaky and palpitation for 6 years. Pt has severe anxiety. Pt denies any chest pain. Pt . Pt never seen the editor department Pt never did the NCS. Pt states that she thinks her symptoms are due to anxiety Pt has panic attacks during her anxiety attacks. Pt denies any joint pain. Pt has chronic facial acne. Pt failed minocin in the past Instructions Date Instruction Additional Infor adeola Increase physical activity Relat ed to Urinary tract infection Assessments Type Assessment Date assessment Polyp of colon assessment Iron deficiency assessment Iliotibial band syndrome, right leg Mental Status Date Cognitive Assessment Orientation - [place] ed to time, place, person, situation.
--- OUTSIDE RECORDS SUMMARY | 2024-06-17 03:40 | XMS_ITS | Encounter Summary ---
Author Organization [facility] Address [address] [place] [address] Care Team Providers Care Glazier Artist Name Role Phone Rom Vidales MD Primary Care Provider [phone] Encounter Details Date Type Department Care Team (Late st Contact Info) Description 08/25/2003 Outpatient Historical [facility] Maternal and Ground [place] [address] [place] [address] Rivas Sky MD NO ADDRESS ON FILE Social History Tobacco Use Types Packs/Day Years Used Date Smoking Tobacco: Never Assessed Sex and Gender Information Value Date Recorded Sex Assigned at Not on file Gender Identity Not on file Sexual Orientation Not on file documented as of this encounter Plan of Treatment Not on file documented as of this encounter Visit Diagnoses Not on filedocumented in this encounter Care Teams Glazier Artist Relationship Specialty Start Date End Date Rom Vidales MD [facility] [place] [address] PCP - General Family Practice 07/15/19 documented as of this encounter
--- OUTSIDE RECORDS SUMMARY | 2024-06-17 03:40 | XMS_ITS | Encounter Summary ---
Author Organization [facility] Address [address] [place] [address] Care Team Providers Care Automotive Buyer Name Role Phone Rom Vidales MD Primary Care Provider [phone] Encounter Details Date Type Department Care Team (Latest Contact Info) Description 08/25/2003 Outpatient Historical [facility] Raza Archuleta MD [address] [place] [address] ABNL FINDINGS ON SCREEN (Primary Dx) Social History Tobacco Use Types Packs/Day Years Used Date Smoking Tobacco: Never Assessed Sex and Gender Information Value Date Recorded Sex Assigned at Not on file Gender Identity Not on file Sexual Orientation Not on file documented as of this encounter Plan of Treatment Not on file documented as of this encounter Visit Diagnoses Diagnosis Abnormal findings on screening- Primary documented in this encounter Care Teams Automotive Buyer Relationship Specialty Start Date End Date Rom Vidales MD [address] [place] [address] PCP - General Family Practice 07/15/19 documented as of this encounter
--- OUTSIDE RECORDS SUMMARY | 2024-06-17 03:40 | XMS_ITS | Encounter Summary ---
Author Organization [facility] Address [address] [place] [address] Care Team Providers Care Agriculture Engineer Name Role Phone Unavailable Primary Care Provider Unavailabl e Reason for Referral * Radiology Services (Routine) - Closed Specialty Diagnoses / Procedures Referred By Allison t Referred To Contact Radiology Diagnoses Rash Procedures MAMMO DIAG BILAT 3D ESTEFANY W OR WO CAD CHG DIAGNOSTIC MAMMOGRAPHY COMPUTER-AIDED DETCJ BI CHG DIGITAL BREAST TOMOSYNTHESIS BILATERAL Kary Fisher MD [address] [address] [facility] [address] [place] [address] Referral ID Status Reason Start Date Expiration Date V isits Requested Visits Authorized [id number] Closed [facility] CTS 07/09/2019 08/08/2020 1 1 E COLLEGE Encounter Details Date Type Department Care Team (Late st Contact Info) Description 07/09/2019 Orders Only [facility] [address] [facility] [address] [place] [address] Kary Fisher MD [address] [place] [id number] Rash (Primary Dx) Social History Tobacco Use Types Packs/Day Years Used Date Smoking Tobacco: Never Assessed Sex and Gender Information Value Date Recorded Sex Assigned at Not on file Gender Identity Not on file Sexual Orientation Not on file documented as of this encounter Plan of Treatment Not on file documented as of this encounter Results * MAMMO DIAG BILAT 3D ESTEFANY W OR WO CAD (07/15/2019 9:53 AM NURSE COLLEGE) Anatomical Region Laterality Modality Breast Bilateral Mammography 07/15/2019 9:53 AM NURSE COLLEGE Impressions 07/15/2019 10:19 AM NURSE COLLEGE IMPRESSION: No mammographic evidence of malignancy. RECOMMENDATIONS: Routine mammogram in one year. DICTATION LOCATION: [facility] Narrative 07/15/2019 10:19 AM NURSE COLLEGE EXAM: BILATERAL DIAGNOSTIC FULL-FIELD DIGITAL MAMMOGRAPHY WITH [...] Routine mammogram in one year. DICTATION LOCATION: [facility] Kary Fisher MD MAMMO ORDERAB LES documented in this encounter Visit Diagnoses Diagnosis Rash- Primary Rash and other nonspecific skin eruption Rash Rash and other nonspecific skin eruption documented in this encounter
--- OUTSIDE RECORDS SUMMARY | 2024-06-17 03:40 | XMS_ITS | Encounter Summary ---
Author Organization [facility] Address [address] [place] [address] Care Team Providers Care Clinical Transplant Coordinator Name Role Phone Rom Vidales MD Primary Care Provider [phone] Reason for Referral * MRI (Routine) - Closed Specialty Diagnoses / Procedures Referred By Contac t Referred To Contact Radiology Diagnoses Rash Procedures MRI BREAST W WO CONT BILKary Astudillo MD [address] [place] [address] [facility] [address] [address] [place] [address] Referral ID Status Reason Start Date Expiration Date V isits Requested Visits Authorized [id number] Closed [facility] CTS 07/15/2019 10/17/2019 1 1 CARRIER INSPECTOR Reason for Visit * Reason Comments itchy rash both breasts n/p Encounter Details Date Type Department Care Team (Late st Contact Info) Description 07/15/2019 10:45 AM AIR CARRIER INSPECTOR Office Visit [facility] Breast Surgery - [place] [address] [place] [address] Kary Fisher MD [address] [place] [address] Rash (Primary Dx); Mass of upper outer quadrant of right breast Social History Tobacco Use Types Packs/Day Years [...] Comments Blood Pressure 122/86 07/15/2019 10:50 AM AIR CARRIER INSPECTOR Pulse - - Temperature 36.8 ??C (98.2 ??F) 07/15/2019 10:[address] Respiratory Rate - - Oxygen Saturation - - Inhaled Oxygen Concentration - - Weight 58 kg (127 lb 12.8 oz) 07/15/2019 10:50 A M AIR CARRIER INSPECTOR Height 167.6 cm (5' 6 ) 07/15/2019 10:50 AM AIR CARRIER INSPECTOR Body Mass Index 20.63 07/15/2019 10:50 AM AIR CARRIER INSPECTOR documented in this encounter Progress Notes * Kary Fisher MD - 07/15/2019 10:45 AM CST Hali Samuels 1980 HISTORY AND PHYSICAL: Date of visit: 07/15/19 CC: bilateral rash HPI: Ms. Hali Samuels is a new patient I was asked to see in consultation from for a newbilateral breast itching with a history of breast augmentation. It started with 2 week history of itching and then developed a raised bright red rash. She was given a course of steroids. Redness slightly improved. Has tried hydrocortisone cream - which did not help. Feels like itching is from the inside. One right breast lump in the upper breast which has been stable for one month. It has not changed size. She denies any nipple changes, nipple discharges. But does have a let down sensation which is slightly improved after steroids. Maternal great grandmother with breast cancer in her 30s. Shehas an issues with hands swelling/dizzy, turn neck issues. She has been tested and has an elevated MARTITA level but never been to a men's custom hair piece consultant. 07/15/2019: Bilateral dx mmg: Scattered densities, bilateral subglandular implants, Bi-Rads 1 Life time risk of breast cancer: 16.6%. Past Medical History: Diagnosis Date ??? Anxiety ??? Autoimmune disorder elevated MARTITA - possible lupus Past Surgical History: Procedure Laterality Date ??? HX BREAST AUGMENTATION 03/2008 ??? HX TUBAL LIGATION 05/2012 OB History 7 Para Term AB 1 Living 6 SAB TAB Ectopic Multiple Live Births Obstetric Comments Menarche: 12y Age of first : 21y Menopause: premenopausal Hormone use: no Bra size: 34D LMP: 07/11/2019 .yes Family History Problem Relation Name Age of Onset ??? Heart Disease Maternal Grandfather ??? Colon Cancer Paternal Grandmother 84 ??? Breast Cancer Paternal Grandmother 80 ??? Throat Cancer Paternal Grandfather esophageal ??? Healthy Daughter x4 ??? Healthy Son x2 ??? Lung Cancer Neg Hx ??? Ovarian Cancer Neg Hx Social History Tobacco Use ??? Smoking status: Former Smoker Years: 3.00 Last attempt to quit: 06/14/2019 Years since quittin.0 Substance Use Topics ??? Alcohol use: Yes Frequency: Monthly or less ??? Drug use: Never Tobacco Cessation Counseling Advise: Counseled on tobacco cessation, health benefits of quitting, and current and fdc risks if continued smoking She is not a tobacco user. Current Outpatient Medications Medication Sig Dispense Refill ??? ALPRAZolam (XANAX) 0.5 mg tablet Take 0.5 mg by mouth nightly as needed for Anxiety. No current facility-administered medications for this visit. No Known Allergies Review of Systems: I have reviewed her ROS with the patient. Other than her breast issues listed: Dizziness, headaches, papillations, chest pain, muscle weaknesses, redness, numbness, skin changes, appetite changes, vision changes, fever. Her ROS sheet has been scanned into the chart. Physical Exam Vitals: 07/15/19 1050 BP: 122/86 Temp: 98.2 ??F (36.8 ??C) Weight: 58 kg (127 lb 12.8 oz) Height: 5' 6 (1.676 m) Body mass index is 20.63 kg/m??. Wt Readings from Last 3 Encounters: 07/15/19 58 kg (127 lb 12.8 oz) General Examination: Well developed and well-nourished, NAD Skin: No rash or skin lesions HEENT: EOMI, clear conjunctiva Neck: supple, no lymphadenopathy Chest: normal shape and expansion Breasts: Right: upper 12:00 pole with mass with palpable ripple in implant, no skin changes, no tenderness, no nipple bleeding or discharge visible, no dimpling, no axillary lymphadenopathy Left: No palpable masses appreciated, no skin changes, no tenderness, no nipple bleeding or discharge visible, no dimpling, no axillary lymphadenopathy Incision well healed IMF, skin slightly dry but no rash Cardiac: Regular rate and rhythm without murmur Respiratory: Clear to auscultation bilaterally, no wheezes, rhonchi or rales Abdomen: Soft, nontender, nondistended Back: no tenderness, no evidence of scoliosis Extremities: warm, no edema Psychiatric: Normal affect, well groomed, normal eye contact Assesment: Hali Samuels is a 38 y.o. female with a diagnosis of ICD-10-CM ICD-9-CM 1. Rash R21 782.1 MAMMO BREAST US BILAT LTD Plan: I have explained with her family history that it would be ideal if her parents have genetic testing. I have provided her with this information. If they are unwilling she could go meet with a genetic counselor. Right upper outer breast mass in conjunction with her recent rash I would like to obtain an MRI to rule out any occult cancer and silence leak from the implants. With Hali Samuels today is her Jamel who was present for the discussion. At this point for the itching I have recommended Benadryl at night along with either Claritin or Zyrtec during the day. In moisturizer over the dry skin. I will call her with the results of the MRI. If there is an abnormality requiring biopsy I will see her 1 week later to review the results. If there is an issue with her implant I will send her to plastic surgery. Otherwise she should start bilateral screening mammograms at 40. She knows if the genetic testing comes back positive for mutation that she needs to call and make an appointment with me. We discussed the appearance of breast cancer can be a new lump/bump, skin rash or lesion, nipple inversion, dimpling of the skin or breast pain. She should seek medical attention if she has any of these, even if she has had recent normal imaging. I have recommended her continue monthly self breast exams and explained how to perform these. Kary Fisher MD 07/15/19 11:53 AM CARRIER INSPECTOR documented in this encounter Plan of Treatment Not on file documented as of this encounter Results * MRI BREAST W WO CONT BILAT (08/22/2019 8:43 AM AIR CARRIER INSPECTOR) Anatomical Region Laterality Modality Breast Bilateral Magnetic Resonan ce 08/22/2019 8:54 AM AIR CARRIER INSPECTOR Impressions 08/22/2019 4:56 PM AIR CARRIER INSPECTOR IMPRESSION: 1. No MRI evidence of malignancy. 2. Intact bilateral subglandular silicone implants. RECOMMENDATIONS: ??Routine mammographic follow-up. DICTATION LOCATION: [facility] Narrative 08/22/2019 4:56 PM AIR CARRIER INSPECTOR BILATERAL BREAST MRI WITHOUT AND WITH ??IV [...] images were interpreted with the assistance of [employer] CAD[employer]angb[employer] software. BREAST COMPOSITION: ??Scattered fibroglandular densities BACKGROUND [...] images were interpreted with the assistance of [employer] software. BREAST COMPOSITION: Scattered fibroglandular densities BACKGROUND [...] implants. RECOMMENDATIONS: Routine mammographic follow-up. DICTATION LOCATION: [facility] Kary Fisher MD MR ORDERABLES documented in this encounter Visit Diagnoses Diagnosis Rash- Primary Rash and other nonspecific skin eruption Mass of upper outer quadrant of right breast Rash Rash and other nonspecific skin eruption documented in this encounter Care Teams Clinical Transplant Coordinator Relationship Specialty Start Date End Date Rom Vidales MD [facility] [place] [address] PCP - General Family Practice 07/15/19 documented as of this encounter
== END 2024-06-10 10:47 | disposition home or self-care (01) ==
PROVIDERS: Anesthesiology; PCP Emergency Medicine; Visit Provider Internal Medicine Gastroenterology
PROC: 0DJD8ZZ Inspection of Lower Intestinal Tract, Via Natural or Artificial Opening Endoscopic (ICD-10-PCS; CPT 45378; principal; 2024-06-10 10:00)
DX: Z12.11 Encounter for screening for malignant neoplasm of colon (principal); Z86.0100 Personal history of colon polyps, unspecified
CPT/HCPCS: 45378; J2003; J2704; J7120

== ENCOUNTER 2024-07-22 08:18 | Emergency (ER) | payer OTHER, SELFPAY ==
--- NOTE | ~2024-07-22 | XR_ITS ---
EXAMINATION: XR chest 2V DATE: 07/22/2024 08:55 INDICATION: Cough and shortness of breath. Fever. TECHNIQUE: Frontal and lateral views of the chest were obtained. COMPARISON: Chest 2 views 07/09/2015 FINDINGS: There is no pneumonia, pleural effusion, or pneumothorax. The heart size is normal. Breast implants are noted. IMPRESSION: 1. No acute cardiopulmonary disease. Reviewed, dictated and finalized at location [] GEMENT LIAISON
--- NOTE | 2024-07-22 08:19 | ED_ITS ---
HPI - URI/Sore Throat General Chief Complaint: Upper Respiratory Infection Stated Complaint: FEVER/LUNG PAIN Time Seen by Provider: 07/22/24 08:19 Source: patient Mode of arrival: ambulatory Limitations: no limitations History of Present Illness HPI Narrative: Hali is a 43-year-old female patient presenting to the clinic today with complaints of fever highest of 103, chills, body aches, bilateral lower anterior rib pain with taking inspirations, productive cough with yellow phlegm, nasal congestion, and ear pain. Patient has history of bacterial pneumonia and she is concerned that she may have pneumonia. MD elicited complaint: fever, cough and nasal congestion Related Data Home Medications ?Medication ?Instructions ?Recorded ?Confirmed ?Last Taken ?Type multivitamin with minerals-folic 1 tablet PO DAILY 03/06/23 06/10/24 05/20/24 History acid 0.4 mg tablet cholecalciferol (vitamin D3) 1,250 07/22/24 Unknown History mcg (50,000 unit) capsule meloxicam 15 mg tablet mg 07/22/24 Unknown History Allergies Allergy/AdvReac Type Severity Reaction Status Date / Time azithromycin Allergy Other Verified 07/22/24 08:42 Review of Systems Review of Systems: Pertinent positives per HPI. Patient denies any rash, headache, visual changes, dizziness, chest pain, palpitations, nausea, vomiting, diarrhea, constipation, abdominal pain, or any urinary issues. [facility] Past Medical History Medical History Adenomatous colon polyp GI bleed Dysphagia Globus syndrome Diarrhea Hematochezia Iron deficiency anemia Anxiety Surgical History Surgical History Hx of tubal ligation Hx of breast augmentation H/O breast implant History of bilateral tubal ligation Family History Family History Father Hydrocephalus Mother Thyroid disease Social History Social History Smoking status: Never smoker Tobacco type: e-cigarettes/vaping Alcohol intake: current Drinks per week: 5 Alcohol use details: social Substance use: never Substance use type: does not use Living arrangements: with family Spiritual care concerns: No Comments At the time of my signature, I reviewed and agree with the nursing past medical, surgical, social, and family history. There is no relevant family history pertinent to the patient complaint. Exam Narrative: General: Well-developed, well nourished, in no apparent distress Head: Normocephalic, atraumatic Eyes: Pupils equally round and reactive to light bilaterally, EOM intact, sclera and conjunctive clear, no discharge, lids normal Ears: TMs intact and congested, ear canals clear, no drainage, grossly hearing normal. Nose: Nares patent, clear nasal discharge, no inflammation, no sinus tenderness. Mouth: Oral pharynx without lesions or masses, good dentition, MMM. Postnasal drip Neck: Supple, trachea midline, no enlargement of anterior or posterior cervical nodes, no thyroid masses or goiter palpable. Cardio: Regular rate and rhythm, s1 and s2 normal, no murmur appreciated. Resp: Clear to auscultation bilaterally, no rhonchi, rales, wheezing or rubs Course Course Emergency Course: Portions of this record may have been created with voice recognition software. Level of Care: Express Care Visit Vital Signs Vital signs: Vital Signs Oxygen Delivery Room Air 07/22/24 08:37 Temperature 36.8 C 07/22/24 08:39 Pulse Rate 72 07/22/24 08:39 Respiratory Rate 16 07/22/24 08:39 Blood Pressure 124/84 07/22/24 08:39 Pulse Oximetry 100 07/22/24 08:39 Oxygen Delivery Room Air 07/22/24 08:37 Vital signs reviewed MDM - URI/Sore Throat MDM Narrative Medical decision making narrative: At the time of visit patient is resting comfortably on the exam table. Patient appears to be nontoxic. Labs: Influenza testing was performed and was positive in the clinic today. Diagnostics: Chest x-ray was performed and was negative in the clinic today. Plan: Patient has influenza A. Supportive measures were discussed with the patient and they voiced understanding discharge instructions and agrees to treatment plan. Return precautions reviewed Differential Diagnosis Differential diagnosis: Likely sinusitis, viral infection, influenza and pharyngitis Lab Data Labs: Lab Results 07/22/24 Range/Units 08:51 POC Influenza A Ag Positive (Negative) POC Influenza B Ag Negative (Negative) Imaging Data Radiologist's impression: ITS Impressions Chest X-Ray 07/22/24 09:05 IMPRESSION: 1. No acute cardiopulmonary disease. Discharge Plan Discharge Clinical Impression: Influenza A Patient Disposition: Home, Self-Care Condition: Stable Instructions: Antibiotic Form, Influenza (ED) Additional Instructions: Chest x-rays negative for any acute cardiopulmonary process Influenza testing was positive for influenza A. Take prescription medications only as prescribed-albuterol inhaler May take DayQuil/NyQuil for cold/flu symptoms Increase fluids and stay well hydrated Tylenol/motrin for pain/fever Flonase and OTC antihistamines as directed Vicks vapor rub to open sinuses Sinus rinses for congestion Cepacol spray, cough drops, throat lozenges, warm tea with honey/lemon, gargle salt water to soothe throat BRAT diet for diarrhea Clear liquids x 24 hours then advance as tolerated for nausea/vomiting Go to the ED if you develop a worsening in your condition- high fever not controlled by Tylenol or Motrin, dehydration, weakness, lethargy, shortness of breath, or chest pain. Follow up with your PCP in 3-5 days if symptoms persist. Patient Language: Divehi Prescriptions: New albuterol sulfate 90 mcg/actuation HFA aerosol inhaler 2 puff inhalation Q4-6H PRN (Reason: shortness of breath or wheezing) 30 Days Qty: 8.5 0RF No Action meloxicam 15 mg tablet cholecalciferol (vitamin D3) 1,250 mcg (50,000 unit) capsule multivit with min-folic acid [Adult One Daily Multivitamin] 0.4 mg Tablet 1 tablet PO DAILY Follow-up/Referrals: Rom Vidales MD [Primary Care Provider] - Time of Disposition: 09:18 Quality NIHSS Nursing Documentation ED NIHSS nursing documentation: reviewed/agree
[2024-07-22 08:39] VITALS: BP 124/84; PULSE 72; RESP 16; TEMP 36.8; O2SAT 100
[2024-07-22 08:53] LABS: EDINFLUASCREEN Positive (Negative); EDINFLUBSCREEN Negative (Negative)
== END 2024-07-22 09:23 | disposition home or self-care (01) ==
PROVIDERS: Emergency Provider Nurse Practitioner Family; PCP Emergency Medicine
DX: J10.1 Influenza due to other identified influenza virus with other respiratory manifestations (principal)
CPT/HCPCS: 71046; 87804; 99213; G0463

== ENCOUNTER 2025-05-19 08:02 | Emergency (ER) | payer OTHER, SELFPAY ==
[2025-05-19 08:06] VITALS: BP 138/98; PULSE 93; RESP 20; TEMP 36.6; O2SAT 100
--- OUTSIDE RECORDS SUMMARY | 2025-05-19 08:10 | XMS_ITS | Encounter Summary ---
Author Organization [facility] Address [address] [place] [address] Care Team Providers Care Child Protective Investigator Name Role Phone Rom Vidales MD Primary Care Provider [phone] Encounter Details Date Type Department Care Team (Latest Contact Info) Description 08/25/2003 Outpatient [facility] Raza Archuleta MD [address] [place] [address] ABNL FINDINGS ON SCREEN (Primary Dx) Social History Tobacco Use Types Packs/Day Years Used Date Smoking Tobacco: Never Assessed Comments Unknown Sex and Gender Information Value Date Recorded Sex Assigned at Not on file Legal Sex Female 4:24 AM ASPHALT PAVING MACHINE OPERATOR Gender Identity Not on file Sexual Orientation Not on file documented as of this encounter Plan of Treatment Not on file documented as of this encounter Visit Diagnoses Diagnosis Abnormal findings on screening- Primary documented in this encounter Care Teams Child Protective Investigator Relationship Specialty Start Date End Date Rom Vidales MD [facility] [place] [id number] PCP - General Family Practice 07/15/19 documented as of this encounter
--- OUTSIDE RECORDS SUMMARY | 2025-05-19 08:10 | XMS_ITS | Clinical Summary ---
Author Organization [facility] Address [address] [place] [address] Care Team Providers Care Project Analyst Name Role Phone Rom Vidales MD Primary Care Provider [phone] Allergies No known active allergies Medications ALPRAZolam (XANAX) 0.5 mg tablet Take 0.5 [...] Years Used Date Smoking Tobacco: Former Cigarettes 3 1 08/15/2015 - 06/14/2019 Alcohol Use Standard Drinks/Week Comments Yes 0 (1 standard drink = 0.6 oz pur e alcohol) Comments Unknown Sex and Gender Information Value Date Recorded Sex Assigned at Not on file Legal Sex Female 4:24 AM OCEAN LIFEGUARD Gender Identity Not on file Sexual Orientation Not on file 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 Not on file Not on file Last Filed Vital Signs Vital Sign Reading Time Taken Comments Blood Pressure 122/86 07/15/2019 10:50 AM OCEAN LIFEGUARD Pulse - - Temperature 36.8 C (98.2 F) 07/15/2019 10:50 AM OCEAN LIFEGUARD Respiratory Rate - - Oxygen Saturation - - Inhaled Oxygen Concentration - - Weight 58 kg (127 lb 12.8 oz) 07/15/2019 10:50 A M OCEAN LIFEGUARD Height 167.6 cm (5' 6) 07/15/2019 10:50 AM OCEAN LIFEGUARD Body Mass Index 20.63 07/15/2019 10:50 AM OCEAN LIFEGUARD Plan of Treatment Health Maintenance Due Date Last Done Comments DTAP/TDAP/TD VACCINES (1 - Tdap) 09/03/1999 HEPATITIS B VACCINES (1 of 3 - 19+ 3-dose series) 08/17 HPV/Cotest (21-29) 2001 HPV VACCINES (1 - 3-dose SCDM series) 09/03/2007 CERVICAL CANCER SCREENING 2010 HPV/Cotest (30-65) 2010 PAP SMEAR 2010 BREAST CANCER SCREENING 2020 07/15/2019 INFLUENZA VACCINE (#1) 2025 Procedures Procedure Name Priority Date/Time Associated Diagnosis Comments MAMMO 3D ESTEFANY DIAGNOSTIC BILAT W OR WO CAD Routine 07/15/2019 9:53 AM OCEAN LIFEGUARD Rash from Last 3 Months or Most Recently Relevant to Health Maintenance Results * MAMMO DIAG BILAT 3D ESTEFANY W OR WO CAD (07/15/2019 9:53 AM OCEAN LIFEGUARD) Anatomical Region Laterality Modality Breast Bilateral Mammography 07/15/2019 9:53 AM OCEAN LIFEGUARD Impressions 07/15/2019 10:19 AM OCEAN LIFEGUARD IMPRESSION: No mammographic evidence of malignancy. RECOMMENDATIONS: Routine mammogram in one year. DICTATION LOCATION: [facility] 07/15/2019 10:19 AM OCEAN LIFEGUARD EXAM: BILATERAL DIAGNOSTIC FULL-FIELD DIGITAL MAMMOGRAPHY WITH [...] OVERALL FINAL ASSESSMENT: BI-RADS CATEGORY 1: Negative. Procedure Note Paresh Robles [...] Routine mammogram in one year. DICTATION LOCATION: [facility] Kary Fisher MD MAMMO ORDERABLES Elinae l Result from Last 3 Months or Most Recently Relevant to Health Maintenance Care Teams Project Analyst Relationship Specialty Start Date End Date Rom Vidales MD [facility] [place] [address] PCP - General Family Practice 07/15/19
--- OUTSIDE RECORDS SUMMARY | 2025-05-19 08:10 | XMS_ITS | Clinical Summary ---
Author Organization [facility] [facility] Address [address] [place] [address] Care Team Providers Care Semiconductor Technician Name Role Phone Rom Vidales MD Primary Care Provider [phone] Source Comments [facility],non-owned Affiliates and Associated Physician Practices is amultiple site organization consisting of ambulatory clinics and hospital sitesin [place], [place], [place] and [place]. This disclosure is being madepursuant to the Care Everywhere program and may not contain all information available regarding this patient. Last updated 18.[facility] Allergies No known active allergies Medications * Be aware that medications may not be up to date on this document. Alwaysverify current medications with the patient. 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 Not on file Not on file Last Filed Vital Signs Vital Sign Reading Time Taken Comments Blood Pressure 116/74 03/23/2020 9:14 AM CDT Pulse - - Temperature 36.7 C (98 F) 02/28/2020 3:45 PM CDT Respiratory Rate - - Oxygen Saturation - - Inhaled Oxygen Concentration - - Weight 62.1 kg (137 lb) 03/23/2020 9:14 AM CDT Height 157.5 cm (5' 2) 03/23/2020 9:14 AM CDT Body Mass Index 25.06 03/23/2020 9:14 AM CDT Plan of Treatment Health Maintenance Due Date Last Done Comments LIPID TESTING 1980 MAMMOGRAM 1980 HIV SCREENING 09/03/1995 HEPATITIS C SCREENING 08/29/1998 DTAP/TDAP/TD VACCINES (1 - Tdap) 09/03/1999 HEPATITIS B VACCINE (1 of 3 - 19+ 3-dose series) 09/03/1999 Cervical Cancer Screening 2001 PAP SMEAR 2001 HPV VACCINE (1 - 3-dose SCDM series) 09/03/2007 PAP with HPV 2010 DEPRESSION SCREENING 06/19/2024 COVID-19 VACCINE (1 - 2024-2 6 season) 2025 INFLUENZA VACCINE (#1) 2025 ZOSTER VACCINE (1 of 2) 2030 HIB VACCINE Aged Out No longer eligi ble based on patient's age to complete this topic MENINGOCOCCAL (Group B) VACC INE SHARED DECISION-MAKING Aged Out No longer eligibl e based on patient's age to complete this topic MENINGOCOCCAL GROUPS A/C/Y/W VACCINE Aged Out No longer eligible b ased on patient's age to complete this topic PNEUMOCOCCAL VACCINE Aged Out No long er eligible based on patient's age to complete this topic Insurance [employer] [facility] Care Teams Semiconductor Technician Relationship Specialty Start Date End Date Rom Vidales MD PCP - General 10/22/19
--- OUTSIDE RECORDS SUMMARY | 2025-05-19 08:10 | XMS_ITS | Clinical Summary ---
Author Organization [facility] [address] Address [address] [place] [address] Care Team Providers Care Monogram And Letter Paster Name Role Phone Rom Vidales MD Primary Care Provider [phone] Allergies Active Allergy Reactions Criticality Noted Date [...] on file Legal Sex Female 5:47 AM PSYCHIATRIC ARNP Gender Identity Female 08/08/2022 3:56 PM PSYCHIATRIC ARNP Sexual Orientation Not on file Last Filed Vital Signs Vital Sign Reading Time Taken Comments Blood Pressure 138/100 12/29/2022 7:49 PM CDT Pulse 107 12/29/2022 7:49 PM CDT Temperature 36.7 C (98 F) 12/29/2022 7:49 PM CDT Respiratory Rate 18 12/29/2022 7:49 PM CDT Oxygen Saturation 100% 12/29/2022 7:49 PM CDT Inhaled Oxygen Concentration - - Weight 61.7 kg (136 lb) 12/29/2022 7:49 PM CDT Height 157.5 cm (5' 2) 12/29/2022 7:49 PM CDT Body Mass Index 24.87 12/29/2022 7:49 PM CDT Plan of Treatment Health Maintenance Due Date Last Done Comments Breast Cancer Screening-Mammogram 1980 Cervical Cancer Screening 1980 Depression Screening 1980 Hepatitis C Screening 1980 DTaP/Tdap/Td Vaccine (1 - Tdap) 09/03/1991 Varicella Vaccines (1 of 2 - 13+ 2-dose series) 1993 Hepatitis B Screening 1998 Regular Well Visit/Exam 18-64 1998 Pneumococcal vaccine <65 (1 of 2 - PCV) 09/03/1999 HPV Vaccines (1 - 3-dose SCDM series) 09/03/2007 Influenza Vaccine (#1) 2025 Insurance [facility] CMR Care Teams Monogram And Letter Paster Relationship Specialty Start Date End Date Rom Vidales MD PCP - General 07/17/15
--- OUTSIDE RECORDS SUMMARY | 2025-05-19 08:10 | XMS_ITS | Encounter Summary ---
Author Organization [facility] Address [address] [place] [address] Phone Care Team Providers Care Peoplesoft Crm Developer Name Role Phone Rom Vidales Primary Care Provider [phone] Bertha Mcgregor MD Unavailable Encounter Details Date Type Department Care Team (Late st Contact Info) Description 01/30/2024 Telephone [facility] [address] [place] [address] Bertha Mcgregor MD [address] [place] [address] Social History Tobacco Use Types Packs/Day Years Used Date Smoking Tobacco: Former Cigarettes 0 Q uit: 2021 Smokeless Tobacco: Never Alcohol [...] Care Team (Late st Contact Info) Description 09/18/2025 8:00 AM CDT Office Visit [facility] [address] [place] [id number] Bertha Mcgregor MD [address] [place] [address] documented as of this encounter Visit Diagnoses Not on filedocumented in this encounter Care Teams Peoplesoft Crm Developer Relationship Specialty Start Date End Date Rom Vidales [address] [place] [address] PCP - General Family Medicine 12/21/22 Bertha Mcgregor MD [address] [place] [address] Consulting Physician Oncology 05/10/23 documented as of this encounter
--- OUTSIDE RECORDS SUMMARY | 2025-05-19 08:10 | XMS_ITS | Data Portability ---
Author Organization [facility] Main Office Address [address] [place] [address] Care Team Providers Care Section Forest Fire Warden Name Role Phone TJ DAUGHERTY Primary Care Provider [phone] TJ DAUGHERTY Referring Provider [phone] Assessment Encounter Date Assessment Date Assessment LastModified by Organization Details LastModified Time 07/03/2024 07/03/2024 43-year-old female presents for evaluation of her right hip and knee. She reports pain ongoing for the past 4 months. She denies having any acute injury. She has pain primarily in the posterior knee which radiates through the thigh and also down behind the calf. She reports this goes up to the area of the hip. She has knee locking up daily, especially when she is sitting and tries to get up. She has tried ibuprofen, heat, and ice without significant improvement. She currently rates her pain as 4/10. Review of systems per patient questionnaire Physical exam: She has tenderness palpation over the mediolateral joint line. Range of motion 0-140 of the knee, pain at terminal flexion. Positive Chapis's. She did have catching of the knee during these maneuvers. 1A Agustin, stable posterior drawer, stable varus and valgus stress. She has no focal tenderness palpation around the hip, no pain with hip range of motion. 5/5 strength with knee flexion and extension. X-rays of the hip were reviewed, demonstrating preserved joint space, some FELIPE signs. X-rays of the knee demonstrate no acute bony abnormality, preserved joint space. She has knee pain and findings concerning for meniscal symptoms. Given her daily catching and locking up of the knee, including an episode during the exam at her visit, I would like to refer her for an MRI to evaluate for a displaced meniscus tear. In the meantime, we will send her to physical therapy and also gave her a course of anti-inflammator ies, order for meloxicam was given. We discussed that she can have radiating or referred pain from the knee up to the hip, or she may be changing her biomechanics walking and this is leading to pain in her muscles. We will see her back after obtaining the MRI. She is in agreement with the plan. Not available 07/03/2024 17:35:34 07/31/2024 07/31/2024 43-year-old female presents for follow-up of her right knee. We previously saw her for meniscus symptoms and sent her to physical therapy and a course of meloxicam. She did start PT but only did it for a week before she came down with the flu, as a result she also did not start taking her meloxicam. She has PT slated to restart tomorrow. We also ordered an MRI to look for a displaced meniscus tear and she is here to review those results. She still has some catching of her knee especially when getting up from a seated position such as after driving. She has tenderness palpation over the medial and lateral joint line. Positive Chapis's. pain in terminal flexion. MRI reviewed, demonstrating a tear involving the posterior horn of the medial meniscus Since she has barely started her course of conservative management we will continue to do that. We will see her back after the course of PT and anti-inflammator ies. At that point, if she has persistent symptoms, we would consider a cortisone injection, and beyond that knee arthroscopy for her meniscus. She is in agreement with plan. Not available 07/31/2024 12:20:16 Plan of Treatment Reminders Order Date Submit Date Provider Last Modified By Organization Details Last Modified Time Details Appointments None recorded. Lab None recorded. Referral physical therapist referral - Please contact pt to schedule for R knee. Thanks 2024 025 [facility], [address], [place], [address], 12:00:47 Procedures None recorded. Surgeries None recorded. Imaging XR, knee, 3 view 2024 025 [email or web address] [facility], [address], [place], [address], 5 08:51:14 MRI, knee, w/o contrast 2024 025 [facility] ([facility] Call Scheduling), [address], [place], [address], 5 12:17:08 XR, hip + pelvis, unilateral , 2 or 3 view 2024 025 [email or web address] [facility], [address], [place], [address], 5 08:50:55 Medication Orders Mobic 15 mg tablet 2024 025 [email or web address] [id number], [address], [place], [place], [id number], 5 16:46:52 Patient TargetsNo targets recorded. Patient InstructionsNo instructions recorded. Reason for Referral Physical Therapist Referral for Pain of right knee joint R knee Please contact pt to schedule for R knee. Thanks Referring Physician: Irineo Albright, Orthopedic Surgery, Encounter Date: 07/03/2024 Results Created Date Observation Date Name Description Value Unit Range Abnormal Flag Note LastModifiedBy Organization Detail LastModifiedTime 07/03/19 25 XR, hip + pelvi s, unila teral , 2 or 3 view No observ ation record ed. [email or web address] [facility] [address], [address], 07/03/2024 14:48:29 07/03/19 25 XR, knee, 3 view No observ ation record ed. [email or web address] [facility] [address], [address], 07/03/2024 15:17:08 07/31/19 25 07/19/2024 MRI, knee, w/o contr ast No observ ation record ed. [email or web address] [facility] ([facility] Call Scheduling) [address] [place], [address], 07/31/2024 12:17:08 Result Notes None recorded. Problems Name Problem SNOMED Code Status Onset Date Resolution Date Notes Provider Name and Address Organization Details Recorded Time Pain of right hip joint 530335691990081 Active 2024 JILL Castillo, [facility] [employer] [facility] 14:48:21 Pain of right knee joint 787301506375751 Active 2024 ONI Cuevas, [facility] [employer] [facility] 15:16:50 Problem Notes None recorded. Procedures Surgical History Date Name Laterality Status Provider Name and Address Organization Details Recorded Time Tubal Ligation completed JILL Mendez [facility] [employer] [facility] 07/03/2024 14:47:40 augmentation of bilateral breasts completed JILL Castillo [facility] [employer] [facility] 07/03/2024 14:47:54 Imaging Results None recorded. Procedure Notes None recorded. Medical Equipment None Reported. Allergies Allergen ID Allergen Name Allergen Category Reaction Reaction Severity Criticality Documentation Date Start Date Code Code System Note Provider Name and Address Organization Details Recorded Time 99569 azithromy reagan medicatio n facial swelling Not available Not available 07/03/2024 98203 RxNorm JILL Castillo [facility] [employer] [facility] 14:47:06 Medications Name Sig Start Date Stop Date Status Note LastModified by Organization Details LastModified Time meloxicam 15 mg tablet TAKE 1 TABLET BY MOUTH EVERY DAY active Not Available Not Available No t Available cholecalciferol (vitamin D3) 1,250 mcg (50,000 unit) capsule active Not Available Not Available Not Available Vitals Date Recorded Body height Body mass index (BMI) Body weight Pain severity - 0-10 verbal numeric rating [Score] - Reported Provider Name and Address Organization Details Last Updated DateTime 07/03/2024 157.48 cm 24.1 kg/m2 64837.19 g 4 JILL Castillo - [facility] [place] [employer] [facility] 07/03/2024 14:46:25 Date Recorded Body height Provider Name an d Address Organization Details Last Updated DateTime 07/31/2024 157.48 cm Linda Cotto CNA [facility] [employer] [facility] 07/31/2024 11:26:05 Social History Question Answer Notes LastModified by Organizat ion Details LastModified Time Tobacco Smoking Status Never Smoker JILL Castillo null, [facility] [employer] [facility] 07/03/2024 14:47:26 What Was The Date Of Your Most Recent Tobacco Screening? 07/03/2024 [email or web address] Information not available 07/03/2024 Sex: Unknown Functional Status Question Answer Note LastModified by Organizat ion Details LastModified Time What is your level of alcohol consumption? Occasional [email or web address] Information not available 07/03/2024 Mental Status None recorded. Family History Nothing Reported. Medical History Condition Response ANEMIA/BLOOD DISORDER Y Gynecological HistoryNo gynecological history recorded. Obstetrics History GPAL:G 0 P 0 0 0 0 Past Encounters Encounter ID Performer Location Encounter Start Date Encounter Closed Date Diagnosis/Indication Diagnosis SNOMED-CT Code Diagnosis ICD10 Code Diagnosis IMO Codes Diagnosis Note [id number] Irineo Albright MD [facility] [address] [place] [address] 07/03/2024 14:32:11 07/03/2024 15:21:02 Pain of right hip joint 5849953843 29000 M25.551 Pain of ri ght knee joint 2519544366 64488 M25.730 [id number] Irineo Albright MD [facility] [place] [address] [place] [address] 07/31/2024 11:23:09 07/31/2024 12:08:42 Pain of right knee joint 6879358838 33411 M25.561 Health Concerns Section Related Observation LastModified by Organization Detai ls LastModified Time None Recorded Concern Status LastModified by Organization Details LastModified Time None Recorded Advance Directives Directive None Recorded Payers Insurance Date Sequence Insurance Name Policy Number Policy Cleaning Covered Member ID Cleaning Member ID Guarantor Name 09/09/2024 [facility] Hali M Abril SELF SELF Hali Chamberlain Abril 09/08/2024 1 [facility] Abril [id number] Hali Chamberlain Abril OBGyn Episode No OBEpisode recorded.
--- OUTSIDE RECORDS SUMMARY | 2025-05-19 08:10 | XMS_ITS | Clinical Summary ---
Author Organization [facility] Address [address], [facility] [address] [place] [address] Phone Care Team Providers Care Fulfillment Mail Clerk Name Role Phone Rom Vidales Primary Care Provider Bertha Mcgregor MD Unavailable Allergies Active Allergy Reactions Criticality Noted Date Comments Azithromycin Swelling Medium 08/09/2022 Medications ferrous sulfate 325 (65 Fe) MG Tablet Take 325 mg by mouth in the morning and at bedtime. Active Multiple Vitamin (MULTIVITAMIN PO) Take 1 Tablet by mouth daily. Active Cholecalciferol 88138 UNIT Capsule Take 1 Capsule by mouth once a week. For 8 weeks, then Vit D 2000 units daily 8 Capsule Active Additional Information Patient not taking.Reported on 03/20/2025 Active Problems Problem Noted Date Diagnosed Date Iron deficiency anemia 01/30/2023 History of loop electrical excision procedure (L EEP) 03/23/2020 06/15/2023 History of tubal ligation 03/23/20202022 Idiopathic progressive polyneuropathy 05/30/2013 06/15/2023 Encounters Date Type Department Care Team Description 04/08/2025 2:15 PM CDT Clinical Support [facility] [address] [id number] Nurse, Padmini Hayden Iron deficiency anemia, unspecified iron deficiency anemia type (Primary Dx) 04/08/2025 Travel 04/03/2025 2:00 PM CDT Clinical Support [facility] [address] [address] Nurse, Cc Ofallon Iron deficiency anemia, unspecified iron deficiency anemia type (Primary Dx) 04/01/2025 2:00 PM CDT Clinical Support [facility] [address] [address] Nurse, Cc Ofallon Iron deficiency anemia, unspecified iron deficiency anemia type (Primary Dx) 04/01/2025 Travel 03/28/2025 8:15 AM CDT Clinical Support [facility] [address] [address] Nurse, Cc Ofallon Iron deficiency anemia, unspecified iron deficiency anemia type (Primary Dx) 03/26/2025 2:00 PM CDT Clinical Support [facility] [address] [address] Nurse, Cc Ofallon Iron deficiency anemia, unspecified iron deficiency anemia type (Primary Dx) 03/26/2025 Travel 03/24/2025 Telephone [facility] [address] [address] Bertha Mcgregor MD Canopy Call / Iron infusions 03/20/2025 8:15 AM CDT Office Visit [facility] [address] [phone] DeMatteiAngelicaHansa E, RETINAL ANGIOGRAPHER, BROOMMAKER Iron deficiency anemia, unspecified iron deficiency anemia type (Primary Dx); Vitamin D deficiency; Other fatigue; Muscle twitching; Menorrhagia with irregular cycle 03/20/2025 8:05 AM CDT Lab [facility] [address] [id number] Lab, Cc Of[place]on Iron deficiency anemia, unspecified iron deficiency anemia type; Vitamin D deficiency; Other fatigue; Muscle twitching 03/20/2025 Results Follow-Up [facility] [address] [phone] DeMattei Hansa E, RETINAL ANGIOGRAPHER, BROOMMAKER IRON W/ IRON BINDING CAPACITY [place], FERRITIN, VITAMIN B12, Additional followed-up results: 2 03/20/2025 Travel from Last 3 Months Family History Medical History Relation Name Comments Other-comment Father hydrocephalus Thyroid Disease Mother Relation Name Status Comments Father Mother Social History Tobacco Use Types Packs/Day Years Used Date Smoking Tobacco: Former Cigarettes 0 Q uit: 2021 Smokeless Tobacco: Never Tobacco [...] Sign Reading Time Taken Comments Blood Pressure 106/76 03/20/2025 8:05 AM CDT Pulse 76 03/20/2025 8:05 AM CDT Temperature 37.1 C (98.8 F) 03/20/2025 8:05 AM CDT Respiratory Rate 18 07/17/2024 8:52 AM PHOTO OPTICS TECHNICIAN Oxygen Saturation 100% 03/20/2025 8:05 AM CDT Inhaled Oxygen Concentration - - Weight 63.2 kg (139 lb 4.8 oz) 03/20/2025 8:05 A M CDT Height 157.5 cm (5' 2) 03/20/2025 8:05 AM CDT Body Mass Index 25.48 03/20/2025 8:05 AM CDT Plan of Treatment Upcoming Encounters Date Type Department Care Team (Late st Contact Info) Description 09/18/2025 8:00 AM CDT Office Visit [facility] [address] [phone] Bertha Mcgregor MD [address] [place] [phone] Health Maintenance Due Date Last Done Comments Hepatitis C Virus (HCV) Screening 1980 TdaP Immunization 1980 Varicella Immunization (1 of 2 - 13+ 2-dose series) 1993 Pap Smear 2001 Human Papillomavirus (HPV) Immunization (1 - 3-dose SCDM series) 09/03/2007 Cervical Cancer Screening (CCS) 2010 HPV/Cotest 2010 Hepatitis B Immunization (2 of 3 - 19+ 3-dose series) 06/13/2016 05/16/2016 Mammogram 08/21/2020 08/22/2019, 07/15/2019, 07/15/2019 Influenza Immunization (#1) 2025 06/27/2013 SARS-COV-2 Immunization ( season) 2025 Respiratory Syncytial Virus (RSV) Immunization (Adult) (1 [...] Procedure Name Priority Date/Time Associated Diagnosis Comments CBC WITH AUTO DIFF OH Routine 03/20/2025 7:56 AM CDT CMP (COMPREHENSIVE METABOLIC PANEL) Routine 03/20/2025 7:56 AM CDT Iron deficiency anemia, unspecified iron deficiency anemia type Vitamin D deficiency Other fatigue Muscle twitching VITAMIN B12 Routine 03/20/2025 7:56 AM CDT Iron deficiency anemia, unspecified iron deficiency anemia type Vitamin D deficiency Other fatigue Muscle twitching FERRITIN Routine 03/20/2025 7:56 AM CDT Iron deficiency anemia, unspecified iron deficiency anemia type Vitamin D deficiency Other fatigue Muscle twitching IRON W/ IRON BINDING CAPACITY OH Routine 03/20/2025 7:56 AM CDT Iron deficiency anemia, unspecified iron deficiency anemia type Vitamin D deficiency Other fatigue Muscle twitching VITAMIN D, 25 HYDROXY TOTAL Routine 03/20/2025 7:56 AM CDT Iron deficiency anemia, unspecified iron deficiency anemia type Vitamin D deficiency Other fatigue Muscle twitching from Last 3 Months Results * VITAMIN D, 25 HYDROXY TOTAL (03/20/2025 7:56 AM CDT) 25() Vitamin D, Total 33.3 30.0 - 100.0 ng/mL CANCER TUFTING MACHINE OPERATOR SINGLE NEEDLE [facility] Comment: The Clinical Guidelines Subcommittee of the Endocrine Society Task Force established the guidelines below for recommended serum 25(OH) vitamin D levels. Other clinical reference citations may show different values. Deficient <20 Insufficient 20 to <30 Sufficient 30 to 100 Upper Safety Limit >100 Blood 03/20/2025 7:56 AM CDT Narrative CANCER TUFTING MACHINE OPERATOR SINGLE NEEDLE [facility] - 03/21/2025 3:15 PM CDT Release to patient->Immediate us Hansa Yepez APRN, BROOMMAKER CHEMISTRY ORDERABLE S Final Result Performing Organization Address City/[facility]/ZIP Co de Phone Number CANCER TUFTING MACHINE OPERATOR SINGLE NEEDLE [facility] [address] [place] [address], [place] [phone] * (ABNORMAL) IRON W/ IRON BINDING CAPACITY OH (03/20/2025 7:56 AM CDT) IRON 50 50 - 212 ug/dL CANCER TUFTING MACHINE OPERATOR SINGLE NEEDLE [facility] UIBC 381(H) 155 - 355 ug/dL CANCER TUFTING MACHINE OPERATOR SINGLE NEEDLE [facility] TIBC 431 261 - 478 ug/dl CANCER TUFTING MACHINE OPERATOR SINGLE NEEDLE [facility] % Saturation 12(L) 20 - 50 % CANCER TUFTING MACHINE OPERATOR SINGLE NEEDLE [facility] 03/20/2025 7:56 AM CDT [facility] 03/20/2025 9:19 AM CDT Release to patient->Immediate us Hansa Yepez APRN, BROOMMAKER LAB SEND OUTS Fin al Result CANCER TUFTING MACHINE OPERATOR SINGLE NEEDLE [facility] [place] [address] [place] [address], [place] [phone] * CBC WITH AUTO DIFF OH (03/20/2025 7:56 AM CDT) WBC 5.0 4.0 - 10.0 10*3/uL CANCER TUFTING MACHINE OPERATOR SINGLE NEEDLE [facility] HGB 13.8 11.2 - 15.7 g/dL CANCER TUFTING MACHINE OPERATOR SINGLE NEEDLE [facility] HCT 41.0 34.1 - 44.9 % CANCER TUFTING MACHINE OPERATOR SINGLE NEEDLE [facility] PLT 270 163 - 369 10*3/uL CANCER TUFTING MACHINE OPERATOR SINGLE NEEDLE [facility] MPV 9.9 9.4 - 12.4 fL CANCER TUFTING MACHINE OPERATOR SINGLE NEEDLE [facility] RBC 4.34 3.93 - 5.22 10*6/uL CANCER TUFTING MACHINE OPERATOR SINGLE NEEDLE [facility] MCV 95 79 - 95 fL [facility] MCH 31.8 25.6 - 32.2 pg CANCER TUFTING MACHINE OPERATOR SINGLE NEEDLE [facility] MCHC 33.7 32.2 - 36.5 g/dL CANCER TUFTING MACHINE OPERATOR SINGLE NEEDLE [facility] RDW 11.6 11.6 - 14.4 % CANCER TUFTING MACHINE OPERATOR SINGLE NEEDLE [facility] Neutrophils % 58.9 36.0 - 66.0 % CANCER TUFTING MACHINE OPERATOR SINGLE NEEDLE [facility] Lymphocytes % 27.8 19.0 - 40.0 % CANCER TUFTING MACHINE OPERATOR SINGLE NEEDLE [facility] Monocytes % 9.7 4.1 - 12.1 % CANCER TUFTING MACHINE OPERATOR SINGLE NEEDLE [facility] Eosinophils % 2.8 0.0 - 3.5 % CANCER TUFTING MACHINE OPERATOR SINGLE NEEDLE [facility] Basophils % 0.6 0.0 - 1.0 % CANCER TUFTING MACHINE OPERATOR SINGLE NEEDLE [facility] Absolute Neutrophils 2.9 1.4 - 6.6 10*3/uL CANCER TUFTING MACHINE OPERATOR SINGLE NEEDLE [facility] Absolute Lymphocytes 1.4 0.8 - 4.0 10*3/uL CANCER TUFTING MACHINE OPERATOR SINGLE NEEDLE [facility] Absolute Monocytes 0.5 0.2 - 1.2 10*3/uL CANCER TUFTING MACHINE OPERATOR SINGLE NEEDLE [facility] Absolute Eosinophils 0.1 0.0 - 0.4 10*3/uL CANCER TUFTING MACHINE OPERATOR SINGLE NEEDLE [facility] Absolute Basophils 0.0 0.0 - 0.1 10*3/uL CANCER TUFTING MACHINE OPERATOR SINGLE NEEDLE [facility] 03/20/2025 7:56 AM CDT us Hansa Yepez RETINAL ANGIOGRAPHER, BROOMMAKER LAB SEND OUTS Fin al Result CANCER TUFTING MACHINE OPERATOR SINGLE NEEDLE [facility] [place] [address], * VITAMIN B12 (03/20/2025 7:56 AM CDT) Vitamin B12 265 180 - 914 pg/mL [facility] Blood 03/20/2025 7:56 AM CDT Narrative [facility]FTING [facility]ACHINE [facility] - 03/20/2025 2:35 PM CDT Release to patient->Immediate Hansa Yepez APRN, BROOMMAKER CHEMISTRY ORDERABLE S Final Result CANCER TUFTING MACHINE OPERATOR SINGLE NEEDLE [facility] [address] [place] [address], [place] [phone] * (ABNORMAL) FERRITIN (03/20/2025 7:56 AM CDT) Ferritin 10(L) 11 - 307 ng/mL [facility]FTING [facility]ACHINE [facility] Blood 03/20/2025 7:56 AM CDT [facility] TUFTING MACHINE OPERATOR [facility] 03/20/2025 2:35 PM CDT Release to patient->Immediate Hansa Yepez APRN, BROOMMAKER CHEMISTRY ORDERABLE S Final Result Performing Organization Address City/[facility]/ZIP Co de Phone Number [facility] TUFTING MACHINE OPERATOR [facility] [address] [place] [address], * (ABNORMAL) CMP (COMPREHENSIVE METABOLIC PANEL) (03/20/2025 7:56 AM CDT) Glucose 86 70 - 105 mg/dL [facility] TUFTING MACHINE OPERATOR [facility] Blood Urea Nitrogen 12 7 - 25 mg/dL [facility] TUFTING MACHINE OPERATOR [facility] Creatinine 0.8 0.6 - 1.2 mg/dL [facility] [place] TUFTING MACHINE OPERATOR [facility] Sodium 138 136 - 145 mEq/L [facility] TUFTING MACHINE OPERATOR [facility] Potassium 3.9 3.5 - 5.1 mEq/L [facility] [place] TUFTING MACHINE OPERATOR [facility] Chloride 104 98 - 107 mEq/L [facility] [place] TUFTING MACHINE OPERATOR [facility] Bicarbonate 25 21 - 31 mEq/L [facility] Total Bilirubin 0.4 0.3 - 1.0 mg/dL [facility] [place] TUFTING MACHINE OPERATOR [facility] Alk. Phosphatase 50 34 - 104 U/L [facility] TUFTING MACHINE OPERATOR [facility] Aspartate Aminotransferase 12(L) 13 - 39 U/L [facility] Alanine Aminotransferase 9 7 - 52 U/L [facility] Total Protein 7.1 6.4 - 8.9 g/dL [facility] Albumin 4.6 3.5 - 5.7 g/dL [facility] Calcium 9.5 8.6 - 10.3 mg/dL [facility] Anion Gap 12.9 7.0 - 15.0 mEq/L [facility] Globulin 2.5 2.0 - 3.5 g/dL [facility] EGFR 93 >60 ml/min/1. 73m2 [facility] Comment: This eGFR is calculated using 2020 CKD-EPI Creatinine equation without race modifier based on the NKF-ASN task force recommendations Equation: iOLF=400*min(SCr/k,1)a*max(SCr/k,1)-1.200*0.9938Age*1.012 (if female), where SCr is serum creatinine, k is 0.7 for females and 0.9 for males, and a is -0.241 for females and -0.302 for males Blood 03/20/2025 7:56 AM CDT Narrative [facility] - 03/20/2025 9:20 AM CDT Release to patient->Immediate IS THE PATIENT REQUIRED TO BE FASTING FOR 8 HOURS?->No us Hansa Yepez RETINAL ANGIOGRAPHER, BROOMMAKER CHEMISTRY ORDERABLE S Final Result CANCER TUFTING MACHINE OPERATOR SINGLE NEEDLE [facility] [place] [address], from Last 3 Months Insurance [facility] Care Teams Fulfillment Mail Clerk Relationship Specialty Start Date End Date Vidales Rom [address] [place] [address] PCP - General Family Medicine 12/21/22 Bertha Mcgregor MD [address] [place] [address] Consulting Physician Oncology 05/10/23
--- OUTSIDE RECORDS SUMMARY | 2025-05-19 08:10 | XMS_ITS | Encounter Summary ---
Author Organization [facility] Address [address] [place] [address] Care Team Providers Care Elastic Yarn Twister Name Role Phone Rom Vidales MD Primary Care Provider [phone] Encounter Details Date Type Department Care Team (Late st Contact Info) Description 08/25/2003 Outpatient Historical [facility] Maternal and Ground Floor S [facility] [address] [place] [address] [place] [phone] Rivas Sky MD NO ADDRESS ON FILE Social History Tobacco Use Types Packs/Day Years Used Date Smoking Tobacco: Never Assessed Comments Unknown Sex and Gender Information Value Date Recorded Sex Assigned at Not on file 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
--- OUTSIDE RECORDS SUMMARY | 2025-05-19 08:10 | XMS_ITS | Clinical Summary ---
Author Organization [facility] Address [address] [place] [address] Care Team Providers Care Svp Digital Ad Sales Name Role Phone Rom Vidales MD Primary Care Provider [phone] Social History Tobacco Use Types Packs/Day Years [...] of 3 - 19+ 3-dose series) 09/03/1999 HPV Vaccines (1 - 3-dose SCD M series) 09/03/2007 Cervical Cancer Screening Pa p with HPV Testing (Age 30 to 64) Every 5 Years 2010 Cervical Cancer Screening with HPV 2010 Mammogram Screening 2020 COVID-19 Vaccine (2024-2 6 season) 2025 Influenza Adult (#1) 2025 Hepatitis A Vaccines Aged Out No long er eligible based on patient's age to complete this topic Meningococcal B Vaccine Aged Out No l onger eligible based on patient's age to complete this topic Meningococcal Vaccine Aged Out No emre jesus eligible based on patient's age to complete this topic Pneumococcal Vaccine: Pediat rics (0 to 5 Years) and At-Risk Patients (6 to 49 Years) Aged Out No longer eligible b ased on patient's age to complete this topic RSV Immunizations Under 20 Months Aged Out No longer eligible based on patient's age to complete this topic Care Teams Svp Digital Ad Sales Relationship Specialty Start Date End Date Rom Vidales MD PCP - General FAMILY PRACTICE 03/24/21
--- NOTE | 2025-05-19 08:12 | ED_ITS ---
HPI - Skin/Abscess/Foreign Bdy General Chief complaint: Skin/Abscess/Foreign Body Stated complaint: lumps in axilla Time Seen by Provider: 05/19/25 08:12 Source: patient Mode of arrival: ambulatory Limitations: no limitations History of Present Illness HPI narrative: Lumps at the armpits bilaterally noticed 2 days ago, tender to touch, she denies any fever or chills or nausea or vomiting or having similar symptoms in the past. Related Data Allergies Allergy/AdvReac Type Severity Reaction Status Date / Time azithromycin Allergy Other Verified 05/19/25 08:14 Review of Systems Review of Systems: All systems reviewed & are unremarkable except as noted in HPI and below PMFSH Past Medical History Medical History Adenomatous colon polyp GI bleed Dysphagia Globus syndrome Diarrhea Hematochezia Iron deficiency anemia Anxiety Surgical History Surgical History Hx of tubal ligation Hx of breast augmentation H/O breast implant History of bilateral tubal ligation Family History Family History Father Hydrocephalus Mother Thyroid disease Social History Social History Smoking status: Never smoker Tobacco type: e-cigarettes/vaping Alcohol intake: current Drinks per week: 5 Alcohol use details: social Substance use: never Substance use type: does not use Living arrangements: with family Spiritual care concerns: No Exam Narrative: General appearance: Well-developed, well-nourished Skin: Normal color multiple small lumps under the skin of the arm pit bilaterally erythematous papules, tender to touch. Head: Normocephalic, nontraumatic Eyes: Clear conjunctiva ENT: Oropharynx normal, ears normal, nose normal Neck: Supple, nontender Chest and respiratory: Airway patent, no respiratory distress, no accessory muscle use Heart: Regular rate/rhythm Abdomen: Soft, nontender, no organomegaly, quiet bowel sounds Vascular: Normal peripheral pulses, normal capillary refill. Musculoskeletal: Normal range of motion, nontender back Neurologic: Alert and oriented ?3, REFRIGERATION SYSTEMS INSTALLER is normal as tested, no gross motor deficit MDM - Skin/Abscess/Foreign Bdy MDM Narrative Medical decision making narrative: Patient presents with arm pits folliculitis, likely secondary to bacterial infection, patient have immune compromised, recent shaving. No labs or imaging are required at this time patient will be discharged on dicloxacillin. Differential Diagnosis Differential diagnosis: Likely other (As above) Critical Care Time Critical Care Time Critical Care Time: No Discharge Plan Discharge Clinical Impression: Folliculitis Patient Disposition: Home Condition: Stable Instructions: Antibiotic Form, Folliculitis (ED) Additional Instructions: Return if symptoms are worsening , call your family physician for appointment, take Tylenol, ibuprofen as as needed for aches and pain, continue home medications. Patient Language: Luxembourgish Prescriptions: New dicloxacillin 500 mg capsule 500 mg PO Q6H Qty: 40 0RF Follow-up/Referrals: UNKNOWN,DOCTOR [Non-Staff]
--- OUTSIDE RECORDS SUMMARY | 2025-05-19 08:35 | XMS_ITS | Encounter Summary ---
Author Organization [facility] Address 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
--- OUTSIDE RECORDS SUMMARY | 2025-05-19 08:35 | XMS_ITS | Clinical Summary ---
Author Organization [facility] [address] Address [address] [place] [address] Care Team Providers Care Customer Retention Specialist Name Role Phone Rom Vidales MD Primary Care Provider [phone] Allergies Active Allergy Reactions Criticality Noted Date [...] on file Legal Sex Female 5:47 AM COMMERCIAL COLLECTOR Gender Identity Female 08/08/2022 3:56 PM COMMERCIAL COLLECTOR Sexual Orientation Not on file Last Filed [...] series) 09/03/2007 Influenza Vaccine (#1) 2025 Insurance [facility] Care Teams Customer Retention Specialist Relationship Specialty Start Date End Date Rom Vidales MD PCP - General 07/17/15
--- OUTSIDE RECORDS SUMMARY | 2025-05-19 08:35 | XMS_ITS | Clinical Summary ---
Author Organization [facility] Address [address], [facility] [place] [address] Phone Care Team Providers Care Slime Plant Operator Helper Name Role Phone Rom Vidales Primary Care Provider [phone] Bertha Mcgregor MD Unavailable Allergies Active Allergy Reactions Criticality Noted Date Comments Azithromycin Swelling Medium 08/09/2022 Medications ferrous sulfate 325 (65 Fe) MG Tablet Take 325 mg by mouth in the morning and at bedtime. Active Multiple Vitamin (MULTIVITAMIN PO) Take 1 Tablet by mouth daily. Active Cholecalciferol 23607 UNIT Capsule Take 1 Capsule by mouth [...] CDT Clinical Support [facility] [address] [id number] Nurse, Padmini Hayden Iron deficiency anemia, unspecified iron deficiency anemia type (Primary Dx) 04/08/2025 Travel 04/03/2025 2:00 PM CDT Clinical Support [facility] [address] [address] Nurse, Cc [place]on Iron deficiency anemia, unspecified iron deficiency anemia type (Primary Dx) 04/01/2025 2:00 PM CDT Clinical Support [facility] [address] [address] Nurse, Cc Of[place] Iron deficiency anemia, unspecified iron deficiency anemia type (Primary Dx) 04/01/2025 Travel 03/28/2025 8:15 AM CDT Clinical Support [facility] [address] [address] Nurse, Cc Of[place]on Iron deficiency anemia, unspecified iron deficiency anemia type (Primary Dx) 03/26/2025 2:00 PM CDT Clinical Support [facility] [address] [address] Nurse, Cc Of[place] Iron deficiency anemia, unspecified iron deficiency anemia type (Primary Dx) 03/26/2025 Travel 03/24/2025 Telephone [facility] [address] [address] Bertha Mcgregor MD Canopy Call / Iron infusions 03/20/2025 8:15 AM CDT Office Visit [facility] [address] [id number] DeMatteiAngelicaHansa E, SENIOR SSIS DEVELOPER, VOICE TEACHER Iron deficiency anemia, unspecified iron deficiency anemia type (Primary Dx); Vitamin D deficiency; Other fatigue; Muscle twitching; Menorrhagia with irregular cycle 03/20/2025 8:05 AM CDT Lab [facility] [address] [id number] Lab, Cc [place] Iron deficiency anemia, unspecified iron deficiency anemia type; Vitamin D deficiency; Other fatigue; Muscle twitching 03/20/2025 Results Follow-Up [facility] [address] [id number] DeMattei Hansa E, SENIOR SSIS DEVELOPER, VOICE TEACHER IRON W/ IRON BINDING CAPACITY [place], FERRITIN, [...] CDT Respiratory Rate 18 07/17/2024 8:52 AM GRADE AND CENTER MARKER Oxygen Saturation 100% 03/20/2025 8:05 AM CDT [...] CDT Office Visit [facility] [address] [phone] Bertha Mcgregor MD [address] [place] [phone] Health Maintenance Due Date Last Done Comments [...] Total 33.3 30.0 - 100.0 ng/mL [facility] Comment: The Clinical Guidelines Subcommittee of the Endocrine Society Task Force established the guidelines below for recommended serum 25(OH) vitamin D levels. Other clinical reference citations may show different values. Deficient <20 Insufficient 20 to <30 Sufficient 30 to 100 Upper Safety Limit >100 Blood 03/20/2025 7:56 AM CDT Narrative [facility] - 03/21/2025 3:15 PM CDT Release to patient->Immediate us Hansa Yepez APRN, VOICE TEACHER CHEMISTRY ORDERABLE S Final Result Performing Organization Address City/[facility]/ZIP Co de Phone Number [facility] [address] [place] [address], [place] [phone] * (ABNORMAL) IRON W/ IRON BINDING CAPACITY [place] (03/20/2025 7:56 AM CDT) IRON 50 50 - 212 ug/dL [facility] UIBC 381(H) 155 - 355 ug/dL [facility] TIBC 431 261 - 478 ug/dl [facility] % Saturation 12(L) 20 - 50 % [facility] 03/20/2025 7:56 AM CDT [facility] 03/20/2025 9:19 AM CDT Release to patient->Immediate us Hansa Yepez APRN, VOICE TEACHER LAB SEND OUTS Fin al Result [facility] [place] [address] [place] [address], [place] [phone] * CBC WITH AUTO DIFF [place] (03/20/2025 7:56 AM CDT) WBC 5.0 4.0 - 10.0 10*3/uL [facility] HGB 13.8 11.2 - 15.7 g/dL [facility] HCT 41.0 34.1 - 44.9 % [facility] PLT 270 163 - 369 10*3/uL [facility] MPV 9.9 9.4 - 12.4 fL [facility] RBC 4.34 3.93 - 5.22 10*6/uL [facility] MCV 95 79 - 95 fL [facility] MCH 31.8 25.6 - 32.2 pg [facility] MCHC 33.7 32.2 - 36.5 g/dL [facility] RDW 11.6 11.6 - 14.4 % [facility] Neutrophils % 58.9 36.0 - 66.0 % [facility] Lymphocytes % 27.8 19.0 - 40.0 % [facility] Monocytes % 9.7 4.1 - 12.1 % [facility] Eosinophils % 2.8 0.0 - 3.5 % [facility] Basophils % 0.6 0.0 - 1.0 % [facility] Absolute Neutrophils 2.9 1.4 - 6.6 10*3/uL [facility] Absolute Lymphocytes 1.4 0.8 - 4.0 10*3/uL [facility] Absolute Monocytes 0.5 0.2 - 1.2 10*3/uL [facility] Absolute Eosinophils 0.1 0.0 - 0.4 10*3/uL [facility] Absolute Basophils 0.0 0.0 - 0.1 10*3/uL [facility] 03/20/2025 7:56 AM CDT us Hansa Yepez SENIOR SSIS DEVELOPER, VOICE TEACHER LAB SEND OUTS Fin al Result [facility] [place] [address], * VITAMIN B12 (03/20/2025 7:56 AM CDT) Vitamin B12 265 180 - 914 pg/mL [facility] Blood 03/20/2025 7:56 AM CDT Narrative [facility] - 03/20/2025 2:35 PM CDT Release to patient->Immediate Hansa Yepez APRN, VOICE TEACHER CHEMISTRY ORDERABLE S Final Result [facility] [address] [place] [address], [place] [phone] * (ABNORMAL) FERRITIN (03/20/2025 7:56 AM CDT) Ferritin 10(L) 11 - 307 ng/mL [facility] Blood 03/20/2025 7:56 AM CDT [facility] - 03/20/2025 2:35 PM CDT Release to patient->Immediate Hansa Yepez APRN, VOICE TEACHER CHEMISTRY ORDERABLE S Final Result Performing Organization Address City/[facility]/ZIP Co de Phone Number [facility] [address] [place] [address], * (ABNORMAL) CMP (COMPREHENSIVE METABOLIC PANEL) (03/20/2025 7:56 AM CDT) Glucose 86 70 - 105 mg/dL [facility] Blood Urea Nitrogen 12 7 - 25 mg/dL [facility] Creatinine 0.8 0.6 - 1.2 mg/dL [facility] Sodium 138 136 - 145 mEq/L [facility] Potassium 3.9 3.5 - 5.1 mEq/L [facility] Chloride 104 98 - 107 mEq/L [facility] Bicarbonate 25 21 - 31 mEq/L [facility] Total Bilirubin 0.4 0.3 - 1.0 mg/dL [facility] Alk. Phosphatase 50 34 - 104 U/L [facility] Aspartate Aminotransferase 12(L) 13 - 39 U/L [facility] Alanine Aminotransferase 9 7 - 52 U/L [facility] Total Protein 7.1 6.4 - 8.9 g/dL [facility] Albumin 4.6 3.5 - 5.7 g/dL [facility] Calcium 9.5 8.6 - 10.3 mg/dL [facility] Anion Gap 12.9 7.0 - 15.0 mEq/L [facility] Globulin 2.5 2.0 - 3.5 g/dL [facility] EGFR 93 >60 ml/min/1. 73m2 [facility] Comment: This eGFR is calculated using 2020 CKD-EPI Creatinine equation without race modifier based on the NKF-ASN task force recommendations Equation: kMHK=095*min(SCr/k,1)a*max(SCr/k,1)-1.200*0.9938Age*1.012 (if female), where SCr is serum creatinine, k is 0.7 for females and 0.9 for males, and a is -0.241 for females and -0.302 for males Blood 03/20/2025 7:56 AM CDT Narrative [facility] - 03/20/2025 9:20 AM CDT Release to patient->Immediate IS THE PATIENT REQUIRED TO BE FASTING FOR 8 HOURS?->No us Hansa Yepez SENIOR SSIS DEVELOPER, VOICE TEACHER CHEMISTRY ORDERABLE S Final Result [facility] [place] [address], from Last 3 Months Insurance [facility] Care Teams Slime Plant Operator Helper Relationship Specialty Start Date End Date Vidales Rom [address] [place] [address] PCP - General Family Medicine 12/21/22 Bertha Mcgregor MD [address] [place] [address] Consulting Physician Oncology 05/10/23
--- OUTSIDE RECORDS SUMMARY | 2025-05-19 08:35 | XMS_ITS | Encounter Summary ---
Author Organization [facility] Address [address] [place] [address] Phone Care Team Providers Care Sales Support Engineer Name Role Phone Rom Vidales Primary Care Provider [phone] Bertha Mcgregor MD Unavailable Encounter Details Date Type Department Care Team (Late st Contact Info) Description 01/30/2024 Telephone [facility] [address] [place] [address] Bertha Mcgregor MD [address] [place] [address] Social History Tobacco Use Types [...] CDT Office Visit [facility] [address] [place] [phone] Bertha Mcgregor MD [address] [place] [phone] documented as of this encounter Visit Diagnoses Not on filedocumented in this encounter Care Teams Sales Support Engineer Relationship Specialty Start Date End Date Rom Vidales [address] [place] [address] PCP - General Family Medicine 12/21/22 Bertha Mcgregor MD [address] [place] [id number] Consulting Physician Oncology 05/10/23 documented as of this encounter
--- OUTSIDE RECORDS SUMMARY | 2025-05-19 08:35 | XMS_ITS | Clinical Summary ---
Author Organization [email or web address] Address [address] [place] [address] Care Team Providers Care Orchard Sprayer Name Role Phone Rom Vidales MD Primary Care Provider [phone] Source Comments [email or web address],non-owned Affiliates and Associated Physician Practices is amultiple site organization consisting of ambulatory clinics and hospital sitesin [place], [place], [place] and [place]. This disclosure is being madepursuant to the Care Everywhere program and may not contain all information available regarding this patient. Last updated 18.[email or web address] Allergies No known active allergies Medications * [...] on file Legal Sex Female 6:25 AM RESPIRATORY SUPPORT TECHNICIAN Gender Identity Not on file Sexual [...] age to complete this topic Insurance [facility] [facility] Care Teams Orchard Sprayer Relationship Specialty Start Date End Date Rom Vidales MD PCP - General 10/22/19
--- OUTSIDE RECORDS SUMMARY | 2025-05-19 08:35 | XMS_ITS | Encounter Summary ---
Author Organization [facility] Address [address] [place] [address] Care Team Providers Care Shovel Log Loader Operator Name Role Phone Rom Vidales MD Primary Care Provider [phone] Encounter Details Date Type Department Care Team (Late st Contact Info) Description 08/25/2003 Outpatient Historical [facility] Maternal and Ground Floor S [place] [facility] [address] [place] [phone] Rivas Sky MD NO ADDRESS ON FILE Social History Tobacco Use Types Packs/Day Years Used Date Smoking Tobacco: Never Assessed Comments Unknown Sex and Gender Information Value Date Recorded Sex Assigned at Not on file Legal Sex Female 4:24 AM 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
--- OUTSIDE RECORDS SUMMARY | 2025-05-19 08:35 | XMS_ITS | Clinical Summary ---
Author Organization 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 Not on file Not on file Last Filed Vital Signs Vital Sign Reading Time Taken Comments Blood Pressure 122/86 07/15/2019 10:50 AM ENERGY MANAGEMENT SPECIALIST Pulse - - Temperature 36.8 C (98.2 F) 07/15/2019 10:50 AM ENERGY MANAGEMENT SPECIALIST Respiratory Rate - - Oxygen Saturation - - Inhaled Oxygen Concentration - - Weight 58 kg (127 lb 12.8 oz) 07/15/2019 10:50 A M ENERGY MANAGEMENT SPECIALIST Height 167.6 cm (5' 6) 07/15/2019 10:50 AM ENERGY MANAGEMENT SPECIALIST Body Mass Index 20.63 07/15/2019 10:50 AM ENERGY MANAGEMENT SPECIALIST Plan of Treatment Health Maintenance Due Date [...] OR WO CAD Routine 07/15/2019 9:53 AM ENERGY MANAGEMENT SPECIALIST Rash from Last 3 Months or Most Recently Relevant to Health Maintenance Results * MAMMO DIAG BILAT 3D ESTEFANY W OR WO CAD (07/15/2019 9:53 AM ENERGY MANAGEMENT SPECIALIST) Anatomical Region Laterality Modality Breast Bilateral Mammography 07/15/2019 9:53 AM ENERGY MANAGEMENT SPECIALIST Impressions 07/15/2019 10:19 AM ENERGY MANAGEMENT SPECIALIST IMPRESSION: No mammographic evidence of malignancy. RECOMMENDATIONS: Routine mammogram in one year. DICTATION LOCATION: [facility] 07/15/2019 10:19 AM ENERGY MANAGEMENT SPECIALIST EXAM: BILATERAL DIAGNOSTIC FULL-FIELD DIGITAL MAMMOGRAPHY WITH [...] Routine mammogram in one year. DICTATION LOCATION: [facility] Kary Fisher MD MAMMO ORDERABLES Eliane l Result from Last 3 Months or Most Recently Relevant to Health Maintenance Care Teams Dewaxer Relationship Specialty Start Date End Date Rom Vidales MD [facility] [email or web address] [address] PCP - General Family Practice 07/15/19
== END 2025-05-19 08:30 | disposition home or self-care (01) ==
LOC: CHSED 08:22
PROVIDERS: Emergency Provider Emergency Medicine; PCP Emergency Medicine
DX: L73.8 Other specified follicular disorders (principal)
CPT/HCPCS: 99283